=== PATIENT | female | born 1955 | race Caucasian/White ===

== ENCOUNTER → 2017-07-11 08:03 | Outpatient (CLI) | payer MEDICARE, SELFPAY ==
--- NOTE | 2017-07-11 08:30 | XR_ITS ---
XR DEXA axial skeleton HISTORY: ITS.REASON: OSTEOPENIA DETERMINED BY XRAY ORDERING PHYSICIAN: Otto Hua MD PATIENT AGE: 62 years COMPARISON: 02/22/2016 FINDINGS: The BMD measured at the Right femoral neck is 0.764 g/cm squared with a T score of -2.0 . This is considered Osteopenic according to the World Health Organization criteria. Fracture risk is Moderate. Treatment is advised. The L1-L4 density has a T score of -1.0. This is increased by 6% compared to the previous study. The hip density is unchanged compared to the previous exam IMPRESSION: Osteopenia with moderate fracture risk. Recommend follow-up exam June 2019
== END ==
PROVIDERS: Family Provider Internal Medicine Adolescent Medicine; PCP Internal Medicine Adolescent Medicine; Visit Provider Internal Medicine Adolescent Medicine
DX: M85.89 Other specified disorders of bone density and structure, multiple sites (principal); Z13.820 Encounter for screening for osteoporosis
CPT/HCPCS: 77080

== ENCOUNTER → 2018-02-19 10:33 | Outpatient (CLI) | payer MEDICARE, SELFPAY ==
--- NOTE | 2018-02-19 10:35 | MM_ITS ---
MM Dig SC mamm unilat RT CAD Ordering Physician: Otto Hua MD Patient Age: 63 years Female COMPARISON: Bilateral mammogram to 811, February 2015, May 2009, CT chest low dose screening May 23, 2016. INDICATION: Routine screening right mammogram. Left mastectomy No hormones no new complaints Family history:. Sister breast cancer age 53. Maternal grandmother with breast cancer TECHNIQUE: Cc and MLO view right breast with CAD FINDINGS: . Scattered residual fibroglandular elements central breast seen superiorly. Minimal, lower breast density overall mild diffuse fatty replacement. The main portion of right itself shows no dominant mass nor suspicious findings.. The small stable grouping of punctate benign-appearing likely skin calcifications the inferior mammary fold again noted. On today's cc view there subtle minor focal density seen at the posterior margin of the film which was not evident, on previous mammogram studies most likely this may reflects today's right mammogram including deeper portion of right breast than previous. MLO view shows a somewhat similar density back in 2014 with likely similar deep planar tissue 2017 screening LDCT chest as well. May account for such. However in this higher risk patient, with history of contralateral breast cancer and positive family history, to be cautious a suggest patient return for attempted spot CC and 90 degree views of this area IMPRESSION 1. Right mammogram. Minimal new density at very posterior margin of today's cc image (-which does include a deeper portion of the breast than previous studies).. Likely this is merely minimal benign tissue or intramammary node. However with higher risk history with suggest this patient return for small spot CC & MLO view of this area.. A follow-up right mammogram in 4-6 months would be reasonable alternative 2. BI-RADS Category: 0 Need Additional Imaging Evaluation RECOMMENDED FOLLOW-UP: IMM - FOLLOW-UP RECOMMENDED Spot views right breast A letter has been sent to the patient regarding results of the study.) 2 view
== END ==
PROVIDERS: PCP Internal Medicine Adolescent Medicine; Visit Provider Internal Medicine Adolescent Medicine
DX: Z12.31 Encounter for screening mammogram for malignant neoplasm of breast (principal)
CPT/HCPCS: 77067

== ENCOUNTER → 2018-03-21 13:45 | Outpatient (CLI) | payer MEDICARE, SELFPAY ==
--- NOTE | 2018-03-21 13:48 | MM_ITS ---
MM Dig mamm DX unilat RT CAD INDICATION: Follow-up abnormal mammogram ORDERING PHYSICIAN: Otto Hua MD PATIENT AGE: 63 years COMPARISON: 02/19/2018, 03/16/2015, 06/10/2010 TECHNIQUE: Problem-solving views performed of the right breast FINDINGS: The asymmetric density in the deep aspect of the right breast doesn't appear to compress out on focal spot compression view on both the CC and MLO images. There was a small persistent residual density in the mid aspect of the right breast on MLO view which appears to compress out as well. No malignant appearing mass or malignant microcalcification IMPRESSION: No convincing evidence of malignancy. Asymmetric density felt to represent fibroglandular tissue BI-RADS Category: 3 Probably Benign Finding Short Term Follow-up RECOMMENDED FOLLOW-UP: 6M - 6 MONTH FOLLOW-UP (A letter has been sent to the patient regarding results of the study.)
== END ==
PROVIDERS: PCP Internal Medicine Adolescent Medicine; Visit Provider Internal Medicine Adolescent Medicine
DX: R92.8 Other abnormal and inconclusive findings on diagnostic imaging of breast (principal)
CPT/HCPCS: 77065

== ENCOUNTER → 2018-10-21 07:34 | Outpatient (CLI) | payer MEDICARE, SELFPAY ==
--- NOTE | 2018-10-21 07:38 | CT_ITS ---
CT lung screening EXAM: CT LUNG LOW DOSE WO CONTRAST HISTORY: 35 pack-year smoking history asymptomatic for lung cancer. ITS.REASON: CURRENT TOBACCO USE ORDERING PHYSICIAN: Otto Hua MD PATIENT AGE: 63 years COMPARISON: None TECHNIQUE: The exam was performed on a [employer] Light Speed [address] scanner using 2.90 mGy CTDI. A low dose helical CT CHEST was performed on a multi-detector scanner. All CT scans at the facility use one or more dose reduction, viz: automated exposure control, ma/kV adjustment per patient size (including targeted exams where dose is matched to indication, i.e. head), or iterative reconstruction technique. The LDCT was performed in a facility that meets the criteria for the screening program. Data regarding this exam was submitted to ACR which is an approved registry. The order for this exam indicates that it came as a result of a lung cancer screening counseling shard decision-making visit that included all the elements required of such a visit including smoking cessation. The radiologist interpreting this exam meets the CMS criteria for the LDCT lung cancer screening program. The exam is reported using the Lung-RADS classification scale and reported to the ACR registry. NOTE: This study was performed for the specific purposes of lung cancer screening and is not an alternative to diagnostic chest CT. RADIATION DOSE: CTDI vol(CT dose Index-volume) = 2.90mG DLP (Dose Length Product) = 110.46 mGcm FINDINGS: Centrilobular and paraseptal emphysematous changes are present. There is evidence of old granulomatous disease. A 3 mm noncalcified nodule is present in the superior segment of the right lower lobe series 4 #31. 4 mm noncalcified nodule superior aspect right upper lobe series 4 #18. 5 mm noncalcified nodule right upper lobe series 4 #19. 6 mm noncalcified nodule right upper lobe series 4 #20. Pulmonary fibrotic changes are present in the left upper lobe anteriorly with some honeycombing peripherally. In the left apex there is a 2 cm pleural-based nodule. This does have some peripheral calcification and could represent an area of fibrosis. 7 mm noncalcified nodule left upper lobe series 4 #34 Prior left mastectomy 4 x 2.7 cm left adrenal mass is low density measuring -30 Hounsfield units consistent with adenoma. No acute bony anomalies. IMPRESSION: 1. Lung RADS Category: 4, suspicious regarding the multiple noncalcified pulmonary nodules in this patient with history of breast cancer and the dominant nodule in the left apex. The left apical nodule however could be due to fibrotic change as there is some peripheral calcification. 2. Other findings: Centrilobular emphysema with pulmonary fibrotic change, left adrenal mass RECOMMENDATIONS: Suggest either a PET/CT or a [address] without and with contrast. Also if old films are available at another institution, would recommend submitting those for comparison
== END ==
PROVIDERS: PCP Internal Medicine Adolescent Medicine; Visit Provider Internal Medicine Adolescent Medicine
DX: Z12.2 Encounter for screening for malignant neoplasm of respiratory organs (principal); Z87.891 Personal history of nicotine dependence

== ENCOUNTER → 2018-11-12 09:26 | Outpatient (CLI) | payer MEDICARE, SELFPAY ==
[2018-11-12 09:43] LABS: Blood Urea Nitrogen 18 mg/dL (7-18); Creatinine,Serum 0.86 mg/dL (0.55-1.02); Estimated Glomerular Filt Rate 67 ml/min (>60); GFR (African American) 81 ML/MIN (>60)
--- NOTE | 2018-11-12 09:54 | CT_ITS ---
CT chest w con HISTORY: ITS.REASON: PULMONARY NODULES ORDERING PHYSICIAN: Otto Hua MD PATIENT AGE: 63 years COMPARISON: 10/21/2018. TECHNIQUE: Axial images obtained following the administration of 75 mL of Optiray 350 . Sagittal, and coronal reformatted images are also generated and reviewed. All CT scans at the facility use one or more dose reduction, viz: automated exposure control, ma/kV adjustment per patient size (including targeted exams where dose is matched to indication, i.e. head), or iterative reconstruction technique. FINDINGS: Airway structures are patent without pleural effusion or pneumothorax. Mediastinal areas are stable and unremarkable with a few small benign-appearing lymph nodes. Heart size and thoracic aorta are stable. There is no pericardial effusion. Again seen are the changes from prior left mastectomy. There are some stable appearing right axillary lymph nodes. The 2.0 cm partially calcified left apical opacity is unchanged. The previously described in detail noncalcified punctate lung nodules bilaterally more numerous in the right upper lobe are unchanged considering some difference in technique. Also stable are the peripheral areas of honeycomb changes along with interstitial prominence. Remainder of the lung mondragon are clear. There is stable enlargement of the left adrenal gland described on the prior report. Visualized portions of the liver and the remainder of the upper abdomen area appears unremarkable. Impression: PET/CT could evaluate the left apical density and the left adrenal gland lesion however the other nodules are too small to evaluate with PET/CT scan. However as noted on the prior report a follow-up CT of the chest at 3 months from 10/21/2018 which still be the recommendation rather than follow-up in only 22 days. No other change or acute process.
== END ==
PROVIDERS: Visit Provider Internal Medicine Adolescent Medicine
DX: R91.8 Other nonspecific abnormal finding of lung field (principal)
CPT/HCPCS: 36415; 71260; 82565; 84520; Q9967

== ENCOUNTER → 2019-10-27 09:42 | Outpatient (CLI) | payer MEDICARE, SELFPAY ==
--- NOTE | 2019-10-27 09:57 | XR_ITS ---
PROCEDURE: XR DEXA AXIAL SKELETON CLINICAL HISTORY: OSTEOPENIA COMPARISON: No exams were available for comparison FINDINGS: The right hip BMD is 0.709 with a t-score of -1.3. The left hip BMD is 0.677 with a t-score of -1.6. The lumbar spine BMD is 0.869 with a t-score of -1.6. IMPRESSION: This patient is considered osteopenic according to the World Health Organization criteria. Bone density is between 10 and 25 percent below young normal . Fracture risk is moderate. Treatment is advised. Based on these results of follow-up exam is recommended in 2 years Dictated by: Luis Eduardo Edwards MD 10/27/2019 22:42 Electronically signed by Luis Eduardo Edwards MD in [place] 10/28/2019 10:45
== END ==
PROVIDERS: PCP Internal Medicine Adolescent Medicine; Visit Provider Internal Medicine Adolescent Medicine
DX: M85.89 Other specified disorders of bone density and structure, multiple sites (principal)
CPT/HCPCS: 77080

== ENCOUNTER → 2019-12-13 08:05 | Outpatient (CLI) | payer MEDICARE, SELFPAY ==
[2019-12-13 09:31] LABS: Coronavirus 19 IgG Antibody Negative (Negative); Coronavirus 19 IgM Antibody Negative (Negative)
== END ==
PROVIDERS: Visit Provider Internal Medicine Gastroenterology
DX: Z01.818 Encounter for other preprocedural examination (principal); Z12.11 Encounter for screening for malignant neoplasm of colon
CPT/HCPCS: 36415; 86328

== ENCOUNTER 2019-12-15 09:31 | Day surgery (SDC) | payer MEDICARE, SELFPAY ==
[2019-12-09 14:26] VITALS: BMI 39.2
[2019-12-15] VITALS (7 sets, daily range): BP systolic 125–164; BP diastolic 56–91; PULSE 71–83; RESP 18; TEMP 36.3; O2SAT 94–99
[2019-12-15 10:15] LABS: POC Glucose,Bedside 98 (70-110)
--- NOTE | 2019-12-15 10:56 | HMH.ANESCL ---
[facility] Anesthesia Checklist - Patient Identification Patient Identification: Arm Band - Structural Data Admitted From: Home Planned Operative Procedure/s: colonoscopy Verified Documents: Surgical Consent, History and Physical - NPO Status Verified Time NPO: 00:00 - Additional verifications Anesthesia Reactions: No - Airway Assessment C-Spine Mobility Assessed: Yes (mp2) TMJ Mobility Assessed: Yes Dentition: Good Dentition - Neurological Assessment Level of Consciousness: Awake, Alert - Anesthesia Plan Anesthesia Risk discussed: Yes Anesthesia Plan: Verified ASA Class: III Anesthesia Type: MAC [facility] History I have reviewed the patient's past medical history: Yes Medical History: Reports:: Anxiety, Cancer, Chronic Obstructive Pulmonary Disease (COPD), Depression, Diabetes Mellitus Type 2, Hyperlipidemia, Hypertension Denies:: MRSA, Seizures *Have you ever received a pneumonia vaccine?: Yes *Have you received a flu vaccine this season?: Yes Anesthesia experience/problems:: nac Laterality Cases: Left: Mastectomy, Bilateral: Tonsillectomy Other Surgeries: Yes: Appendectomy, Cholecystectomy, Colonoscopy, Hysterectomy-Total Amputation: No Fractures: Yes (Left arm ) - *Social History Last grade of school completed: High school graduate Smoking Status: Current every day smoker Tobacco Type: cigarettes # Packs/Day (cigarettes): 1 Alcohol Intake: never Alcohol Intake Frequency:: other Substance Use Type: denies use *Occupational Status:: disabled *Travel in the last 8 weeks: None - Psychiatric History Pschychiatric History:: Reports:: Anxiety, Depression Family Hx:: Diabetes (Mom, Aunt), Cancer (father, brother, sister), Hypertension (father), Heart Attack (father )
--- NOTE | 2019-12-15 11:19 | P.PCN_ITS ---
[facility] Procedure Note Procedure Note:: Colonoscopy Procedure Report: Colonoscopy with cold snare polypectomy Endoscopist: Maxim Driscoll II, MD Referring physician: Otto Hua M.D. Date of Procedure: December 15, 2019 Equipment: Olympus 180 variable stiffness pediatric colonoscope Sedation: MAC sedation Indication: Mrs. Amaro is a 64-year-old female who is here for follow-up surveillance/screening colonoscopy secondary to a personal history of colon polyps (adenomatous polyps). Her last colonoscopy was in 2014. She reports no abdominal pain, weight loss, change in her bowel habits or rectal bleeding. She reports no family history of colon cancer. Procedure: Prior to the procedure, a history and physical exam was performed, and patient's medications and allergies were reviewed. The risks, benefits and alternatives of the sedation and procedure were discussed with the patient. All questions were answered and informed consent was obtained. The patient was brought to the procedure room. Patient identification and proposed procedure were verified by the physician and the nurse. The patient was placed in a left lateral decubitus position and the scope was passed under direct vision. Throughout the procedure, the patient's blood pressure, pulse, and oxygen saturations were monitored continuously. The colonoscopy was accomplished without difficulty. The patient tolerated the procedure well. Findings: On digital rectal examination there was normal rectal tone. There were no external hemorrhoids. The colonoscope was introduced through the anal canal to the rectum and advanced to the cecum. The ileocecal valve and appendiceal orifice were identified. The scope was advanced a short distance into the ileum which appeared grossly normal. The scope was then withdrawn into the colon. The cecum was normal. There were 2 polyps (ascending x1 (6 mm) and sigmoid colon (5 mm)) which were both removed via cold snare polypectomy. There were scattered diverticuli throughout the descending and sigmoid colon (LEFT colon). The rectum itself was normal. Upon retroflexion within the rectum there were grade 1-2 int ernal hemorrhoids. The preparation was excellent throughout with Mary Esther Preparation Score of 9. The cecal time was 12 minutes. Impression: 1. Colonic polyps x2 2. Left-sided diverticulosis 3. Grade 1-2 internal hemorrhoids Plan: I will follow up the polyp pathology and recommend repeat colonoscopy again in 5-7 years based upon the polyp histology. I would encourage fiber supplementation on a long-term daily maintenance basis.
== END 2019-12-15 12:16 | disposition home or self-care (01) ==
LOC: OUTP 09:34
PROVIDERS: PCP Internal Medicine Adolescent Medicine; Visit Provider Internal Medicine Gastroenterology
PROC: 0DJD8ZZ Inspection of Lower Intestinal Tract, Via Natural or Artificial Opening Endoscopic (ICD-10-PCS; CPT 45378; principal; 2019-12-15 11:00)
DX: Z12.11 Encounter for screening for malignant neoplasm of colon (principal); Z86.010 Personal history of colon polyps; K57.30 Diverticulosis of large intestine without perforation or abscess without bleeding; K63.5 Polyp of colon; K64.0 First degree hemorrhoids; E11.9 Type 2 diabetes mellitus without complications; F41.9 Anxiety disorder, unspecified; J44.9 Chronic obstructive pulmonary disease, unspecified; Z87.898 Personal history of other specified conditions; E78.5 Hyperlipidemia, unspecified; I10 Essential (primary) hypertension; Z79.899 Other long term (current) drug therapy
CPT/HCPCS: 45385; 82962; 88305

== ENCOUNTER → 2020-04-28 14:55 | Outpatient (CLI) | payer MEDICARE, SELFPAY ==
--- NOTE | 2020-04-28 14:59 | CT_ITS ---
PROCEDURE: CT LUNG SCREENING CLINICAL INDICATION: H/O NICOTINE DEPENDENCE current smoker 50 pack year smoking history copd hx breast ca prior 10/21/18 COMPARISON: CT CHESTW CT chest w con from 11/12/2018 TECHNIQUE: The exam was performed on a [employer] Light Speed [address] scanner using 2.90 mGy CTDI. A low dose helical CT CHEST was performed on a multi-detector scanner. All CT scans at the facility use one or more dose reduction, viz: automated exposure control, ma/kV adjustment per patient size (including targeted exams where dose is matched to indication, i.e. head), or iterative reconstruction technique. The LDCT was performed in a facility that meets the criteria for the screening program. Data regarding this exam was submitted to ACR which is an approved registry. The order for this exam indicates that it came as a result of a lung cancer screening counseling shard decision-making visit that included all the elements required of such a visit including smoking cessation. The radiologist interpreting this exam meets the CMS criteria for the LDCT lung cancer screening program. The exam is reported using the Lung-RADS classification scale and reported to the ACR registry. NOTE: This study was performed for the specific purposes of lung cancer screening and is not an alternative to diagnostic chest CT. RADIATION DOSE: CTDI vol(CT dose Index-volume) = 2.90mG DLP (Dose Length Product) = 100.81 mGcm FINDINGS: Changes of COPD with centrilobular emphysema and scattered areas of scarring. Asymmetric opacity is present in the left apex with some calcification. This is similar compared to the previous exam and may be due to apical scarring. This measures 2 cm transverse. There is a 4 mm noncalcified nodule in the major fissure inferiorly on the right. Paraseptal emphysematous changes are present as well. There is evidence of old granulomatous disease. OTHER FINDINGS: There is right axillary adenopathy with nodes measuring up to 1.8 x 1.2 cm. There has been a prior left mastectomy. There is a 4.6 x 2.8 cm left adrenal mass with an internal density of -30 Hounsfield units consistent with an adrenal adenoma the the lesion is not significantly changed in size but the internal density has decreased compared to the previous study. There are few small mediastinal lymph nodes which are not significantly changed. IMPRESSION: Lung-RADS Category 2 Benign Appearance or Behavior Follow-up: Continue annual screening with LDCT in 12 months Right axillary adenopathy is noted. Please correlate with clinical parameters as to the clinical significance. Dictated by: Luis Eduardo dEwards MD 05/03/2020 07:13 Luis Eduardo Edwards MD in [place] 05/03/2020 07:13
--- NOTE | 2020-04-28 15:00 | MM_ITS ---
PROCEDURE: MM DIG SC MAMM UNILAT RT CAD Digital Breast Tomosynthesis Included CLINICAL INDICATION: SCREENING Previous left mastectomy for malignancy. There is a history of breast cancer in the patient's maternal grandmother and the patient's sister COMPARISON: Right mammogram 03/21/2018, 02/19/2018 and 03/16/2015 TECHNIQUE: Standard CC and MLO images and 3D Tomosynthesis was obtained. R2 CAD reviewed. FINDINGS: Scattered fibroglandular densities are seen throughout the breast. There is a stable tiny benign-appearing nodular density deep within central portion. There are few scattered benign-appearing microcalcifications seen. There is no suspicious lesion and no suspicious microcalcifications. IMPRESSION: Fibrofatty parenchyma with no suspicious lesions seen BI-RAD Category: 2 Benign Finding(s) FOLLOW-UP: 1YR 1 Year Follow-up (A letter has been sent to the patient regarding results of the study.) Dictated by: Dr. Washington Bradshaw MD 05/02/2020 10:06 Dr. Washington Bradshaw MD in [place] 05/02/2020 10:06
== END ==
PROVIDERS: PCP Internal Medicine Adolescent Medicine; Visit Provider Internal Medicine Adolescent Medicine
DX: Z12.31 Encounter for screening mammogram for malignant neoplasm of breast (principal); Z85.3 Personal history of malignant neoplasm of breast; Z87.891 Personal history of nicotine dependence; Z12.2 Encounter for screening for malignant neoplasm of respiratory organs
CPT/HCPCS: 71271; 77063; 77067

== ENCOUNTER → 2020-10-20 10:52 | Outpatient (CLI) | payer SELFPAY ==
[2020-10-20 12:03] LABS: Basophils # 0.1 K/mm3 (0-0.2); Basophils % 0.7 % (0.1-2.0); Eosinophils # 0.2 K/mm3 (0.0-0.4); Eosinophils % 1.8 % (0.1-12.0); Hematocrit 44.7 % (37.0-47.0); Hemoglobin 14.9 g/dL (12.2-16.2); Lymphocytes # 4.3 K/mm3 (0.7-4.5); Lymphocytes % 37.1 % (10-50); Mean Corpuscular HGB Conc 33.3 g/dL (31.8-35.4); Mean Corpuscular Hemoglobin 29.7 pg (27.0-31.2); Mean Corpuscular Volume 89.4 fl (81-99); Mean Platelet Volume 8.8 fl (7.4-10.4); Monocytes # 0.7 K/mm3 (0.1-1.0); Monocytes % 6.2 % (1.7-9.3); Neutrophils # 6.3 K/mm3 (1.8-7.8); Neutrophils % 54.1 % (37.0-80.0); Platelet Count 276 K/mm3 (142-424); White Blood Count 11.6 K/mm3 (4.8-10.8)
[2020-10-20 12:23] LABS: Hemoglobin A1C 5.5 % (4.0-6.0)
[2020-10-20 12:40] LABS: Chloride 104 mmol/L (98-107)
[2020-10-20 12:41] LABS: Potassium 3.5 mmoL/L (3.5-5.1); Sodium 142 mmol/L (136-145)
[2020-10-20 12:43] LABS: Alanine Aminotransferase 22 U/L (12-78); Anion Gap 14.5 mEq/L (5-15); Aspartate Amino Transferase 26 U/L (14-36); Blood Urea Nitrogen 15 mg/dl (7-17); Carbon Dioxide 27 mmol/L (22.0-30.0); Estimated Glomerular Filt Rate 84 ml/min (>60); GFR (African American) 102 ML/MIN (>60)
[2020-10-20 12:44] LABS: Albumin Level 4.6 g/dl (3.5-5.0); Albumin/Globulin Ratio 1.6 (1.1-1.8); Alkaline Phosphatase 78 U/L (38-126); Bilirubin,Total 0.7 mg/dl (0.2-1.3); Calcium 9.7 mg/dl (8.4-10.2); Chol/HDL Ratio 2.5 (1-3.5); Cholesterol 167 mg/dl (140-200); Globulin 2.9 g/dL (1.3-3.2); Glucose 82 mg/dl (74-100); HDL Cholesterol 66 mg/dl (40-60); Total Protein,Serum 7.5 g/dl (6.3-8.2); Triglycerides 157 mg/dl (30-150); VLDL Cholesterol 31 mg/dL (0-40)
[2020-10-20 12:55] LABS: Direct LDL Cholesterol 76.65 mg/dL (100-129)
== END ==
PROVIDERS: Visit Provider Internal Medicine Adolescent Medicine
DX: E11.9 Type 2 diabetes mellitus without complications (principal); E78.5 Hyperlipidemia, unspecified; J43.1 Panlobular emphysema; Z79.84 Long term (current) use of oral hypoglycemic drugs
CPT/HCPCS: 36415; 80053; 80061; 83036; 85025

== ENCOUNTER → 2021-04-27 11:24 | Outpatient (CLI) | payer MEDICARE, SELFPAY ==
[2021-04-27 12:29] LABS: Anion Gap 10.5 mEq/L (5-15); Blood Urea Nitrogen 25 mg/dl (7-17); Calcium 9.4 mg/dl (8.4-10.2); Carbon Dioxide 29 mmol/L (22.0-30.0); Chloride 101 mmol/L (98-107); Estimated Glomerular Filt Rate 56 ml/min (>60); GFR (African American) 67 ML/MIN (>60); Glucose 93 mg/dl (74-100); Potassium 3.5 mmoL/L (3.5-5.1); Sodium 137 mmol/L (136-145)
[2021-04-27 12:30] LABS: Hemoglobin A1C 5.6 % (4.0-6.0)
== END ==
PROVIDERS: Visit Provider Internal Medicine Adolescent Medicine
DX: I10 Essential (primary) hypertension (principal); E11.9 Type 2 diabetes mellitus without complications; Z79.84 Long term (current) use of oral hypoglycemic drugs
CPT/HCPCS: 36415; 80048; 83036

== ENCOUNTER → 2021-09-02 09:05 | Outpatient (CLI) | payer MEDICARE, SELFPAY ==
--- NOTE | 2021-09-02 09:09 | XR_ITS ---
FINAL REPORT TECHNIQUE: Bone mineral density was calculated of the lumbar spine and hip. CLINICAL HISTORY: . post menopausal screening COMPARISON: October 27, 2019 FINDINGS: DEXA BONE DENSITY AXIAL SKELETON Using L1-4, the bone mineral density of the spine is 0.957 g/cm2, corresponding to T-score of -0.8. Was 0.869 g/cm2 with a T-score of-1.6. Using the left hip, the bone mineral density of the femoral neck is 0.656 g/cm2, corresponding to a T-score of -1.7. Was 0.677 g/cm2 with a T-score of -1.6 NOTE: T-score: Standard deviation compared with peak bone mass of young adult mean. *Following the recommendations of the International Society of Bone densitometry, classification of hip BMD is based on the lower of two T-scores; total hip or femoral neck. IMPRESSION: Diminished bone mineral density of the lumbar spine and left hip consistent with osteopenia. FRAX 10 year fracture risk is 14 % for major osteoporotic fracture. Reviewed, Interpreted and Dictated by Lake Lopez III, MD Transcribed by Meagan Blanco Authenticated by Lake Lopez III, MD on 09/02/2021 02:21:54 PM [facility]
--- NOTE | 2021-09-02 09:10 | MM_ITS ---
PROCEDURE INFORMATION: Exam: MG Right Screening 3D Mammography Exam date and time: 09/02/2021 9:21 AM Age: 66 years old Clinical indication: Screening examination . Personal history left breast cancer treated with mastectomy.Positive family history of breast cancer: Sister TECHNIQUE: Imaging protocol: Right Screening tomosynthesis and 2D mammography including computer-aided detection (CAD) when performed. COMPARISON: 1. MG MM DIG SC MAMM UNILAT RT CAD 04/28/2020 3:04 PM 2. MG DXRT MM Dig mamm DX unilat RT CAD 03/21/2018 2:02 PM FINDINGS: MAMMOGRAPHY: Breast composition: There are scattered areas of fibroglandular density. Mass: None. Architectural distortion: None. Calcifications: No suspicious calcifications. Asymmetric density: None. Skin thickening: None. Axillary adenopathy: None. Other findings: The patient is status post left mastectomy IMPRESSION: No mammographic evidence of malignancy. Annual screening is recommended unless otherwise clinically indicated. ASSESSMENT: BI-RADS Category 1: Negative
== END ==
PROVIDERS: PCP Internal Medicine Adolescent Medicine; Visit Provider Internal Medicine Adolescent Medicine
DX: Z87.891 Personal history of nicotine dependence (principal); Z12.2 Encounter for screening for malignant neoplasm of respiratory organs; M85.89 Other specified disorders of bone density and structure, multiple sites; Z12.31 Encounter for screening mammogram for malignant neoplasm of breast
CPT/HCPCS: 77063; 77067; 77080

== ENCOUNTER → 2021-09-08 12:58 | Outpatient (CLI) | payer MEDICARE, SELFPAY ==
--- NOTE | 2021-09-08 13:01 | CT_ITS ---
FINAL REPORT CLINICAL HISTORY: . CURRENT SMOKER [id number] YEARS COMPARISON: 04/28/2020, 11/12/2018, 10/21/2018 FINDINGS: CTDI vol (mGy): 2.[address] images of the chest were obtained using the low-dose protocol for screening. There is a borderline precarinal lymph no which is stable measuring 1.6 cm. No axillary mass or adenopathy is identified. On the lung window images, 22 mm nodular opacity at the left lung apex containing calcifications is stable from 2019. There are also stable nodules measuring, 2 mm in the left lower lobe seen on image number 35 and 4 mm on the right on image number 53. No new mass or nodule is identified. There is a low-attenuation left adrenal mass consistent with adenoma also unchanged from prior exam. IMPRESSION: Stable pulmonary nodules as above. No new mass or nodule. Lung RADS category 1 . Recommend 12 month followup low-dose CT for further evaluation. Reviewed, Interpreted and Dictated by Lake Lopez III, MD Transcribed by Cynthia Cabrera Authenticated by Lake Lopez III, MD on 09/08/2021 02:42:49 PM [facility]
== END ==
PROVIDERS: PCP Internal Medicine Adolescent Medicine; Visit Provider Internal Medicine Adolescent Medicine
DX: Z87.891 Personal history of nicotine dependence (principal); Z12.2 Encounter for screening for malignant neoplasm of respiratory organs
CPT/HCPCS: 71271

== ENCOUNTER → 2022-09-04 13:07 | Outpatient (CLI) | payer MEDICARE, SELFPAY ==
--- NOTE | 2022-09-04 13:20 | CT_ITS ---
FINAL REPORT CLINICAL HISTORY: PERSONAL HX OF SMOKING, SCREENING smoker, 1 ppd x 50 years. copd, personal hx of left breast cancer. no family hx lung cancer COMPARISON: 09/08/2021 FINDINGS: CTDI vol (mGy): 2.90 DLP: 98.[address] images of the chest were obtained using the low-dose protocol for screening. Borderline sized precarinal lymph node is stable. Postoperative changes are seen in the left anterior chest wall. No axillary mass or adenopathy is identified. On the lung window images, soft tissue opacity at the left lung apex measuring 21 mm is stable from prior exam, favor scar. There are several calcified granulomas. No new mass or nodule is identified. Scarring is seen in the anterior left lung as well as mild emphysematous changes. Limited imaging of the upper abdomen demonstrates bilateral low-attenuation adrenal nodules, unchanged from prior exam consistent with adenomas. IMPRESSION: No new mass or nodule. Lung RADS category 1 . Recommend 12 month followup low-dose CT for further evaluation. Reviewed, Interpreted and Dictated by Lake Lopez III, MD Transcribed by Cynthia Cabrera Authenticated and [facility]
== END ==
PROVIDERS: PCP Internal Medicine Adolescent Medicine; Visit Provider Internal Medicine Adolescent Medicine
DX: Z87.891 Personal history of nicotine dependence (principal); Z12.2 Encounter for screening for malignant neoplasm of respiratory organs
CPT/HCPCS: 71271

== ENCOUNTER → 2023-01-15 14:00 | Outpatient (CLI) | payer MEDICARE, SELFPAY ==
--- NOTE | 2023-01-15 14:07 | CT_ITS ---
FINAL REPORT TECHNIQUE: Thin section axial images were obtained from skull base to vertex without contrast. Coronal reconstruction images were obtained from the axial data. Exam was performed using dose reduction technique. CLINICAL HISTORY: PERIORBITAL CELLULITIS IN RT EYE COMPARISON: None FINDINGS: There is age-appropriate atrophy. There is no mass effect or midline shift. There is no intracranial hemorrhage. There is no hydrocephalus. Periventricular low density is likely related to changes of chronic small vessel ischemia. The basilar cisterns are preserved. The posterior fossa is without acute abnormality. There is mild right infraorbital soft tissue swelling present. No acute osseous abnormality is identified. IMPRESSION: No acute intracranial abnormality. Mild right infraorbital soft tissue swelling is present. Atrophy and changes suggesting chronic small vessel ischemia. Reviewed, Interpreted and Dictated by Rebeca Maloney MD Transcribed by Jaclyn So Authenticated and . [facility]
== END ==
PROVIDERS: PCP Internal Medicine Adolescent Medicine; Visit Provider Internal Medicine Adolescent Medicine
DX: L03.213 Periorbital cellulitis (principal)
CPT/HCPCS: 70450

== ENCOUNTER 2023-09-19 09:01 | Outpatient (CLI) | payer MEDICARE, SELFPAY ==
--- NOTE | 2023-09-19 09:05 | CA_ITS ---
FINAL REPORT TECHNIQUE: Multiple transverse and longitudinal images were performed of the right femoral-popliteal deep venous system with augmentation and compression maneuvers. CLINICAL HISTORY: PAIN RT KNEE/RLE,, edema, NKI COMPARISON: None FINDINGS: Right lower extremity duplex ultrasound demonstrates normal flow in the deep venous system. There is no abnormal echogenicity to suggest thrombus. There is normal compression and augmentation. IMPRESSION: No evidence of right DVT. Reviewed, Interpreted and Dictated by Reji Billings MD Transcribed by Mildred Ca Authenticated and [facility]
--- NOTE | 2023-09-19 09:24 | XR_ITS ---
FINAL REPORT CLINICAL HISTORY: PAIN, JOINT, RT KNEE COMPARISON: None FINDINGS: 3 views of the right knee were obtained. There is no acute fracture or dislocation. The joint spaces are intact. There is no soft tissue abnormality. IMPRESSION: No acute bony abnormality. Reviewed, Interpreted and Dictated by Reji Billings MD Transcribed by Mildred Ca Authenticated and [facility]
== END 2023-09-19 23:59 | disposition home or self-care (01) ==
PROVIDERS: PCP Internal Medicine Adolescent Medicine; Visit Provider Internal Medicine Adolescent Medicine
DX: R60.0 Localized edema (principal); M25.561 Pain in right knee
CPT/HCPCS: 73562; 93971

== ENCOUNTER 2023-10-24 12:43 | Outpatient (CLI) | payer MEDICARE, SELFPAY ==
--- NOTE | 2023-10-24 12:52 | CT_ITS ---
FINAL REPORT TECHNIQUE: Thin section axial images were obtained from the lung apices to the upper abdomen by computed tomography. Reformatted images were obtained and reviewed. This study was performed with techniques to keep radiation doses al low as reasonably achievable (ALARA). Individualized dose reduction techniques using automated exposure control or adjustment of mA and/or kV according to the patient's size were employed. CLINICAL HISTORY: H/O NICOTINE DEPENDENCE 55 YEAR SMOKER, 1 PPD, HX COPD HX OF BREAST CANCER, DAUGHTER HX LUNG CANCER COMPARISON: 09/04/2022 FINDINGS: CHEST CT LOW DOSE 69-year-old female, 31-pguh-lbqu history of smoking, current smoker. CTDI vol (mGy): 2.9 DLP (mGy-cm): 96.38 There is no axillary adenopathy. Several borderline in size mediastinal nodes are seen, stable since the prior exam. Postoperative changes of a left mastectomy are once again noted. The heart is normal in size. There is no pericardial or pleural effusion. There is mild emphysema and mild pulmonary scarring, with scarring most prominent in the left upper lobe anteriorly. Lung window images demonstrate a 21 mm left apical partially calcified mass, noted on prior LDCT's, and stable. There is a 4 mm nodule in the anterior right lung base, also stable. Calcified granulomas are present in the left upper lobe and right lower lobe. There is a new pleural-based left upper lobe nodule, measuring 11 mm in diameter.. Limited images of the upper abdomen are remarkable for bilateral adrenal enlargement, greater on the left than on the right, stable since the prior exam. IMPRESSION: Lung-RADS category 4B. Recommend PET CT for further evaluation of the pleural-based left upper lobe nodule measuring 11 mm. Reviewed, Interpreted and Dictated by Lake Lopez III, MD Transcribed by Jaclyn So Authenticated and [facility]
--- NOTE | 2023-10-24 12:53 | MM_ITS ---
PROCEDURE INFORMATION: Exam: MG Right Screening 3D Mammography Exam date and time: 10/24/2023 12:52 PM Age: 68 years old Clinical indication: Screening examination. History of left mastectomy TECHNIQUE: Imaging protocol: Right Screening tomosynthesis and 2D mammography including computer-aided detection (CAD) when performed. COMPARISON: 1. MG MM DIG SC MAMM UNILAT RT CAD 09/02/2021 9:21 AM 2. MG MM DIG SC MAMM UNILAT RT CAD 04/28/2020 3:04 PM FINDINGS: MAMMOGRAPHY: Breast composition: There are scattered areas of fibroglandular density. Mass: None. Architectural distortion: None. Calcifications: No suspicious calcifications. Asymmetric density: None. Skin thickening: None. Axillary adenopathy: None. Other findings: The patient is status post left mastectomy IMPRESSION: No mammographic evidence of malignancy. Annual screening is recommended unless otherwise clinically indicated. ASSESSMENT: BI-RADS Category 1: Negative
== END 2023-10-24 23:59 | disposition home or self-care (01) ==
LOC: RAD 12:43
PROVIDERS: PCP Internal Medicine Adolescent Medicine; Visit Provider Internal Medicine Adolescent Medicine
DX: Z87.891 Personal history of nicotine dependence (principal); Z12.31 Encounter for screening mammogram for malignant neoplasm of breast
CPT/HCPCS: 71271; 77063; 77067

== ENCOUNTER 2023-12-04 12:00 | Outpatient (CLI) | payer MEDICARE, SELFPAY ==
--- NOTE | 2023-12-04 12:11 | CT_ITS ---
FINAL REPORT TECHNIQUE: The patient was injected with IV contrast. Axial images were obtained of the chest by computed tomography. Precontrast images were also obtained. This study was performed with techniques to keep radiation doses as low as reasonably achievable (ALARA). Individualized dose reduction techniques using automated exposure control or adjustment of mA and/or kV according to the patient's size were employed. CLINICAL HISTORY: pulmonary nodule COMPARISON: 10/24/2023, 09/04/2022, 09/08/2021, 05/23/2016 FINDINGS: CT OF THE CHEST WITH AND WITHOUT CONTRAST: There is no axillary adenopathy. There are multiple borderline mediastinal nodes again noted. Heart size is normal. There is no pericardial or pleural effusion identified. There is moderate emphysema and mild scarring. Again noted is a pleural-based lateral left upper lobe nodule measuring 12 mm and previously measured 11 mm. It is uncertain if this represents true interval growth. The nodule shows some contrast enhancement. There is a calcified granuloma in the right lower lobe. There is postoperative change of the left anterior chest wall. Limited images of the upper abdomen demonstrate bilateral adrenal masses which likely represent adenomas and are stable compared to multiple prior CT scans. IMPRESSION: Stable to slightly increased in size lateral left upper lobe nodule. Recommend PET-CT or CT-guided biopsy. Reviewed, Interpreted and Dictated by Lake Lopez III, MD Transcribed by Mildred Ca Authenticated and [facility]
[2023-12-04 12:20] LABS: Blood Urea Nitrogen 31 mg/dl (7-17); Estimated Glomerular Filt Rate 45 ml/min (>60); GFR (African American) 54 ML/MIN (>60)
[2023-12-04] MEDS: SODIUM CHLORIDE 0.9% 10ML SYR (RAD ONLY) 10 ML IV (13:57)
[2023-12-04] MEDS: IOPAMIDOL-370 (76%);100ML BOTTLE 75 ML IV (13:57)
== END 2023-12-04 23:59 | disposition home or self-care (01) ==
LOC: RAD 12:01
PROVIDERS: PCP Internal Medicine Adolescent Medicine; Visit Provider Internal Medicine Adolescent Medicine
DX: R91.1 Solitary pulmonary nodule (principal)
CPT/HCPCS: 36415; 71270; 82565; 84520; Q9967

== ENCOUNTER 2023-12-21 09:47 | Outpatient (CLI) | payer MEDICARE, SELFPAY ==
[2023-12-21 10:17] LABS: Basophils # 0.1 K/mm3 (0-0.2); Eosinophils # 0.2 K/mm3 (0.0-0.4); Hemoglobin 13.8 g/dL (12.2-16.2); Lymphocytes # 2.8 K/mm3 (0.7-4.5); Lymphocytes % 29.1 % (10-50); Mean Corpuscular HGB Conc 31.5 g/dL (31.8-35.4); Mean Corpuscular Hemoglobin 29.1 pg (27.0-31.2); Mean Corpuscular Volume 92.5 fl (81-99); Mean Platelet Volume 8.7 fl (7.4-10.4); Monocytes # 0.7 K/mm3 (0.1-1.0); Monocytes % 6.8 % (1.7-9.3); Neutrophils # 5.9 K/mm3 (1.8-7.8); Neutrophils % 61.1 % (37.0-80.0); Platelet Count 250 K/mm3 (142-424); Red Blood Count 4.76 M/mm3 (4.20-5.40); Red Cell Distribution Width 13.7 % (11.5-17.5); White Blood Count 9.6 K/mm3 (4.8-10.8)
[2023-12-21 10:23] LABS: INR 0.87 (0.9-1.1); Prothrombin Time 9.9 seconds (10.1-12.5)
[2023-12-21 12:25] LABS: Blood Urea Nitrogen 32 mg/dl (7-17); Estimated Glomerular Filt Rate 62 ml/min (>60); GFR (African American) 76 ML/MIN (>60)
== END 2023-12-21 23:59 | disposition home or self-care (01) ==
LOC: LAB 09:48
PROVIDERS: PCP Internal Medicine Adolescent Medicine; Visit Provider Internal Medicine Pulmonary Disease
DX: J45.909 Unspecified asthma, uncomplicated (principal); R91.1 Solitary pulmonary nodule; Z91.89 Other specified personal risk factors, not elsewhere classified
CPT/HCPCS: 36415; 82565; 84520; 85025; 85610

== ENCOUNTER 2023-12-26 07:41 | Outpatient (CLI) | payer MEDICARE, SELFPAY ==
[2023-12-26] VITALS (19 sets, daily range): BP systolic 125–158; BP diastolic 58–93; PULSE 80–94; RESP 16–18; O2SAT 90–97; BMI 41.4
--- NOTE | 2023-12-26 07:42 | CT_ITS ---
FINAL REPORT CLINICAL HISTORY: .ROSA ELENA NODULE BIOPSY FINDINGS: CT-GUIDED LEFT LUNG NODULE BIOPSY HISTORY: Left lung nodule. ATTENDING PHYSICIAN: Dr. Lopez PHYSICIAN ASSITANT: Tatiana Vickers PA-C CONSCIOUS SEDATION: 2 mg of IV Versed and 50 mcg of fentanyl were administered. Continuous vital sign monitoring was used. Sedation was administered by anesthesia services. Overall sedation time was 40 minutes. TECHNIQUE: Informed consent was obtained from the patient. Risks of the procedure were discussed with the patient prior to beginning. This included, but was not limited to, the risk of pneumothorax requiring chest tube placement. Timeout procedure was performed prior to beginning. The left lateral chest was prepped in a routine sterile fashion and locally anesthetized with 1% lidocaine. Using CT guidance a 20 gauge guide needle was directed toward the lesion of interest. The needle was positioned within the outer periphery of the lesion. Coaxial technique was utilized. A total of 5 passes were made with a 22 gauge FNA biopsy needle . A portion of 2 of the samples were sent for cultures. Limited postbiopsy CT showed a small amount of perilesional hemorrhage and a tiny left pneumothorax . Procedure was well tolerated . CONCLUSION: 1. Technically successful CT guided biopsy of left lung nodule as above. Reviewed, Interpreted and Dictated by Lake Lopez III, MD Transcribed by Tatiana Vickers PA-C Authenticated and [facility]
--- NOTE | 2023-12-26 08:05 | PC.NURSE ---
Per Roman in Radiology ok to use CBC and coag results from 12/20
--- NOTE | 2023-12-26 09:25 | XR_ITS ---
FINAL REPORT CLINICAL HISTORY: POST CT BIOPSY COMPARISON: None FINDINGS: A single portable view of the chest was obtained. The heart size and pulmonary vascularity are within normal limits. The mediastinum is within normal limits. There is a left upper lobe nodule. The bony thorax is intact. No pneumothorax is identified. IMPRESSION: No pneumothorax post-biopsy. Reviewed, Interpreted and Dictated by Lake Lopez III, MD Transcribed by Fabiola Collier Authenticated and [facility]
--- NOTE | 2023-12-26 11:50 | XR_ITS ---
FINAL REPORT CLINICAL HISTORY: 2 HOUR POST BIOPSY COMPARISON: December 26, 2023 FINDINGS: A single portable view of the chest was obtained. The heart size and pulmonary vascularity are within normal limits. A left upper lobe nodule is again seen. There is a small left apical pneumothorax with approximately 6 mm of pleural separation. The bony thorax is intact. IMPRESSION: Small left apical pneumothorax. Authenticated and [facility]
--- NOTE | 2023-12-26 12:46 | PC.NURSE ---
ARIANA Vickers notified of patient complaint of sudden low back pain. patient states this is new pain that she has not felt before. No orders received will continue to monitor.
[2023-12-26 13:23] LABS: POC Glucose,Bedside 103 (70-110)
--- NOTE | 2023-12-26 13:50 | XR_ITS ---
FINAL REPORT CLINICAL HISTORY: FOLLOWING SMALL PNEUMO AFTER CT BIOPSY COMPARISON: 2 hours prior FINDINGS: A single portable view of the chest was obtained. The heart size and pulmonary vascularity are within normal limits. The mediastinum is within normal limits. There is a very small left apical pneumothorax which is improved since the prior study. There is now 3 mm of pleural separation, previously measured 6 mm. The previously noted left upper lobe nodule is not as well-seen on this study. The bony thorax is intact. IMPRESSION: Improving left pneumothorax. Reviewed, Interpreted and Dictated by Lake Lopez III, MD Transcribed by Fabiola Collier Authenticated and [facility]
--- NOTE | 2023-12-26 14:14 | PC.NURSE ---
ARIANA Vickers called to notified that patient is ready for discharge, pneumothorax stable and patient education about worsening s/s to return to ER.
== END 2023-12-26 14:15 | disposition home or self-care (01) ==
PROVIDERS: PCP Internal Medicine Adolescent Medicine; Visit Provider Internal Medicine Pulmonary Disease
DX: R91.1 Solitary pulmonary nodule (principal)
CPT/HCPCS: 71045; 77012; 82962; 87070; 87102; 87116; 87186; 87205; 87206; J2250; J3010

== ENCOUNTER 2023-12-28 12:00 | Outpatient (RCR) | payer MEDICARE, SELFPAY ==
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
--- NOTE | 2023-11-26 16:57 | HMH.RHREAS ---
Rehab Reassessment Rehab OP Re-assessment Start: 10/24/23 10:51 Freq: Status: Active Protocol: Document 11/26/23 16:53 [email or web address] (Rec: 11/26/23 16:57 PHOPABLITO [id number]) E-signed By Inderjit Adkins, PT Rehab Re-assessment Subjective Subjective Pt reports no c/o pain in R LE this date, 0/10. She states, I feel a whole lot better overall, but I have a little bit of swelling left. Objective Objective Notes Circumferential Measurements: R LE total is 199.4 cm, which is -22.6 cm since IE. Pain: 0/10. TTP: 0/4 R LE. Assessment Progress Assessment Progressing as Expected Assessment Notes Pt has shown significant progress with overall reduction of edema based on reduced circumferential measurements. She continues to need skilled therapy to return to PLOF. Patient goals met ST/4 LT/6 Plan Plan Continue per initial POC. Frequency of Therapy 2 x/wk Duration of therapy 3-4 wks Time and Billing Re-Eval Time 12 Re-Eval Billing Units 0 PHYSICIAN CERTIFICATION: I certify the specified therapy services for Tammy Amaro are required, authorized, and reviewed every 30 days.
--- NOTE | 2023-12-28 13:05 | HMH.RHREAS ---
Rehab Reassessment Rehab OP Re-assessment Start: 10/24/23 10:51 Freq: Status: Active Protocol: Document 12/28/23 13:02 GAUTAM (Rec: 12/28/23 13:05 ALEXYSPABLITO [id number]) E-signed By Inderjit Adkins, PT Rehab Re-assessment Subjective Subjective Pt reports not having as much difficulty or pain in her lower leg when standing. I get tired if I have to work too many days in a row, but not really having more pain. Pt reports she had a lung biopsy performed Sunday and is waiting for results. Objective Objective Notes Circumferential Measurements: R LE total is 201.7 cm, which is -20.8 cm since IE. Pain: 0/10. TTP: 0/4 R LE. Assessment Progress Assessment Progressing as Expected Assessment Notes Pt has shown significant progress with overall reduction of edema based on reduced circumferential measurements. She continues to need skilled therapy to return to PLOF. She continues to need improved endurance to activity in standing, however she also c/o about increased pain in her hips due to OA. Patient goals met ST/4 LT/6 Plan Plan Continue per initial POC. Frequency of Therapy 2 x/wk Duration of therapy 3-4 wks Time and Billing Re-Eval Time 10 Re-Eval Billing Units 0 PHYSICIAN CERTIFICATION: I certify the specified therapy services for Tammy Amaro are required, authorized, and reviewed every 30 days.
== END 2023-12-28 12:05 | disposition home or self-care (01) ==
LOC: PT 12:00
PROVIDERS: Visit Provider Internal Medicine Adolescent Medicine
DX: I89.0 Lymphedema, not elsewhere classified (principal)
CPT/HCPCS: 97140; 97163; 97164

== ENCOUNTER 2024-01-03 12:18 | Outpatient (CLI) | payer MEDICARE, SELFPAY ==
[2024-01-03 12:40] LABS: Basophils # 0.1 K/mm3 (0-0.2); Basophils % 0.8 % (0.1-2.0); Eosinophils # 0.2 K/mm3 (0.0-0.4); Eosinophils % 1.6 % (0.1-12.0); Hematocrit 45.3 % (37.0-47.0); Hemoglobin 13.9 g/dL (12.2-16.2); Lymphocytes # 2.9 K/mm3 (0.7-4.5); Lymphocytes % 30.7 % (10-50); Mean Corpuscular HGB Conc 30.7 g/dL (31.8-35.4); Mean Corpuscular Hemoglobin 28.4 pg (27.0-31.2); Mean Corpuscular Volume 92.5 fl (81-99); Monocytes # 0.7 K/mm3 (0.1-1.0); Neutrophils # 5.7 K/mm3 (1.8-7.8); Platelet Count 359 K/mm3 (142-424); Red Cell Distribution Width 13.3 % (11.5-17.5); White Blood Count 9.5 K/mm3 (4.8-10.8)
[2024-01-03 13:40] LABS: Alanine Aminotransferase 24 U/L (12-78); Albumin/Globulin Ratio 1.3 (1.1-1.8); Alkaline Phosphatase 73 U/L (38-126); Anion Gap 8.6 mEq/L (5-15); Aspartate Amino Transferase 24 U/L (14-36); Bilirubin,Total 0.4 mg/dl (0.2-1.3); Blood Urea Nitrogen 29 mg/dl (7-17); Carbon Dioxide 29 mmol/L (22.0-30.0); Chloride 107 mmol/L (98-107); Estimated Glomerular Filt Rate 62 ml/min (>60); GFR (African American) 76 ML/MIN (>60); Globulin 3.1 g/dL (1.3-3.2); Glucose 103 mg/dl (74-100); Potassium 3.6 mmoL/L (3.5-5.1); Sodium 141 mmol/L (136-145); Total Protein,Serum 7.1 g/dl (6.3-8.2)
== END 2024-01-03 23:59 | disposition home or self-care (01) ==
LOC: LAB 12:21
PROVIDERS: PCP Internal Medicine Adolescent Medicine; Visit Provider Internal Medicine Medical Oncology
DX: C34.90 Malignant neoplasm of unspecified part of unspecified bronchus or lung (principal)
CPT/HCPCS: 36415; 80053; 85025

== ENCOUNTER 2024-01-04 15:11 | Outpatient (CLI) | payer MEDICARE, SELFPAY ==
--- NOTE | 2024-01-04 | MR_ITS ---
FINAL REPORT TECHNIQUE: Multiplanar and multisequence imaging of the brain was obtained before and after contrast administration. CLINICAL HISTORY: LUNG CANCER COMPARISON: None FINDINGS: The gyri and sulci are within normal limits for age. There is no mass effect or midline shift. Signal intensity is normal. No hydrocephalus. The cerebellum and brainstem have an unremarkable appearance. There are no areas of restricted diffusion on diffusion weighted images to suggest acute infarct. Soft tissues are without acute abnormality. No pathologic contrast enhancement is identified. IMPRESSION: No acute intracranial abnormality and no pathologic contrast enhancement. Reviewed, Interpreted and Dictated by Rebeca Maloney MD Transcribed by Jaclyn So Authenticated and [facility]
[2024-01-04] MEDS: SODIUM CHLORIDE 0.9% 10ML SYR (RAD ONLY) 10 ML IV (16:53)
[2024-01-04] MEDS: GADOTERIDOL INJ 10ML SYRINGE 2 ML IV (16:53)
[2024-01-04] MEDS: GADOTERIDOL INJ 20ML SYRINGE 20 ML IV (16:54)
== END 2024-01-04 23:59 | disposition home or self-care (01) ==
LOC: RAD 15:11
PROVIDERS: PCP Internal Medicine Adolescent Medicine; Visit Provider Internal Medicine Medical Oncology
DX: C34.12 Malignant neoplasm of upper lobe, left bronchus or lung (principal)
CPT/HCPCS: 70553; A9576

== ENCOUNTER 2024-01-22 13:56 | Outpatient (CLI) | payer MEDICARE, SELFPAY ==
[2024-01-22 14:37] LABS: Basophils # 0.1 K/mm3 (0-0.2); Basophils % 0.7 % (0.1-2.0); Eosinophils # 0.1 K/mm3 (0.0-0.4); Eosinophils % 1.4 % (0.1-12.0); Hematocrit 40.9 % (37.0-47.0); Hemoglobin 12.9 g/dL (12.2-16.2); Lymphocytes # 2.5 K/mm3 (0.7-4.5); Lymphocytes % 25.8 % (10-50); Mean Corpuscular HGB Conc 31.7 g/dL (31.8-35.4); Mean Corpuscular Hemoglobin 29.3 pg (27.0-31.2); Mean Corpuscular Volume 92.6 fl (81-99); Mean Platelet Volume 8.5 fl (7.4-10.4); Monocytes # 0.7 K/mm3 (0.1-1.0); Neutrophils # 6.2 K/mm3 (1.8-7.8); Platelet Count 214 K/mm3 (142-424); Red Blood Count 4.41 M/mm3 (4.20-5.40); Red Cell Distribution Width 13.9 % (11.5-17.5); White Blood Count 9.6 K/mm3 (4.8-10.8)
[2024-01-22 14:43] LABS: Albumin Level 4.2 g/dl (3.5-5.0); Chloride 107 mmol/L (98-107); Potassium 3.4 mmoL/L (3.5-5.1); Sodium 142 mmol/L (136-145)
[2024-01-22 14:46] LABS: Alanine Aminotransferase 21 U/L (12-78); Albumin/Globulin Ratio 1.3 (1.1-1.8); Alkaline Phosphatase 84 U/L (38-126); Anion Gap 12.4 mEq/L (5-15); Aspartate Amino Transferase 24 U/L (14-36); Bilirubin,Total 0.4 mg/dl (0.2-1.3); Blood Urea Nitrogen 21 mg/dl (7-17); Calcium 10.1 mg/dl (8.4-10.2); Carbon Dioxide 26 mmol/L (22.0-30.0); Estimated Glomerular Filt Rate 50 ml/min (>60); GFR (African American) 60 ML/MIN (>60); Globulin 3.3 g/dL (1.3-3.2); Glucose 95 mg/dl (74-100); Total Protein,Serum 7.5 g/dl (6.3-8.2)
[2024-01-22 15:03] LABS: T4 (Thyroxine) 11.5 ug/dl (5.53-11.0)
[2024-01-22 15:17] LABS: Thyroid Stimulating Hormone 3.94 uIU/mL (0.465-4.68)
== END 2024-01-22 23:59 | disposition home or self-care (01) ==
LOC: LAB 13:57
PROVIDERS: PCP Internal Medicine Adolescent Medicine; Visit Provider Internal Medicine Medical Oncology
DX: I10 Essential (primary) hypertension (principal); C34.90 Malignant neoplasm of unspecified part of unspecified bronchus or lung
CPT/HCPCS: 36415; 80053; 84436; 84443; 85025

== ENCOUNTER 2024-01-25 09:07 | Outpatient (CLI) | payer MEDICARE, SELFPAY ==
--- NOTE | 2024-01-25 09:42 | ECG_ITS ---
APPROVED REPORT Exam: Resting ECG HR:79 bpm ECG Measurements Heart Rate 79 AXES NJ 171 P 30 QRSd 90 QRS 31 QT 347 T 51 QTc 381 Conclusion SINUS RHYTHM POSSIBLE LEFT ATRIAL ENLARGEMENT [-0.1mV P-WAVE IN V1/V2] BORDERLINE ECG UNCONFIRMED REPORT Electronically signed by : Otto Hua MD 01/25/2024 15:24:00
== END 2024-01-25 23:59 | disposition home or self-care (01) ==
LOC: PREOP 09:08
PROVIDERS: PCP Internal Medicine Adolescent Medicine; Visit Provider Surgery
DX: R94.31 Abnormal electrocardiogram [ECG] [EKG] (principal)
CPT/HCPCS: 93005

== ENCOUNTER 2024-01-28 09:38 | Day surgery (SDC) | payer MEDICARE, SELFPAY ==
[2024-01-28] VITALS (10 sets, daily range): BP systolic 130–177; BP diastolic 9–95; PULSE 83–97; RESP 16–18; TEMP 36.1–36.8; O2SAT 93–98; BMI 40.6
[2024-01-28] MEDS: LACTATED RINGERS 1000ML 1,000 ML 25 ML IV (10:14)
[2024-01-28] MEDS: CLINDAMYCIN PHOSPHATE/D5W 900 MG/50 ML PIGGYBACK 100 MG IV (10:35)
[2024-01-28] MEDS: ROPIVACAINE 0.5% 30ML VIAL 150 MG (10:47)
[2024-01-28] MEDS: LIDOCAINE 1% 20ML MDV 20 ML (10:47)
[2024-01-28] MEDS: SODIUM CHLORIDE 0.9% 20ML VIAL 60 ML IV (10:47)
--- NOTE | 2024-01-28 10:52 | EXP.ANES.CKL ---
[facility] Disclaimer: The information contained in this section may have been updated after the patient was seen, as this information can be updated by other users. Medical History Lymphedema COPD (chronic obstructive pulmonary disease) Breast cancer Diabetes Dyspnea on exertion Smoking greater than 30 pack years Lung nodule Tobacco abuse Surgical History History of colonoscopy History of mastectomy History of surgery on arm History of hysterectomy History of appendectomy History of cholecystectomy Family History Other Family history of cancer Social History Smoking Status: Current every day smoker tobacco type: cigarettes packs per day: 1 alcohol intake: former substance use type: denies use current occupational status: employed Travel in the last 8 weeks: None caffeine: No [facility] Anesthesia Checklist Patient Identification Patient Identification: Verbal (Name & ) Structural Data Admitted From: Home Planned Operative Procedure/s: bárbara cath NPO Status Verified Time NPO: 00:00 Additional verifications Anesthesia Reactions: No Hx Blood Transfusions: No Blood Transfusion Reaction: No Airway Assessment Mallampati Score:: Class II C-Spine Mobility Assessed: Yes TMJ Mobility Assessed: Yes Dentition: Poor Dentition Neurological Assessment Level of Consciousness: Awake, Alert and Appropriate Anesthesia Plan Anesthesia Risk discussed: Yes Anesthesia Plan: Verified ASA Class: III Anesthesia Type: General
--- NOTE | 2024-01-28 11:20 | XR_ITS ---
FINAL REPORT CLINICAL HISTORY: PORT PLACEMENT IN OR 3.61MGY 0.3MIN COMPARISON: None FINDINGS: FLUOROSCOPY LESS THAN 1 HOUR HISTORY: FINDINGS: Fluoroscopic guidance was provided for port placement. A single spot film was obtained. 0.3 minutes of fluoroscopy time were used, with a dosage of 3.61 mGy.. IMPRESSION: As above. Reviewed, Interpreted and Dictated by Lake Lopez III, MD Transcribed by Jaclyn So Authenticated and [facility]
--- NOTE | 2024-01-28 11:30 | EXP.OP.NOTE ---
Date of procedure: 01/28/24 Pre-op Diagnosis:: Non-small cell lung cancer Post-op Diagnosis:: Same Procedure performed:: Placement of 8 Azerbaijani open-ended venous access device with implantable reservoir port right subclavian vein (PowerPort) Surgeon:: Lake Machado MD TRIPLE VALVE MECHANIC:: Cole Hair Anesthesia: LMA Estimated blood loss (mL): 5 Clinical Note:: Patient is a 68-year-old female referred by Dr. Adkins for port placement. 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 She has had issues with IV access. Plan is made to initiate chemotherapy. She was sent for surgical consultation. She has had previous left mastectomy with radiation and chemotherapy. . Operative findings:: Seemingly normal vascular anatomy. Operative note:: Patient was taken the operating room. She was given preoperative intravenous antibiotic. In the operating room she was placed in a supine position. General anesthesia was induced via LMA. Bilateral neck and upper chest were prepped and draped in the standard surgical fashion. Patient was positioned in Trendelenburg position. Local anesthetic was infiltrated inferior to the right clavicle. 18-gauge needle was then inserted. There was good return of venous blood. Guidewire was inserted. Fluoroscopy was used to confirm good position of the guidewire. After the needle was removed small incision was made at the guidewire insertion site. Breakaway sheath with dilator was inserted over the guidewire. Dilator and guidewire were removed. 8 Azerbaijani open-ended catheter was then inserted through the breakaway sheath which was then removed. Fluoroscopy was used once again to confirm good position of the catheter with the tip near the atrial caval junction. Skin was marked with skin marker for planned subcutaneous tunneling and for subcutaneous pocket. Incision was made for subcutaneous pocket. Subcutaneous pocket was then created using electrocautery. Catheter was tunneled subcutaneously. Fluoroscopy was used to confirm good position of the catheter and the catheter was advanced several centimeters to ensure good placement. Catheter was cut to the appropriate length. It was secured to the reservoir port. It aspirated and flushed without difficulty. Was flushed with saline. Port was secured into the subcutaneous pocket with 2-0 Prolene and 2-0 PDS suture. There was good hemostasis. Subdermal tissues were closed with running 2-0 Vicryl. Skin incisions were closed with 4-0 Monocryl subcuticular fashion. Dermabond and dressing was applied. The port was then accessed through the dressing with good return of venous blood. There was flushed with heparinized saline. . Condition: stable Disposition: PACU Complications:: None immediately apparent
--- NOTE | 2024-01-28 11:36 | P.PNANES_ITS ---
[facility] Anesthesia Record Part I Anesthesia Record I Intake, IV Amount: 1,200 Hydration: Adequate Estimated blood loss (mL): 0 Urine output (mL): 0 Blood Pressure: 165/84 SaO2: 93 Pulse Rate: 97 Airway Patency: Patent Respiratory Rate: 16 Temperature: 97.5 F Patient is:: Awake and Stable Stable to PACU at:: 11:35
--- NOTE | 2024-01-28 12:02 | XR_ITS ---
FINAL REPORT TECHNIQUE: Single view chest CLINICAL HISTORY: post Port a cath placement FINDINGS: A single view of the chest was obtained. There is a right subclavian chest port in place, new from prior exam. The heart and mediastinum are within normal limits. Left upper lobe nodular opacity is seen which is increased from prior exam. There is no pneumothorax. Osseous structures are unremarkable. IMPRESSION: Right chest port in place. Increasing left upper lobe opacity which could be further evaluated with CT. Reviewed, Interpreted and Dictated by Lake Lopez III, MD Transcribed by Cynthia Cabrera Authenticated and [facility]
--- NOTE | 2024-01-28 14:29 | EXP.ANES.II ---
[facility] Anesthesia Record Part II Anesthesia Record Part II Discharge Time: 12:05 Destination: Surgical Day Care (OP Surgery) PACU nurse assessment reviewed?: Yes Patient Condition:: Good Anesthesia Complications:: None Swallowing reflex intact?: Yes Airway Patency: Patent Cyanosis?: No Blood Pressure: 177/9 SaO2: 96 Respiratory Rate: 18 Pulse Rate: 93 Temperature: 97.4 F Mental Status: Alert & Oriented Pain level:: 0 Nausea and/or vomitting:: None Intake, IV Amount: 0 Hydration: Adequate
== END 2024-01-28 12:50 | disposition home or self-care (01) ==
PROVIDERS: PCP Internal Medicine Adolescent Medicine; Visit Provider Surgery
PROC: (CPT 36561; principal; 2024-01-28 11:15)
DX: C34.12 Malignant neoplasm of upper lobe, left bronchus or lung (principal); Z72.0 Tobacco use; E11.8 Type 2 diabetes mellitus with unspecified complications
CPT/HCPCS: 36561; 77001; 71045; 76000; 96374; C1788; J1100; J1642; J1885; J2250; J2405; J3010; J7120

== ENCOUNTER 2024-01-30 09:14 | Outpatient (CLI) | payer MEDICARE, SELFPAY ==
[2024-01-30] VITALS (8 sets, daily range): BP systolic 144–167; BP diastolic 74–82; PULSE 80–96; RESP 16–17; TEMP 35.7; O2SAT 94; BMI 40.6
[2024-01-30 10:05] LABS: Basophils # 0.1 K/mm3 (0-0.2); Basophils % 0.9 % (0.1-2.0); Eosinophils # 0.1 K/mm3 (0.0-0.4); Eosinophils % 0.9 % (0.1-12.0); Hematocrit 41.6 % (37.0-47.0); Hemoglobin 13.5 g/dL (12.2-16.2); Lymphocytes # 3.8 K/mm3 (0.7-4.5); Lymphocytes % 26.6 % (10-50); Mean Corpuscular HGB Conc 32.3 g/dL (31.8-35.4); Mean Corpuscular Volume 89.7 fl (81-99); Mean Platelet Volume 8.5 fl (7.4-10.4); Monocytes # 0.8 K/mm3 (0.1-1.0); Neutrophils # 9.2 K/mm3 (1.8-7.8); Neutrophils % 65.6 % (37.0-80.0); Platelet Count 257 K/mm3 (142-424); Red Blood Count 4.64 M/mm3 (4.20-5.40); Red Cell Distribution Width 13.8 % (11.5-17.5); White Blood Count 14.1 K/mm3 (4.8-10.8)
[2024-01-30 10:11] LABS: Chloride 103 mmol/L (98-107)
[2024-01-30 10:12] LABS: Albumin Level 4.1 g/dl (3.5-5.0); Potassium 3.1 mmoL/L (3.5-5.1); Sodium 138 mmol/L (136-145)
[2024-01-30 10:15] LABS: Alanine Aminotransferase 23 U/L (12-78); Albumin/Globulin Ratio 1.4 (1.1-1.8); Alkaline Phosphatase 68 U/L (38-126); Anion Gap 8.1 mEq/L (5-15); Aspartate Amino Transferase 26 U/L (14-36); Bilirubin,Total 0.4 mg/dl (0.2-1.3); Blood Urea Nitrogen 27 mg/dl (7-17); Calcium 9.6 mg/dl (8.4-10.2); Carbon Dioxide 30 mmol/L (22.0-30.0); Creatinine Clearance Estimated 96 mL/min (50-200); Estimated Glomerular Filt Rate 55 ml/min (>60); GFR (African American) 67 ML/MIN (>60); Glucose 88 mg/dl (74-100); Total Protein,Serum 7.1 g/dl (6.3-8.2)
[2024-01-30] MEDS: PROCHLORPERAZINE 10MG TABLET 10 MG PO (10:40)
[2024-01-30] MEDS: ONDANSETRON 4MG ODT 16 MG SL (10:40)
[2024-01-30 10:45] LABS: Thyroid Stimulating Hormone 5.96 uIU/mL (0.465-4.68)
[2024-01-30] MEDS: 0.9 % SODIUM CHLORIDE 100 ML 200 ML IV (10:54)
[2024-01-30] MEDS: VITAMIN B-12 1,000 MCG 1ML VIAL 1000 MCG IM (11:03)
[2024-01-30] MEDS: CARBOPLATIN IV (11:12)
[2024-01-30] MEDS: SODIUM CHLORIDE 0.9% IV ×2 (11:12→11:52)
[2024-01-30] MEDS: PEMETREXED DISODIUM IV (11:52)
[2024-01-30] MEDS: PEMBROLIZUMAB 200 MG in 0.9 % SODIUM CHLORIDE 50 ML 116 MG IV (12:14)
[2024-01-31 13:12] LABS: Adrenocorticotropic Hormone 9.5 pg/mL (7.2-63.3)
--- NOTE | 2024-02-05 16:21 | DIET.NUTRFU ---
spoke to patient secondary chemo consult. She had no dietary concerns. Denied any GI distress or weight changes. Did complain about being tired. Provided contact information if anything changes
== END 2024-01-30 13:20 | disposition home or self-care (01) ==
PROVIDERS: PCP Internal Medicine Adolescent Medicine; Visit Provider Internal Medicine Medical Oncology
DX: C34.90 Malignant neoplasm of unspecified part of unspecified bronchus or lung (principal); Z79.899 Other long term (current) drug therapy
CPT/HCPCS: 80053; 82024; 82533; 84443; 85025; 96411; 96413; 96417; J1642; J3420; J9045; J9271; J9305; Q0162; Q0164

== ENCOUNTER 2024-02-20 09:35 | Outpatient (CLI) | payer MEDICARE, SELFPAY ==
[2024-02-20] VITALS (8 sets, daily range): BP systolic 129–145; BP diastolic 57–82; PULSE 78–92; RESP 18; O2SAT 97–98; BMI 40.6
[2024-02-20 10:06] LABS: Basophils # 0.1 K/mm3 (0-0.2); Basophils % 0.5 % (0.1-2.0); Eosinophils # 0.1 K/mm3 (0.0-0.4); Eosinophils % 0.6 % (0.1-12.0); Hematocrit 38.7 % (37.0-47.0); Hemoglobin 12.7 g/dL (12.2-16.2); Lymphocytes % 15.7 % (10-50); Mean Corpuscular HGB Conc 32.8 g/dL (31.8-35.4); Mean Corpuscular Hemoglobin 28.7 pg (27.0-31.2); Mean Corpuscular Volume 87.4 fl (81-99); Mean Platelet Volume 7.5 fl (7.4-10.4); Monocytes # 0.4 K/mm3 (0.1-1.0); Monocytes % 3.3 % (1.7-9.3); Neutrophils # 10.3 K/mm3 (1.8-7.8); Platelet Count 420 K/mm3 (142-424); Red Blood Count 4.42 M/mm3 (4.20-5.40); Red Cell Distribution Width 14.8 % (11.5-17.5); White Blood Count 12.9 K/mm3 (4.8-10.8)
[2024-02-20 10:09] LABS: Albumin Level 3.9 g/dl (3.5-5.0); Chloride 105 mmol/L (98-107); Potassium 3.3 mmoL/L (3.5-5.1); Sodium 138 mmol/L (136-145)
[2024-02-20 10:12] LABS: Alanine Aminotransferase 27 U/L (12-78); Albumin/Globulin Ratio 1.2 (1.1-1.8); Alkaline Phosphatase 77 U/L (38-126); Anion Gap 12.3 mEq/L (5-15); Aspartate Amino Transferase 22 U/L (14-36); Bilirubin,Total 0.3 mg/dl (0.2-1.3); Blood Urea Nitrogen 23 mg/dl (7-17); Calcium 9.4 mg/dl (8.4-10.2); Carbon Dioxide 24 mmol/L (22.0-30.0); Creatinine Clearance Estimated 94 mL/min (50-200); Estimated Glomerular Filt Rate 62 ml/min (>60); GFR (African American) 75 ML/MIN (>60); Globulin 3.2 g/dL (1.3-3.2); Glucose 129 mg/dl (74-100); Total Protein,Serum 7.1 g/dl (6.3-8.2)
[2024-02-20] MEDS: ONDANSETRON 4MG ODT 16 MG SL (10:55)
[2024-02-20] MEDS: PROCHLORPERAZINE 10MG TABLET 10 MG PO (10:55)
[2024-02-20] MEDS: SODIUM CHLORIDE 0.9% 100ML BAG 100 ML IV (10:59)
[2024-02-20] MEDS: PEMBROLIZUMAB 200 MG in 0.9 % SODIUM CHLORIDE 50 ML 100 MG IV (11:25)
[2024-02-20] MEDS: CARBOPLATIN IV (12:09)
[2024-02-20] MEDS: SODIUM CHLORIDE 0.9% IV ×2 (12:09→12:55)
[2024-02-20] MEDS: PEMETREXED DISODIUM IV (12:55)
[2024-02-20] MEDS: SODIUM CHLORIDE 0.9% 10ML FLUSH SYRINGE 10 ML IV (13:10)
== END 2024-02-20 13:33 | disposition home or self-care (01) ==
LOC: INF 09:36
PROVIDERS: PCP Internal Medicine Adolescent Medicine; Visit Provider Internal Medicine Medical Oncology
DX: C34.90 Malignant neoplasm of unspecified part of unspecified bronchus or lung (principal)
CPT/HCPCS: 80053; 85025; 96411; 96413; 96417; J1642; J9045; J9271; J9305; Q0162; Q0164

== ENCOUNTER 2024-03-05 12:32 | Outpatient (CLI) | payer MEDICARE, SELFPAY ==
[2024-03-05 13:45] VITALS: PULSE 86; PULSE 90
[2024-03-05] MEDS: ALBUTEROL 0.083% 2.5 MG/3 ML NEB IH (13:45)
== END 2024-03-05 23:59 | disposition home or self-care (01) ==
LOC: RT 12:33
PROVIDERS: PCP Internal Medicine Adolescent Medicine; Visit Provider Internal Medicine Pulmonary Disease
DX: R06.09 Other forms of dyspnea (principal)
CPT/HCPCS: 94060; 94618; 94640; 94726; 94729; J7613

== ENCOUNTER 2024-03-12 09:08 | Outpatient (CLI) | payer MEDICARE, SELFPAY ==
[2024-03-12 09:10] VITALS: BMI 40.7
[2024-03-12 09:50] LABS: Alanine Aminotransferase 24 U/L (12-78); Albumin Level 3.8 g/dl (3.5-5.0); Albumin/Globulin Ratio 1.4 (1.1-1.8); Alkaline Phosphatase 72 U/L (38-126); Anion Gap 12.2 mEq/L (5-15); Aspartate Amino Transferase 25 U/L (14-36); Bilirubin,Total 0.4 mg/dl (0.2-1.3); Blood Urea Nitrogen 28 mg/dl (7-17); Calcium 8.9 mg/dl (8.4-10.2); Carbon Dioxide 25 mmol/L (22.0-30.0); Chloride 105 mmol/L (98-107); Creatinine Clearance Estimated 86 mL/min (50-200); Estimated Glomerular Filt Rate 49 ml/min (>60); GFR (African American) 60 ML/MIN (>60); Globulin 2.7 g/dL (1.3-3.2); Glucose 193 mg/dl (74-100); Potassium 3.2 mmoL/L (3.5-5.1); Sodium 139 mmol/L (136-145); Total Protein,Serum 6.5 g/dl (6.3-8.2)
[2024-03-12 09:52] LABS: Basophils # 0.1 K/mm3 (0-0.2); Basophils % 0.4 % (0.1-2.0); Eosinophils % 0.1 % (0.1-12.0); Hematocrit 35.8 % (37.0-47.0); Hemoglobin 11.5 g/dL (12.2-16.2); Lymphocytes % 10.2 % (10-50); Mean Corpuscular HGB Conc 32.1 g/dL (31.8-35.4); Mean Corpuscular Hemoglobin 28.7 pg (27.0-31.2); Mean Corpuscular Volume 89.2 fl (81-99); Mean Platelet Volume 8.3 fl (7.4-10.4); Monocytes # 0.8 K/mm3 (0.1-1.0); Monocytes % 4.1 % (1.7-9.3); Neutrophils # 17.1 K/mm3 (1.8-7.8); Neutrophils % 85.3 % (37.0-80.0); Platelet Count 546 K/mm3 (142-424); Red Blood Count 4.02 M/mm3 (4.20-5.40); Red Cell Distribution Width 16.4 % (11.5-17.5); White Blood Count 20.1 K/mm3 (4.8-10.8)
[2024-03-12 09:53] LABS: MANUAL DIFFERENTIAL MANUAL DIFFERENTIAL (MANUAL DIFF)
[2024-03-12] MEDS: VITAMIN B-12 1,000 MCG 1ML VIAL 1000 MCG IM (10:21)
[2024-03-12 10:22] VITALS: BP 119/65; PULSE 83; RESP 18; TEMP 36.8; O2SAT 96
[2024-03-12 10:22] LABS: Thyroid Stimulating Hormone 0.88 uIU/mL (0.465-4.68)
[2024-03-12] MEDS: ONDANSETRON 4MG ODT 16 MG SL (10:22)
[2024-03-12] MEDS: PROCHLORPERAZINE 10MG TABLET 10 MG PO (10:22)
[2024-03-12] MEDS: 0.9 % SODIUM CHLORIDE 100 ML IV (10:22)
[2024-03-12] MEDS: SODIUM CHLORIDE 0.9% 10ML FLUSH SYRINGE 10 ML IV (10:35)
[2024-03-12 10:55] VITALS: BP 119/55; PULSE 82; RESP 18; O2SAT 97
[2024-03-12] MEDS: PEMBROLIZUMAB 200 MG in 0.9 % SODIUM CHLORIDE 50 ML 116 MG IV (10:55)
[2024-03-12 10:59] LABS: Lymphocytes % 19 % (10-50); Monocytes % 1 % (2-9); Neutrophils % 80 % (42-76); RBC Morphology Normal; Total Cells Counted 100
[2024-03-12 11:00] LABS: Platelet Estimate Moderate Increase
[2024-03-12 11:25] VITALS: BP 117/59; PULSE 84; RESP 18; O2SAT 96
[2024-03-12] MEDS: SODIUM CHLORIDE 0.9% IV ×2 (11:34→12:11)
[2024-03-12] MEDS: CARBOPLATIN IV (11:34)
[2024-03-12 11:39] VITALS: BP 121/55; PULSE 92; RESP 18; O2SAT 96
[2024-03-12 12:11] VITALS: BP 117/65; PULSE 91; RESP 18; O2SAT 97
[2024-03-12] MEDS: PEMETREXED DISODIUM IV (12:11)
[2024-03-12 12:34] VITALS: BP 114/58; PULSE 93; RESP 18; O2SAT 96
[2024-03-13 13:20] LABS: Adrenocorticotropic Hormone 3.6 pg/mL (7.2-63.3)
== END 2024-03-12 12:40 | disposition home or self-care (01) ==
LOC: INF 09:09
PROVIDERS: PCP Internal Medicine Adolescent Medicine; Visit Provider Internal Medicine Medical Oncology
DX: C34.90 Malignant neoplasm of unspecified part of unspecified bronchus or lung (principal); Z79.899 Other long term (current) drug therapy; Z51.11 Encounter for antineoplastic chemotherapy
CPT/HCPCS: 80053; 82024; 82533; 84443; 85007; 85025; 96411; 96413; 96417; J1642; J3420; J9045; J9271; J9305; Q0162; Q0164

== ENCOUNTER 2024-04-02 09:10 | Outpatient (CLI) | payer MEDICARE, SELFPAY ==
[2024-04-02 09:15] VITALS: BMI 40.6
[2024-04-02 09:32] LABS: Basophils # 0.1 K/mm3 (0-0.2); Basophils % 0.6 % (0.1-2.0); Eosinophils % 0.2 % (0.1-12.0); Hematocrit 34.3 % (37.0-47.0); Hemoglobin 11.1 g/dL (12.2-16.2); Lymphocytes # 1.9 K/mm3 (0.7-4.5); Lymphocytes % 16.5 % (10-50); Mean Corpuscular HGB Conc 32.3 g/dL (31.8-35.4); Mean Corpuscular Hemoglobin 29.1 pg (27.0-31.2); Mean Corpuscular Volume 90.1 fl (81-99); Mean Platelet Volume 8.7 fl (7.4-10.4); Monocytes # 0.5 K/mm3 (0.1-1.0); Monocytes % 4.6 % (1.7-9.3); Neutrophils # 9.1 K/mm3 (1.8-7.8); Neutrophils % 78.1 % (37.0-80.0); Platelet Count 361 K/mm3 (142-424); Red Blood Count 3.81 M/mm3 (4.20-5.40); Red Cell Distribution Width 16.9 % (11.5-17.5); White Blood Count 11.6 K/mm3 (4.8-10.8)
[2024-04-02 09:37] LABS: Albumin Level 3.8 g/dl (3.5-5.0); Chloride 110 mmol/L (98-107); Potassium 3.7 mmoL/L (3.5-5.1); Sodium 137 mmol/L (136-145)
[2024-04-02 09:39] LABS: Blood Urea Nitrogen 24 mg/dl (7-17); Creatinine Clearance Estimated 78 mL/min (50-200); Estimated Glomerular Filt Rate 45 ml/min (>60); GFR (African American) 54 ML/MIN (>60)
[2024-04-02 09:40] LABS: Alanine Aminotransferase 39 U/L (12-78); Albumin/Globulin Ratio 1.4 (1.1-1.8); Alkaline Phosphatase 83 U/L (38-126); Anion Gap 7.7 mEq/L (5-15); Aspartate Amino Transferase 35 U/L (14-36); Bilirubin,Total 0.3 mg/dl (0.2-1.3); Calcium 9.1 mg/dl (8.4-10.2); Carbon Dioxide 23 mmol/L (22.0-30.0); Globulin 2.7 g/dL (1.3-3.2); Glucose 182 mg/dl (74-100); Total Protein,Serum 6.5 g/dl (6.3-8.2)
[2024-04-02] MEDS: PROCHLORPERAZINE 10MG TABLET 10 MG PO (10:34)
[2024-04-02] MEDS: ONDANSETRON 4MG ODT 16 MG (10:34)
[2024-04-02] MEDS: CARBOPLATIN IV (11:07)
[2024-04-02] MEDS: SODIUM CHLORIDE 0.9% IV ×2 (11:07→12:35)
[2024-04-02] MEDS: SODIUM CHLORIDE 0.9% 100ML BAG 100 ML IV (11:07)
[2024-04-02 11:15] VITALS: BP 122/69; PULSE 87; RESP 19; TEMP 36.7; O2SAT 96
[2024-04-02] MEDS: PEMBROLIZUMAB 200 MG in 0.9 % SODIUM CHLORIDE 50 ML 116 MG IV (11:52)
[2024-04-02 11:55] VITALS: BP 137/67; PULSE 101; RESP 18; O2SAT 96
[2024-04-02] MEDS: PEMETREXED DISODIUM IV (12:35)
[2024-04-02 12:38] VITALS: BP 131/75; PULSE 95; RESP 18; O2SAT 96
[2024-04-02 12:52] VITALS: RESP 18
[2024-04-02] MEDS: SODIUM CHLORIDE 0.9% 10ML FLUSH SYRINGE 10 ML IV (12:58)
[2024-04-02 13:00] VITALS: BP 134/80; PULSE 95; RESP 18; O2SAT 96
== END 2024-04-02 13:00 | disposition home or self-care (01) ==
LOC: INF 09:11
PROVIDERS: PCP Internal Medicine Adolescent Medicine; Visit Provider Internal Medicine Medical Oncology
DX: C34.90 Malignant neoplasm of unspecified part of unspecified bronchus or lung (principal)
CPT/HCPCS: 80053; 85025; 96411; 96413; 96417; J1642; J9045; J9271; J9305; Q0162; Q0164

== ENCOUNTER 2024-04-30 10:00 | Outpatient (CLI) | payer MEDICARE, SELFPAY ==
[2024-04-30 10:14] VITALS: BMI 39.9
[2024-04-30] MEDS: SODIUM CHLORIDE 0.9% 10ML FLUSH SYRINGE 10 ML IV (10:15)
[2024-04-30 10:25] LABS: Basophils # 0.1 K/mm3 (0-0.2); Basophils % 1.1 % (0.1-2.0); Eosinophils # 0.1 K/mm3 (0.0-0.4); Eosinophils % 0.8 % (0.1-12.0); Hematocrit 36.4 % (37.0-47.0); Hemoglobin 11.4 g/dL (12.2-16.2); Lymphocytes # 2.1 K/mm3 (0.7-4.5); Lymphocytes % 20.9 % (10-50); Mean Corpuscular HGB Conc 31.3 g/dL (31.8-35.4); Mean Corpuscular Hemoglobin 29.4 pg (27.0-31.2); Mean Corpuscular Volume 93.8 fl (81-99); Mean Platelet Volume 10.1 fl (7.4-10.4); Monocytes # 1.2 K/mm3 (0.1-1.0); Monocytes % 12.2 % (1.7-9.3); Neutrophils # 6.4 K/mm3 (1.8-7.8); Neutrophils % 63.7 % (37.0-80.0); Platelet Count 371 K/mm3 (142-424); Red Blood Count 3.88 M/mm3 (4.20-5.40); Red Cell Distribution Width 16.2 % (11.5-17.5)
[2024-04-30 10:31] LABS: Albumin Level 4.2 g/dl (3.5-5.0); Chloride 109 mmol/L (98-107); Sodium 139 mmol/L (136-145)
[2024-04-30 10:34] LABS: Alanine Aminotransferase 30 U/L (12-78); Albumin/Globulin Ratio 1.2 (1.1-1.8); Alkaline Phosphatase 88 U/L (38-126); Aspartate Amino Transferase 33 U/L (14-36); Bilirubin,Total 0.4 mg/dl (0.2-1.3); Blood Urea Nitrogen 38 mg/dl (7-17); Calcium 10.5 mg/dl (8.4-10.2); Carbon Dioxide 20 mmol/L (22.0-30.0); Creatinine Clearance Estimated 36 mL/min (50-200); Estimated Glomerular Filt Rate 18 ml/min (>60); GFR (African American) 22 ML/MIN (>60); Globulin 3.5 g/dL (1.3-3.2); Glucose 114 mg/dl (74-100); Total Protein,Serum 7.7 g/dl (6.3-8.2)
[2024-04-30 11:05] LABS: Thyroid Stimulating Hormone 4.48 uIU/mL (0.465-4.68)
[2024-05-01 13:12] LABS: Adrenocorticotropic Hormone 5.9 pg/mL (7.2-63.3)
== END 2024-04-30 10:20 | disposition home or self-care (01) ==
LOC: INF 10:01
PROVIDERS: PCP Internal Medicine Adolescent Medicine; Visit Provider Internal Medicine Medical Oncology
DX: C79.51 Secondary malignant neoplasm of bone (principal)
CPT/HCPCS: 36591; 80053; 82024; 82533; 84443; 85025; J1642

== ENCOUNTER 2024-05-05 13:32 | Emergency (ER) | payer MEDICARE, SELFPAY ==
[2024-05-05] VITALS (29 sets, daily range): BP systolic 97–150; BP diastolic 48–87; PULSE 92–122; RESP 16–28; TEMP 36.3–36.6; O2SAT 94–100; BMI 38.9
--- NOTE | 2024-05-05 13:37 | ED_ITS ---
Discharge Plan Disposition Patient Disposition: Xfer Short-Term Hosp Condition: Critical Prescriptions Prescriptions: No Action Stiolto Respimat 2.5-2.5 mcg/actuation mist 2 puff inhalation DAILY 90 Days Qty: 4 2RF linezolid [Zyvox] 600 mg tablet 600 mg PO BID Qty: 60 0RF bupropion HCl 300 mg tablet extended release 24 hr 300 mg PO DAILY rosuvastatin 5 mg tablet 5 mg PO DAILY omega-3 acid ethyl esters 1 gram capsule 1 g PO DAILY lisinopril-hydrochlorothiazide 10-12.5 mg tablet 1 tab PO DAILY furosemide 20 mg tablet 20 mg PO DAILY alprazolam 0.5 mg tablet 0.5 mg PO TID aripiprazole 10 mg tablet 10 mg PO DAILY potassium chloride 20 mEq tablet,ER particles/crystals 40 meq PO BID metolazone 2.5 mg tablet 2.5 mg PO DAILY omeprazole 20 mg capsule,delayed release(DR/EC) 20 mg PO DAILY Qty: 30 2RF fluconazole [Diflucan] 200 mg tablet 200 mg PO DAILY Qty: 7 0RF albuterol sulfate 90 mcg/actuation HFA aerosol inhaler 2 inh inhalation QID PRN (Reason: shortness of breath or wheezing) 90 Days Qty: 8.5 2RF cholecalciferol (vitamin D3) [Vitamin D3] 25 mcg (1,000 unit) Capsule 25 mcg PO DAILY ezetimibe 10 MG tablet 10 mg PO DAILY Stiolto Respimat 2.5-2.5 mcg/actuation mist 2 puff inhalation DAILY Referrals Follow up/Referrals: Otto Hua MD [Primary Care Provider] - See instructions Activity Restrictions/Add. Instructions Additional Instructions/Restrictions: To the [facility] ICU care of Dr. Lobo Clinical Impressions Clinical Impression: Hyperkalemia, Hypomagnesemia, Sepsis without septic shock, Widespread metastatic malignant neoplastic disease Acute renal failure Qualifiers: Acute renal failure type: unspecified Qualified Code(s): N17.9 - Acute kidney failure, unspecified Stand Alone Forms Stand Alone Forms: Transfer Record - ED Print Language Print Language: Frisian Discharge ED Provider: Patricia Reynolds General Adult HPI <ARIANA Fall - Last Filed: 05/05/24 20:26> General Chief complaint: Weakness Stated complaint: High potassium Time Seen by Provider: 05/05/24 13:36 History of Present Illness HPI narrative: Patient presents for evaluation of abnormal lab results. Patient is a 69-year-old female who has metastatic non-small cell carcinoma who follows with Dr. Chase. Patient went through 4 cycles of carboplatin/pemetrexed/pembrolizumab that was initiated on January 30, 2024. Patient recently underwent PET CT scan on April 25, 2024 that showed some variability and changes of hypermetabolism of her known areas but no new areas of abnormality. She had a follow-up appointment with Dr. Chase on April 30, 2024 at which point teen labs were ordered were ordered. The plan was to go to maintenance therapy with pemetrexed and pembrolizumab every 3 weeks. Patient's daughter who is a nurse checked her patient portal and noted that patient had significant renal impairment and sent her to the ER for evaluation. Patient tells me that she has been having tremors and shakes for several months now since initiating her chemotherapy but they have significantly increased over the weekend. She denies any fever chills hemoptysis hematochezia melena nausea vomiting diarrhea. Related Data Home Medications ?Medication ?Instructions ?Recorded ?Confirmed alprazolam 0.5 mg tablet 0.5 mg PO TID Anxiety 08/13/18 04/30/24 aripiprazole 10 mg tablet 10 mg PO DAILY Anxiety 08/13/18 04/30/24 furosemide 20 mg tablet 20 mg PO DAILY swelling 08/13/18 04/30/24 lisinopril 10 1 tab PO DAILY blood pressure 08/13/18 04/30/24 mg-hydrochlorothiazide 12.5 mg tablet metolazone 2.5 mg tablet 2.5 mg PO DAILY swelling 08/13/18 04/30/24 omega-3 acid ethyl esters 1 gram 1 g PO DAILY Supplement 08/13/18 04/30/24 capsule potassium chloride 20 mEq 40 meq PO BID Supplement 08/13/18 04/30/24 tablet,extended release(part/cryst) ezetimibe 10 mg tablet 10 mg PO DAILY * 12/09/19 04/30/24 cholecalciferol (vitamin D3) 25 25 mcg PO DAILY Supplement 12/26/23 04/30/24 mcg (1,000 unit) capsule (Vitamin D3) tiotropium 2.5 mcg-olodaterol 2.5 2 puff inhalation DAILY Copd 01/25/24 04/30/24 mcg/actuation mist for inhalation (Stiolto Respimat) bupropion HCl 300 mg 24 hr tablet, 300 mg PO DAILY mood 02/20/24 04/30/24 extended release rosuvastatin 5 mg tablet 5 mg PO DAILY Cholesterol 02/20/24 04/30/24 Previous Rx's ?Medication ?Instructions ?Recorded linezolid 600 mg tablet (Zyvox) 600 mg PO BID #60 tabs 02/12/24 omeprazole 20 mg capsule,delayed 20 mg PO DAILY heartburn #30 caps 02/25/24 release tiotropium 2.5 mcg-olodaterol 2.5 2 puff inhalation DAILY 90 days #4 03/05/24 mcg/actuation mist for inhalation grams (Stiolto Respimat) fluconazole 200 mg tablet 200 mg PO DAILY #7 tabs 03/17/24 (Diflucan) albuterol sulfate 90 mcg/actuation 2 inh inhalation QID PRN shortness 04/10/24 aerosol inhaler of breath or wheezing 90 days #8.5 grams Allergies Allergy/AdvReac Type Severity Reaction Status Date / Time atorvastatin (From LIPITOR) Allergy Unknown FATTY LIVER Verified 04/30/24 09:40 codeine (CODEINE) Allergy Unknown I-RASH Verified 04/30/24 09:40 latex (LATEX) Allergy Unknown I-RASH Verified 04/30/24 09:40 Penicillins (PENICILLINS) Allergy Unknown I-RASH Verified 04/30/24 09:40 [facility] <ARIANA Fall - Last Filed: 05/05/24 20:26> [facility] Disclaimer: The information contained in this section may have been updated after the patient was seen, as this information can be updated by other users. Medical History Lymphedema COPD (chronic obstructive pulmonary disease) Breast cancer Diabetes Dyspnea on exertion Smoking greater than 30 pack years Lung nodule Tobacco abuse Surgical History History of colonoscopy History of mastectomy History of surgery on arm History of hysterectomy History of appendectomy History of cholecystectomy Family History Other Family history of cancer Social History Smoking Status: Unknown if ever smoked alcohol intake: former substance use type: denies use current occupational status: employed Travel in the last 8 weeks: Inside the [place] caffeine: No Have you lived/traveled outside US in past 30 days?: No Contact w/someone who lives/traveled outside US past 30 days?: No Exposure to someone with infectious disease in past 14 days?: No Do you have a fever (greater than 100.4 F or 38 C)?: No Have you tested positive for COVID-19: No Exposed to someone with COVID-19 in past 14 days?: No Do you have a sore throat?: No Do you have a cough?: No Do you have any weakness?: No Do you have any diarrhea?: No Are you experiencing any unusual bleeding?: No Do you have any muscle aches/pain?: No Do you have any abdominal pain?: No Are you experiencing loss of taste or smell?: No Other Medical History Have you received the Flu Vaccine for this season: No Have you received the Pneumonia Vaccine: Yes <ARIANA Fall - Last Filed: 05/05/24 20:26> ROS Obtained: Yes Systems reviewed as appropriate & no additional complaints except as documented Physical Exam <ARIANA Fall - Last Filed: 05/05/24 20:26> General General appearance: alert and in no apparent distress Respiratory Respiratory exam: Present normal lung sounds bilaterally Cardiovascular Cardiovascular exam: Present regular rate Extremities Exam Extremities exam: Present full ROM Neurological Exam Neurological exam: Present alert and oriented X3 Medical Decision Making <ARIANA Fall - Last Filed: 05/05/24 20:26> Medical Records Medical records reviewed: Yes I reviewed the patient's medical records. Screening: Per USPSTF and CDC recommendations, given the prevalence of disease in our region, it is our hospital?s policy to screen for HIV and viral Hepatitis for all patients aged 18 and over and those with ongoing risk factors. [place] Inquiry Pt receiving controlled substance: No Vital Signs: 05/05/24 13:33 05/05/24 13:41 05/05/24 13:45 Temperature Temperature Source Pulse Rate 106 H 110 H Pulse Rate [Left Radial] 104 H Respiratory Rate 20 Blood Pressure 135/70 129/78 Blood Pressure [Right Arm] 135/70 Blood Pressure Mean [Right Arm] 91 Blood Pressure Source Blood Pressure Position 02 Sat by Pulse Oximetry 97 96 96 Oxygen Delivery Method Room Air Room Air 05/05/24 14:00 05/05/24 14:15 05/05/24 14:30 Temperature Temperature Source Pulse Rate 103 H 97 H 98 H Pulse Rate [Left Radial] Respiratory Rate 28 H Blood Pressure 144/77 H 132/75 147/63 H Blood Pressure [Right Arm] Blood Pressure Mean [Right Arm] Blood Pressure Source Blood Pressure Position 02 Sat by Pulse Oximetry 96 97 98 Oxygen Delivery Method Room Air Room Air 05/05/24 15:00 05/05/24 15:15 05/05/24 15:30 Temperature 97.4 F L Temperature Source Oral Pulse Rate 101 H 106 H Pulse Rate [Left Radial] Respiratory Rate 25 H 25 H Blood Pressure 130/77 142/67 H Blood Pressure [Right Arm] Blood Pressure Mean [Right Arm] Blood Pressure Source Blood Pressure Position 02 Sat by Pulse Oximetry 99 100 Oxygen Delivery Method Room Air 05/05/24 15:30 05/05/24 15:45 05/05/24 16:00 Temperature Temperature Source Pulse Rate 109 H 107 H 101 H Pulse Rate [Left Radial] Respiratory Rate 23 24 22 Blood Pressure 140/76 140/87 139/70 Blood Pressure [Right Arm] Blood Pressure Mean [Right Arm] Blood Pressure Source Blood Pressure Position 02 Sat by Pulse Oximetry 100 100 100 Oxygen Delivery Method Room Air Room Air Room Air 05/05/24 16:17 05/05/24 16:30 05/05/24 16:45 Temperature Temperature Source Pulse Rate 97 H 92 H 93 H Pulse Rate [Left Radial] Respiratory Rate 27 H 21 21 Blood Pressure 113/60 116/61 125/69 Blood Pressure [Right Arm] Blood Pressure Mean [Right Arm] Blood Pressure Source Blood Pressure Position 02 Sat by Pulse Oximetry 96 95 99 Oxygen Delivery Method Room Air Room Air Room Air 05/05/24 17:00 05/05/24 17:16 05/05/24 17:30 Temperature Temperature Source Pulse Rate 100 H 100 H 99 H Pulse Rate [Left Radial] Respiratory Rate 18 23 20 Blood Pressure 112/60 140/71 147/76 H Blood Pressure [Right Arm] Blood Pressure Mean [Right Arm] Blood Pressure Source Blood Pressure Position 02 Sat by Pulse Oximetry 99 100 100 Oxygen Delivery Method Room Air Room Air Room Air 05/05/24 18:00 05/05/24 18:15 05/05/24 18:30 Temperature Temperature Source Pulse Rate 107 H 108 H 108 H Pulse Rate [Left Radial] Respiratory Rate 24 25 H 24 Blood Pressure 147/63 H 143/68 H 149/70 H Blood Pressure [Right Arm] Blood Pressure Mean [Right Arm] Blood Pressure Source Blood Pressure Position 02 Sat by Pulse Oximetry 100 99 100 Oxygen Delivery Method Room Air Room Air Room Air 05/05/24 18:45 05/05/24 19:00 05/05/24 20:29 Temperature Temperature Source Pulse Rate 107 H 121 H Pulse Rate [Left Radial] Respiratory Rate 20 20 20 Blood Pressure 144/65 H 140/68 130/76 Blood Pressure [Right Arm] Blood Pressure Mean [Right Arm] Blood Pressure Source Blood Pressure Position 02 Sat by Pulse Oximetry 98 98 97 Oxygen Delivery Method 05/05/24 20:30 05/05/24 20:46 05/05/24 21:00 Temperature Temperature Source Pulse Rate 118 H 120 H 122 H Pulse Rate [Left Radial] Respiratory Rate 27 H 21 23 Blood Pressure 150/69 H 121/51 L 138/61 Blood Pressure [Right Arm] Blood Pressure Mean [Right Arm] Blood Pressure Source Blood Pressure Position 02 Sat by Pulse Oximetry 96 96 96 Oxygen Delivery Method 05/05/24 21:16 05/05/24 21:30 05/05/24 21:52 Temperature 97.9 F Temperature Source Oral Pulse Rate 119 H 109 H 109 H Pulse Rate [Left Radial] Respiratory Rate 17 16 16 Blood Pressure 109/55 L 97/48 L 97/48 L Blood Pressure [Right Arm] Blood Pressure Mean [Right Arm] Blood Pressure Source Automatic Cuff Blood Pressure Position Supine 02 Sat by Pulse Oximetry 94 L 94 L Oxygen Delivery Method Room Air Lab Data Lab results reviewed: Yes I reviewed the patient's lab results. Lab Results 05/05/24 13:40: WBC 14.5 H, RBC 3.62 L, Hgb 10.8 L, Hct 34.2 L, MCV 94.5, MCH 29.8, MCHC 31.6 L, RDW 16.3, Plt Count 369, MPV 10.5 H, Neut % (Auto) 67.8, Lymph % (Auto) 17.3, [place] % (Auto) 11.5 H, Eos % (Auto) 1.7, Baso % (Auto) 0.8, Neut # (Auto) 9.8 H, Lymph # (Auto) 2.5, [place] # (Auto) 1.7 H, Eos # (Auto) 0.3, Baso # (Auto) 0.1, ESR 114 H, Sodium 137, Potassium 7.1 H*, Chloride 112 H, C arbon Dioxide 14 L, Anion Gap 18.1 H, BUN 59 H, Creatinine 4.60 H, Estimated GFR 9 L*, Est GFR ( Amer) 11 L*, Glucose 93, Calcium 10.1, Phosphorus 5.2 H, Magnesium 1.5 L, Total Bilirubin 0.3, AST 38 H, ALT 40, Alkaline Phosphatase 78, Total Creatine Kinase 93, C-Reactive Protein 111.1 H, Total Protein 7.6, Albumin 4.2, Globulin 3.4 H, Albumin/Globulin Ratio 1.2, Procalcitonin 0.501, HCV Ab SUSHMA w/Rflx PCR Qn Negative, HIV Ag/Ab Combo Qual Negative 05/05/24 15:40: Urine Color Yellow, Urine Appearance Clear, Urine pH 7.0, Ur Specific [place] 1.015, Urine Protein Negative, Urine Glucose (UA) Negative, Urine Ketones Negative, Urine Blood Trace-i, Urine Nitrate Negative, Urine Bilirubin Negative, Urine Urobilinogen 0.2, Ur Leukocyte Esterase 1+ A, Urine RBC Occasional, Urine WBC Occasional, Ur Squamous Epith Cells 3-5, Urine Bacteria None 05/05/24 19:08: Sodium 133 L, Potassium 6.6 H*, Chloride 109 H, Carbon Dioxide 16 L, Anion Gap 14.6, BUN 55 H, Creatinine 3.90 H, Estimated Creat Clear 23, E stimated GFR 11 L*, Est GFR ( Amer) 14 L* D, Glucose 143 H D, Calcium 10.1 05/05/24 13:40 05/05/24 19:08 Orders (Tests/Meds): ED MEDICATIONS Discontinued Medications Generic Name Dose Route Start Last Admin Trade Name Freq PRN Reason Stop Dose Admin Dextrose 50 ml 05/05/24 14:30 05/05/24 14:55 Dextrose 50% 50ml Syringe (Crash Cart) IVP 05/05/24 14:31 50 ml ONCE ONE Administration Dextrose 50 ml 05/05/24 19:48 05/05/24 20:17 Dextrose 50% 50ml Syringe (Crash Cart) IVP 05/05/24 19:49 50 ml ONCE ONE Administration Hydromorphone HCl 1 mg 05/05/24 20:45 05/05/24 21:07 Hydromorphone 2mg/Ml Syringe IV 05/05/24 20:46 1 mg ONCE ONE Administration Lactated Ringer's 1,000 mls @ 999 mls/hr 05/05/24 13:44 05/05/24 13:52 Lactated Ringer's 1000 Ml Bag IV 05/05/24 14:44 999 mls/hr .Q1H1M ONE Administration Calcium Gluconate/Sodium Chloride 2 gm in 100 mls @ 50 mls/hr 05/05/24 14:31 05/05/24 14:55 Calcium Gluconate 2,000mg/100ml Nacl Premix IV 05/05/24 16:30 50 mls/hr ONCE ONE Administration Meropenem 1 gm/ Sodium 100 mls @ 100 mls/hr 05/05/24 16:15 05/05/24 16:44 Chloride IV 05/15/24 16:14 100 mls/hr Q12H NIRU Administration Vancomycin/PEG/NADA/Lysine/Water 1.5 gm in 300 mls @ 150 mls/hr 05/05/24 16:15 05/05/24 16:51 Vancomycin 1.5gm/300ml (Peg) Premix IV 05/15/24 16:14 150 mls/hr Q72H NIRU Administration Sodium Bicarbonate 150 meq/ 1,150 mls @ 100 mls/hr 05/05/24 16:20 05/05/24 16:48 Dextrose IV 06/04/24 16:19 100 mls/hr .[id number] NIRU Administration Magnesium Sulfate 2 gm in 50 mls @ 50 mls/hr 05/05/24 17:43 05/05/24 19:50 Magnesium Sulfate 2gm/50ml Premix IV 05/05/24 18:42 50 mls/hr ONCE ONE Administration Calcium Gluconate/Sodium Chloride 2 gm in 100 mls @ 50 mls/hr 05/05/24 19:48 05/05/24 20:17 Calcium Gluconate 2,000mg/100ml Nacl Premix IV 05/05/24 21:47 50 mls/hr ONCE ONE Administration Insulin Human Regular 10 unit 05/05/24 14:30 05/05/24 14:55 Insulin Human Regular 100 Units/Ml 10ml Vial IVP 05/05/24 14:31 10 unit ONCE ONE Administration Insulin Human Regular 10 unit 05/05/24 19:48 05/05/24 20:18 Insulin Human Regular 100 Units/Ml 10ml Vial IVP 05/05/24 19:49 10 unit ONCE ONE Administration Miscellaneous 1 each 05/05/24 16:15 05/05/24 16:49 Vancomycin Consult Request NOTAPPLIC 06/04/24 16:14 1 each CONSULT PHARMACY NIRU Administration Sodium Zirconium Cyclosilicate 10 gm 05/05/24 14:31 05/05/24 14:57 Lokelma 5gm Packet PO 05/05/24 14:32 10 gm ONCE ONE Administration ORDERS Category Date Time Status CT abdomen pelvis wo con Stat Cat Scan 05/05/24 14:[address] chest wo con Stat Cat Scan 05/05/24 14:34 Completed BMP [Basic Metabolic Panel] Stat Lab 05/05/24 19:08 Completed CBC w/Auto Diff [Complete Blood Count Auto Diff] Stat Lab 05/05/24 13:40 Completed CK [Creatine Kinase] Stat Lab 05/05/24 13:40 Completed CMP [Comprehensive Metabolic Panel] Stat Lab 05/05/24 13:40 Completed CRP [C-Reactive Protein] Stat Lab 05/05/24 13:40 Completed ESR [Erythrocyte Sedimentation Rate] Stat Lab 05/05/24 13:40 Completed HIV Combo Stat Lab 05/05/24 13:40 Completed Hepatitis C Ab Qual. W/ RFX Stat Lab 05/05/24 13:40 Completed Magnesium Stat Lab 05/05/24 13:40 Completed Phosphorous Stat Lab 05/05/24 13:40 Completed Procalcitonin Stat Lab 05/05/24 13:40 Completed UA [Urinalysis and Microscopic] Stat Lab 05/05/24 15:40 Completed Blood Culture Stat Micro 05/05/24 16:00 Received Urine Culture Stat Micro 05/05/24 15:40 Received Medical Decision Narrative: In summary patient is a 69-year-old female who presents to the emergency department for evaluation of abnormal lab results. Review of her chart shows that patient had a normal GFR prior to initiation of chemotherapy of 62 that has significantly declined and was 18 on Sunday along with a creatinine of 2.6 again much increased from a normal baseline and a BUN of 38 potassium was 5.0 CO2 was 20 chloride was 109 calcium was 10.5, her CBC shows a white count of 10.0 hemoglobin hematocrit 11.4 36.4 respectively with an absolute neutrophil count of 6.4 and she also had a TSH level cortisol and ACTH levels done on Sunday which were 4.4 814.5 and 5.9 respectively. Patient is initially normotensive 135/70 tachycardic at 104 breathing 20 times a minute satting at 97% on room air upon arrival, the temperature of 97.4. Physical exam is unremarkable and nonfocal although she does have tremor both at rest and with moving it is mild and small. Breath sounds are clear and equal bilaterally to the bases patient has no dependent edema noted. Patient appears to be in normal sinus rhythm on the bedside monitor.. Differential diagnosis includes acute renal failure versus infection versus immunocompromise state versus electrolyte derangement etc. Initial workup will be conducted with hematologic labs CT scan of the chest abdomen pelvis without contrast urinalysis. Initial interventions include crystalloid bolus for now with her known labs. Initial workup reviewed by me shows patient has a white count of 14.5 with a hemoglobin and hematocrit of 10.8 and 34.2 and an absolute neutrophil count of 9.8, sed rate is 114, chemistry significant for sodium of 137 a potassium of 7.1 chloride of 112 CO2 of 14 gap is 18.1 BUN is 59 creatinine is 4.6 GFR of 9 phosphorus of 5.2 magnesium of 1.5 CRP of 111.1 a procalcitonin in the normal range of 0.501 but detectable. I have also broaden her workup to include a CT scan of the chest abdomen pelvis to rule out occult infection or stone or obstructive pathology. EKG shows peaked T waves consistent with hyperkalemia. Upon reassessment given the full picture of all the laboratory and data so far I cannot rule out sepsis thus I have initiated antibiotics and blood cultures, I have repleted her hypomagnesemia, I have ordered emergent hyperkalemia interventions including insulin D50 calcium and Lokelma, treated her acute renal failure with a bicarb drip. I then contacted the [facility] and spoke with both Dr. Benitez hospitalist and Dr. Amor out of town collection clerk outpatient management and tentatively she has been accepted pending bed assignment for further evaluation and care. At 1730 I recontacted the [facility] and apparently the dialysis machine is broken in [place]. I have asked him to reach out to other facilities that may have dialysis capability. While the patient does not need emergent dialysis currently she may if the above-mentioned efforts fail. At 1910 we have still not heard back from [facility] all on wait lists. I had another interactive discussion with the family and they have asked us to try [facility] in [facility] which we have initiated now. At 1999 hrs. notified that [facility] has no bed availability and eventually the [facility] called us back and said there is no nephrology capability tonight at their facilities and we have now initiated at family's request attempted transfer to the [facility]. Repeat BMP shows potassium down to 6.6 and creatinine has improved to 3.9 but patient is still acidotic with a CO2 of 16 and GFR still 11 hence I am redosing with insulin calcium gluconate and D50. I finally had an interactive discussion with Dr. Lobo at the [facility] at 2023 and she has been graciously accepted to their ICU for further evaluation and care. <Patricia Reynolds, DO - Last Filed: 05/05/24 21:19> Vital Signs: 05/05/24 13:33 05/05/24 13:41 05/05/24 13:45 Temperature Temperature Source Pulse Rate 106 H 110 H Pulse Rate [Left Radial] 104 H Respiratory Rate 20 Blood Pressure 135/70 129/78 Blood Pressure [Right Arm] 135/70 Blood Pressure Mean [Right Arm] 91 Blood Pressure Source Blood Pressure Position 02 Sat by Pulse Oximetry 97 96 96 Oxygen Delivery Method Room Air Room Air 05/05/24 14:00 05/05/24 14:15 05/05/24 14:30 Temperature Temperature Source Pulse Rate 103 H 97 H 98 H Pulse Rate [Left Radial] Respiratory Rate 28 H Blood Pressure 144/77 H 132/75 147/63 H Blood Pressure [Right Arm] Blood Pressure Mean [Right Arm] Blood Pressure Source Blood Pressure Position 02 Sat by Pulse Oximetry 96 97 98 Oxygen Delivery Method Room Air Room Air 05/05/24 15:00 05/05/24 15:15 05/05/24 15:30 Temperature 97.4 F L Temperature Source Oral Pulse Rate 101 H 106 H Pulse Rate [Left Radial] Respiratory Rate 25 H 25 H Blood Pressure 130/77 142/67 H Blood Pressure [Right Arm] Blood Pressure Mean [Right Arm] Blood Pressure Source Blood Pressure Position 02 Sat by Pulse Oximetry 99 100 Oxygen Delivery Method Room Air 05/05/24 15:30 05/05/24 15:45 05/05/24 16:00 Temperature Temperature Source Pulse Rate 109 H 107 H 101 H Pulse Rate [Left Radial] Respiratory Rate 23 24 22 Blood Pressure 140/76 140/87 139/70 Blood Pressure [Right Arm] Blood Pressure Mean [Right Arm] Blood Pressure Source Blood Pressure Position 02 Sat by Pulse Oximetry 100 100 100 Oxygen Delivery Method Room Air Room Air Room Air 05/05/24 16:17 05/05/24 16:30 05/05/24 16:45 Temperature Temperature Source Pulse Rate 97 H 92 H 93 H Pulse Rate [Left Radial] Respiratory Rate 27 H 21 21 Blood Pressure 113/60 116/61 125/69 Blood Pressure [Right Arm] Blood Pressure Mean [Right Arm] Blood Pressure Source Blood Pressure Position 02 Sat by Pulse Oximetry 96 95 99 Oxygen Delivery Method Room Air Room Air Room Air 05/05/24 17:00 05/05/24 17:16 05/05/24 17:30 Temperature Temperature Source Pulse Rate 100 H 100 H 99 H Pulse Rate [Left Radial] Respiratory Rate 18 23 20 Blood Pressure 112/60 140/71 147/76 H Blood Pressure [Right Arm] Blood Pressure Mean [Right Arm] Blood Pressure Source Blood Pressure Position 02 Sat by Pulse Oximetry 99 100 100 Oxygen Delivery Method Room Air Room Air Room Air 05/05/24 18:00 05/05/24 18:15 05/05/24 18:30 Temperature Temperature Source Pulse Rate 107 H 108 H 108 H Pulse Rate [Left Radial] Respiratory Rate 24 25 H 24 Blood Pressure 147/63 H 143/68 H 149/70 H Blood Pressure [Right Arm] Blood Pressure Mean [Right Arm] Blood Pressure Source Blood Pressure Position 02 Sat by Pulse Oximetry 100 99 100 Oxygen Delivery Method Room Air Room Air Room Air 05/05/24 18:45 05/05/24 19:00 05/05/24 20:29 Temperature Temperature Source Pulse Rate 107 H 121 H Pulse Rate [Left Radial] Respiratory Rate 20 20 20 Blood Pressure 144/65 H 140/68 130/76 Blood Pressure [Right Arm] Blood Pressure Mean [Right Arm] Blood Pressure Source Blood Pressure Position 02 Sat by Pulse Oximetry 98 98 97 Oxygen Delivery Method 05/05/24 20:30 05/05/24 20:46 05/05/24 21:00 Temperature Temperature Source Pulse Rate 118 H 120 H 122 H Pulse Rate [Left Radial] Respiratory Rate 27 H 21 23 Blood Pressure 150/69 H 121/51 L 138/61 Blood Pressure [Right Arm] Blood Pressure Mean [Right Arm] Blood Pressure Source Blood Pressure Position 02 Sat by Pulse Oximetry 96 96 96 Oxygen Delivery Method 05/05/24 21:16 05/05/24 21:30 05/05/24 21:52 Temperature 97.9 F Temperature Source Oral Pulse Rate 119 H 109 H 109 H Pulse Rate [Left Radial] Respiratory Rate 17 16 16 Blood Pressure 109/55 L 97/48 L 97/48 L Blood Pressure [Right Arm] Blood Pressure Mean [Right Arm] Blood Pressure Source Automatic Cuff Blood Pressure Position Supine 02 Sat by Pulse Oximetry 94 L 94 L Oxygen Delivery Method Room Air Lab Data Lab Results 05/05/24 13:40: WBC 14.5 H, RBC 3.62 L, Hgb 10.8 L, Hct 34.2 L, MCV 94.5, MCH 29.8, MCHC 31.6 L, RDW 16.3, Plt Count 369, MPV 10.5 H, Neut % (Auto) 67.8, Lymph % (Auto) 17.3, [place] % (Auto) 11.5 H, Eos % (Auto) 1.7, Baso % (Auto) 0.8, Neut # (Auto) 9.8 H, Lymph # (Auto) 2.5, [place] # (Auto) 1.7 H, Eos # (Auto) 0.3, Baso # (Auto) 0.1, ESR 114 H, Sodium 137, Potassium 7.1 H*, Chloride 112 H, C arbon Dioxide 14 L, Anion Gap 18.1 H, BUN 59 H, Creatinine 4.60 H, Estimated GFR 9 L*, Est GFR ( Amer) 11 L*, Glucose 93, Calcium 10.1, Phosphorus 5.2 H, Magnesium 1.5 L, Total Bilirubin 0.3, AST 38 H, ALT 40, Alkaline Phosphatase 78, Total Creatine Kinase 93, C-Reactive Protein 111.1 H, Total Protein 7.6, Albumin 4.2, Globulin 3.4 H, Albumin/Globulin Ratio 1.2, Procalcitonin 0.501, HCV Ab SUSHMA w/Rflx PCR Qn Negative, HIV Ag/Ab Combo Qual Negative 05/05/24 15:40: Urine Color Yellow, Urine Appearance Clear, Urine pH 7.0, Ur Specific [place] 1.015, Urine Protein Negative, Urine Glucose (UA) Negative, Urine Ketones Negative, Urine Blood Trace-i, Urine Nitrate Negative, Urine Bilirubin Negative, Urine Urobilinogen 0.2, Ur Leukocyte Esterase 1+ A, Urine RBC Occasional, Urine WBC Occasional, Ur Squamous Epith Cells 3-5, Urine Bacteria None 05/05/24 19:08: Sodium 133 L, Potassium 6.6 H*, Chloride 109 H, Carbon Dioxide 16 L, Anion Gap 14.6, BUN 55 H, Creatinine 3.90 H, Estimated Creat Clear 23, E stimated GFR 11 L*, Est GFR ( Amer) 14 L* D, Glucose 143 H D, Calcium 10.1 Orders (Tests/Meds): ED MEDICATIONS Discontinued Medications Generic Name Dose Route Start Last Admin Trade Name Freq PRN Reason Stop Dose Admin Dextrose 50 ml 05/05/24 14:30 05/05/24 14:55 Dextrose 50% 50ml Syringe (Crash Cart) IVP 05/05/24 14:31 50 ml ONCE ONE Administration Dextrose 50 ml 05/05/24 19:48 05/05/24 20:17 Dextrose 50% 50ml Syringe (Crash Cart) IVP 05/05/24 19:49 50 ml ONCE ONE Administration Hydromorphone HCl 1 mg 05/05/24 20:45 05/05/24 21:07 Hydromorphone 2mg/Ml Syringe IV 05/05/24 20:46 1 mg ONCE ONE Administration Lactated Ringer's 1,000 mls @ 999 mls/hr 05/05/24 13:44 05/05/24 13:52 Lactated Ringer's 1000 Ml Bag IV 05/05/24 14:44 999 mls/hr .Q1H1M ONE Administration Calcium Gluconate/Sodium Chloride 2 gm in 100 mls @ 50 mls/hr 05/05/24 14:31 05/05/24 14:55 Calcium Gluconate 2,000mg/100ml Nacl Premix IV 05/05/24 16:30 50 mls/hr ONCE ONE Administration Meropenem 1 gm/ Sodium 100 mls @ 100 mls/hr 05/05/24 16:15 05/05/24 16:44 Chloride IV 05/15/24 16:14 100 mls/hr Q12H NIRU Administration Vancomycin/PEG/NADA/Lysine/Water 1.5 gm in 300 mls @ 150 mls/hr 05/05/24 16:15 05/05/24 16:51 Vancomycin 1.5gm/300ml (Peg) Premix IV 05/15/24 16:14 150 mls/hr Q72H NIRU Administration Sodium Bicarbonate 150 meq/ 1,150 mls @ 100 mls/hr 05/05/24 16:20 05/05/24 16:48 Dextrose IV 06/04/24 16:19 100 mls/hr .[id number] NIRU Administration Magnesium Sulfate 2 gm in 50 mls @ 50 mls/hr 05/05/24 17:43 05/05/24 19:50 Magnesium Sulfate 2gm/50ml Premix IV 05/05/24 18:42 50 mls/hr ONCE ONE Administration Calcium Gluconate/Sodium Chloride 2 gm in 100 mls @ 50 mls/hr 05/05/24 19:48 05/05/24 20:17 Calcium Gluconate 2,000mg/100ml Nacl Premix IV 05/05/24 21:47 50 mls/hr ONCE ONE Administration Insulin Human Regular 10 unit 05/05/24 14:30 05/05/24 14:55 Insulin Human Regular 100 Units/Ml 10ml Vial IVP 05/05/24 14:31 10 unit ONCE ONE Administration Insulin Human Regular 10 unit 05/05/24 19:48 05/05/24 20:18 Insulin Human Regular 100 Units/Ml 10ml Vial IVP 05/05/24 19:49 10 unit ONCE ONE Administration Miscellaneous 1 each 05/05/24 16:15 05/05/24 16:49 Vancomycin Consult Request NOTAPPLIC 06/04/24 16:14 1 each CONSULT PHARMACY NIRU Administration Sodium Zirconium Cyclosilicate 10 gm 05/05/24 14:31 05/05/24 14:57 Lokelma 5gm Packet PO 05/05/24 14:32 10 gm ONCE ONE Administration ORDERS Category Date Time Status CT abdomen pelvis wo con Stat Cat Scan 05/05/24 14:[address] chest wo con Stat Cat Scan 05/05/24 14:34 Completed BMP [Basic Metabolic Panel] Stat Lab 05/05/24 19:08 Completed CBC w/Auto Diff [Complete Blood Count Auto Diff] Stat Lab 05/05/24 13:40 Completed CK [Creatine Kinase] Stat Lab 05/05/24 13:40 Completed CMP [Comprehensive Metabolic Panel] Stat Lab 05/05/24 13:40 Completed CRP [C-Reactive Protein] Stat Lab 05/05/24 13:40 Completed ESR [Erythrocyte Sedimentation Rate] Stat Lab 05/05/24 13:40 Completed HIV Combo Stat Lab 05/05/24 13:40 Completed Hepatitis C Ab Qual. W/ RFX Stat Lab 05/05/24 13:40 Completed Magnesium Stat Lab 05/05/24 13:40 Completed Phosphorous Stat Lab 05/05/24 13:40 Completed Procalcitonin Stat Lab 05/05/24 13:40 Completed UA [Urinalysis and Microscopic] Stat Lab 05/05/24 15:40 Completed Blood Culture Stat Micro 05/05/24 16:00 Received Urine Culture Stat Micro 05/05/24 15:40 Received ECG Data Tracing #2: I reviewed this ECG and interpreted as documented below: Sinus tachycardia with a ventricular rate of 116 bpm. Peaked T waves slightly improved from prior. No significant QRS/QTc widening. No acute STEMI. ECG initial impression date: 05/05/24 ECG initial impression time: 21:13 Medical Decision Narrative: In summary patient is a 69-year-old female who presents to the emergency department for evaluation of abnormal lab results. Review of her chart shows that patient had a normal GFR prior to initiation of chemotherapy of 62 that has significantly declined and was 18 on Sunday along with a creatinine of 2.6 again much increased from a normal baseline and a BUN of 38 potassium was 5.0 CO2 was 20 chloride was 109 calcium was 10.5, her CBC shows a white count of 10.0 hemoglobin hematocrit 11.4 36.4 respectively with an absolute neutrophil count of 6.4 and she also had a TSH level cortisol and ACTH levels done on Sunday which were 4.4 814.5 and 5.9 respectively. Patient is initially normotensive 135/70 tachycardic at 104 breathing 20 times a minute satting at 97% on room air upon arrival, the temperature of 97.4. Physical exam is unremarkable and nonfocal although she does have tremor both at rest and with moving it is mild and small. Breath sounds are clear and equal bilaterally to the bases patient has no dependent edema noted. Patient appears to be in normal sinus rhythm on the bedside monitor.. Differential diagnosis includes acute renal failure versus infection versus immunocompromise state versus electrolyte derangement etc. Initial workup will be conducted with hematologic labs CT scan of the chest abdomen pelvis without contrast urinalysis. Initial interventions include crystalloid bolus for now with her known labs. Initial workup reviewed by me shows patient has a white count of 14.5 with a hemoglobin and hematocrit of 10.8 and 34.2 and an absolute neutrophil count of 9.8, sed rate is 114, chemistry significant for sodium of 137 a potassium of 7.1 chloride of 112 CO2 of 14 gap is 18.1 BUN is 59 creatinine is 4.6 GFR of 9 phosphorus of 5.2 magnesium of 1.5 CRP of 111.1 a procalcitonin in the normal range of 0.501 but detectable. I have also broaden her workup to include a CT scan of the chest abdomen pelvis to rule out occult infection or stone or obstructive pathology. EKG shows peaked T waves consistent with hyperkalemia. Upon reassessment given the full picture of all the laboratory and data so far I cannot rule out sepsis thus I have initiated antibiotics and blood cultures, I have repleted her hypomagnesemia, I have ordered emergent hyperkalemia interventions including insulin D50 calcium and Lokelma, treated her acute renal failure with a bicarb drip. I [facility] and spoke with both Dr. Benitez hospitalist and Dr. Amor out of town collection clerk outpatient management and tentatively she has been accepted pending bed assignment for further evaluation and care. At 1730 I recontacted the [facility] and apparently the dialysis machine is broken in [place]. I have asked him to reach out to other facilities that may have dialysis capability. While the patient does not need emergent dialysis currently she may if the above-mentioned efforts fail. At 1910 we have still not heard back from [facility] and [facility] are all on wait lists. I had another interactive discussion with the family and they have asked us to try [facility] in [facility] which we have initiated now. At 2000 hrs. notified that [facility] has no bed availability and [facility] called [facility] and said there is no nephrology capability tonight at their facilities and we have now initiated at family's request attempted transfer to the emergency [facility]. Repeat BMP shows potassium down to 6.6 and creatinine has improved to 3.9 but patient is still acidotic with a CO2 of 16 and GFR still 11 hence I am redosing with insulin calcium gluconate and D50. I finally had an interactive discussion with Dr. Lobo at the [facility] at 2023 and she has been graciously accepted to their ICU for further evaluation and care. DO Rodolfo: Dr. Crump signed patient out to me at 1500 at his departure with Don EMPERATRIZ still here managing patient. I was consulted by the EMPERATRIZ, and we discussed the complexity of the problems being addressed. I approved the treatment and management plan for this patient's care in the emergency department, thus performing a substantive portion of the medical decision making. Hyperkalemia managed medically here, as we do not have dialysis capabilities. Patient is making some urine. We felt she would benefit from transfer to higher level of care but multiple hospitals attempted. Finally she is excepted to after multiple failed attempts to transfer her closer. She was ultimately transported in stable condition by air EMS Patricia Reynolds DO <Clarence Crump MD - Last Filed: 05/06/24 07:46> Vital Signs: 05/05/24 13:33 05/05/24 13:41 05/05/24 13:45 Temperature Temperature Source Pulse Rate 106 H 110 H Pulse Rate [Left Radial] 104 H Respiratory Rate 20 Blood Pressure 135/70 129/78 Blood Pressure [Right Arm] 135/70 Blood Pressure Mean [Right Arm] 91 Blood Pressure Source Blood Pressure Position 02 Sat by Pulse Oximetry 97 96 96 Oxygen Delivery Method Room Air Room Air 05/05/24 14:00 05/05/24 14:15 05/05/24 14:30 Temperature Temperature Source Pulse Rate 103 H 97 H 98 H Pulse Rate [Left Radial] Respiratory Rate 28 H Blood Pressure 144/77 H 132/75 147/63 H Blood Pressure [Right Arm] Blood Pressure Mean [Right Arm] Blood Pressure Source Blood Pressure Position 02 Sat by Pulse Oximetry 96 97 98 Oxygen Delivery Method Room Air Room Air 05/05/24 15:00 05/05/24 15:15 05/05/24 15:30 Temperature 97.4 F L Temperature Source Oral Pulse Rate 101 H 106 H Pulse Rate [Left Radial] Respiratory Rate 25 H 25 H Blood Pressure 130/77 142/67 H Blood Pressure [Right Arm] Blood Pressure Mean [Right Arm] Blood Pressure Source Blood Pressure Position 02 Sat by Pulse Oximetry 99 100 Oxygen Delivery Method Room Air 05/05/24 15:30 05/05/24 15:45 05/05/24 16:00 Temperature Temperature Source Pulse Rate 109 H 107 H 101 H Pulse Rate [Left Radial] Respiratory Rate 23 24 22 Blood Pressure 140/76 140/87 139/70 Blood Pressure [Right Arm] Blood Pressure Mean [Right Arm] Blood Pressure Source Blood Pressure Position 02 Sat by Pulse Oximetry 100 100 100 Oxygen Delivery Method Room Air Room Air Room Air 05/05/24 16:17 05/05/24 16:30 05/05/24 16:45 Temperature Temperature Source Pulse Rate 97 H 92 H 93 H Pulse Rate [Left Radial] Respiratory Rate 27 H 21 21 Blood Pressure 113/60 116/61 125/69 Blood Pressure [Right Arm] Blood Pressure Mean [Right Arm] Blood Pressure Source Blood Pressure Position 02 Sat by Pulse Oximetry 96 95 99 Oxygen Delivery Method Room Air Room Air Room Air 05/05/24 17:00 05/05/24 17:16 05/05/24 17:30 Temperature Temperature Source Pulse Rate 100 H 100 H 99 H Pulse Rate [Left Radial] Respiratory Rate 18 23 20 Blood Pressure 112/60 140/71 147/76 H Blood Pressure [Right Arm] Blood Pressure Mean [Right Arm] Blood Pressure Source Blood Pressure Position 02 Sat by Pulse Oximetry 99 100 100 Oxygen Delivery Method Room Air Room Air Room Air 05/05/24 18:00 05/05/24 18:15 05/05/24 18:30 Temperature Temperature Source Pulse Rate 107 H 108 H 108 H Pulse Rate [Left Radial] Respiratory Rate 24 25 H 24 Blood Pressure 147/63 H 143/68 H 149/70 H Blood Pressure [Right Arm] Blood Pressure Mean [Right Arm] Blood Pressure Source Blood Pressure Position 02 Sat by Pulse Oximetry 100 99 100 Oxygen Delivery Method Room Air Room Air Room Air 05/05/24 18:45 05/05/24 19:00 05/05/24 20:29 Temperature Temperature Source Pulse Rate 107 H 121 H Pulse Rate [Left Radial] Respiratory Rate 20 20 20 Blood Pressure 144/65 H 140/68 130/76 Blood Pressure [Right Arm] Blood Pressure Mean [Right Arm] Blood Pressure Source Blood Pressure Position 02 Sat by Pulse Oximetry 98 98 97 Oxygen Delivery Method 05/05/24 20:30 05/05/24 20:46 05/05/24 21:00 Temperature Temperature Source Pulse Rate 118 H 120 H 122 H Pulse Rate [Left Radial] Respiratory Rate 27 H 21 23 Blood Pressure 150/69 H 121/51 L 138/61 Blood Pressure [Right Arm] Blood Pressure Mean [Right Arm] Blood Pressure Source Blood Pressure Position 02 Sat by Pulse Oximetry 96 96 96 Oxygen Delivery Method 05/05/24 21:16 05/05/24 21:30 05/05/24 21:52 Temperature 97.9 F Temperature Source Oral Pulse Rate 119 H 109 H 109 H Pulse Rate [Left Radial] Respiratory Rate 17 16 16 Blood Pressure 109/55 L 97/48 L 97/48 L Blood Pressure [Right Arm] Blood Pressure Mean [Right Arm] Blood Pressure Source Automatic Cuff Blood Pressure Position Supine 02 Sat by Pulse Oximetry 94 L 94 L Oxygen Delivery Method Room Air Lab Data Lab Results 05/05/24 13:40: WBC 14.5 H, RBC 3.62 L, Hgb 10.8 L, Hct 34.2 L, MCV 94.5, MCH 29.8, MCHC 31.6 L, RDW 16.3, Plt Count 369, MPV 10.5 H, Neut % (Auto) 67.8, Lymph % (Auto) 17.3, [place] % (Auto) 11.5 H, Eos % (Auto) 1.7, Baso % (Auto) 0.8, Neut # (Auto) 9.8 H, Lymph # (Auto) 2.5, [place] # (Auto) 1.7 H, Eos # (Auto) 0.3, Baso # (Auto) 0.1, ESR 114 H, Sodium 137, Potassium 7.1 H*, Chloride 112 H, C arbon Dioxide 14 L, Anion Gap 18.1 H, BUN 59 H, Creatinine 4.60 H, Estimated GFR 9 L*, Est GFR ( Amer) 11 L*, Glucose 93, Calcium 10.1, Phosphorus 5.2 H, Magnesium 1.5 L, Total Bilirubin 0.3, AST 38 H, ALT 40, Alkaline Phosphatase 78, Total Creatine Kinase 93, C-Reactive Protein 111.1 H, Total Protein 7.6, Albumin 4.2, Globulin 3.4 H, Albumin/Globulin Ratio 1.2, Procalcitonin 0.501, HCV Ab SUSHMA w/Rflx PCR Qn Negative, HIV Ag/Ab Combo Qual Negative 05/05/24 15:40: Urine Color Yellow, Urine Appearance Clear, Urine pH 7.0, Ur Specific [place] 1.015, Urine Protein Negative, Urine Glucose (UA) Negative, Urine Ketones Negative, Urine Blood Trace-i, Urine Nitrate Negative, Urine Bilirubin Negative, Urine Urobilinogen 0.2, Ur Leukocyte Esterase 1+ A, Urine RBC Occasional, Urine WBC Occasional, Ur Squamous Epith Cells 3-5, Urine Bacteria None 05/05/24 19:08: Sodium 133 L, Potassium 6.6 H*, Chloride 109 H, Carbon Dioxide 16 L, Anion Gap 14.6, BUN 55 H, Creatinine 3.90 H, Estimated Creat Clear 23, E stimated GFR 11 L*, Est GFR ( Amer) 14 L* D, Glucose 143 H D, Calcium 10.1 Orders (Tests/Meds): ED MEDICATIONS Discontinued Medications Generic Name Dose Route Start Last Admin Trade Name Cliff PRN Reason Stop Dose Admin Dextrose 50 ml 05/05/24 14:30 05/05/24 14:55 Dextrose 50% 50ml Syringe (Crash Cart) IVP 05/05/24 14:31 50 ml ONCE ONE Administration Dextrose 50 ml 05/05/24 19:48 05/05/24 20:17 Dextrose 50% 50ml Syringe (Crash Cart) IVP 05/05/24 19:49 50 ml ONCE ONE Administration Hydromorphone HCl 1 mg 05/05/24 20:45 05/05/24 21:07 Hydromorphone 2mg/Ml Syringe IV 05/05/24 20:46 1 mg ONCE ONE Administration Lactated Ringer's 1,000 mls @ 999 mls/hr 05/05/24 13:44 05/05/24 13:52 Lactated Ringer's 1000 Ml Bag IV 05/05/24 14:44 999 mls/hr .Q1H1M ONE Administration Calcium Gluconate/Sodium Chloride 2 gm in 100 mls @ 50 mls/hr 05/05/24 14:31 05/05/24 14:55 Calcium Gluconate 2,000mg/100ml Nacl Premix IV 05/05/24 16:30 50 mls/hr ONCE ONE Administration Meropenem 1 gm/ Sodium 100 mls @ 100 mls/hr 05/05/24 16:15 05/05/24 16:44 Chloride IV 05/15/24 16:14 100 mls/hr Q12H NIRU Administration Vancomycin/PEG/NADA/Lysine/Water 1.5 gm in 300 mls @ 150 mls/hr 05/05/24 16:15 05/05/24 16:51 Vancomycin 1.5gm/300ml (Peg) Premix IV 05/15/24 16:14 150 mls/hr Q72H NIRU Administration Sodium Bicarbonate 150 meq/ 1,150 mls @ 100 mls/hr 05/05/24 16:20 05/05/24 16:48 Dextrose IV 06/04/24 16:19 100 mls/hr .[id number] NIRU Administration Magnesium Sulfate 2 gm in 50 mls @ 50 mls/hr 05/05/24 17:43 05/05/24 19:50 Magnesium Sulfate 2gm/50ml Premix IV 05/05/24 18:42 50 mls/hr ONCE ONE Administration Calcium Gluconate/Sodium Chloride 2 gm in 100 mls @ 50 mls/hr 05/05/24 19:48 05/05/24 20:17 Calcium Gluconate 2,000mg/100ml Nacl Premix IV 05/05/24 21:47 50 mls/hr ONCE ONE Administration Insulin Human Regular 10 unit 05/05/24 14:30 05/05/24 14:55 Insulin Human Regular 100 Units/Ml 10ml Vial IVP 05/05/24 14:31 10 unit ONCE ONE Administration Insulin Human Regular 10 unit 05/05/24 19:48 05/05/24 20:18 Insulin Human Regular 100 Units/Ml 10ml Vial IVP 05/05/24 19:49 10 unit ONCE ONE Administration Miscellaneous 1 each 05/05/24 16:15 05/05/24 16:49 Vancomycin Consult Request NOTAPPLIC 06/04/24 16:14 1 each CONSULT PHARMACY NIRU Administration Sodium Zirconium Cyclosilicate 10 gm 05/05/24 14:31 05/05/24 14:57 Lokelma 5gm Packet PO 05/05/24 14:32 10 gm ONCE ONE Administration ORDERS Category Date Time Status CT abdomen pelvis wo con Stat Cat Scan 05/05/24 14:[address] chest wo con Stat Cat Scan 05/05/24 14:34 Completed BMP [Basic Metabolic Panel] Stat Lab 05/05/24 19:08 Completed CBC w/Auto Diff [Complete Blood Count Auto Diff] Stat Lab 05/05/24 13:40 Completed CK [Creatine Kinase] Stat Lab 05/05/24 13:40 Completed CMP [Comprehensive Metabolic Panel] Stat Lab 05/05/24 13:40 Completed CRP [C-Reactive Protein] Stat Lab 05/05/24 13:40 Completed ESR [Erythrocyte Sedimentation Rate] Stat Lab 05/05/24 13:40 Completed HIV Combo Stat Lab 05/05/24 13:40 Completed Hepatitis C Ab Qual. W/ RFX Stat Lab 05/05/24 13:40 Completed Magnesium Stat Lab 05/05/24 13:40 Completed Phosphorous Stat Lab 05/05/24 13:40 Completed Procalcitonin Stat Lab 05/05/24 13:40 Completed UA [Urinalysis and Microscopic] Stat Lab 05/05/24 15:40 Completed Blood Culture Stat Micro 05/05/24 16:00 Received Urine Culture Stat Micro 05/05/24 15:40 Received Medical Decision Narrative: In summary patient is a 69-year-old female who presents to the emergency department for evaluation of abnormal lab results. Review of her chart shows that patient had a normal GFR prior to initiation of chemotherapy of 62 that has significantly declined and was 18 on Sunday along with a creatinine of 2.6 again much increased from a normal baseline and a BUN of 38 potassium was 5.0 CO2 was 20 chloride was 109 calcium was 10.5, her CBC shows a white count of 10.0 hemoglobin hematocrit 11.4 36.4 respectively with an absolute neutrophil count of 6.4 and she also had a TSH level cortisol and ACTH levels done on Sunday which were 4.4 814.5 and 5.9 respectively. Patient is initially normotensive 135/70 tachycardic at 104 breathing 20 times a minute satting at 97% on room air upon arrival, the temperature of 97.4. Physical exam is unremarkable and nonfocal although she does have tremor both at rest and with moving it is mild and small. Breath sounds are clear and equal bilaterally to the bases patient has no dependent edema noted. Patient appears to be in normal sinus rhythm on the bedside monitor.. Differential diagnosis includes acute renal failure versus infection versus immunocompromise state versus electrolyte derangement etc. Initial workup will be conducted with hematologic labs CT scan of the chest abdomen pelvis without contrast urinalysis. Initial interventions include crystalloid bolus for now with her known labs. Initial workup reviewed by me shows patient has a white count of 14.5 with a hemoglobin and hematocrit of 10.8 and 34.2 and an absolute neutrophil count of 9.8, sed rate is 114, chemistry significant for sodium of 137 a potassium of 7.1 chloride of 112 CO2 of 14 gap is 18.1 BUN is 59 creatinine is 4.6 GFR of 9 phosphorus of 5.2 magnesium of 1.5 CRP of 111.1 a procalcitonin in the normal range of 0.501 but detectable. I have also broaden her workup to include a CT scan of the chest abdomen pelvis to rule out occult infection or stone or obstructive pathology. EKG shows peaked T waves consistent with hyperkalemia. Upon reassessment given the full picture of all the laboratory and data so far I cannot rule out sepsis thus I have initiated antibiotics and blood cultures, I have repleted her hypomagnesemia, I have ordered emergent hyperkalemia interventions including insulin D50 calcium and Lokelma, treated her acute renal failure with a bicarb drip. I then [facility] and spoke with both Dr. Benitez hospitalist and Dr. Amor out of town collection clerk outpatient management and tentatively she has been accepted pending bed assignment for further evaluation and care. At 1730 I recontacted the [facility] and apparently the dialysis machine is broken in [place]. I have asked him to reach out to other facilities that may have dialysis capability. While the patient does not need emergent dialysis currently she may if the above-mentioned efforts fail. At 1910 we have still not heard back from [facility] are all on wait lists. I had another interactive discussion with the family and they have asked us to try [facility] in [facility] which we have initiated now. At 1999 hrs. notified that [facility] has no bed availability and [facility] called [facility] and said there is no nephrology capability tonight at their facilities and we have now initiated at family's request attempted transfer to the emergency of [place]. Repeat BMP shows potassium down to 6.6 and creatinine has improved to 3.9 but patient is still acidotic with a CO2 of 16 and GFR still 11 hence I am redosing with insulin calcium gluconate and D50. I finally had an interactive discussion with Dr. Lobo at the [facility] at 2023 and she has been graciously accepted to their ICU for further evaluation and care. Alisia: I was consulted by the EMPERATRIZ, and we discussed the complexity of the problems being addressed. I approved the treatment and management plan for this patient's care in the Emergency Department, thus performing a substantive portion of the medical decision making. I independently examined and interviewed patient. I interpreted workup. Concern for acute renal failure and hyperkalemia likely in the setting of chemotherapy. Patient's EKG independently interpreted 1430 and acute concern for hyperkalemia. Peaked T waves throughout the precordium and lateral/inferior leads. Sinus rhythm 96 bpm with TX 173, QRS 105, QTc 363. Hyperkalemia protocol initiated with calcium gluconate, insulin, dextrose, Lokelma. Patient also received magnesium and fluids. Independent interpretation of workup demonstrates leukocytosis 14,000 with neutrophilia. Patient also has acute hyperkalemia 7.1 with BUN 59 and creatinine 4.6 up from normal baselinejust a couple months prior. Hypomagnesemia, hyperphosphatemia. Patient's UA without concern for UTI. Bicarb drip initiated. Prior to rest of workup and further treatment, care handed off to oncoming physician at 1500. I spent approximately 45 minutes of critical care stabilizing patient by correcting metabolic abnormalities in the setting of acute renal failure resulting in cardiac dysfunction. MD Rodolfo Blevins DO: Dr. Crump signed patient out to me at 1500 at his departure with Don EMPERATRIZ still here managing patient. I was consulted by the EMPERATRIZ, and we discussed the complexity of the problems being addressed. I approved the treatment and management plan for this patient's care in the emergency department, thus performing a substantive portion of the medical decision making. Hyperkalemia managed medically here, as we do not have dialysis capabilities. Patient is making some urine. We felt she would benefit from transfer to higher level of care but multiple hospitals attempted. Finally she is excepted to after multiple failed attempts to transfer her closer. She was ultimately transported in stable condition by air EMS Patricia Reynolds, Critical Care <ARIANA Fall - Last Filed: 05/05/24 20:26> Critical Care Time Critical Care Time: Yes Attestation: On 05/05/24, the high probability of a clinically significant, sudden or life threatening deterioration of the following system: Renal; required my full and direct attention, intervention and personal management. The time I documented below is in addition to time spent performing reported procedures but includes the following listed in this critical care notation. Total Time Total Critical Care Time: 75 <Clarence Crump MD - Last Filed: 05/06/24 07:46> Critical Care Time Critical Care Time: Yes (Renal, metabolic, cardiac) Total Time Total Critical Care Time: 120
[2024-05-05] MEDS: LACTATED RINGERS 1000ML 1,000 ML 999 ML IV (13:52)
[2024-05-05 13:54] LABS: Basophils # 0.1 K/mm3 (0-0.2); Basophils % 0.8 % (0.1-2.0); Eosinophils # 0.3 K/mm3 (0.0-0.4); Eosinophils % 1.7 % (0.1-12.0); Hematocrit 34.2 % (37.0-47.0); Hemoglobin 10.8 g/dL (12.2-16.2); Lymphocytes # 2.5 K/mm3 (0.7-4.5); Lymphocytes % 17.3 % (10-50); Mean Corpuscular HGB Conc 31.6 g/dL (31.8-35.4); Mean Corpuscular Hemoglobin 29.8 pg (27.0-31.2); Mean Corpuscular Volume 94.5 fl (81-99); Mean Platelet Volume 10.5 fl (7.4-10.4); Monocytes # 1.7 K/mm3 (0.1-1.0); Monocytes % 11.5 % (1.7-9.3); Neutrophils # 9.8 K/mm3 (1.8-7.8); Neutrophils % 67.8 % (37.0-80.0); Platelet Count 369 K/mm3 (142-424); Red Blood Count 3.62 M/mm3 (4.20-5.40); Red Cell Distribution Width 16.3 % (11.5-17.5); White Blood Count 14.5 K/mm3 (4.8-10.8)
[2024-05-05 14:08] LABS: Alanine Aminotransferase 40 U/L (12-78); Albumin Level 4.2 g/dl (3.5-5.0); Albumin/Globulin Ratio 1.2 (1.1-1.8); Alkaline Phosphatase 78 U/L (38-126); Aspartate Amino Transferase 38 U/L (14-36); Bilirubin,Total 0.3 mg/dl (0.2-1.3); Blood Urea Nitrogen 59 mg/dl (7-17); Calcium 10.1 mg/dl (8.4-10.2); Chloride 112 mmol/L (98-107); Creatine Kinase 93 U/L (30-135); Estimated Glomerular Filt Rate 9 ml/min (>60); GFR (African American) 11 ML/MIN (>60); Globulin 3.4 g/dL (1.3-3.2); Glucose 93 mg/dl (74-100); Magnesium 1.5 mg/dl (1.6-2.3); Phosphorous 5.2 mg/dl (2.5-4.5); Total Protein,Serum 7.6 g/dl (6.3-8.2)
[2024-05-05 14:10] LABS: Carbon Dioxide 14 mmol/L (22.0-30.0)
[2024-05-05 14:14] LABS: C-Reactive Protein 111.1 mg/L (0-4)
[2024-05-05 14:20] LABS: Potassium 7.1 mmoL/L (3.5-5.1)
[2024-05-05 14:27] LABS: Erythrocyte Sedimentation Rate 114 mm/hr (0-30)
[2024-05-05 14:29] LABS: Anion Gap 18.1 mEq/L (5-15); Sodium 137 mmol/L (136-145)
--- NOTE | 2024-05-05 14:34 | CT_ITS ---
FINAL REPORT TECHNIQUE: Axial CT without IV contrast administration. Coronal and sagittal reconstructions were obtained and reviewed. This study was performed with techniques to keep radiation doses as low as reasonably achievable, (ALARA). Individualized dose reduction techniques using automated exposure control or adjustment of mA and/or kV according to the patient''s size were employed. CLINICAL HISTORY: Acute renal failure, hypokalemia, lung cancer COMPARISON: 12/04/2023 FINDINGS: There is a subpleural nodule in the anterior left upper lobe measuring 13 mm on image 34 which is unchanged from the previous exam. There is a rounded partially calcified density in the anterior left lung apex which is stable and considered to be postinflammatory. Emphysema is noted. Subpleural interstitial scarring is seen within the anterior left upper lobe which is probably sequela from radiation. No pleural or pericardial effusion is seen. No adenopathy or mass lesion is present. There are surgical changes from left mastectomy. IMPRESSION: Stable indeterminate left upper lobe nodule. No new abnormality identified. Reviewed, Interpreted and Dictated by Mik Gambino MD Transcribed by Mildred Ca Authenticated and [facility]
--- NOTE | 2024-05-05 14:35 | CT_ITS ---
FINAL REPORT TECHNIQUE: Postcontrast axial CT images of the abdomen and pelvis were obtained. Sagittal and coronal reconstruction was performed. This study was performed with techniques to keep radiation doses as low as reasonably achievable, (ALARA). Individualized dose reduction techniques using automated exposure control or adjustment of mA and/or kV according to the patient''s size were employed. CLINICAL HISTORY: Acute renal failure, hypokalemia, lung cancer COMPARISON: CT chest dated 11/12/2018 FINDINGS: Abdomen: There are bilateral adrenal masses with density measurement of less than 0 Hounsfield units compatible with benign adenomas. The largest on the left measures 45 x 26 mm and is unchanged from a chest CT from 2019. There is a hypodense left renal nodule measuring 12 mm along the renal capsule. A hypodense lesion in the posterior right kidney measures 15 mm. Remaining solid organs are unremarkable. No bowel obstruction is present. There is no free air. No fluid collection is seen. There is no adenopathy. Pelvis: The appendix is not visualized. There is moderate sigmoid diverticulosis. The patient is status post hysterectomy. The urinary bladder is unremarkable. There is no free fluid. No pelvic mass is seen. IMPRESSION: Bilateral adrenal nodules compatible with adenomas. Left renal lesions are not well-characterized without contrast. Continuing imaging follow-up is recommended. No definite metastatic disease identified. Reviewed, Interpreted and Dictated by Mik Gambino MD Transcribed by Keena Handley Authenticated and [facility]
--- NOTE | 2024-05-05 14:36 | ECG_ITS ---
APPROVED REPORT Exam: Resting ECG HR:96 bpm ECG Measurements Heart Rate 96 AXES ND 173 P 59 QRSd 105 QRS 79 QT 310 T 68 QTc 363 Conclusion SINUS RHYTHM TALL T-WAVES, SUGGESTS HYPERKALEMIA ABNORMAL ECG UNCONFIRMED REPORT Electronically signed by : RHEA MCLEOD, 05/05/2024 23:03:30
[2024-05-05] MEDS: DEXTROSE 50% 50ML SYRINGE (CRASH CART) 50 ML IVP ×2 (14:55→20:17)
[2024-05-05] MEDS: INSULIN HUMAN REGULAR 100 UNITS/ML 10ML VIAL 10 UNIT IVP ×2 (14:55→20:18)
[2024-05-05] MEDS: CALCIUM GLUC IN NACL, ISO-OSM 2 GM/100 ML BAG IV ×2 (14:55→20:17)
[2024-05-05] MEDS: LOKELMA 5GM PACKET 10 GM PO (14:57)
[2024-05-05 15:30] LABS: Procalcitonin 0.501 ng/mL (0.0-2.0)
[2024-05-05 15:31] LABS: HIV Combo NEGATIVE (Negative)
[2024-05-05 15:37] LABS: Hepatitis C Ab Qual. W/ RFX NEGATIVE (Negative)
--- NOTE | 2024-05-05 15:45 | PC.NURSE ---
CALLING [facility] TRANSFER [place] FOR TRANSFER TO PER ARIANA IVERSON FOR ACUTE RENAL FAILURE
[2024-05-05 15:46] LABS: Microscopic, Urine URINE MICROSCOPIC (MICROSCOPIC)
[2024-05-05 15:47] LABS: Appearance,Urine CLEAR (Clear); Bilirubin,Urine Negative (Negative); Blood, Urine TRACE-I (Negative); Color,Urine YELLOW (Yellow); Glucose,Urine (UA) Negative (Negative); Ketones,Urine Negative (Negative); Leukocyte Esterase,Urine 1+ (Negative); Nitrate,Urine Negative (Negative); Protein,Urine Negative (Negative); Specific Gravity, Urine 1.015 (1.005-1.030); Urobilinogen,Urine 0.2 EU/dl (0.2)
--- NOTE | 2024-05-05 15:56 | PC.NURSE ---
CHINEDU BAGLEY SPEAKING WITH [facility] FOR TRANSFER
--- NOTE | 2024-05-05 16:12 | PC.NURSE ---
SPEAKING WITH NEPHROLOGY FROM [facility]
--- NOTE | 2024-05-05 16:15 | PC.NURSE ---
CALL RADIOLOGY TO HAVE A DISC BURN ON PT FOR TRANSFER
--- NOTE | 2024-05-05 16:22 | PC.NURSE ---
BLADDER SCAN 73-84MLS POST-VOID
--- NOTE | 2024-05-05 16:25 | PC.NURSE ---
DON YUDI AT BEDSIDE TO UPDATE PT AND FAMILY
--- NOTE | 2024-05-05 16:25 | PC.NURSE ---
PT WAS ACCEPTED TO [facility] STATED BY TRANSFER CENTER AND WE ARE WAITING FOR CALL BACK WITH BED ASSIGNMENT AT THIS TIME, FACESHEET WAS FAXED TO
[2024-05-05 16:32] LABS: RBC,Urine Occasional #/hpf (0-3); WBC,Urine Occasional #/hpf (0-3)
[2024-05-05] MEDS: MEROPENEM 1 GM in 0.9 % SODIUM CHLORIDE 100 ML IV (16:44)
[2024-05-05] MEDS: SODIUM BICARBONATE 150 MEQ in DEXTROSE 5 % IN WATER 1,000 ML 100 MEQ IV (16:48)
[2024-05-05] MEDS: VANCOMYCIN CONSULT REQUEST 1 EACH NOTAPPLIC (16:49)
[2024-05-05] MEDS: VANCOMYCIN/WATER FOR INJ (PEG) 1.5 GM/300 ML PIGGYBACK IV (16:51)
--- NOTE | 2024-05-05 18:00 | PC.NURSE ---
CALLING [facility] FOR UPDATE ON PT BED ASSIGNMENT STATUS
--- NOTE | 2024-05-05 18:06 | PC.NURSE ---
TRANSFER CENTER FROM [facility] SHE STATES THE NURSE TAKING THE PT IS WAITING CLARIFICATION FROM Dr. Benitez ONCE THAT IS RECIEVED WILL WORK ON BED ASSIGNMENT AND CALL BACK WITH INFORMATION TO OUT FACILITY
--- NOTE | 2024-05-05 19:17 | PC.NURSE ---
Contacted [facility] regarding this patient they stated they have no beds
[2024-05-05 19:42] LABS: Chloride 109 mmol/L (98-107); Sodium 133 mmol/L (136-145)
[2024-05-05 19:46] LABS: Carbon Dioxide 16 mmol/L (22.0-30.0)
[2024-05-05 19:47] LABS: Potassium 6.6 mmoL/L (3.5-5.1)
--- NOTE | 2024-05-05 19:47 | PC.NURSE ---
Lab called critical value, K+ 6.6, YUDI Don notified of results, no new orders at this time.
[2024-05-05] MEDS: MAGNESIUM SULFATE IN WATER 2 GM/50 ML PIGGYBACK IV (19:50)
--- NOTE | 2024-05-05 19:55 | PC.NURSE ---
Called [facility] in regard for transfer at 7:41
[2024-05-05 19:56] LABS: Blood Urea Nitrogen 55 mg/dl (7-17); Creatinine Clearance Estimated 23 mL/min (50-200); Estimated Glomerular Filt Rate 11 ml/min (>60); GFR (African American) 14 ML/MIN (>60)
[2024-05-05 19:57] LABS: Anion Gap 14.6 mEq/L (5-15); Calcium 10.1 mg/dl (8.4-10.2); Glucose 143 mg/dl (74-100)
--- NOTE | 2024-05-05 20:42 | PC.NURSE ---
[place] 11 helicopter enroute ETA 45 min
[2024-05-05] MEDS: HYDROMORPHONE 2MG/ML SYRINGE 1 MG IV (21:07)
--- NOTE | 2024-05-05 21:07 | ECG_ITS ---
APPROVED REPORT Exam: Resting ECG HR:116 bpm ECG Measurements Heart Rate 116 AXES SD 179 P 71 QRSd 99 QRS 81 QT 294 T 63 QTc 363 Conclusion SINUS TACHYCARDIA ABNORMAL RHYTHM ECG UNCONFIRMED REPORT Electronically signed by : RHEA MCLEOD, 05/05/2024 23:03:13
== END 2024-05-05 21:54 | disposition short-term general hospital (02) ==
PROVIDERS: Emergency Medicine; Physician Assistant; Emergency Provider Emergency Medicine; PCP Internal Medicine Adolescent Medicine
DX: A41.9 Sepsis, unspecified organism (principal); E83.42 Hypomagnesemia; E87.5 Hyperkalemia; C80.0 Disseminated malignant neoplasm, unspecified; N17.9 Acute kidney failure, unspecified; R53.1 Weakness; R25.9 Unspecified abnormal involuntary movements
CPT/HCPCS: 71250; 74176; 80048; 80053; 81001; 82550; 83735; 84100; 84145; 85025; 85651; 86140; 86803; 87040; 87086; 87389; 93005; 96361; 96365; 96366; 96367; 96374; 96375; 99291; 99292; J1171; J2185; J3372; J3475; J7060; J7120

== ENCOUNTER 2024-05-13 09:03 | Outpatient (CLI) | payer MEDICARE, SELFPAY ==
[2024-05-13] MEDS: SODIUM CHLORIDE 0.9% 10ML FLUSH SYRINGE 10 ML IV (09:20)
[2024-05-13 09:37] LABS: Basophils # 0.1 K/mm3 (0-0.2); Basophils % 0.3 % (0.1-2.0); Eosinophils % 0.1 % (0.1-12.0); Hematocrit 34.9 % (37.0-47.0); Hemoglobin 10.9 g/dL (12.2-16.2); Lymphocytes # 1.7 K/mm3 (0.7-4.5); Lymphocytes % 11.2 % (10-50); Mean Corpuscular HGB Conc 31.2 g/dL (31.8-35.4); Mean Corpuscular Hemoglobin 29.3 pg (27.0-31.2); Mean Corpuscular Volume 93.8 fl (81-99); Mean Platelet Volume 10.1 fl (7.4-10.4); Monocytes # 0.4 K/mm3 (0.1-1.0); Monocytes % 2.8 % (1.7-9.3); Neutrophils # 12.7 K/mm3 (1.8-7.8); Neutrophils % 83.4 % (37.0-80.0); Platelet Count 392 K/mm3 (142-424); Red Blood Count 3.72 M/mm3 (4.20-5.40); Red Cell Distribution Width 15.3 % (11.5-17.5); White Blood Count 15.2 K/mm3 (4.8-10.8)
[2024-05-13 09:39] LABS: Chloride 107 mmol/L (98-107); MANUAL DIFFERENTIAL MANUAL DIFFERENTIAL (MANUAL DIFF); Potassium 3.7 mmoL/L (3.5-5.1); Sodium 131 mmol/L (136-145)
[2024-05-13 09:42] LABS: Alanine Aminotransferase 56 U/L (12-78); Albumin/Globulin Ratio 1.2 (1.1-1.8); Alkaline Phosphatase 73 U/L (38-126); Anion Gap 13.7 mEq/L (5-15); Aspartate Amino Transferase 38 U/L (14-36); Bilirubin,Total 0.3 mg/dl (0.2-1.3); Blood Urea Nitrogen 69 mg/dl (7-17); Calcium 9.7 mg/dl (8.4-10.2); Carbon Dioxide 14 mmol/L (22.0-30.0); Estimated Glomerular Filt Rate 25 ml/min (>60); GFR (African American) 30 ML/MIN (>60); Globulin 3.3 g/dL (1.3-3.2); Glucose 164 mg/dl (74-100); Total Protein,Serum 7.3 g/dl (6.3-8.2)
[2024-05-13 10:20] LABS: Lymphocytes % 12 % (10-50); Monocytes % 4 % (2-9); Neutrophils % 84 % (42-76); Total Cells Counted 100
[2024-05-13 10:21] LABS: Platelet Estimate Normal; RBC Morphology Normal
== END 2024-05-13 09:28 | disposition home or self-care (01) ==
LOC: LAB 09:04 → INF 10:34
PROVIDERS: PCP Internal Medicine Adolescent Medicine; Visit Provider Internal Medicine Medical Oncology
DX: C34.90 Malignant neoplasm of unspecified part of unspecified bronchus or lung (principal)
CPT/HCPCS: 36415; 80053; 85007; 85025; 96523; J1642

== ENCOUNTER 2024-05-20 09:50 | Outpatient (CLI) | payer MEDICARE, SELFPAY ==
[2024-05-20 09:55] VITALS: BMI 39.9
[2024-05-20] MEDS: SODIUM CHLORIDE 0.9% 10ML FLUSH SYRINGE 10 ML IV (10:05)
[2024-05-20 10:25] LABS: Albumin Level 3.6 g/dl (3.5-5.0); Potassium 3.2 mmoL/L (3.5-5.1); Sodium 142 mmol/L (136-145)
[2024-05-20 10:26] LABS: Chloride 116 mmol/L (98-107)
[2024-05-20 10:28] LABS: Alanine Aminotransferase 42 U/L (12-78); Albumin/Globulin Ratio 1.2 (1.1-1.8); Alkaline Phosphatase 86 U/L (38-126); Aspartate Amino Transferase 30 U/L (14-36); Bilirubin,Total < 0.1 mg/dl (0.2-1.3); Blood Urea Nitrogen 35 mg/dl (7-17); Creatinine Clearance Estimated 71 mL/min (50-200); Estimated Glomerular Filt Rate 41 ml/min (>60); GFR (African American) 49 ML/MIN (>60); Globulin 2.9 g/dL (1.3-3.2); Total Protein,Serum 6.5 g/dl (6.3-8.2)
[2024-05-20 10:29] LABS: Anion Gap 14.2 mEq/L (5-15); Calcium 8.4 mg/dl (8.4-10.2); Carbon Dioxide 15 mmol/L (22.0-30.0); Glucose 153 mg/dl (74-100)
== END 2024-05-20 10:10 | disposition home or self-care (01) ==
LOC: INF 09:50
PROVIDERS: PCP Internal Medicine Adolescent Medicine; Visit Provider Internal Medicine Medical Oncology
DX: C34.12 Malignant neoplasm of upper lobe, left bronchus or lung (principal)
CPT/HCPCS: 36591; 80053; J1642

== ENCOUNTER 2024-05-30 08:49 | Outpatient (CLI) | payer MEDICARE, SELFPAY ==
[2024-05-30 08:51] VITALS: BMI 37.5
[2024-05-30] MEDS: CATHFLO 2MG VIAL 2 MG IV (09:15)
[2024-05-30 09:25] LABS: Basophils % 0.1 % (0.1-2.0); Eosinophils # 0.1 K/mm3 (0.0-0.4); Eosinophils % 0.7 % (0.1-12.0); Hematocrit 36.5 % (37.0-47.0); Hemoglobin 11.5 g/dL (12.2-16.2); Lymphocytes # 3.2 K/mm3 (0.7-4.5); Lymphocytes % 21.4 % (10-50); Mean Corpuscular HGB Conc 31.5 g/dL (31.8-35.4); Mean Corpuscular Hemoglobin 30.1 pg (27.0-31.2); Mean Corpuscular Volume 95.5 fl (81-99); Mean Platelet Volume 10.1 fl (7.4-10.4); Monocytes # 0.9 K/mm3 (0.1-1.0); Monocytes % 6.1 % (1.7-9.3); Neutrophils # 10.6 K/mm3 (1.8-7.8); Platelet Count 215 K/mm3 (142-424); Red Blood Count 3.82 M/mm3 (4.20-5.40); White Blood Count 14.9 K/mm3 (4.8-10.8)
[2024-05-30 09:32] LABS: Albumin Level 3.5 g/dl (3.5-5.0); Chloride 109 mmol/L (98-107)
[2024-05-30 09:33] LABS: Potassium 3.9 mmoL/L (3.5-5.1); Sodium 138 mmol/L (136-145)
[2024-05-30 09:35] LABS: Alanine Aminotransferase 36 U/L (12-78); Anion Gap 6.9 mEq/L (5-15); Aspartate Amino Transferase 23 U/L (14-36); Blood Urea Nitrogen 28 mg/dl (7-17); Carbon Dioxide 26 mmol/L (22.0-30.0); Creatinine Clearance Estimated 87 mL/min (50-200); Estimated Glomerular Filt Rate 55 ml/min (>60); GFR (African American) 67 ML/MIN (>60)
[2024-05-30 09:36] LABS: Albumin/Globulin Ratio 1.5 (1.1-1.8); Alkaline Phosphatase 87 U/L (38-126); Bilirubin,Total 0.2 mg/dl (0.2-1.3); Globulin 2.4 g/dL (1.3-3.2); Glucose 107 mg/dl (74-100); Total Protein,Serum 5.9 g/dl (6.3-8.2)
[2024-05-30] MEDS: SODIUM CHLORIDE 0.9% 10ML FLUSH SYRINGE 10 ML IV (10:30)
== END 2024-05-30 10:00 | disposition home or self-care (01) ==
PROVIDERS: PCP Internal Medicine Adolescent Medicine; Visit Provider Internal Medicine Medical Oncology
DX: C34.12 Malignant neoplasm of upper lobe, left bronchus or lung (principal); C79.51 Secondary malignant neoplasm of bone
CPT/HCPCS: 36415; 80053; 85025; 96374; J1642; J2997

== ENCOUNTER 2024-06-04 08:49 | Outpatient (CLI) | payer MEDICARE, SELFPAY ==
[2024-06-04 09:16] LABS: Albumin Level 3.9 g/dl (3.5-5.0); Chloride 103 mmol/L (98-107); Potassium 4.7 mmoL/L (3.5-5.1); Sodium 140 mmol/L (136-145)
[2024-06-04 09:19] LABS: Alanine Aminotransferase 43 U/L (12-78); Albumin/Globulin Ratio 1.5 (1.1-1.8); Alkaline Phosphatase 111 U/L (38-126); Anion Gap 13.7 mEq/L (5-15); Aspartate Amino Transferase 26 U/L (14-36); Bilirubin,Total 0.3 mg/dl (0.2-1.3); Blood Urea Nitrogen 30 mg/dl (7-17); Calcium 9.1 mg/dl (8.4-10.2); Carbon Dioxide 28 mmol/L (22.0-30.0); Estimated Glomerular Filt Rate 45 ml/min (>60); GFR (African American) 54 ML/MIN (>60); Globulin 2.6 g/dL (1.3-3.2); Glucose 163 mg/dl (74-100); Total Protein,Serum 6.5 g/dl (6.3-8.2)
== END 2024-06-04 09:10 | disposition home or self-care (01) ==
LOC: INF 08:49
PROVIDERS: PCP Internal Medicine Adolescent Medicine; Visit Provider Internal Medicine Medical Oncology
DX: C34.12 Malignant neoplasm of upper lobe, left bronchus or lung (principal); C79.51 Secondary malignant neoplasm of bone
CPT/HCPCS: 36591; 80053

== ENCOUNTER 2024-06-12 12:20 | Outpatient (CLI) | payer MEDICARE, SELFPAY ==
[2024-06-12 12:25] VITALS: BMI 39.7
[2024-06-12 12:37] LABS: Basophils % 0.3 % (0.1-2.0); Eosinophils % 0.2 % (0.1-12.0); Hematocrit 40.8 % (37.0-47.0); Hemoglobin 12.5 g/dL (12.2-16.2); Lymphocytes # 2.3 K/mm3 (0.7-4.5); Lymphocytes % 17.8 % (10-50); Mean Corpuscular HGB Conc 30.6 g/dL (31.8-35.4); Mean Corpuscular Hemoglobin 29.6 pg (27.0-31.2); Mean Corpuscular Volume 96.7 fl (81-99); Monocytes # 0.8 K/mm3 (0.1-1.0); Neutrophils # 9.5 K/mm3 (1.8-7.8); Neutrophils % 74.4 % (37.0-80.0); Platelet Count 259 K/mm3 (142-424); Red Blood Count 4.22 M/mm3 (4.20-5.40); Red Cell Distribution Width 15.2 % (11.5-17.5); White Blood Count 12.8 K/mm3 (4.8-10.8)
[2024-06-12 12:42] LABS: Albumin Level 4.1 g/dl (3.5-5.0); Chloride 109 mmol/L (98-107); Potassium 3.6 mmoL/L (3.5-5.1); Sodium 141 mmol/L (136-145)
[2024-06-12 12:45] LABS: Alanine Aminotransferase 51 U/L (12-78); Albumin/Globulin Ratio 1.5 (1.1-1.8); Alkaline Phosphatase 79 U/L (38-126); Anion Gap 9.6 mEq/L (5-15); Aspartate Amino Transferase 29 U/L (14-36); Bilirubin,Total 0.3 mg/dl (0.2-1.3); Blood Urea Nitrogen 20 mg/dl (7-17); Carbon Dioxide 26 mmol/L (22.0-30.0); Creatinine Clearance Estimated 92 mL/min (50-200); Estimated Glomerular Filt Rate 55 ml/min (>60); GFR (African American) 67 ML/MIN (>60); Globulin 2.7 g/dL (1.3-3.2); Total Protein,Serum 6.8 g/dl (6.3-8.2)
[2024-06-12 12:46] LABS: Calcium 9.2 mg/dl (8.4-10.2); Glucose 110 mg/dl (74-100)
== END 2024-06-12 12:34 | disposition home or self-care (01) ==
PROVIDERS: PCP Internal Medicine Adolescent Medicine; Visit Provider Internal Medicine Medical Oncology
DX: C34.12 Malignant neoplasm of upper lobe, left bronchus or lung (principal); C79.51 Secondary malignant neoplasm of bone
CPT/HCPCS: 36591; 80053; 85025

== ENCOUNTER 2024-06-13 10:51 | Outpatient (CLI) | payer MEDICARE, SELFPAY | END 2024-06-13 23:59 | disposition home or self-care (01) | LOC: LAB.DROPOF 06-23 10:52 | PROVIDERS: PCP Internal Medicine Adolescent Medicine; Visit Provider Internal Medicine Medical Oncology | DX: C34.90 Malignant neoplasm of unspecified part of unspecified bronchus or lung (principal) | CPT/HCPCS: J1642 ==

== ENCOUNTER 2024-06-18 10:39 | Outpatient (CLI) | payer MEDICARE, SELFPAY ==
[2024-06-18 11:05] LABS: Chloride 108 mmol/L (98-107)
[2024-06-18 11:06] LABS: Albumin Level 3.9 g/dl (3.5-5.0); Potassium 3.9 mmoL/L (3.5-5.1); Sodium 142 mmol/L (136-145)
[2024-06-18 11:08] LABS: Blood Urea Nitrogen 21 mg/dl (7-17); Estimated Glomerular Filt Rate 55 ml/min (>60); GFR (African American) 67 ML/MIN (>60)
[2024-06-18 11:09] LABS: Alanine Aminotransferase 46 U/L (12-78); Albumin/Globulin Ratio 1.5 (1.1-1.8); Alkaline Phosphatase 93 U/L (38-126); Anion Gap 10.9 mEq/L (5-15); Aspartate Amino Transferase 30 U/L (14-36); Bilirubin,Total 0.2 mg/dl (0.2-1.3); Calcium 8.9 mg/dl (8.4-10.2); Carbon Dioxide 27 mmol/L (22.0-30.0); Globulin 2.6 g/dL (1.3-3.2); Glucose 128 mg/dl (74-100); Total Protein,Serum 6.5 g/dl (6.3-8.2)
== END 2024-06-18 10:59 | disposition home or self-care (01) ==
LOC: INF 10:40
PROVIDERS: PCP Internal Medicine Adolescent Medicine; Visit Provider Internal Medicine Medical Oncology
DX: C34.12 Malignant neoplasm of upper lobe, left bronchus or lung (principal)
CPT/HCPCS: 36591; 80053

== ENCOUNTER 2024-06-19 10:50 | Outpatient (CLI) | payer MEDICARE, SELFPAY | END 2024-06-19 23:59 | disposition home or self-care (01) | LOC: LAB.DROPOF 06-23 10:51 | PROVIDERS: PCP Internal Medicine Adolescent Medicine; Visit Provider Internal Medicine Medical Oncology | DX: C34.12 Malignant neoplasm of upper lobe, left bronchus or lung (principal) | CPT/HCPCS: J1642 ==

== ENCOUNTER 2024-06-20 06:54 | Outpatient (CLI) | payer MEDICARE, SELFPAY ==
--- NOTE | 2024-06-20 06:55 | MR_ITS ---
FINAL REPORT TECHNIQUE: Multiplanar MR, without and with gadolinium enhancement CLINICAL HISTORY: Pain in Lumbar area. BONE CANCER IN HIP AND LOW BACK. LUNG CANCER. BILATERAL BACK AND HIP PAIN COMPARISON: None FINDINGS: Sagittal images show normal vertebral height. There is minimal anterolisthesis of L3 on L4. A hemangioma is present in the left L3 vertebral body. There are no signal changes in the lumbar spine to suggest metastatic disease. T11-12: Unremarkable T12-L1: Unremarkable. L1-2: There is a minimal annular bulge without canal stenosis. L2-3: There is a mild annular bulge without evidence of canal stenosis. L3-4: There is a mild annular bulge with moderate facet arthropathy. L4-5: There is a moderate annular bulge and facet arthropathy, with mild central canal stenosis and mild neural foraminal narrowing. L5-S1: A minimal annular bulge is present. IMPRESSION: No evidence of metastatic disease in the lumbar spine. Multilevel degenerative change as described, most prominent at the L3-4 and L4-5 levels. Reviewed, Interpreted and Dictated by Mik Gambino MD Transcribed by Jaclyn So Authenticated and [facility]
[2024-06-20] MEDS: SODIUM CHLORIDE 0.9% 10ML SYR (RAD ONLY) 10 ML IV (07:58)
[2024-06-20] MEDS: GADOTERIDOL INJ 20ML SYRINGE 20 ML IV (07:59)
[2024-06-20] MEDS: GADOTERIDOL INJ 10ML SYRINGE 10 ML IV (07:59)
== END 2024-06-20 23:59 | disposition home or self-care (01) ==
LOC: RAD 06:55
PROVIDERS: PCP Internal Medicine Adolescent Medicine; Visit Provider Internal Medicine Medical Oncology
DX: C79.51 Secondary malignant neoplasm of bone (principal); M54.9 Dorsalgia, unspecified; M25.551 Pain in right hip; M25.552 Pain in left hip; C34.12 Malignant neoplasm of upper lobe, left bronchus or lung
CPT/HCPCS: 72158; A9576

== ENCOUNTER 2024-06-27 12:22 | Outpatient (CLI) | payer MEDICARE, SELFPAY ==
[2024-06-27] MEDS: SODIUM CHLORIDE 0.9% 10ML FLUSH SYRINGE 10 ML IV (13:04)
[2024-06-27 13:19] LABS: Albumin Level 4.2 g/dl (3.5-5.0); Chloride 111 mmol/L (98-107); Potassium 3.2 mmoL/L (3.5-5.1); Sodium 141 mmol/L (136-145)
[2024-06-27 13:21] LABS: Blood Urea Nitrogen 28 mg/dl (7-17); Estimated Glomerular Filt Rate 32 ml/min (>60); GFR (African American) 39 ML/MIN (>60)
[2024-06-27 13:22] LABS: Alanine Aminotransferase 38 U/L (12-78); Albumin/Globulin Ratio 1.5 (1.1-1.8); Alkaline Phosphatase 97 U/L (38-126); Anion Gap 9.2 mEq/L (5-15); Aspartate Amino Transferase 30 U/L (14-36); Bilirubin,Total 0.3 mg/dl (0.2-1.3); Calcium 9.4 mg/dl (8.4-10.2); Carbon Dioxide 24 mmol/L (22.0-30.0); Globulin 2.8 g/dL (1.3-3.2); Glucose 101 mg/dl (74-100)
== END 2024-06-27 12:56 | disposition home or self-care (01) ==
LOC: INF 12:23
PROVIDERS: PCP Internal Medicine Adolescent Medicine; Visit Provider Internal Medicine Medical Oncology
DX: C34.12 Malignant neoplasm of upper lobe, left bronchus or lung (principal)
CPT/HCPCS: 36591; 80053; J1642

== ENCOUNTER 2024-06-30 11:22 | Outpatient (CLI) | payer MEDICARE, SELFPAY ==
--- NOTE | 2024-06-30 11:26 | MR_ITS ---
FINAL REPORT CLINICAL HISTORY: FACIAL DROOP COMPARISON: 01/04/2024 FINDINGS: Multi planar MR imaging was obtained through the brain without contrast. The midline structures appear intact. There is no evidence of Chiari malformation. There is minimal abnormal signal in the subcortical white matter, particularly in the left frontal lobe. On diffusion-weighted images there is no evidence of restricted diffusion. The visualized paranasal sinuses demonstrate normal signal voids. The seventh and eighth nerve root complexes are intact. IMPRESSION: No acute intracranial abnormality. Reviewed, Interpreted and Dictated by Reji Billings MD Transcribed by Keena Handley Authenticated and [facility] [place]
== END 2024-06-30 23:59 | disposition home or self-care (01) ==
LOC: RAD 11:23
PROVIDERS: PCP Internal Medicine Adolescent Medicine; Visit Provider Internal Medicine Adolescent Medicine
DX: R29.810 Facial weakness (principal); H21.563 Pupillary abnormality, bilateral
CPT/HCPCS: 70551

== ENCOUNTER 2024-07-02 12:02 | Outpatient (CLI) | payer MEDICARE, SELFPAY ==
[2024-07-02 12:40] LABS: Albumin Level 4.2 g/dl (3.5-5.0); Chloride 107 mmol/L (98-107)
[2024-07-02 12:41] LABS: Potassium 4.1 mmoL/L (3.5-5.1); Sodium 139 mmol/L (136-145)
[2024-07-02] MEDS: SODIUM CHLORIDE 0.9% 10ML FLUSH SYRINGE 10 ML IV (12:41)
[2024-07-02 12:43] LABS: Blood Urea Nitrogen 33 mg/dl (7-17); Estimated Glomerular Filt Rate 35 ml/min (>60); GFR (African American) 42 ML/MIN (>60)
[2024-07-02 12:44] LABS: Alanine Aminotransferase 36 U/L (12-78); Albumin/Globulin Ratio 1.4 (1.1-1.8); Alkaline Phosphatase 121 U/L (38-126); Anion Gap 12.1 mEq/L (5-15); Aspartate Amino Transferase 33 U/L (14-36); Bilirubin,Total 0.2 mg/dl (0.2-1.3); Calcium 10.6 mg/dl (8.4-10.2); Carbon Dioxide 24 mmol/L (22.0-30.0); Glucose 182 mg/dl (74-100); Total Protein,Serum 7.2 g/dl (6.3-8.2)
== END 2024-07-02 12:10 | disposition home or self-care (01) ==
LOC: INF 12:02
PROVIDERS: PCP Internal Medicine Adolescent Medicine; Visit Provider Internal Medicine Medical Oncology
DX: C34.12 Malignant neoplasm of upper lobe, left bronchus or lung (principal)
CPT/HCPCS: 36591; 80053; J1642

== ENCOUNTER 2024-07-03 13:51 | Outpatient (CLI) | payer MEDICARE, SELFPAY | END 2024-07-03 23:59 | disposition home or self-care (01) | LOC: RAD 13:52 | PROVIDERS: PCP Internal Medicine Adolescent Medicine; Visit Provider Internal Medicine Medical Oncology | DX: C34.12 Malignant neoplasm of upper lobe, left bronchus or lung (principal); H21.563 Pupillary abnormality, bilateral; R29.810 Facial weakness ==

== ENCOUNTER 2024-07-04 14:46 | Outpatient (CLI) | payer MEDICARE, SELFPAY ==
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
== END 2024-07-04 23:59 | disposition home or self-care (01) ==
LOC: RAD 14:46
PROVIDERS: PCP Internal Medicine Adolescent Medicine; Visit Provider Internal Medicine Medical Oncology
DX: C34.12 Malignant neoplasm of upper lobe, left bronchus or lung (principal); C79.51 Secondary malignant neoplasm of bone
CPT/HCPCS: 73700

== ENCOUNTER 2024-07-10 09:03 | Outpatient (CLI) | payer MEDICARE, SELFPAY ==
[2024-07-10] MEDS: SODIUM CHLORIDE 0.9% 10ML FLUSH SYRINGE 10 ML IV (09:15)
[2024-07-10 09:28] LABS: Basophils # 0.1 K/mm3 (0-0.2); Basophils % 0.5 % (0.1-2.0); Eosinophils # 0.1 K/mm3 (0.0-0.4); Eosinophils % 0.6 % (0.1-12.0); Hematocrit 39.3 % (37.0-47.0); Hemoglobin 12.2 g/dL (12.2-16.2); Lymphocytes # 1.7 K/mm3 (0.7-4.5); Lymphocytes % 14.6 % (10-50); Mean Corpuscular Hemoglobin 29.1 pg (27.0-31.2); Mean Corpuscular Volume 93.8 fl (81-99); Mean Platelet Volume 10.4 fl (7.4-10.4); Monocytes # 0.7 K/mm3 (0.1-1.0); Monocytes % 6.3 % (1.7-9.3); Neutrophils # 8.8 K/mm3 (1.8-7.8); Neutrophils % 76.9 % (37.0-80.0); Platelet Count 269 K/mm3 (142-424); Red Blood Count 4.19 M/mm3 (4.20-5.40); White Blood Count 11.4 K/mm3 (4.8-10.8)
[2024-07-10 09:32] LABS: Alanine Aminotransferase 29 U/L (12-78); Albumin Level 3.8 g/dl (3.5-5.0); Albumin/Globulin Ratio 1.4 (1.1-1.8); Alkaline Phosphatase 87 U/L (38-126); Anion Gap 8.9 mEq/L (5-15); Aspartate Amino Transferase 30 U/L (14-36); Bilirubin,Total 0.4 mg/dl (0.2-1.3); Blood Urea Nitrogen 21 mg/dl (7-17); Calcium 8.9 mg/dl (8.4-10.2); Carbon Dioxide 23 mmol/L (22.0-30.0); Chloride 112 mmol/L (98-107); Estimated Glomerular Filt Rate 37 ml/min (>60); GFR (African American) 45 ML/MIN (>60); Globulin 2.7 g/dL (1.3-3.2); Glucose 173 mg/dl (74-100); Potassium 3.9 mmoL/L (3.5-5.1); Sodium 140 mmol/L (136-145); Total Protein,Serum 6.5 g/dl (6.3-8.2)
== END 2024-07-10 09:25 | disposition home or self-care (01) ==
LOC: LAB 09:04 → INF 09:20
PROVIDERS: PCP Internal Medicine Adolescent Medicine; Visit Provider Internal Medicine Medical Oncology
DX: C34.12 Malignant neoplasm of upper lobe, left bronchus or lung (principal)
CPT/HCPCS: 36591; 80053; 85025; J1642

== ENCOUNTER 2024-07-16 09:59 | Outpatient (CLI) | payer MEDICARE, SELFPAY ==
[2024-07-16 10:07] VITALS: BMI 40.4
[2024-07-16 10:38] LABS: Chloride 108 mmol/L (98-107); Potassium 4.3 mmoL/L (3.5-5.1); Sodium 141 mmol/L (136-145)
[2024-07-16 10:41] LABS: Alanine Aminotransferase 28 U/L (12-78); Albumin/Globulin Ratio 1.7 (1.1-1.8); Alkaline Phosphatase 96 U/L (38-126); Anion Gap 11.3 mEq/L (5-15); Aspartate Amino Transferase 26 U/L (14-36); Bilirubin,Total 0.2 mg/dl (0.2-1.3); Blood Urea Nitrogen 33 mg/dl (7-17); Carbon Dioxide 26 mmol/L (22.0-30.0); Creatinine Clearance Estimated 67 mL/min (50-200); Estimated Glomerular Filt Rate 37 ml/min (>60); GFR (African American) 45 ML/MIN (>60); Globulin 2.4 g/dL (1.3-3.2); Glucose 229 mg/dl (74-100); Total Protein,Serum 6.4 g/dl (6.3-8.2)
[2024-07-16] MEDS: SODIUM CHLORIDE 0.9% 10ML FLUSH SYRINGE 10 ML IV (10:44)
== END 2024-07-16 10:30 | disposition home or self-care (01) ==
LOC: INF 10:00
PROVIDERS: PCP Internal Medicine Adolescent Medicine; Visit Provider Internal Medicine Medical Oncology
DX: C34.12 Malignant neoplasm of upper lobe, left bronchus or lung (principal); C79.51 Secondary malignant neoplasm of bone
CPT/HCPCS: 36591; 80053; J1642

== ENCOUNTER 2024-07-23 10:22 | Outpatient (CLI) | payer MEDICARE, SELFPAY ==
[2024-07-23] MEDS: SODIUM CHLORIDE 0.9% 10ML FLUSH SYRINGE 10 ML IV (10:35)
[2024-07-23 10:55] LABS: Albumin Level 4.1 g/dl (3.5-5.0); Chloride 104 mmol/L (98-107); Sodium 139 mmol/L (136-145)
[2024-07-23 10:56] LABS: Potassium 4.1 mmoL/L (3.5-5.1)
[2024-07-23 10:58] LABS: Alanine Aminotransferase 31 U/L (12-78); Albumin/Globulin Ratio 1.4 (1.1-1.8); Alkaline Phosphatase 126 U/L (38-126); Anion Gap 10.1 mEq/L (5-15); Aspartate Amino Transferase 24 U/L (14-36); Bilirubin,Total 0.4 mg/dl (0.2-1.3); Blood Urea Nitrogen 32 mg/dl (7-17); Calcium 9.5 mg/dl (8.4-10.2); Carbon Dioxide 29 mmol/L (22.0-30.0); Estimated Glomerular Filt Rate 41 ml/min (>60); GFR (African American) 49 ML/MIN (>60); Globulin 2.9 g/dL (1.3-3.2); Glucose 120 mg/dl (74-100)
== END 2024-07-23 10:45 | disposition home or self-care (01) ==
LOC: INF 10:23
PROVIDERS: PCP Internal Medicine Adolescent Medicine; Visit Provider Internal Medicine Medical Oncology
DX: C34.90 Malignant neoplasm of unspecified part of unspecified bronchus or lung (principal)
CPT/HCPCS: 36591; 80053; J1642

== ENCOUNTER 2024-07-30 09:22 | Outpatient (CLI) | payer MEDICARE, SELFPAY ==
[2024-07-30] MEDS: SODIUM CHLORIDE 0.9% 10ML FLUSH SYRINGE 10 ML IV (09:35)
[2024-07-30 09:52] LABS: Albumin Level 4.4 g/dl (3.5-5.0); Chloride 104 mmol/L (98-107); Potassium 4.2 mmoL/L (3.5-5.1); Sodium 139 mmol/L (136-145)
[2024-07-30 09:55] LABS: Alanine Aminotransferase 41 U/L (12-78); Albumin/Globulin Ratio 1.3 (1.1-1.8); Alkaline Phosphatase 109 U/L (38-126); Anion Gap 16.2 mEq/L (5-15); Aspartate Amino Transferase 35 U/L (14-36); Bilirubin,Total 0.5 mg/dl (0.2-1.3); Blood Urea Nitrogen 38 mg/dl (7-17); Carbon Dioxide 23 mmol/L (22.0-30.0); Estimated Glomerular Filt Rate 32 ml/min (>60); GFR (African American) 39 ML/MIN (>60); Globulin 3.4 g/dL (1.3-3.2); Total Protein,Serum 7.8 g/dl (6.3-8.2)
[2024-07-30 09:56] LABS: Glucose 155 mg/dl (74-100)
--- OUTSIDE RECORDS SUMMARY | 2024-07-31 21:57 | XMS_ITS | Continuity of Care Document ---
Author Organization [facility] - [place] & [place], [facility] Address [address] [place] [address] Care Team Providers Care Clinical Statistics Manager Name Role Phone MARIANA FOX Radiation Oncologist CORINNE GAINES Primary Care Provider [phone] EMILI CHASE Hematology/Oncology Assessment No assessment recorded. Plan of Treatment Reminders Order Date Submit Date Provider Last Modified By Organization Details Last Modified Time Details Appointments OV EST 15 025 10:00AM Mariana Fox MD Not available Not available Not available Lab None record ed. Referral None record ed. Procedures None record ed. Surgeries None record ed. Imaging None record ed. Medication Orders None record ed. Patient TargetsNo targets recorded. Patient InstructionsNo instructions recorded. Reason for Referral None Reported. Results Created Date Observation Date Name Description Value Unit Range Abnormal Flag Note LastModifiedBy Organization Detail LastModifiedTime 06/24/19 25 06/20/2024 MRI, lumba r spine , w/wo contr ast No observ ation record ed. [facility] [address], [place], [address], 07/07/2024 13:05:24 07/09/19 25 07/04/2024 imagi ng/di agnos tic resul t No observ ation record ed. [facility] [address], [place], [address], 07/08/2024 13:06:03 Result Notes None recorded. Problems Name Problem SNOMED Code Status Onset Date Resolution Date Notes Provider Name and Address Organization Details Recorded Time Metastatic malignant neoplasm to bone 00755688 Active 024 [facility] Najera [facility] & [place] 14:45:21 Malignant neoplasm of upper lobe of left lung 964939936 Active 024 [facility] Najera [facility] & [place] 14:46:26 Problem Notes None recorded. Procedures Surgical History Date Name Laterality Status Provider Name and Address Organization Details Recorded Time simple mastectomy of left breast completed Gladys CASTRO [facility] & [place] 06/02/2024 15:00:57 Appendectomy completed Gladys CASTRO [facility] & [place] 06/04/2024 14:08:23 Cholecystectomy completed Gladys CASTRO [facility] & [place] 06/04/2024 14:08:35 hysterectomy completed Gladys CASTRO [facility] & [place] 06/04/2024 14:08:52 tonsillectomy completed Gladys CASTRO [facility] & [place] 06/04/2024 14:09:01 Imaging Results None recorded. Procedure Notes None recorded. Medical Equipment None Reported. Allergies Allergen ID Allergen Name Allergen Category Reaction Reaction Severity Criticality Documentation Date Start Date Code Code System Note Provider Name and Address Organization Details Recorded Time 165111 Lipitor medicatio n Not available Not available Not available 06/02/2024 62206 5 RxNorm [facility] Najera [facility] & [place] 14:48:04 190649 codeine medicatio n Not available Not available Not available 06/02/2024 2670 RxNorm [facility] Najera [facility] & [place] 14:48:17 384286 latex environme nt,medica tion Not available Not available Not available 06/02/2024 34279 91 RxNorm [facility] N[place]era [facility] & [place] 14:48:40 939011 Product containin g penicilli n (product) medicatio n Not available Not available Not available 06/02/2024 72669 8001 SNOMED Gladys Mcconnell [facility], [facility] & [place] 5 14:48:58 Medications Name Sig Start Date Stop Date Status Note LastModified by Organization Details LastModified Time methocarbam ol 500 mg tablet TAKE 1 TO 2 TABLETS BY MOUTH TWICE DAILY NEEDED FOR MUSCLE SPASM active Not Available Not Available No t Available prednisone 10 mg tablet TAKE 1 TABLET BY MOUTH 4 TIMES DAILY FOR 30 DAYS active Not Available Not Available No t Available valacyclovi r 1 gram tablet TAKE 1 TABLET BY MOUTH TWICE DAILY FOR 10 DAYS 06/04 completed Not Available Not Available Not Available hydrocodone 5 mg-acetamin ophen 325 mg tablet active Not Available Not Available No t Available fluconazole 200 mg tablet TAKE 1 TABLET BY MOUTH ONCE DAILY 06/02 completed Not Available Not Available Not Available prednisone 20 mg tablet TAKE 3 TABLETS BY MOUTH ONCE DAILY FOR 21 DAYS 06/04 completed Not Available Not Available Not Available prochlorper azine maleate 10 mg tablet TAKE 1 TABLET BY MOUTH EVERY 6 HOURS NEEDED FOR NAUSEA AND VOMITING active Not Available Not Available No t Available alprazolam 0.5 mg tablet TAKE 1 TABLET BY MOUTH THREE TIMES DAILY active Not Available Not Available No t Available linezolid 600 mg tablet TAKE ONE TABLET BY MOUTH TWICE DAILY 06/02 completed Not Available Not Available Not Available dexamethaso ne 4 mg tablet TAKE 1 TABLET BY MOUTH TWICE DAILY THE DAY BEFORE, 1 TABLET DAY OF AND THEN DAY AFTER OF CHEMO INFUSION 06/04 completed Not Available Not Available Not Available omeprazole 20 mg capsule,del ayed release TAKE 1 CAPSULE BY MOUTH ONCE DAILY FOR HEARTBURN active Not Available Not Available No t Available folic acid 1 mg tablet TAKE 1 TABLET BY MOUTH ONCE DAILY active Not Available Not Available No t Available albuterol sulfate HFA 90 mcg/actuati on aerosol inhaler INHALE 2 PUFFS BY MOUTH 4 TIMES DAILY NEEDED FOR SHORTNESS OF BREATH AND FOR WHEEZING active Not Available Not Available No t Available cefdinir 300 mg capsule TAKE 1 CAPSULE BY MOUTH EVERY 12 HOURS FOR 7 DAYS 06/02 completed Not Available Not Available Not Available aripiprazol e 10 mg tablet Take 1 tablet every day by oral route. active Not Available Not Available No t Available rosuvastati n 10 mg tablet Take 1 tablet every day by oral route. active Not Available Not Available No t Available bupropion HCl XL 450 mg 24 hr tablet, extended release Take 1 tablet every day by oral route. active Not Available Not Available No t Available Stiolto Respimat 2.5 mcg-2.5 mcg/actuati on solution for inhalation INHALE 2 PUFFS BY MOUTH ONCE DAILY active Not Available Not Available No t Available Vitals Date Recorded Body height Body mass index (BMI) Body weight Body temperature Oxygen saturation Oxygen saturation in Arterial blood by Pulse oximetry Heart rate Respiratory rate Provider Name and Address Organization Details Last Updated DateTime 165.1 cm 39.9 kg/m2 440236. 73 g 97.9 [degF] 94 % 94 % 88 /min 20 /min Gladys SHEPHERD [facility] & [place] 14:11:20 Social History Question Answer Notes LastModified by Organizat ion Details LastModified Time Tobacco Smoking Status Current Every Day Smoker Gladys Ferrell [facility] & [place] 06/04/2024 14:05:10 What Is Your Level Of Alcohol Consumption? 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 06/04/2024 Information not available 06/04/2024 What Is Your Current Pack Years? 30ormorepaheath lópez 56 Pack Years Information not available 06/04/2024 At What Age Did You Start Smoking Tobacco? 13 Information not available 06/04/2024 How Much Tobacco Do You Smoke? 1 PPD Information not available 06/04/2024 Do You Use Any Illicit Or Recreational Drugs? No Information not available 06/04/2024 Has Tobacco Cessation Counseling Been Provided? Yes Information not available 06/04/2024 On What Date Was Tobacco Cessation Counseling Provided? 06/04/2024 Smoking Cessation Brochures From [facility] Given Information not available 06/04/2024 How Many Years Have You Smoked Tobacco? 56 Information not available 06/04/2024 Do You Or Have You Ever Used Any Other Forms Of Tobacco Or Nicotine? No Information not available 06/04/2024 Sex: Unknown Functional Status None recorded. Mental Status None recorded. Family History Relationship Description Onset Age of this Age Resolved Age Notes LastModified by Organization Details LastModified Time Mother Diabetes mellitus nparkerrose Not available 05/24 14:01:21 Father Malignant neoplastic disease Throat Cancer nparkerrose Not available 06/04/2024 14:02:04 Brother Malignant tumor of kidney nparkerrose Not available 05/24 14:02:27 Sister Malignant tumor of breast nparkerrose Not available 05/24 14:02:39 Medical History Condition Response None Gynecological HistoryNo gynecological history recorded. Obstetrics History GPAL:G 0 P 0 0 0 0 Past Encounters Encounter ID Performer Location Encounter Start Date Encounter Closed Date Diagnosis/Indication Diagnosis SNOMED-CT Code Diagnosis ICD10 Code Diagnosis Note [id number] Mariana Fox MD [facility] [address] 06/04/2024 13:03:15 06/04/2024 15:00:33 Metastatic malignant neoplasm to bone 48365800 C79.51 Malignant neoplasm of upper lobe of left lung 913123265 C34.12 [id number] [facility] [address] [address] 06/16/2024 08:50:44 06/16/2024 10:17:04 Malignant neoplasm of upper lobe of left lung 615210996 C34.12 [id number] Mariana Fox MD [facility] [address] [address] 06/23/2024 10:48:55 06/23/2024 12:02:32 Malignant neoplasm of upper lobe of left lung 081790470 C34.12 [id number] [facility] [address] [address] 06/24/2024 08:50:38 06/24/2024 11:06:08 Malignant neoplasm of upper lobe of left lung 586224523 C34.12 [id number] [facility] [address] [place] [address] 06/25/2024 13:10:45 06/25/2024 13:52:12 Malignant neoplasm of upper lobe of left lung 849893843 C34.12 [id number] MD LIGIA Reese [facility] [address] [place] [address] 06/26/2024 10:32:12 06/26/2024 11:30:06 Malignant neoplasm of upper lobe of left lung 403779007 C34.12 Health Concerns Section Related Observation LastModified by Organization Detai ls LastModified Time None Recorded Concern Status LastModified by Organization Details LastModified Time None Recorded Payers Encounter Date Sequence Insurance Name Policy Number Policy Sorenson Covered Member ID Sorenson Member ID Guarantor Name 06/26/2024 1 [employer] (MEDICARE REPLACEMENT PPO) [id number] Tammy Farris [place] [id number] Tammy Amaro Notes Date Note Type Note Provider Name and Address Organization Details Recorded Time 06/27/2024 text/html Patient complete d her SBRT radiation to the left upper lung and was well tolerated she has having a MRI of the pelvis by the end of next week to verify metastatic disease in the greater trochanter of the right femur for possible stereotactic radiation to this site for metastatic disease. 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 Mariana Fox MD [address] [place] [address],[address], [place], [address], [place] - [facility] 06/27/2024 10:41:35 07/07/2024 text/html Patient is here for a follow-up with a history adenocarcinoma of the left upper lung presumably metastatic was initially treated with a carboplatin premature axis and pembrolizumab with initial good response however she could not tolerate further treatments because of renal toxicity recent PET-CT scan showed residual tumor left upper lung pleural are based possible metastasis L2 and right greater trochanter therefore she was treated with IMRT to the residual tumor left upper lung received a dose of 5000 cGy delivered by 5 fractions completed on 06/27/2024 and was well tolerated at that time MRI of the spine did not show definite metastatic disease for consideration of additional SBRT treatments patient had history of shrapnel in the right hip area and refused to have MRI of the hip recent CT scan of the hip showed degenerative changes in the right hip area with no lytic or metastatic disease the patient had general low-grade lower back pain has no cough no other complaints. She is seeing Dr. Chase this week to discuss results of recent workup case was discussed with Dr. Chase at this time there is no need for any radiation therapy to sites of metastatic disease since it is not definite to be metastatic in nature repeat PET-CT scan in 3 months would be advisable. Mariana Fox MD [address] [facility],[address], [place], [address], [place] [facility] [place] [facility] [place] 07/07/2024 14:23:11 OBGyn Episode No OBEpisode recorded.
--- OUTSIDE RECORDS SUMMARY | 2024-07-31 21:57 | XMS_ITS | Continuity of Care Document ---
Author Organization [facility] - [place] & [place], [facility] Address [address] [place] [address] Care Team Providers Care Thread Milling Machine Set Up Operator Name Role Phone MARIANA FOX Radiation Oncologist [phone] CORINNE GAINES Primary Care Provider [phone] EMILI CHASE Hematology/Oncology [phone] Assessment No assessment recorded. Plan of Treatment [...] contr ast No observ ation record ed. [facility] [address], [place], [address], 07/07/2024 13:05:24 07/09/19 25 07/04/2024 imagi ng/di agnos tic resul t No observ ation record ed. [facility] Clinical [facility] [address], [place], [address], 07/08/2024 13:06:03 Result Notes None recorded. Problems Name Problem SNOMED Code Status Onset Date Resolution Date Notes Provider Name and Address Organization Details Recorded Time Metastatic malignant neoplasm to bone 71845492 Active 024 [facility] Najera [facility] & [place] 14:45:21 Malignant neoplasm of upper lobe of left lung 081707702 Active 024 [facility] Najera [facility] & [place] 14:46:26 Problem Notes None recorded. Procedures Surgical History Date Name Laterality Status Provider Name and Address Organization Details Recorded Time simple mastectomy of left breast completed Gladys CASTRO [facility] & [place] 06/02/2024 15:00:57 Appendectomy completed Gladys CASTRO [facility] & [place] 06/04/2024 14:08:23 Cholecystectomy completed Gladys CASTRO [facility] & [place] 06/04/2024 14:08:35 hysterectomy completed Gladys CASTRO [facility] & [place] 06/04/2024 14:08:52 tonsillectomy completed Gladys CASTRO [facility] & [place] 06/04/2024 14:09:01 Imaging Results None recorded. Procedure Notes None recorded. Medical Equipment None Reported. Allergies Allergen ID Allergen Name Allergen Category Reaction Reaction Severity Criticality Documentation Date Start Date Code Code System Note Provider Name and Address Organization Details Recorded Time 432387 Lipitor medicatio n Not available Not available Not available 06/02/2024 41787 5 RxNorm [facility] Najera [facility] & [place] 14:48:04 419387 codeine medicatio n Not available Not available Not available 06/02/2024 2670 RxNorm [facility] Najera [facility] & [place] 14:48:17 701384 latex environme nt,medica tion Not available Not available Not available 06/02/2024 72317 91 RxNorm [facility] N[facility]era [facility] & [place] 14:48:40 621234 Product containin g penicilli n (product) medicatio n Not available Not available Not available 06/02/2024 11572 8001 SNOMED Gladys Mcconnell [facility], [facility] & [place] 5 14:48:58 Medications Name Sig Start Date [...] Last Updated DateTime 165.1 cm 39.9 kg/m2 485034. 73 g 97.9 [degF] 94 % 94 % 88 /min 20 /min Gladys SHEPHERD [facility] & [place] 14:11:20 Social History Question Answer Notes LastModified by Organizat ion Details LastModified Time Tobacco Smoking Status Current Every Day Smoker Gladys Ferrell [facility] & [place] 06/04/2024 14:05:10 What Is Your Level Of [...] Provided? 06/04/2024 Smoking Cessation Brochures From [facility] Given Information not available [...] SNOMED-CT Code Diagnosis ICD10 Code Diagnosis Note [id number] Mariana Fox MD [facility] [address] 06/04/2024 13:03:15 06/04/2024 15:00:33 Metastatic malignant neoplasm to bone 30621129 C79.51 Malignant neoplasm of upper lobe of left lung 198874785 C34.12 [id number] [facility] [address] [address] 06/16/2024 08:50:44 06/16/2024 10:17:04 Malignant neoplasm of upper lobe of left lung 849947027 C34.12 [id number] Mariana Fox MD [facility] [address] [address] 06/23/2024 10:48:55 06/23/2024 12:02:32 Malignant neoplasm of upper lobe of left lung 216282310 C34.12 [id number] [facility] [address] [address] 06/24/2024 08:50:38 06/24/2024 11:06:08 Malignant neoplasm of upper lobe of left lung 410064484 C34.12 Health Concerns Section Related Observation LastModified by Organization Detai ls LastModified Time None Recorded Concern Status LastModified by Organization Details LastModified Time None Recorded Payers Encounter Date Sequence Insurance Name Policy Number Policy Sorenson Covered Member ID Sorenson Member ID Guarantor Name 06/24/2024 1 [employer] (MEDICARE REPLACEMENT PPO) [id number] Tammy Farris [place] [id number] Tammy Sondra Notes Date Note Type Note Provider Name and Address Organization Details Recorded Time 06/25/2024 text/html Patient doing qu ite well had mild pain in the left ribcage area after she fell yesterday at home there was no signs of any fractures. Mariana Fox MD [address] [place] [address] Drive,[address], [place], [address], [facility] 06/25/2024 13:52:01 06/27/2024 text/html Patient complete d her SBRT [...] with no subsequent recurrence. Mariana Fox MD [address] [place] [address] Drive,[address], [place], [address], [facility] 06/27/2024 10:41:35 07/07/2024 text/html Patient is here [...] months would be advisable. Mariana Fox MD [address] [place] [address],[address], [place], [address], [place] - [facility] & [place] 07/07/2024 14:23:11 OBGyn Episode No OBEpisode recorded.
--- OUTSIDE RECORDS SUMMARY | 2024-07-31 21:57 | XMS_ITS | Continuity of Care Document ---
Author Organization [place] [facility] & LIGIA [facility] Address [address] [place] [address] Care Team Providers Care Utility Lineman Name Role Phone MARIANA FOX Radiation Oncologist CORINNE GAINES Primary Care Provider EMILI CHASE Hematology/Oncology [phone] Assessment Encounter Date Assessment Date Assessment LastModified by Organization Details LastModified Time 06/23/2024 06/23/2024 Radiation Therapy Current Dose:1000 Dose Planned:5000 CHEMOTHERAPYn o: Type: REVIEWED: Port Film: Y Dosimetry: Y Isodose: Y [email or web address] Not available 06/23/2024 10:53:26 Plan of Treatment Reminders Order Date Submit Date Provider Last Modified By Organization Details Last Modified Time Details Appointments OV EST 15 025 10:00AM Mariana Fox MD Not available Not available Not available Lab None record ed. Referral None record ed. Procedures None record ed. Surgeries None record ed. Imaging None record ed. Medication Orders None record ed. Patient TargetsNo targets recorded. Patient Instructions Encounter Date Encounter Id Patient Instructions Last Modified By Organization Details Last Modified Time 06/23/2024 [id number] Patient has no complaints no cough Dr. Chase ordered a MRI of the brain for restaging results not yet back. Treatment planning note: Mass in the left upper lung was planned by 6 mV flattening filter photon beam by 3 arcs verification films were taken and approved before starting her 1st dose of radiation today. [email or web address] Not available 06/23/2024 10:54:31 Reason for Referral None Reported. Results Created Date Observation Date Name Description Value Unit Range Abnormal Flag Note LastModifiedBy Organization Detail LastModifiedTime 06/24/19 25 06/20/2024 MRI, lumba r spine , w/wo contr ast No observ ation [facility] [address], [place], [address], 07/07/2024 13:05:24 07/09/19 25 07/04/2024 imagi ng/di agnos tic resul t No observ ation record ed. 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 Problems Name Problem SNOMED Code Status Onset Date Resolution Date Notes Provider Name and Address Organization Details Recorded Time Metastatic malignant neoplasm to bone 35516885 Active 024 [place] Najera [facility] & [place] 5 14:45:21 Malignant neoplasm of upper lobe of left lung 708875776 Active 024 [place] Najera [facility] & [place] 14:46:26 Problem Notes None recorded. Procedures Surgical History Date Name Laterality Status Provider Name and Address Organization Details Recorded Time simple mastectomy of left breast completed Gladys No [facility] & [place] 06/02/2024 15:00:57 Appendectomy completed Gladys No [facility] & [place] 06/04/2024 14:08:23 Cholecystectomy completed Gladys No [facility] & [place] 06/04/2024 14:08:35 hysterectomy completed Gladys No [facility] & [place] 06/04/2024 14:08:52 tonsillectomy completed Gladys No [facility] & [place] 06/04/2024 14:09:01 Imaging Results None recorded. Procedure Notes None recorded. Medical Equipment None Reported. Allergies Allergen ID Allergen Name Allergen Category Reaction Reaction Severity Criticality Documentation Date Start Date Code Code System Note Provider Name and Address Organization Details Recorded Time 069700 Lipitor medicatio n Not available Not available Not available 06/02/2024 85931 5 RxNorm Gladys forrest, [place] [facility] & [place] 14:48:04 804392 codeine medicatio n Not available Not available Not available 06/02/2024 2670 RxNorm Gladys forrest, [facility] & [place] 14:48:17 313545 latex environme nt,medica tion Not available Not available Not available 06/02/2024 44064 91 RxNorm Gladys forrest, [place] [facility] & [place] 14:48:40 338685 Product containin g penicilli n (product) medicatio n Not available Not available Not available 06/02/2024 76288 8001 SNOMED Gladys forrest, [facility] & [place] 14:48:58 Medications Name Sig Start Date Stop [...] by Pulse oximetry Heart rate Respiratory rate Systolic blood pressure Diastolic blood pressure Provider Name and Address Organization Details Last Updated DateTime 165.1 cm 40.2 kg/m2 995602. 2 g 97.1 [degF] 96 % 96 % 95 /min 20 /min 142 mm[Hg] 86 mm[Hg] Gladys CASTRO [facility] & [place] 10:49:57 Social History Question Answer Notes LastModified by Organizat ion Details LastModified Time Tobacco Smoking Status Current Every Day Smoker [place] Najera [facility] & [place] 06/04/2024 14:05:10 What Is Your Level Of Alcohol Consumption? 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 06/04/2024 Information not available 06/04/2024 What Is Your Current Pack Years? 30ormorepac kyears 56 Pack Years Information not available 06/04/2024 [...] Provided? 06/04/2024 Smoking Cessation Brochures From [facility] And [facility] Given Information not available [...] SNOMED-CT Code Diagnosis ICD10 Code Diagnosis Note [id number] MD LIGIA Reese [address] [address] 06/04/2024 13:03:15 06/04/2024 15:00:33 Metastatic malignant neoplasm to bone 80068014 C79.51 Malignant neoplasm of upper lobe of left lung 555576847 C34.12 [id number] MD LIGIA Reese [address] [address] 06/16/2024 08:50:44 06/16/2024 10:17:04 Malignant neoplasm of upper lobe of left lung 195259374 C34.12 [id number] Mariana Fox MD [facility] [address] [place] [address] 06/23/2024 10:48:55 06/23/2024 12:02:32 Malignant neoplasm of upper lobe of left lung 311898234 C34.12 Health Concerns Section Related Observation LastModified by Organization Detai ls LastModified Time None Recorded Concern Status LastModified by Organization Details LastModified Time None Recorded Payers Encounter Date Sequence Insurance Name Policy Number Policy Sorenson Covered Member ID Sorenson Member ID Guarantor Name 06/23/2024 1 [employer] (MEDICARE REPLACEMENT PPO) [id number] Y Tammy Amaro [id number] Tammy Amaro OBGyn Episode No OBEpisode recorded.
--- OUTSIDE RECORDS SUMMARY | 2024-07-31 21:58 | XMS_ITS | Data Portability ---
Author Organization [place] - [facility] Address [address] [place] [address] Care Team Providers Care Lead Pressman [employer] Name Role Phone MARIANA FOX Radiation Oncologist CORINNE GAINES Primary Care Provider EMILI CHASE Hematology/Oncology Assessment Encounter Date Assessment Date Assessment LastModified by Organization Details LastModified Time 06/27/2024 06/27/2024 Treatment summary: Lesion in the left upper lung with a polar based hypermetabolic activity 1.3 cm was planned with SBRT technique utilizing 6 mV filtering filter by 2 arcs after fusion with most recent PET-CT scan. This site received a total of 5000 cGy delivered by 5 fractions between 06/23/2024 and completed on 06/27/2024 this was well tolerated with no significant side effects. She will return to see us in 10 days for a follow-up after reviewing of her MRI of the right pelvis to see if she will require SBRT treatment for metastatic disease to the greater trochanter of the right femur if it shows bone destruction on MRI. Thanks for allowing us participate in the care of this pleasant patient. [email or web address] Not available 06/27/2024 10:41:20 07/07/2024 07/07/2024 Patient currentl y has no chest complaints case was discussed with Dr. Chase will see her in 3 months for follow-up with repeat a PET-CT scan. Interview and review of records lasted for 30 minute. Thanks for allowing us participate in the care of this pleasant patient. [email or web address] Not available 07/07/2024 14:23:01 Plan of Treatment Reminders Order Date Submit [...] contr ast No observ ation record ed. [facility] [address], [place], [address], 07/07/2024 13:05:24 07/09/19 25 07/04/2024 imagi ng/di agnos tic resul t No observ ation record ed. [facility] [address], [place], [address], 07/08/2024 13:06:03 Result Notes None recorded. Problems Name Problem SNOMED Code Status Onset Date Resolution Date Notes Provider Name and Address Organization Details Recorded Time Metastatic malignant neoplasm to bone 50083767 Active 024 [place] Najera [facility] & [place] 5 14:45:21 Malignant neoplasm of upper lobe of left lung 072671356 Active 024 [place] Najera [facility] & [place] 5 14:46:26 Problem Notes None recorded. Procedures Surgical History Date Name Laterality Status Provider Name and Address Organization Details Recorded Time simple mastectomy of left breast completed Gladys CASTRO [facility] & [place] 06/02/2024 15:00:57 Appendectomy completed Gladys CASTRO [facility] & [place] 06/04/2024 14:08:23 Cholecystectomy completed Gladys CASTRO [facility] & [place] 06/04/2024 14:08:35 hysterectomy completed Gladys CASTRO [facility] & [place] 06/04/2024 14:08:52 tonsillectomy completed Gladys CASTRO [facility] & [place] 06/04/2024 14:09:01 Imaging Results Imaging Date Name Status LastModified by Organiz ation Details LastModified Time 06/20/2024 MRI[facility] lumbar spine, w[facility] [address], [place], [address], 07/07/2024 13:05:24 07/04/2024 imaging/diagn ostic result active [facility] [address], [place], [place], [address], 07/08/2024 13:06:03 Procedure Notes None recorded. Medical Equipment None Reported. Allergies Allergen ID Allergen Name Allergen Category Reaction Reaction Severity Criticality Documentation Date Start Date Code Code System Note Provider Name and Address Organization Details Recorded Time 868776 Lipitor medicatio n Not available Not available Not available 06/02/2024 01235 5 RxNorm [place] Najera [facility] & [place] 5 14:48:04 323107 codeine medicatio n Not available Not available Not available 06/02/2024 2670 RxNorm [place] Najera [facility] & [place] 5 14:48:17 954713 latex environme nt,medica tion Not available Not available Not available 06/02/2024 52339 91 RxNorm [place] Najera [facility] & [place] 5 14:48:40 014817 Product containin g penicilli n (product) medicatio n Not available Not available Not available 06/02/2024 30975 8001 SNOMED [place] Najera [facility] & [place] 5 14:48:58 Medications Name Sig Start Date [...] Last Updated DateTime 165.1 cm 39.9 kg/m2 620463. 73 g 97.9 [degF] 94 % 94 % 88 /min 20 /min Gladys SHEPHERD [facility] & [place] 14:11:20 Social History Question Answer Notes LastModified by Organizat ion Details LastModified Time Tobacco Smoking Status Current Every Day Smoker Gladys Ferrell [facility], [facility] & [place] 06/04/2024 14:05:10 What Is Your Level Of Alcohol Consumption? 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 06/04/2024 Information not available 06/04/2024 What Is Your Current Pack Years? 30ormoretrenton lópez 56 Pack Years Information not available [...] Provided? 06/04/2024 Smoking Cessation Brochures From [facility] And [facility] Given Information not [...] SNOMED-CT Code Diagnosis ICD10 Code Diagnosis Note [id number] [facility] [place] [address] 06/04/2024 13:03:15 06/04/2024 15:00:33 Metastatic malignant neoplasm to bone 61520708 C79.51 Malignant neoplasm of upper lobe of left lung 337122252 C34.12 [id number] Mariana Fox MD [place] [address] 06/16/2024 08:50:44 06/16/2024 10:17:04 Malignant neoplasm of upper lobe of left lung 100430390 C34.12 [id number] Mariana Fox MD [place] [address] 06/23/2024 10:48:55 06/23/2024 12:02:32 Malignant neoplasm of upper lobe of left lung 602837743 C34.12 [id number] Mariana Fox MD [place] [address] 06/24/2024 08:50:38 06/24/2024 11:06:08 Malignant neoplasm of upper lobe of left lung 220427590 C34.12 [id number] [facility] [address] 06/25/2024 13:10:45 06/25/2024 13:52:12 Malignant neoplasm of upper lobe of left lung 779219766 C34.12 [id number] [facility] LIGIA Lorenzo [address] [address] 06/26/2024 10:32:12 06/26/2024 11:30:06 Malignant neoplasm of upper lobe of left lung 038449782 C34.12 [id number] [facility] [place] [address] [place] [address] 06/27/2024 10:33:13 06/27/2024 11:58:01 Malignant neoplasm of upper lobe of left lung 693390267 C34.12 [id number] [facility] [place] [address] [place] [address] 07/07/2024 14:04:20 07/07/2024 14:56:30 Malignant neoplasm of upper lobe of left lung 584426934 C34.12 Health Concerns Section Related Observation LastModified by Organization Detai ls LastModified Time None Recorded Concern Status LastModified by Organization Details LastModified Time None Recorded Advance Directives Directive None Recorded Payers Encounter Date Sequence Insurance Name Policy Number Policy Sorenson Covered Member ID Sorenson Member ID Guarantor Name 06/24/2024 1 [employer] (MEDICARE REPLACEMENT PPO) [id number] Y Tammy M [place] [id number] Tammy [place] 06/25/2024 1 [employer] (MEDICARE REPLACEMENT PPO) [id number] Y Tammy M [place] [id number] Tammy [place] 06/26/2024 1 [employer] (MEDICARE REPLACEMENT PPO) [id number] Y Tammy M Sondra [id number] Tammy Sondra 06/27/2024 1 [employer] (MEDICARE REPLACEMENT PPO) [id number] Y Tammy M Sondra [id number] Tammy [place] 07/07/2024 1 [employer] (MEDICARE REPLACEMENT PPO) [id number] Y Tammy M [place] [id number] Tammy Sondra Notes Date Note Type Note Provider Name and Address Organization Details Recorded Time 06/25/2024 text/html Patient doing qu ite well had mild pain in the left ribcage area after she fell yesterday at home there was no signs of any fractures. Mariana Fox MD [address] [place] [address],[address], [place], [address], [place] [facility] & [place] 06/25/2024 13:52:01 06/27/2024 text/html Patient complete d [...] with no subsequent recurrence. Mariana Fox MD [address] [place] [address],[address], [place], [address], [place] [facility] & [place] 06/27/2024 10:41:35 07/07/2024 text/html Patient is here [...] months would be advisable. Mariana Fox MD [address] [facility],[address], [place], [address], [place] [facility] - [place] & [place] 07/07/2024 14:23:11 OBGyn Episode No OBEpisode recorded.
--- OUTSIDE RECORDS SUMMARY | 2024-07-31 21:58 | XMS_ITS | Continuity of Care Document ---
Author Organization [facility] - GLORIA [facility] & LIGIA Hodge [facility] Address [address] [place] [address] Care Team Providers Care Car Designer Name Role Phone MARIANA FOX Radiation Oncologist CORINNE GAINES Primary Care Provider EMILI CHASE Hematology/Oncology [phone] Assessment Encounter Date Assessment Date Assessment LastModified by Organization Details LastModified Time 06/04/2024 06/04/2024 Impression: Poorly differentiated adenocarcinoma left upper lung with a pleural-based hypermetabolic activity 1.3 cm concurrent with metastatic disease L2 and right greater trochanter post 4 cycles of chemotherapy immunotherapy with stable disease unable to receive further therapy due to recent acute renal failure which improved. Stage T2a N0 M1 stage IV. History of left breast cancer with left axillary metastasis left mastectomy chemotherapy and chest wall radiation 1995 followed by 5 years of tamoxifen with no subsequent recurrence. Patient will try to remember where she received her radiation therapy to the left chest wall' In attempt to control her primary systemic disease she will be candidate with SBRT radiation to the left upper lung lesion for a dose of 5000 cGy to be delivered by 5 fractions utilizing SBRT technique after fusion with the recent PET-CT scan, avoiding the heart and left lung. Because of previous radiation long time ago she might experience some scar tissue in that area also around the lung lesion however her therapy might be curative in nature therefore worth considering. After that we plan to treat the 2 sites of metastatic disease simultaneously with 3D Technique for L2 and right greater trochanter after fusion with a PET-CT scan to receive a dose of 3000 cGy to be delivered by 10 fractions with minimal side effects such as possible diarrhea. Patient agreed to see if this treatments she signed informed consent information will be presented to her insurance carrier before scheduling her for simulation to be treated 1st to the left upper lung to be followed by 2 sites of metastatic disease. Interview and review of records lasted for 60 minutes. Thanks for allowing us participate in the care of this pleasant patient. emilia Not available 06/04/2024 14:40:01 Plan of Treatment Reminders Order Date Submit Date Provider Last Modified By Organization Details Last Modified Time Details Appointments OV EST 15 2024 10:00A M Mariana Fox MD Not available Not available Not available Lab None recorded. Referral oncology patient navigator 2024 025 GUERO Godoy [facility] Oncology Nurse Navigator, [address] [place] [address] , [address], [place], [address], 07/02/2024 04:05:44 Procedures None recorded. Surgeries None recorded. Imaging None recorded. Medication Orders None recorded. Patient TargetsNo targets recorded. Patient InstructionsNo instructions recorded. Reason for Referral Oncology Patient Navigator f or Metastatic malignant neoplasm to bone Referring Physician: Mariana Fox, Radiation Oncology, Encounter Date: 06/04/2024 Results Created Date Observation Date Name Description Value Unit Range Abnormal Flag Note LastModifiedBy Organization Detail LastModifiedTime 06/24/19 25 06/20/2024 MRI, lumba r spine , w/wo contr ast No observ ation [facility] [address], [place], [id number], 07/07/2024 13:05:24 07/09/19 25 07/04/2024 imagi ng/di agnos tic resul t No observ ation record ed. [facility] Riprap Worker [address], [place], [address], 07/08/2024 13:06:03 Result Notes None recorded. Problems Name Problem SNOMED Code Status Onset Date Resolution Date Notes Provider Name and Address Organization Details Recorded Time Metastatic malignant neoplasm to bone 30959901 Active 024 JO[facility] Najera [facility] & [place] 14:45:21 Malignant neoplasm of upper lobe of left lung 290151044 Active 024 JO[facility] Najera [facility] & [place] 14:46:26 Problem Notes None recorded. Procedures Surgical History Date Name Laterality Status Provider Name and Address Organization Details Recorded Time simple mastectomy of left breast completed Gladys CASTRO [facility] & [place] 06/02/2024 15:00:57 Appendectomy completed Gladys CASTRO [facility] & [place] 06/04/2024 14:08:23 Cholecystectomy completed Gladys CASTRO [facility] & [place] 06/04/2024 14:08:35 hysterectomy completed Gladys CASTRO [facility] & [place] 06/04/2024 14:08:52 tonsillectomy completed Gladys SHEPHERD [facility] & [place] 06/04/2024 14:09:01 Imaging Results None recorded. Procedure Notes None recorded. Medical Equipment None Reported. Allergies Allergen ID Allergen Name Allergen Category Reaction Reaction Severity Criticality Documentation Date Start Date Code Code System Note Provider Name and Address Organization Details Recorded Time 786547 Lipitor medicatio n Not available Not available Not available 06/02/2024 20490 5 RxNorm JOAO Najera [facility] & [place] 14:48:04 896055 codeine medicatio n Not available Not available Not available 06/02/2024 2670 RxNorm JO[facility] Najera [facility] & [place] 14:48:17 715271 latex environme nt,medica tion Not available Not available Not available 06/02/2024 09142 91 RxNorm JO[facility] Najera [facility] & [place] 14:48:40 312189 Product containin g penicilli n (product) medicatio n Not available Not available Not available 06/02/2024 28374 8001 SNOMED JO[facility] Najera [facility] & [place] 14:48:58 Medications Name Sig Start Date Stop [...] Arterial blood by Pulse oximetry Heart rate Pain severity - 0-10 verbal numeric rating [Score] - Reported Respiratory rate Systolic blood pressure Diastolic blood pressure Provider Name and Address Organization Details Last Updated DateTime 165.1 cm 40.6 kg/m2 094204. 26 g 98.4 [degF] 97 % 97 % 87 /min 0 20 /min 142 mm[Hg] 77 mm[Hg] Gladys SHEPHERD [facility] & [place] 13:52:42 Social History Question Answer Notes LastModified by Organizat ion Details LastModified Time Tobacco Smoking Status Current Every Day Smoker Gladys Ferrell [facility] & [place] 06/04/2024 14:05:10 What Is Your Level Of [...] Provided? 06/04/2024 Smoking Cessation Brochures From [facility] Given Information not [...] SNOMED-CT Code Diagnosis ICD10 Code Diagnosis Note [id number] MD LIG[facility] [place] [address] 06/04/2024 13:03:15 06/04/2024 15:00:33 Metastatic malignant neoplasm to bone 66797662 C79.51 Malignant neoplasm of upper lobe of left lung 621057371 C34.12 Health Concerns Section Related Observation LastModified by Organization Detai ls LastModified Time None Recorded Concern Status LastModified by Organization Details LastModified Time None Recorded Payers Encounter Date Sequence Insurance Name Policy Number Policy Sorenson Covered Member ID Sorenson Member ID Guarantor Name 06/04/2024 1 [employer] (MEDICARE REPLACEMENT PPO) [id number] Y Tammy Farris Rupert [id number] Tammy Rupert Notes Date Note Type Note Provider Name and Address Organization Details Recorded Time 06/04/2024 text/html Thanks Dr. Chase, for referring this nice lady. 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 she drank alcohol for 30 years in November last year she had CT lung screening which showed 1.3 cm pleural-based hypermetabolic left upper lobe pulmonary nodule SUV 5.4 with a lytic lesion right greater trochanter SUV of 6.7 and hypermetabolism and L2 vertebral body with SUV of 8.8 on December 26, 2023 CT scan-guided biopsy of left upper lung showed poorly differentiated adenocarcinoma with nonspecific staining pattern the tumor was ERPR negative January 04, 2024 MRI of the brain was negative for metastatic disease January 30, 2024 started on Carboplatinum premetrexedand pembrolizumab completed 4 cycles until April 02, 2024 April 25, 2024 at PET-CT scan showed stable size of pleural-based mass left upper lobe somewhat more hypermetabolic with SUV of 7.6 right greater trochanter lesion revealed SUV of 5.4 lb vertebral body has SUV of 5.1 there is no new areas of disease on May 05, 2024 she was checked for possible additional chemo immunotherapy whenever she had poor renal function requiring hospitalization at [facility] with acute renal failure and congestive heart failure this improved with IV infusions not requiring renal dialysis kidney function improved and currently followed the once a week by Dr. Chase she had mild pain in upper lumbar area for several months not requiring any pain medication she has no pain in the pelvis had no cough no hemoptysis she trying to quit smoking. The patient is not a candidate for further immunotherapy because of recent acute renal failure in the future she might benefit from some sort of maintenance chemotherapy if possible.Past history includes left breast cancer upper outer quadrant of the left breast 1995 concurrent with palpable left axillary lymphadenopathy she was treated by left mastectomy was told that she has 6 axillary lymph node metastasis this was followed by 4 cycles of chemotherapy and received the 6 weeks of radiation therapy apparently the left chest wall at a private Center in [facility] this was followed by 5 years of tamoxifen had no subsequent recurrence or metastasis continued to be followed by yearly mammograms of the right breast has screening colonoscopy 2020 with 2 polyps was told to repeat colonoscopy in 5 years patient has a history of cholecystectomy appendectomy 1983 hysterectomy bilateral salpingo-oophorectomy 2000 with no cancer history of tonsillectomy at childhood mother of diabetes age 60 father of throat cancer a brother had renal cancer and sister had breast cancer.patient lives alone 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 Mariana Fox MD [address] [place] [address],[address], [place], [address], [place] - [facility] - [place] & [place] 06/04/2024 14:40:42 OBGyn Episode No OBEpisode recorded.
--- OUTSIDE RECORDS SUMMARY | 2024-07-31 21:58 | XMS_ITS | Continuity of Care Document ---
Author Organization [facility] - [facility] - [place] & LIGIA Hodge [facility] Address [address] [place] [address] Care Team Providers Care Plumbing Mechanic Name Role Phone MARIANA FOX Radiation Oncologist [phone] CORINNE GAINES Primary Care Provider EMILI MCCAIN Hematology/Oncology Assessment Encounter Date Assessment Date Assessment LastModified by Organization Details LastModified Time 06/16/2024 06/16/2024 Simulation note: She was simulated in the supine position in a VAC lock for SBRT left upper lung with her arms above her head with a 4D simulation with and without breath hold. [email or web address] Not available 06/16/2024 09:06:22 Plan of Treatment Reminders Order Date Submit [...] Abnormal Flag Note LastModifiedBy Organization Detail LastModifiedTime 06/24/1906/20/2024 MRI, lumba r spine , w/wo contr ast No observ ation record ed. nparkerrose [facility] [address], [place], [address], 07/07/2024 13:05:24 07/09/19 25 07/04/2024 imagi ng/magali castro tic resul t No observ ation record ed. [facility] Public Service Administrator [address], [place], [address], 07/08/2024 13:06:03 Result Notes None recorded. Problems Name Problem SNOMED Code Status Onset Date Resolution Date Notes Provider Name and Address Organization Details Recorded Time Metastatic malignant neoplasm to bone 80367217 Active 024 Gladsy forrest, [facility] - [facility] & [place] 14:45:21 Malignant neoplasm of upper lobe of left lung 831433709 Active 024 Gladys forrest, [facility] - [facility] - [place] & [place] 14:46:26 Problem Notes None recorded. Procedures Surgical History Date Name Laterality Status Provider Name and Address Organization Details Recorded Time simple mastectomy of left breast completed Gladys SHEPHERD - [facility] & [place] 06/02/2024 15:00:57 Appendectomy completed Gladys SHEPHERD - [facility] & [place] 06/04/2024 14:08:23 Cholecystectomy completed Gladys SHEPHERD - [facility] & [place] 06/04/2024 14:08:35 hysterectomy completed Gladys No [facility] & [place] 06/04/2024 14:08:52 tonsillectomy completed Gladys Ferrell [facility] & [place] 06/04/2024 14:09:01 Imaging Results None recorded. Procedure Notes None recorded. Medical Equipment None Reported. Allergies Allergen ID Allergen Name Allergen Category Reaction Reaction Severity Criticality Documentation Date Start Date Code Code System Note Provider Name and Address Organization Details Recorded Time 427049 Lipitor medicatio n Not available Not available Not available 06/02/2024 33024 5 RxNorm Gladys forrest, [facility] - [facility] [place] & [place] 14:48:04 669531 codeine medicatio n Not available Not available Not available 06/02/2024 2670 RxNorm Gladys forrest, [facility] - [facility] - [place] & [place] 14:48:17 890220 latex environme nt,medica tion Not available Not available Not available 06/02/2024 77910 91 RxNorm JOAO Najera [facility] & [place] 14:48:40 882209 Product containin g penicilli n (product) medicatio n Not available Not available Not available 06/02/2024 98017 8001 SNOMED JO[place] Najera ROEL [facility] & [place] 14:48:58 Medications Name Sig Start Date Stop [...] Available Not Available No t Available Vitals None Recorded Social History Question Answer Notes LastModified by Organizat ion Details LastModified Time Tobacco Smoking Status Current Every Day Smoker Gladys Ferrell [facility] 06/04/2024 14:05:10 What Is Your Level Of [...] Provided? 06/04/2024 Smoking Cessation Brochures From [facility] Given Information not available 06/04/2024 [...] SNOMED-CT Code Diagnosis ICD10 Code Diagnosis Note [id number] MD LIGIA Reese [address] [address] 06/04/2024 13:03:15 06/04/2024 15:00:33 Metastatic malignant neoplasm to bone 88316009 C79.51 Malignant neoplasm of upper lobe of left lung 050623212 C34.12 [id number] Mariana Fox MD [address] [address] 06/16/2024 08:50:44 06/16/2024 10:17:04 Malignant neoplasm of upper lobe of left lung 723128303 C34.12 Health Concerns Section Related Observation LastModified by Organization Detai ls LastModified Time None Recorded Concern Status LastModified by Organization Details LastModified Time None Recorded Payers Encounter Date Sequence Insurance Name Policy Number Policy Sorenson Covered Member ID Sorenson Member ID Guarantor Name 06/16/2024 1 [employer] (MEDICARE REPLACEMENT PPO) [id number] Y Tammy Amaro [id number] Tammy Amaro OBGyn Episode No OBEpisode recorded.
--- OUTSIDE RECORDS SUMMARY | 2024-07-31 21:58 | XMS_ITS | Continuity of Care Document ---
Author Organization JOAO - GLORIA [facility] & LIGIA Hodge [facility] Address [address] [place] [address] Care Team Providers Care Operation Agent Name Role Phone MARIANA FOX Radiation Oncologist [phone] CORINNE GAINES Primary Care Provider EMILI MCCAIN [...] pleasant patient. [email or web address] Not available 06/27/2024 10:41:20 Plan of Treatment Reminders Order Date Submit [...] contr ast No observ ation [facility] ed. [facility] [address], [place], [address], 07/07/2024 13:05:24 07/09/19 25 07/04/2024 imagi ng/di agnos tic resul t No observ ation record ed. [facility] Ophthalmic Surgical Assistant [address], [place], [address], 07/08/2024 13:06:03 Result Notes None recorded. Problems Name Problem SNOMED Code Status Onset Date Resolution Date Notes Provider Name and Address Organization Details Recorded Time Metastatic malignant neoplasm to bone 29331602 Active 024 JOAO Najera [facility] & [place] 14:45:21 Malignant neoplasm of upper lobe of left lung 565363303 Active 024 Gladys forrest, JOAO No [facility] & [place] 14:46:26 Problem Notes None recorded. Procedures Surgical History Date Name Laterality Status Provider Name and Address Organization Details Recorded Time simple mastectomy of left breast completed Gladys CASTRO [facility] & [place] 06/02/2024 15:00:57 Appendectomy completed Gladys No [facility] & [place] 06/04/2024 14:08:23 Cholecystectomy completed Gladys CASTRO - [place] & [place] 06/04/2024 14:08:35 hysterectomy completed Gladys CASTRO [facility] & [place] 06/04/2024 14:08:52 tonsillectomy completed Gladys CASTRO [facility] & [place] 06/04/2024 14:09:01 Imaging Results None recorded. Procedure Notes None recorded. Medical Equipment None Reported. Allergies Allergen ID Allergen Name Allergen Category Reaction Reaction Severity Criticality Documentation Date Start Date Code Code System Note Provider Name and Address Organization Details Recorded Time 880517 Lipitor medicatio n Not available Not available Not available 06/02/2024 50564 5 RxNorm JOAO Najera [facility] & [place] 14:48:04 092296 codeine medicatio n Not available Not available Not available 06/02/2024 2670 RxNorm JOAO Najera [facility] & [place] 14:48:17 059281 latex environme nt,medica tion Not available Not available Not available 06/02/2024 23969 91 RxNorm Gladys forrest, JOAO No [facility] & [place] 14:48:40 691651 Product containin g penicilli n (product) medicatio n Not available Not available Not available 06/02/2024 41704 8001 SNOMED JOAO Najera [facility] & [place] 14:48:58 Medications Name Sig [...] Status Current Every Day Smoker Gladys Ferrell [facility] & [place] 06/04/2024 14:05:10 What Is [...] Provided? 06/04/2024 Smoking Cessation Brochures From [facility] Health Dept Given Information not available 06/04/2024 [...] SNOMED-CT Code Diagnosis ICD10 Code Diagnosis Note [id number] [facility] [address] [place] [address] 06/04/2024 13:03:15 06/04/2024 15:00:33 Metastatic malignant neoplasm to bone 55975035 C79.51 Malignant neoplasm of upper lobe of left lung 370966128 C34.12 [id number] MD LIGIA Reese [address] [place] [address] 06/16/2024 08:50:44 06/16/2024 10:17:04 Malignant neoplasm of upper lobe of left lung 574141707 C34.12 [id number] MD LIGIA Reese [facility] [address] [address] 06/23/2024 10:48:55 06/23/2024 12:02:32 Malignant neoplasm of upper lobe of left lung 922504284 C34.12 [id number] Mariana Fox MD [address] [address] 06/24/2024 08:50:38 06/24/2024 11:06:08 Malignant neoplasm of upper lobe of left lung 743500211 C34.12 [id number] Mariana Fox MD [address] [address] 06/25/2024 13:10:45 06/25/2024 13:52:12 Malignant neoplasm of upper lobe of left lung 098538255 C34.12 [id number] Mariana Fox MD [address] [address] 06/26/2024 10:32:12 06/26/2024 11:30:06 Malignant neoplasm of upper lobe of left lung 932931528 C34.12 [id number] Mariana Fox MD [address] [address] 06/27/2024 10:33:13 06/27/2024 11:58:01 Malignant neoplasm of upper lobe of left lung 726067760 C34.12 Health Concerns Section Related Observation LastModified by Organization Detai ls LastModified Time None Recorded Concern Status LastModified by Organization Details LastModified Time None Recorded Payers Encounter Date Sequence Insurance Name Policy Number Policy Sorenson Covered Member ID Sorenson Member ID Guarantor Name 06/27/2024 1 [employer] (MEDICARE REPLACEMENT PPO) [id number] Y Tammy Farris Tunas [id number] Tammy Tunas Notes Date Note Type Note Provider Name [...] with no subsequent recurrence. Mariana Fox MD [address] [facility],[address], [place], [address], [facility] - NT [facility] & [place] 06/27/2024 10:41:35 OBGyn Episode No OBEpisode recorded.
--- OUTSIDE RECORDS SUMMARY | 2024-07-31 21:58 | XMS_ITS | Continuity of Care Document ---
Author Organization JO[facility] - [facility] - [place] & [place], [facility] Address [address] [place] [address] Care Team Providers Care Front End Loader Driver Name Role Phone MARIANA FOX Radiation Oncologist CORINNE GAINES Primary Care Provider EMILI MCCAIN Hematology/Oncology [phone] Assessment No assessment recorded. Plan of Treatment [...] contr ast No observ ation record ed. [facility] [address], [place], [address], 07/07/2024 13:05:24 07/09/19 25 07/04/2024 imagi ng/di agnos tic resul t No observ ation record ed. [facility] [address] [address], [place], [address], 07/08/2024 13:06:03 Result Notes None recorded. Problems Name Problem SNOMED Code Status Onset Date Resolution Date Notes Provider Name and Address Organization Details Recorded Time Metastatic malignant neoplasm to bone 21384221 Active 024 [facility] Najera [facility] & [place] 14:45:21 Malignant neoplasm of upper lobe of left lung 686729133 Active 024 [facility] Najera [facility] & [place] 14:46:26 Problem Notes None recorded. Procedures Surgical History Date Name Laterality Status Provider Name and Address Organization Details Recorded Time simple mastectomy of left breast completed Gladys CASTRO [facility] & [place] 06/02/2024 15:00:57 Appendectomy completed Gladys CASTRO [facility] & [place] 06/04/2024 14:08:23 Cholecystectomy completed Gladys CASTRO [facility] & [place] 06/04/2024 14:08:35 hysterectomy completed Gladys CASTRO [facility] & [place] 06/04/2024 14:08:52 tonsillectomy completed Gladys CASTRO [facility] & [place] 06/04/2024 14:09:01 Imaging Results None recorded. Procedure Notes None recorded. Medical Equipment None Reported. Allergies Allergen ID Allergen Name Allergen Category Reaction Reaction Severity Criticality Documentation Date Start Date Code Code System Note Provider Name and Address Organization Details Recorded Time 849070 Lipitor medicatio n Not available Not available Not available 06/02/2024 00248 5 RxNorm [facility] Najera [facility] & [place] 14:48:04 922960 codeine medicatio n Not available Not available Not available 06/02/2024 2670 RxNorm [facility] Najera [facility] & [place] 14:48:17 672958 latex environme nt,medica tion Not available Not available Not available 06/02/2024 53282 91 RxNorm [facility] Najera [facility] & [place] 14:48:40 069931 Product containin g penicilli n (product) medicatio n Not available Not available Not available 06/02/2024 36462 8001 SNOMED Gladys Mcconnell [facility], [facility] & [place] 5 14:48:58 Medications Name Sig Start Date [...] Status Current Every Day Smoker Gladys Ferrell [facility], [place] - [facility] & [place] 06/04/2024 14:05:10 What Is Your Level Of [...] Provided? 06/04/2024 Smoking Cessation Brochures From [facility] Health Dept Given Information not available 06/04/2024 [...] SNOMED-CT Code Diagnosis ICD10 Code Diagnosis Note [id number] Mariana Fox MD [place] [address] 8 06/04/2024 13:03:15 06/04/2024 15:00:33 Metastatic malignant neoplasm to bone 83470873 C79.51 Malignant neoplasm of upper lobe of left lung 342007720 C34.12 [id number] Mariana Fox MD [place] [address] 8 06/16/2024 08:50:44 06/16/2024 10:17:04 Malignant neoplasm of upper lobe of left lung 902430175 C34.12 [id number] Mariana Fox MD [place] [address] 8 06/23/2024 10:48:55 06/23/2024 12:02:32 Malignant neoplasm of upper lobe of left lung 247105664 C34.12 [id number] Mariana Fox MD [place] [address] 8 06/24/2024 08:50:38 06/24/2024 11:06:08 Malignant neoplasm of upper lobe of left lung 713553307 C34.12 [id number] Mariana Fox MD [place] [address] 8 06/25/2024 13:10:45 06/25/2024 13:52:12 Malignant neoplasm of upper lobe of left lung 880868310 C34.12 Health Concerns Section Related Observation LastModified by Organization Detai ls LastModified Time None Recorded Concern Status LastModified by Organization Details LastModified Time None Recorded Payers Encounter Date Sequence Insurance Name Policy Number Policy Sorenson Covered Member ID Sorenson Member ID Guarantor Name 06/25/2024 1 [employer] (MEDICARE REPLACEMENT PPO) [id number] Y Tammy Amaro [id number] Tammy Amaro Notes Date Note Type Note Provider Name and Address Organization Details Recorded Time 06/25/2024 text/html Patient doing quite well had mild pain in the left ribcage area after she fell yesterday at home there was no signs of any fractures. Mariana Fox MD [address] [place] [address],[address], [place], [address], [facility] - [place] - [place] & [place] 06/25/2024 13:52:01 OBGyn Episode No OBEpisode recorded.
--- OUTSIDE RECORDS SUMMARY | 2024-07-31 21:58 | XMS_ITS | Continuity of Care Document ---
Author Organization [facility] - [place] - [place] & [place], [facility] Address [address] [place] [address] Care Team Providers Care Peoplesoft Financial Developer Name Role Phone MARIANA FOX Radiation Oncologist CORINNE GAINES Primary Care Provider EMILI CHASE Hematology/Oncology Assessment Encounter Date Assessment Date Assessment LastModified by Organization Details LastModified Time 07/07/2024 07/07/2024 Patient currently has no chest complaints case was discussed with Dr. Chase will see her in 3 months for follow-up with repeat a PET-CT scan. Interview and review of records lasted for 30 minute. Thanks for allowing us participate in the care of this pleasant patient. [email or web address] Not available 07/07/2024 14:23:01 Plan of Treatment [...] ast No observ ation record ed. nparkerrose [facility] [address], [place], [address], 07/07/2024 13:05:24 07/09/19 25 07/04/2024 imagi ng/di agnos tic resul t No observ ation record ed. [facility] [employer] [address], [place], [address], 07/08/2024 13:06:03 Result Notes None recorded. Problems Name Problem SNOMED Code Status Onset Date Resolution Date Notes Provider Name and Address Organization Details Recorded Time Metastatic malignant neoplasm to bone 92188417 Active 024 Gladys forrest, [facility] - [facility] - [place] & [place] 14:45:21 Malignant neoplasm of upper lobe of left lung 381434313 Active 024 Gladys forrest, [facility] - [facility] - [place] & [place] 14:46:26 Problem Notes None recorded. Procedures Surgical History Date Name Laterality Status Provider Name and Address Organization Details Recorded Time simple mastectomy of left breast completed Gladys SHEPHERD - [facility] & [place] 06/02/2024 15:00:57 Appendectomy completed Gladys SHEPHERD - [facility] - [place] & [place] 06/04/2024 14:08:23 Cholecystectomy completed Gladys SHEPHERD - [facility] - [place] & [place] 06/04/2024 14:08:35 hysterectomy completed Gladys SHEPHERD - [facility] - [place] & [place] 06/04/2024 14:08:52 tonsillectomy completed Gladys SHEPHERD - [facility]NT [facility] & [place] 06/04/2024 14:09:01 Imaging Results None recorded. Procedure Notes None recorded. Medical Equipment None Reported. Allergies Allergen ID Allergen Name Allergen Category Reaction Reaction Severity Criticality Documentation Date Start Date Code Code System Note Provider Name and Address Organization Details Recorded Time 455561 Lipitor medicatio n Not available Not available Not available 06/02/2024 90519 5 RxNorm Gladys forrest, [facility] - [facility] - [place] & [place] 14:48:04 382327 codeine medicatio n Not available Not available Not available 06/02/2024 2670 RxNorm Gladys forrest, [facility] & [place] 14:48:17 223533 latex environme nt,medica tion Not available Not available Not available 06/02/2024 76504 91 RxNorm [facility] Najera [facility] & [place] 14:48:40 103415 Product containin g penicilli n (product) medicatio n Not available Not available Not available 06/02/2024 30597 8001 SNOMED Gladys forrest, [facility] & [place] 14:48:58 Medications Name Sig Start Date Stop [...] Last Updated DateTime 165.1 cm 39.9 kg/m2 185696. 73 g 97.9 [degF] 94 % 94 % 88 /min 20 /min Gladys SHEPHERD [facility] & [place] 14:11:20 Social History Question Answer Notes LastModified by Organizat ion Details LastModified Time Tobacco Smoking Status Current Every Day Smoker Gladys Ferrell [facility] & [place] 06/04/2024 14:05:10 What Is Your [...] Provided? 06/04/2024 Smoking Cessation Brochures From [facility] Health [...] SNOMED-CT Code Diagnosis ICD10 Code Diagnosis Note [id number] MD LIGIA Reese [address] [address] 06/16/2024 08:50:44 06/16/2024 10:17:04 Malignant neoplasm of upper lobe of left lung 511877495 C34.12 [id number] MD LIGIA Reese [place] [address] [place] [address] 06/23/2024 10:48:55 06/23/2024 12:02:32 Malignant neoplasm of upper lobe of left lung 893653274 C34.12 [id number] MD LIGIA Reese [address] [address] 06/24/2024 08:50:38 06/24/2024 11:06:08 Malignant neoplasm of upper lobe of left lung 745142779 C34.12 [id number] Mariana Fox MD [place] [address] 8 06/25/2024 13:10:45 06/25/2024 13:52:12 Malignant neoplasm of upper lobe of left lung 928327692 C34.12 [id number] Mariana Fox MD [place] [address] 8 06/26/2024 10:32:12 06/26/2024 11:30:06 Malignant neoplasm of upper lobe of left lung 614883831 C34.12 [id number] Mariana Fox MD [place] [address] 8 06/27/2024 10:33:13 06/27/2024 11:58:01 Malignant neoplasm of upper lobe of left lung 638258837 C34.12 [id number] Mariana Fox MD [place] [address] 8 07/07/2024 14:04:20 07/07/2024 14:56:30 Malignant neoplasm of upper lobe of left lung 234744294 C34.12 Health Concerns Section Related Observation LastModified by Organization Detai ls LastModified Time None Recorded Concern Status LastModified by Organization Details LastModified Time None Recorded Payers Encounter Date Sequence Insurance Name Policy Number Policy Sorenson Covered Member ID Sorenson Member ID Guarantor Name 07/07/2024 1 [employer] (MEDICARE REPLACEMENT PPO) [id number] Y Tammy Amaro [id number] Tammy Amaro Notes Date Note Type Note Provider Name and Address Organization Details Recorded Time 07/07/2024 text/html Patient is here for a [...] months would be advisable. Mariana Fox MD [address] [place] [address],[address], [place], [address], [place] [facility] - [place] & [place] 07/07/2024 14:23:11 OBGyn Episode No OBEpisode recorded.
== END 2024-07-30 09:45 | disposition home or self-care (01) ==
LOC: INF 09:22
PROVIDERS: PCP Internal Medicine Adolescent Medicine; Visit Provider Internal Medicine Medical Oncology
DX: C34.90 Malignant neoplasm of unspecified part of unspecified bronchus or lung (principal)
CPT/HCPCS: 36591; 80053; J1642

== ENCOUNTER 2024-08-07 09:03 | Outpatient (CLI) | payer MEDICARE, SELFPAY ==
--- OUTSIDE RECORDS SUMMARY | 2024-08-07 09:05 | XMS_ITS | Continuity of Care Document ---
Author Organization [facility] - [facility]NT [facility] & LIGIA Hodge [facility] Address [address] [place] [address] Care Team Providers Care Blueprinting And Photocopy Supervisor Name Role Phone MARIANA FOX Radiation Oncologist [phone] CORINNE GAINES Primary Care Provider [phone] EMILI CHASE Hematology/Oncology [phone] Assessment Encounter Date Assessment Date Assessment LastModified [...] By Organization Details Last Modified Time 06/23/2024 [id number] Patient has no complaints no cough Dr. [...] contr ast No observ ation record ed. [facility] [address], [place], [address], 07/07/2024 13:05:24 07/09/19 25 07/04/2024 imagi ng/di agnos tic resul t No observ ation record ed. [facility] Operator [address], [place], [address], 07/08/2024 13:06:03 Result Notes None recorded. Problems Name Problem SNOMED Code Status Onset Date Resolution Date Notes Provider Name and Address Organization Details Recorded Time Metastatic malignant neoplasm to bone 43379367 Active 024 [facility] Najera [facility] & [place] 5 14:45:21 Malignant neoplasm of upper lobe of left lung 603588669 Active 024 [facility] Najera [facility] & [place] 14:46:26 Problem Notes None recorded. Procedures Surgical History Date Name Laterality Status Provider Name and Address Organization Details Recorded Time simple mastectomy of left breast completed Gladys No LPNT [facility] & [place] 06/02/2024 15:00:57 Appendectomy completed Gladys No LPNT [facility] & [place] 06/04/2024 14:08:23 Cholecystectomy completed Gladys No LPNT [facility] & [place] 06/04/2024 14:08:35 hysterectomy completed Gladys No LPNT [facility] & [place] 06/04/2024 14:08:52 tonsillectomy completed Gladys No LPNT [facility] & [place] 06/04/2024 14:09:01 Imaging Results None recorded. Procedure Notes None recorded. Medical Equipment None Reported. Allergies Allergen ID Allergen Name Allergen Category Reaction Reaction Severity Criticality Documentation Date Start Date Code Code System Note Provider Name and Address Organization Details Recorded Time 093383 Lipitor medicatio n Not available Not available Not available 06/02/2024 29682 5 RxNorm Gladys forrest, JO[facility] & [place] 14:48:04 426162 codeine medicatio n Not available Not available Not available 06/02/2024 2670 RxNorm Gladys forrest, [facility] & [place] 14:48:17 776301 latex environme nt,medica tion Not available Not available Not available 06/02/2024 41821 91 RxNorm Gladys forrest, [facility] & [place] 14:48:40 658106 Product containin g penicilli n (product) medicatio n Not available Not available Not available 06/02/2024 80037 8001 SNOMED Gladys forrest, [facility] & [place] 14:48:58 Medications Name Sig Start Date Stop [...] Last Updated DateTime 165.1 cm 40.2 kg/m2 940409. 2 g 97.1 [degF] 96 % 96 % 95 /min 20 /min 142 mm[Hg] 86 mm[Hg] Gladys CASTRO [facility] & [place] 10:49:57 Social History Question Answer Notes LastModified by Organizat ion Details LastModified Time Tobacco Smoking Status Current Every Day Smoker [facility] Najera [facility] & [place] 06/04/2024 14:05:10 What Is Your Level Of [...] Provided? 06/04/2024 Smoking Cessation Brochures From [facility] Health Dept Given Information not available [...] SNOMED-CT Code Diagnosis ICD10 Code Diagnosis Note [id number] MD LIGIA Reese [address] [address] 06/04/2024 13:03:15 06/04/2024 15:00:33 Metastatic malignant neoplasm to bone 03972986 C79.51 Malignant neoplasm of upper lobe of left lung 100919691 C34.12 [id number] MD LIGIA Reese [address] [address] 06/16/2024 08:50:44 06/16/2024 10:17:04 Malignant neoplasm of upper lobe of left lung 480065734 C34.12 [id number] Mariana Fox MD [facility] [address] [place] [address] 06/23/2024 10:48:55 06/23/2024 12:02:32 Malignant neoplasm of upper lobe of left lung 584616504 C34.12 Health Concerns Section Related Observation LastModified by Organization Detai ls LastModified Time None Recorded Concern Status LastModified by Organization Details LastModified Time None Recorded Payers Encounter Date Sequence Insurance Name Policy Number Policy Sorenson Covered Member ID Sorenson Member ID Guarantor Name 06/23/2024 1 [employer] (MEDICARE REPLACEMENT PPO) [id number] Y Tammy Amaro [id number] Tammy Amaro OBGyn Episode No OBEpisode recorded.
--- OUTSIDE RECORDS SUMMARY | 2024-08-07 09:05 | XMS_ITS | Continuity of Care Document ---
Author Organization [facility] - [facility] - [place] & [place], [facility] Address [address] [place] [address] Care Team Providers Care Social Media Coordinator Name Role Phone MARIANA FOX Radiation Oncologist [phone] CORINNE GAINES Primary Care Provider EMILI CHASE Hematology/Oncology Assessment No assessment recorded. [...] contr ast No observ ation record ed. [facility] [address], [place], [address], 07/07/2024 13:05:24 07/09/19 25 07/04/2024 imagi ng/di agnos tic resul t No observ ation record ed. [facility] Machine [facility] [address], [place], [address], 07/08/2024 13:06:03 Result Notes None recorded. Problems Name Problem SNOMED Code Status Onset Date Resolution Date Notes Provider Name and Address Organization Details Recorded Time Metastatic malignant neoplasm to bone 61045922 Active 024 JOAO Najera [facility] & [place] 14:45:21 Malignant neoplasm of upper lobe of left lung 200391735 Active 024 JOAO Najera [facility] & [place] 14:46:26 Problem Notes None recorded. Procedures Surgical History Date Name Laterality Status Provider Name and Address Organization Details Recorded Time simple mastectomy of left breast completed Gladys CASTRO [facility] & [place] 06/02/2024 15:00:57 Appendectomy completed Gladys CASTRO [facility] & [place] 06/04/2024 14:08:23 Cholecystectomy completed Gladys CASTRO [facility] & [place] 06/04/2024 14:08:35 hysterectomy completed Gladys CASTRO [facility] & [place] 06/04/2024 14:08:52 tonsillectomy completed Gladys CASTRO [facility] & [place] 06/04/2024 14:09:01 Imaging Results None recorded. Procedure Notes None recorded. Medical Equipment None Reported. Allergies Allergen ID Allergen Name Allergen Category Reaction Reaction Severity Criticality Documentation Date Start Date Code Code System Note Provider Name and Address Organization Details Recorded Time 759376 Lipitor medicatio n Not available Not available Not available 06/02/2024 47188 5 RxNorm [place] Najera [facility] & [place] 14:48:04 126600 codeine medicatio n Not available Not available Not available 06/02/2024 2670 RxNorm JOAO Najera [facility] & [place] 14:48:17 451197 latex environme nt,medica tion Not available Not available Not available 06/02/2024 89693 91 RxNorm JOAO Najera [facility] & [place] 14:48:40 574882 Product containin g penicilli n (product) medicatio n Not available Not available Not available 06/02/2024 85610 8001 SNOMED Gladys Mcconnell [facility], [facility] & [place] 5 14:48:58 Medications Name Sig Start Date [...] Last Updated DateTime 165.1 cm 39.9 kg/m2 637267. 73 g 97.9 [degF] 94 % 94 % 88 /min 20 /min Gladys SHEPHERD [facility] & [place] 14:11:20 Social History Question Answer Notes LastModified by Organizat ion Details LastModified Time Tobacco Smoking Status Current Every Day Smoker Gladys Ferrell [facility] & [place] 06/04/2024 14:05:10 What Is Your Level Of [...] Provided? 06/04/2024 Smoking Cessation Brochures From [facility] Health Dept Given Information not [...] SNOMED-CT Code Diagnosis ICD10 Code Diagnosis Note [id number] Mariana Fox MD [facility] [address] 06/04/2024 13:03:15 06/04/2024 15:00:33 Metastatic malignant neoplasm to bone 51816258 C79.51 Malignant neoplasm of upper lobe of left lung 188572568 C34.12 [id number] [facility] [address] [address] 06/16/2024 08:50:44 06/16/2024 10:17:04 Malignant neoplasm of upper lobe of left lung 255914886 C34.12 [id number] Mariana Fox MD Patti [address] [address] 06/23/2024 10:48:55 06/23/2024 12:02:32 Malignant neoplasm of upper lobe of left lung 448566531 C34.12 [id number] [facility] [address] [address] 06/24/2024 08:50:38 06/24/2024 11:06:08 Malignant neoplasm of upper lobe of left lung 461485704 C34.12 Health Concerns Section Related Observation LastModified by Organization Detai ls LastModified Time None Recorded Concern Status LastModified by Organization Details LastModified Time None Recorded Payers Encounter Date Sequence Insurance Name Policy Number Policy Sorenson Covered Member ID Sorenson Member ID Guarantor Name 06/24/2024 1 [employer] (MEDICARE REPLACEMENT PPO) [id number] Y Tammy Farris [place] [id number] Tammy Sondra Notes Date Note Type Note Provider Name and Address Organization Details Recorded Time 06/25/2024 text/html Patient doing qu ite well had mild pain in the left ribcage area after she fell yesterday at home there was no signs of any fractures. Mariana Fox MD [address] [place] [address] Drive,[address], [place], [address], [facility] 06/25/2024 13:52:01 06/27/2024 text/html Patient complete d [...] with no subsequent recurrence. Mariana Fox MD [address] [place] [address] Drive,[address], [place], [address], [facility] 06/27/2024 10:41:35 07/07/2024 text/html Patient is here [...] months would be advisable. Mariana Fox MD [address] [place] [address],[address], [place], [address], [place] - LP[facility] & [place] 07/07/2024 14:23:11 OBGyn Episode No OBEpisode recorded.
--- OUTSIDE RECORDS SUMMARY | 2024-08-07 09:06 | XMS_ITS | Data Portability ---
Author Organization [place] [facility] Address [address] [place] [address] Care Team Providers Care Paper Reel Operator Name Role Phone MARIANA FOX Radiation Oncologist [phone] CORINNE GAINES Primary Care Provider [phone] EMILI CHASE Hematology/Oncology Assessment Encounter Date Assessment [...] chest complaints case was discussed with Dr. Cahse will see her in 3 months for [...] contr ast No observ ation record ed. [facility] [address], [place], [address], 07/07/2024 13:05:24 07/09/19 25 07/04/2024 imagi ng/di agnos tic resul t No observ ation record ed. [facility] Nickel Operator [address], [place], [address], 07/08/2024 13:06:03 Result Notes None recorded. Problems Name Problem SNOMED Code Status Onset Date Resolution Date Notes Provider Name and Address Organization Details Recorded Time Metastatic malignant neoplasm to bone 94443995 Active 024 [place] Najera [facility] & [place] 5 14:45:21 Malignant neoplasm of upper lobe of left lung 325852586 Active 024 [place] Najera [facility] & [place] 5 14:46:26 Problem Notes None recorded. Procedures Surgical History Date Name Laterality Status Provider Name and Address Organization Details Recorded Time simple mastectomy of left breast completed Gladys CASTRO [facility] & [place] 06/02/2024 15:00:57 Appendectomy completed Gladys CASTRO [facility] & [place] 06/04/2024 14:08:23 Cholecystectomy completed Gladys CASTRO [facility] & [place] 06/04/2024 14:08:35 hysterectomy completed Gladys CASTRO [facility] & [place] 06/04/2024 14:08:52 tonsillectomy completed Gladys CASTRO [facility] & [place] 06/04/2024 14:09:01 Imaging Results Imaging Date Name Status LastModified by Organiz ation Details LastModified Time 06/20/2024 MRI, lumbar spine, w/wo contrast [facility] [address], [place], [address], 07/07/2024 13:05:24 07/04/2024 imaging/diagn ostic result active [facility] Nickel Operator [address], [place], [place], [address], 07/08/2024 13:06:03 Procedure Notes None recorded. Medical Equipment None Reported. Allergies Allergen ID Allergen Name Allergen Category Reaction Reaction Severity Criticality Documentation Date Start Date Code Code System Note Provider Name and Address Organization Details Recorded Time 618157 Lipitor medicatio n Not available Not available Not available 06/02/2024 83780 5 RxNorm [place] Najera [facility] & [place] 5 14:48:04 505481 codeine medicatio n Not available Not available Not available 06/02/2024 2670 RxNorm [place] N[place]era [facility] & [place] 5 14:48:17 097384 latex environme nt,medica tion Not available Not available Not available 06/02/2024 59711 91 RxNorm [place] N[place]era [facility] & [place] 5 14:48:40 191830 Product containin g penicilli n (product) medicatio n Not available Not available Not available 06/02/2024 16273 8001 SNOMED [place] N[place]era [facility] & [place] 5 14:48:58 Medications Name Sig Start Date [...] Last Updated DateTime 165.1 cm 39.9 kg/m2 449808. 73 g 97.9 [degF] 94 % 94 % 88 /min 20 /min Gladys SHEPHERD [facility] & [place] 14:11:20 Social History Question Answer Notes LastModified by Organizat ion Details LastModified Time Tobacco Smoking Status Current Every Day Smoker Gladys Ferrell [facility], [facility] & [place] 06/04/2024 14:05:10 What Is Your Level Of Alcohol Consumption? 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 06/04/2024 Information not available 06/04/2024 What Is Your Current Pack Years? 30ormoretrenotn lópez 56 Pack Years Information not available [...] Provided? 06/04/2024 Smoking Cessation Brochures From [facility] Given Information not [...] SNOMED-CT Code Diagnosis ICD10 Code Diagnosis Note [id number] [facility] Fox [facility] [place] [address] 06/04/2024 13:03:15 06/04/2024 15:00:33 Metastatic malignant neoplasm to bone 55157545 C79.51 Malignant neoplasm of upper lobe of left lung 664324407 C34.12 [id number] Mariana Fox MD [place] [address] 8 06/16/2024 08:50:44 06/16/2024 10:17:04 Malignant neoplasm of upper lobe of left lung 863631452 C34.12 [id number] Mariana Fox MD [place] [address] 8 06/23/2024 10:48:55 06/23/2024 12:02:32 Malignant neoplasm of upper lobe of left lung 178335684 C34.12 [id number] Mariana Fox MD [place] [address] 8 06/24/2024 08:50:38 06/24/2024 11:06:08 Malignant neoplasm of upper lobe of left lung 378897218 C34.12 [id number] Mar[facility] [place] [address] 8 06/25/2024 13:10:45 06/25/2024 13:52:12 Malignant neoplasm of upper lobe of left lung 660833882 C34.12 [id number] [facility] [place] Lorenzo [address] [address] 06/26/2024 10:32:12 06/26/2024 11:30:06 Malignant neoplasm of upper lobe of left lung 222586582 C34.12 [id number] MD [facility] [place] [address] [place] [address] 06/27/2024 10:33:13 06/27/2024 11:58:01 Malignant neoplasm of upper lobe of left lung 841292207 C34.12 [id number] [facility] [place] [address] [place] [address] 07/07/2024 14:04:20 07/07/2024 14:56:30 Malignant neoplasm of upper lobe of left lung 996125600 C34.12 Health Concerns Section Related Observation LastModified by Organization Detai ls LastModified Time None Recorded Concern Status LastModified by Organization Details LastModified Time None Recorded Advance Directives Directive None Recorded Payers Encounter Date Sequence Insurance Name Policy Number Policy Sorenson Covered Member ID Sorenson Member ID Guarantor Name 06/24/2024 1 [employer] (MEDICARE REPLACEMENT PPO) [id number] Y Tammy M Diller [id number] Tammy Diller 06/25/2024 1 [employer] (MEDICARE REPLACEMENT PPO) [id number] Y Tammy M Sondra [id number] Tammy Diller 06/26/2024 1 [employer] (MEDICARE REPLACEMENT PPO) [id number] Y Tammy M Sondra [id number] Tammy Sondra 06/27/2024 1 [employer] (MEDICARE REPLACEMENT PPO) [id number] Y Tammy M Sondra [id number] Tammy Diller 07/07/2024 1 [employer] (MEDICARE REPLACEMENT PPO) [id number] Y Tammy M Diller [id number] Tammy Sondra Notes Date Note Type Note Provider Name and Address Organization Details Recorded Time 06/25/2024 text/html Patient doing qu ite well had mild pain in the left ribcage area after she fell yesterday at home there was no signs of any fractures. Mariana Fox MD [address] [place] [address],[address], [place], [address], [place] [facility] [facility] & [place] 06/25/2024 13:52:01 06/27/2024 text/html Patient complete d [...] with no subsequent recurrence. Mariana Fox MD [address] [place] [address],[address], [place], [address], [place] [facility] [facility] & [place] 06/27/2024 10:41:35 07/07/2024 text/html Patient is here [...] would be advisable. Mariana Fox MD [address] [facility],[address], [place], [address], [place] [facility] & [place] 07/07/2024 14:23:11 OBGyn Episode No OBEpisode recorded.
--- OUTSIDE RECORDS SUMMARY | 2024-08-07 09:06 | XMS_ITS | Continuity of Care Document ---
Author Organization [place] [facility] - [place] & [place], [facility] Address [address] [place] [address] Care Team Providers Care Raftsman Name Role Phone MARIANA FOX Radiation Oncologist [...] contr ast No observ ation record ed. [facility] [address], [place], [address], 07/07/2024 13:05:24 07/09/19 25 07/04/2024 imagi ng/di agnos tic resul t No observ ation record ed. [facility] [address], [place], [address], 07/08/2024 13:06:03 Result Notes None recorded. Problems Name Problem SNOMED Code Status Onset Date Resolution Date Notes Provider Name and Address Organization Details Recorded Time Metastatic malignant neoplasm to bone 18069138 Active 024 [place] Najera [facility] & [place] 14:45:21 Malignant neoplasm of upper lobe of left lung 080332109 Active 024 [place] Najera [facility] & [place] 14:46:26 Problem Notes None recorded. Procedures Surgical History Date Name Laterality Status Provider Name and Address Organization Details Recorded Time simple mastectomy of left breast completed Gladys CASTRO [facility] & [place] 06/02/2024 15:00:57 Appendectomy completed Gladys CASTRO [facility] & [place] 06/04/2024 14:08:23 Cholecystectomy completed Gladys CASTRO [facility] & [place] 06/04/2024 14:08:35 hysterectomy completed Gladys CASTRO [facility] & [place] 06/04/2024 14:08:52 tonsillectomy completed Gladys CASTRO [facility] & [place] 06/04/2024 14:09:01 Imaging Results None recorded. Procedure Notes None recorded. Medical Equipment None Reported. Allergies Allergen ID Allergen Name Allergen Category Reaction Reaction Severity Criticality Documentation Date Start Date Code Code System Note Provider Name and Address Organization Details Recorded Time 863184 Lipitor medicatio n Not available Not available Not available 06/02/2024 42701 5 RxNorm [place] N[place]era [facility] & [place] 14:48:04 146718 codeine medicatio n Not available Not available Not available 06/02/2024 2670 RxNorm [place] N[place]era [facility] & [place] 14:48:17 966004 latex environme nt,medica tion Not available Not available Not available 06/02/2024 68434 91 RxNorm [place] [facility] & [place] 14:48:40 692487 Product containin g penicilli n (product) medicatio n Not available Not available Not available 06/02/2024 34278 8001 SNOMED Gladys Mcconnell [facility] & [place] 5 14:48:58 Medications Name Sig Start Date [...] Last Updated DateTime 165.1 cm 39.9 kg/m2 075472. 73 g 97.9 [degF] 94 % 94 % 88 /min 20 /min Gladys SHEPHERD [facility] & [place] 14:11:20 Social History Question Answer Notes LastModified by Organizat ion Details LastModified Time Tobacco Smoking Status Current Every Day Smoker Gladys Ferrell [facility] & [place] 06/04/2024 14:05:10 What Is Your Level Of [...] Provided? 06/04/2024 Smoking Cessation Brochures From [facility] Given Information not available [...] SNOMED-CT Code Diagnosis ICD10 Code Diagnosis Note [id number] Mariana Fox MD [facility] [address] 06/04/2024 13:03:15 06/04/2024 15:00:33 Metastatic malignant neoplasm to bone 04656583 C79.51 Malignant neoplasm of upper lobe of left lung 936130498 C34.12 [id number] [facility] [address] [address] 06/16/2024 08:50:44 06/16/2024 10:17:04 Malignant neoplasm of upper lobe of left lung 186034010 C34.12 [id number] Mariana Fox MD Patti [address] [address] 06/23/2024 10:48:55 06/23/2024 12:02:32 Malignant neoplasm of upper lobe of left lung 299159031 C34.12 [id number] [facility] [address] [address] 06/24/2024 08:50:38 06/24/2024 11:06:08 Malignant neoplasm of upper lobe of left lung 847741395 C34.12 [id number] MD [facility]IGIA [facility]ese [facility] [address] [place] [address] 06/25/2024 13:10:45 06/25/2024 13:52:12 Malignant neoplasm of upper lobe of left lung 598807287 C34.12 [id number] MD LIGIA Reese [facility] [address] [place] [address] 06/26/2024 10:32:12 06/26/2024 11:30:06 Malignant neoplasm of upper lobe of left lung 070183683 C34.12 Health Concerns Section Related Observation LastModified by Organization Detai ls LastModified Time None Recorded Concern Status LastModified by Organization Details LastModified Time None Recorded Payers Encounter Date Sequence Insurance Name Policy Number Policy Sorenson Covered Member ID Sorenson Member ID Guarantor Name 06/26/2024 1 [employer] (MEDICARE REPLACEMENT PPO) [id number] Y Tammy Farris [place] [id number] Tammy Amaro Notes Date Note Type Note [...] with no subsequent recurrence. Mariana Fox MD [address] [place] [address],[address], [place], [address], [place] [facility] [facility] 06/27/2024 10:41:35 07/07/2024 text/html Patient is [...] would be advisable. Mariana Fox MD [address] [facility],[address], [place], [address], [place] & [place] 07/07/2024 14:23:11 OBGyn Episode No OBEpisode recorded.
[2024-08-07] MEDS: SODIUM CHLORIDE 0.9% 10ML FLUSH SYRINGE 10 ML IV (09:15)
[2024-08-07 09:39] LABS: Albumin Level 4.1 g/dl (3.5-5.0); Chloride 109 mmol/L (98-107); Potassium 4.3 mmoL/L (3.5-5.1); Sodium 141 mmol/L (136-145)
[2024-08-07 09:40] LABS: Basophils % 0.4 % (0.1-2.0); Eosinophils % 0.4 % (0.1-12.0); Hematocrit 45.8 % (37.0-47.0); Hemoglobin 14.1 g/dL (12.2-16.2); Lymphocytes # 1.2 K/mm3 (0.7-4.5); Lymphocytes % 11.4 % (10-50); Mean Corpuscular HGB Conc 30.8 g/dL (31.8-35.4); Mean Corpuscular Hemoglobin 28.5 pg (27.0-31.2); Mean Corpuscular Volume 92.7 fl (81-99); Mean Platelet Volume 10.5 fl (7.4-10.4); Monocytes # 0.3 K/mm3 (0.1-1.0); Neutrophils % 83.5 % (37.0-80.0); Nucleated Red Blood Cells # 0 10^3/uL; Nucleated Red Blood Cells % 0 %; Platelet Count 271 K/mm3 (142-424); Red Blood Count 4.94 M/mm3 (4.20-5.40); Red Cell Distribution Width 14.4 % (11.5-17.5); Red Cell Distribution Width-SD 49.1 fL; White Blood Count 10.8 K/mm3 (4.8-10.8)
[2024-08-07 09:42] LABS: Alanine Aminotransferase 48 U/L (12-78); Albumin/Globulin Ratio 1.2 (1.1-1.8); Alkaline Phosphatase 130 U/L (38-126); Anion Gap 13.3 mEq/L (5-15); Aspartate Amino Transferase 36 U/L (14-36); Bilirubin,Total 0.4 mg/dl (0.2-1.3); Blood Urea Nitrogen 19 mg/dl (7-17); Carbon Dioxide 23 mmol/L (22.0-30.0); Estimated Glomerular Filt Rate 45 ml/min (>60); GFR (African American) 54 ML/MIN (>60); Globulin 3.5 g/dL (1.3-3.2); Total Protein,Serum 7.6 g/dl (6.3-8.2)
[2024-08-07 09:43] LABS: Calcium 9.5 mg/dl (8.4-10.2); Glucose 173 mg/dl (74-100)
== END 2024-08-07 09:20 | disposition home or self-care (01) ==
LOC: INF 09:04
PROVIDERS: PCP Internal Medicine Adolescent Medicine; Visit Provider Internal Medicine Medical Oncology
DX: C34.90 Malignant neoplasm of unspecified part of unspecified bronchus or lung (principal); C80.0 Disseminated malignant neoplasm, unspecified
CPT/HCPCS: 36591; 80053; 85025; J1642

== ENCOUNTER 2024-08-20 11:21 | Outpatient (CLI) | payer MEDICARE, SELFPAY ==
--- OUTSIDE RECORDS SUMMARY | 2024-08-20 11:24 | XMS_ITS | Data Portability ---
Author Organization [place] - [facility] [facility] Address [address] [place] [address] Care Team Providers Care Case Management Specialist Name Role Phone MARIANA FOX Radiation Oncologist CORINNE GAINES Primary Care Provider EMILI CHASE Hematology/Oncology [phone] Assessment Encounter Date Assessment Date Assessment LastModified [...] contr ast No observ ation record ed. [facility] [address], [place], [address], 07/07/2024 13:05:24 07/09/19 25 07/04/2024 imagi ng/di agnos tic resul t No observ ation record ed. [facility] Rand Tacker [address], [place], [address], 07/08/2024 13:06:03 Result Notes None recorded. Problems Name Problem SNOMED Code Status Onset Date Resolution Date Notes Provider Name and Address Organization Details Recorded Time Metastatic malignant neoplasm to bone 13699487 Active 024 [place] Najera [facility] & [place] 5 14:45:21 Malignant neoplasm of upper lobe of left lung 105759957 Active 024 [place] Najera [facility] & [place] 5 14:46:26 Problem Notes None recorded. Procedures Surgical History Date Name Laterality Status Provider Name and Address Organization Details Recorded Time simple mastectomy of left breast completed Gladys CASTRO [facility] & [place] 06/02/2024 15:00:57 Appendectomy completed Gladys CASTRO [facility] & [place] 06/04/2024 14:08:23 Cholecystectomy completed Gladys CASTRO [facility] & [place] 06/04/2024 14:08:35 hysterectomy completed Gladys CASTRO [facility] & [place] 06/04/2024 14:08:52 tonsillectomy completed Gladys CASTRO [facility] & [place] 06/04/2024 14:09:01 Imaging Results Imaging Date Name Status LastModified by Organiz ation Details LastModified Time 06/20/2024 MRI, lumbar spine, w/wo contrast [facility] [address], [place], [address], 07/07/2024 13:05:24 07/04/2024 imaging/diagn ostic result active [facility] Rand Tacker [address], [place], [place], [address], 07/08/2024 13:06:03 Procedure Notes None recorded. Medical Equipment None Reported. Allergies Allergen ID Allergen Name Allergen Category Reaction Reaction Severity Criticality Documentation Date Start Date Code Code System Note Provider Name and Address Organization Details Recorded Time 972905 Lipitor medicatio n Not available Not available Not available 06/02/2024 31505 5 RxNorm [place] Najera [facility] & [place] 5 14:48:04 165492 codeine medicatio n Not available Not available Not available 06/02/2024 2670 RxNorm [place] Najera [facility] & [place] 5 14:48:17 806104 latex environme nt,medica tion Not available Not available Not available 06/02/2024 20271 91 RxNorm [place] Najera [facility] & [place] 5 14:48:40 049298 Product containin g penicilli n (product) medicatio n Not available Not available Not available 06/02/2024 53843 8001 SNOMED [place] Najera [facility] & [place] 5 14:48:58 Medications Name Sig Start Date [...] Last Updated DateTime 165.1 cm 39.9 kg/m2 246374. 73 g 97.9 [degF] 94 % 94 % 88 /min 20 /min Gladys SHEPHERD [facility] & [place] 14:11:20 Social History Question Answer Notes LastModified by Organizat ion Details LastModified Time Tobacco Smoking Status Current Every Day Smoker Gladys Ferrell [facility], [facility] & [place] 06/04/2024 14:05:10 What Is Your Level Of [...] Provided? 06/04/2024 Smoking Cessation Brochures From [facility] Health [facility] Given Information not available 06/04/2024 [...] SNOMED-CT Code Diagnosis ICD10 Code Diagnosis Note [id number] [facility] [place] [address] 06/04/2024 13:03:15 06/04/2024 15:00:33 Metastatic malignant neoplasm to bone 38778520 C79.51 Malignant neoplasm of upper lobe of left lung 493875747 C34.12 [id number] Mariana Fox MD [place] [address] 8 06/16/2024 08:50:44 06/16/2024 10:17:04 Malignant neoplasm of upper lobe of left lung 780489042 C34.12 [id number] Mariana Fox MD [place] [address] 8 06/23/2024 10:48:55 06/23/2024 12:02:32 Malignant neoplasm of upper lobe of left lung 522495789 C34.12 [id number] Mariana Fox MD [place] [address] 8 06/24/2024 08:50:38 06/24/2024 11:06:08 Malignant neoplasm of upper lobe of left lung 869237186 C34.12 [id number] [facility] [place] [address] 8 06/25/2024 13:10:45 06/25/2024 13:52:12 Malignant neoplasm of upper lobe of left lung 770649161 C34.12 [id number] [facility] LIGIA Lorenzo [address] [address] 06/26/2024 10:32:12 06/26/2024 11:30:06 Malignant neoplasm of upper lobe of left lung 816381132 C34.12 [id number] MD [facility]IA [facility] [place] [address] [place] [address] 06/27/2024 10:33:13 06/27/2024 11:58:01 Malignant neoplasm of upper lobe of left lung 971378943 C34.12 [id number] [facility] [place] [address] [place] [address] 07/07/2024 14:04:20 07/07/2024 14:56:30 Malignant neoplasm of upper lobe of left lung 624582916 C34.12 Health Concerns Section Related Observation LastModified by Organization Detai ls LastModified Time None Recorded Concern Status LastModified by Organization Details LastModified Time None Recorded Advance Directives Directive None Recorded Payers Encounter Date Sequence Insurance Name Policy Number Policy Sorenson Covered Member ID Sorenson Member ID Guarantor Name 06/24/2024 1 [employer] (MEDICARE REPLACEMENT PPO) [id number] Y Tammy M [place] [id number] Tammy [place] 06/25/2024 1 [employer] (MEDICARE REPLACEMENT PPO) [id number] Y Tammy M Sondra [id number] Tammy [place] 06/26/2024 1 [employer] (MEDICARE REPLACEMENT PPO) [id number] Y Tammy M Sondra [id number] Tammy Sondra 06/27/2024 1 [employer] (MEDICARE REPLACEMENT PPO) [id number] Y Tammy M Sondra [id number] Tammy [place] 07/07/2024 1 [employer] (MEDICARE REPLACEMENT PPO) [id number] Y Tammy M [place] [id number] Tammy Sondra Notes Date Note Type Note Provider Name and Address Organization Details Recorded Time 06/25/2024 text/html Patient doing qu ite well had mild pain in the left ribcage area after she fell yesterday at home there was no signs of any fractures. Mariana Fox MD [address] [place] [address],[address], [place], [address], [place] [facility] [facility] & [place] 06/25/2024 13:52:01 06/27/2024 text/html Patient complete d [...] with no subsequent recurrence. Mariana Fox MD [address] [place] [address],[address], [place], [address], [place] [facility] [facility] & [place] 06/27/2024 10:41:35 07/07/2024 text/html Patient is here [...] would be advisable. Mariana Fox MD [address] [facility],[address], [place], [address], [place] & [place] 07/07/2024 14:23:11 OBGyn Episode No OBEpisode recorded.
--- OUTSIDE RECORDS SUMMARY | 2024-08-20 11:24 | XMS_ITS | Continuity of Care Document ---
Author Organization [place] - [facility] - [place] & [place], [facility] Address [address] [place] [address] Care Team Providers Care Decorating Equipment Setter Name Role Phone MARIANA FOX Radiation Oncologist CORINNE GAINES Primary Care Provider EMILI CHASE Hematology/Oncology [phone] Assessment No assessment recorded. Plan of Treatment [...] contr ast No observ ation record ed. [facility] [address], [place], [address], 07/07/2024 13:05:24 07/09/19 25 07/04/2024 imagi ng/di agnos tic resul t No observ ation record ed. [facility] Studio Manager [address], [place], [address], 07/08/2024 13:06:03 Result Notes None recorded. Problems Name Problem SNOMED Code Status Onset Date Resolution Date Notes Provider Name and Address Organization Details Recorded Time Metastatic malignant neoplasm to bone 95216614 Active 024 [place] Najera [facility] & [place] 14:45:21 Malignant neoplasm of upper lobe of left lung 687550211 Active 024 [place] Najera [facility] & [place] 14:46:26 Problem Notes None recorded. Procedures Surgical History Date Name Laterality Status Provider Name and Address Organization Details Recorded Time simple mastectomy of left breast completed Gladys CASTRO [facility] & [place] 06/02/2024 15:00:57 Appendectomy completed Gladys CASTRO [facility] & [place] 06/04/2024 14:08:23 Cholecystectomy completed Gladys CASTRO [facility] & [place] 06/04/2024 14:08:35 hysterectomy completed Gladys CASTRO [facility] & [place] 06/04/2024 14:08:52 tonsillectomy completed Gladys CASTRO [facility] & [place] 06/04/2024 14:09:01 Imaging Results None recorded. Procedure Notes None recorded. Medical Equipment None Reported. Allergies Allergen ID Allergen Name Allergen Category Reaction Reaction Severity Criticality Documentation Date Start Date Code Code System Note Provider Name and Address Organization Details Recorded Time 163551 Lipitor medicatio n Not available Not available Not available 06/02/2024 55487 5 RxNorm [place] Najera [facility] & [place] 14:48:04 313723 codeine medicatio n Not available Not available Not available 06/02/2024 2670 RxNorm [place] Najera [facility] & [place] 14:48:17 368305 latex environme nt,medica tion Not available Not available Not available 06/02/2024 64703 91 RxNorm [place] Najera [facility] & [place] 14:48:40 781036 Product containin g penicilli n (product) medicatio n Not available Not available Not available 06/02/2024 88483 8001 SNOMED Gladys Mcconnell [facility], [facility] & [place] 5 14:48:58 Medications Name Sig Start Date [...] Last Updated DateTime 165.1 cm 39.9 kg/m2 075731. 73 g 97.9 [degF] 94 % 94 % 88 /min 20 /min Gladys SHEPHERD [facility] & [place] 14:11:20 Social History Question Answer Notes LastModified by Organizat ion Details LastModified Time Tobacco Smoking Status Current Every Day Smoker Gladys Ferrell [facility] & [place] 06/04/2024 14:05:10 What Is Your Level Of [...] Provided? 06/04/2024 Smoking Cessation Brochures From [facility] Health Dept Given Information not available [...] SNOMED-CT Code Diagnosis ICD10 Code Diagnosis Note [id number] Mariana Fox MD [facility] [address] 06/04/2024 13:03:15 06/04/2024 15:00:33 Metastatic malignant neoplasm to bone 83931199 C79.51 Malignant neoplasm of upper lobe of left lung 606829090 C34.12 [id number] [facility] [address] [address] 06/16/2024 08:50:44 06/16/2024 10:17:04 Malignant neoplasm of upper lobe of left lung 644837239 C34.12 [id number] Mariana Fox MD Patti [address] [address] 06/23/2024 10:48:55 06/23/2024 12:02:32 Malignant neoplasm of upper lobe of left lung 903658731 C34.12 [id number] [facility] MD [facility] [address] [address] 06/24/2024 08:50:38 06/24/2024 11:06:08 Malignant neoplasm of upper lobe of left lung 888395922 C34.12 [id number] [facility] LIGIA [facility] [address] [place] [address] 06/25/2024 13:10:45 06/25/2024 13:52:12 Malignant neoplasm of upper lobe of left lung 627238954 C34.12 [id number] MD LIGIA Reese [facility] [address] [place] [address] 06/26/2024 10:32:12 06/26/2024 11:30:06 Malignant neoplasm of upper lobe of left lung 358347661 C34.12 Health Concerns Section Related Observation LastModified by Organization Detai ls LastModified Time None Recorded Concern Status LastModified by Organization Details LastModified Time None Recorded Payers Encounter Date Sequence Insurance Name Policy Number Policy Sorenson Covered Member ID Sorenson Member ID Guarantor Name 06/26/2024 1 [employer] (MEDICARE REPLACEMENT PPO) [id number] Y Tammy Farris [place] [id number] Tammy Amaro Notes Date Note Type Note [...] with no subsequent recurrence. Mariana Fox MD [address] [place] [address],[address], [place], [address], [place] [facility] [facility] 06/27/2024 10:41:35 07/07/2024 text/html Patient is [...] Fox MD [address] [facility],[address], [place], [address], [place] & [place] 07/07/2024 14:23:11 OBGyn Episode No OBEpisode recorded.
--- OUTSIDE RECORDS SUMMARY | 2024-08-20 11:24 | XMS_ITS | Continuity of Care Document ---
Author Organization [place] - [facility] & LIGIA Hodge [facility] Address [address] [place] [address] Care Team Providers Care Costume Mistress Name Role Phone MARIANA FOX Radiation Oncologist [...] By Organization Details Last Modified Time 06/23/2024 [id number] Patient has no complaints no cough Dr. [...] contr ast No observ ation record ed. [facility] [address], [place], [address], 07/07/2024 13:05:24 07/09/19 25 07/04/2024 imagi ng/di agnos tic resul t No observ ation record ed. [facility] Police Superintendent [address], [place], [address], 07/08/2024 13:06:03 Result Notes None recorded. Problems Name Problem SNOMED Code Status Onset Date Resolution Date Notes Provider Name and Address Organization Details Recorded Time Metastatic malignant neoplasm to bone 94978402 Active 024 [place] Najera [facility] & [place] 5 14:45:21 Malignant neoplasm of upper lobe of left lung 337887274 Active 024 [place] Najera [facility] & [place] 14:46:26 Problem Notes None recorded. Procedures Surgical History Date Name Laterality Status Provider Name and Address Organization Details Recorded Time simple mastectomy of left breast completed Gladys No [facility] & [place] 06/02/2024 15:00:57 Appendectomy completed Gladys No [facility] & [place] 06/04/2024 14:08:23 Cholecystectomy completed Gladys No [facility] & [place] 06/04/2024 14:08:35 hysterectomy completed Gladys No [facility] & [place] 06/04/2024 14:08:52 tonsillectomy completed Gladys No [facility] & [place] 06/04/2024 14:09:01 Imaging Results None recorded. Procedure Notes None recorded. Medical Equipment None Reported. Allergies Allergen ID Allergen Name Allergen Category Reaction Reaction Severity Criticality Documentation Date Start Date Code Code System Note Provider Name and Address Organization Details Recorded Time 950862 Lipitor medicatio n Not available Not available Not available 06/02/2024 39364 5 RxNorm Gladys forrest, [place] [facility] & [place] 14:48:04 438793 codeine medicatio n Not available Not available Not available 06/02/2024 2670 RxNorm Gladys forrest, [facility] & [place] 14:48:17 664577 latex environme nt,medica tion Not available Not available Not available 06/02/2024 33403 91 RxNorm Gladys forrest, [place] [facility] & [place] 14:48:40 672046 Product containin g penicilli n (product) medicatio n Not available Not available Not available 06/02/2024 67092 8001 SNOMED Gladys forrest, [facility] & [place] 14:48:58 Medications Name Sig Start Date Stop [...] Last Updated DateTime 165.1 cm 40.2 kg/m2 228540. 2 g 97.1 [degF] 96 % 96 % 95 /min 20 /min 142 mm[Hg] 86 mm[Hg] Gladys CASTRO [facility] & [place] 10:49:57 Social History Question Answer Notes LastModified by Organizat ion Details LastModified Time Tobacco Smoking Status Current Every Day Smoker [place] Najera [facility] & [place] 06/04/2024 14:05:10 What Is Your Level Of [...] Provided? 06/04/2024 Smoking Cessation Brochures From [facility] Health Dept Given Information not [...] SNOMED-CT Code Diagnosis ICD10 Code Diagnosis Note [id number] MD LIGIA Reese [address] [address] 06/04/2024 13:03:15 06/04/2024 15:00:33 Metastatic malignant neoplasm to bone 23973146 C79.51 Malignant neoplasm of upper lobe of left lung 343781435 C34.12 [id number] MD LIGIA Reese [address] [address] 06/16/2024 08:50:44 06/16/2024 10:17:04 Malignant neoplasm of upper lobe of left lung 803001938 C34.12 [id number] Mariana Fox MD [facility] [address] [place] [address] 06/23/2024 10:48:55 06/23/2024 12:02:32 Malignant neoplasm of upper lobe of left lung 184451600 C34.12 Health Concerns Section Related Observation LastModified by Organization Detai ls LastModified Time None Recorded Concern Status LastModified by Organization Details LastModified Time None Recorded Payers Encounter Date Sequence Insurance Name Policy Number Policy Sorenson Covered Member ID Sorenson Member ID Guarantor Name 06/23/2024 1 [employer] (MEDICARE REPLACEMENT PPO) [id number] Y Tammy Amaro [id number] Tammy Amaro OBGyn Episode No OBEpisode recorded.
--- OUTSIDE RECORDS SUMMARY | 2024-08-20 11:24 | XMS_ITS | Continuity of Care Document ---
Author Organization [place] - [facility] - [place] & [place], [facility] Address [address] [place] [address] Care Team Providers Care License Examiner Name Role Phone MARIANA FOX Radiation Oncologist [...] contr ast No observ ation record ed. [facility] [address], [place], [address], 07/07/2024 13:05:24 07/09/19 25 07/04/2024 imagi ng/di agnos tic resul t No observ ation record ed. [facility] [address], [place], [address], 07/08/2024 13:06:03 Result Notes None recorded. Problems Name Problem SNOMED Code Status Onset Date Resolution Date Notes Provider Name and Address Organization Details Recorded Time Metastatic malignant neoplasm to bone 23437792 Active 024 [place] Najera [facility] & [place] 14:45:21 Malignant neoplasm of upper lobe of left lung 648931112 Active 024 [place] Najera [facility] & [place] 14:46:26 Problem Notes None recorded. Procedures Surgical History Date Name Laterality Status Provider Name and Address Organization Details Recorded Time simple mastectomy of left breast completed Gladys CASTRO [facility] & [place] 06/02/2024 15:00:57 Appendectomy completed Gladys CASTRO [facility] & [place] 06/04/2024 14:08:23 Cholecystectomy completed Gladys CASTRO [facility] & [place] 06/04/2024 14:08:35 hysterectomy completed Gladys CASTRO [facility] & [place] 06/04/2024 14:08:52 tonsillectomy completed Gladys CASTRO [facility] & [place] 06/04/2024 14:09:01 Imaging Results None recorded. Procedure Notes None recorded. Medical Equipment None Reported. Allergies Allergen ID Allergen Name Allergen Category Reaction Reaction Severity Criticality Documentation Date Start Date Code Code System Note Provider Name and Address Organization Details Recorded Time 992692 Lipitor medicatio n Not available Not available Not available 06/02/2024 45324 5 RxNorm [place] Najera [facility] & [place] 14:48:04 120941 codeine medicatio n Not available Not available Not available 06/02/2024 2670 RxNorm [place] Najera [facility] & [place] 14:48:17 492147 latex environme nt,medica tion Not available Not available Not available 06/02/2024 44554 91 RxNorm [place] Najera [facility] & [place] 14:48:40 721409 Product containin g penicilli n (product) medicatio n Not available Not available Not available 06/02/2024 74230 8001 SNOMED Gladys Mcconnell [facility] & [place] 5 14:48:58 Medications Name Sig Start Date [...] Last Updated DateTime 165.1 cm 39.9 kg/m2 668724. 73 g 97.9 [degF] 94 % 94 % 88 /min 20 /min Gladys SHEPHERD [facility] & [place] 14:11:20 Social History Question Answer Notes LastModified by Organizat ion Details LastModified Time Tobacco Smoking Status Current Every Day Smoker Gladys Ferrell [facility] & [place] 06/04/2024 14:05:10 What Is Your Level Of [...] Provided? 06/04/2024 Smoking Cessation Brochures From [facility] Health Dept Given Information not available [...] SNOMED-CT Code Diagnosis ICD10 Code Diagnosis Note [id number] Mariana Fox MD [facility] [address] 06/04/2024 13:03:15 06/04/2024 15:00:33 Metastatic malignant neoplasm to bone 69291112 C79.51 Malignant neoplasm of upper lobe of left lung 575280669 C34.12 [id number] [facility] [address] [address] 06/16/2024 08:50:44 06/16/2024 10:17:04 Malignant neoplasm of upper lobe of left lung 548761117 C34.12 [id number] Mariana Fox MD Patti [address] [address] 06/23/2024 10:48:55 06/23/2024 12:02:32 Malignant neoplasm of upper lobe of left lung 312593121 C34.12 [id number] [facility] [address] [address] 06/24/2024 08:50:38 06/24/2024 11:06:08 Malignant neoplasm of upper lobe of left lung 633564561 C34.12 Health Concerns Section Related Observation LastModified by Organization Detai ls LastModified Time None Recorded Concern Status LastModified by Organization Details LastModified Time None Recorded Payers Encounter Date Sequence Insurance Name Policy Number Policy Sorenson Covered Member ID Sorenson Member ID Guarantor Name 06/24/2024 1 [employer] (MEDICARE REPLACEMENT PPO) [id number] Y Tammy Farris [place] [id number] Tammy Sondra Notes Date Note Type Note Provider Name and Address Organization Details Recorded Time 06/25/2024 text/html Patient doing qu ite well had mild pain in the left ribcage area after she fell yesterday at home there was no signs of any fractures. Mariana Fox MD [address] [place] [address] Drive,[address], [place], [address], [facility] 06/25/2024 13:52:01 06/27/2024 text/html Patient complete [...] with no subsequent recurrence. Mariana Fox MD [address] [place] [address] Drive,[address], [place], [address], [facility] 06/27/2024 10:41:35 07/07/2024 text/html Patient is [...] months would be advisable. Mariana Fox MD [address] [place] [address],[address], [place], [address], [place] [facility] [facility] & [place] 07/07/2024 14:23:11 OBGyn Episode No OBEpisode recorded.
[2024-08-20] MEDS: SODIUM CHLORIDE 0.9% 10ML FLUSH SYRINGE 10 ML IV (11:30)
[2024-08-20 11:49] LABS: Chloride 109 mmol/L (98-107)
[2024-08-20 11:50] LABS: Albumin Level 3.9 g/dl (3.5-5.0); Potassium 3.4 mmoL/L (3.5-5.1); Sodium 139 mmol/L (136-145)
[2024-08-20 11:52] LABS: Alanine Aminotransferase 32 U/L (12-78); Anion Gap 10.4 mEq/L (5-15); Aspartate Amino Transferase 28 U/L (14-36); Blood Urea Nitrogen 29 mg/dl (7-17); Carbon Dioxide 23 mmol/L (22.0-30.0); Estimated Glomerular Filt Rate 32 ml/min (>60); GFR (African American) 39 ML/MIN (>60)
[2024-08-20 11:53] LABS: Albumin/Globulin Ratio 1.3 (1.1-1.8); Alkaline Phosphatase 109 U/L (38-126); Bilirubin,Total 0.4 mg/dl (0.2-1.3); Glucose 174 mg/dl (74-100); Total Protein,Serum 6.9 g/dl (6.3-8.2)
== END 2024-08-20 11:35 | disposition home or self-care (01) ==
LOC: INF 11:23
PROVIDERS: PCP Internal Medicine Adolescent Medicine; Visit Provider Internal Medicine Medical Oncology
DX: C34.12 Malignant neoplasm of upper lobe, left bronchus or lung (principal); C79.51 Secondary malignant neoplasm of bone
CPT/HCPCS: 36591; 80053; J1642

== ENCOUNTER 2024-08-22 07:50 | Emergency (ER) | payer MEDICARE, SELFPAY ==
[2024-08-22] VITALS (7 sets, daily range): BP systolic 109–145; BP diastolic 67–72; PULSE 91–107; RESP 22–29; TEMP 36.9; O2SAT 91–96; BMI 40.6
--- NOTE | 2024-08-22 08:03 | ECG_ITS ---
APPROVED REPORT Exam: Resting ECG HR:95 bpm ECG Measurements Heart Rate 95 AXES TX 164 P 72 QRSd 88 QRS 79 QT 321 T 82 QTc 373 Conclusion Sinus rhythm Electronically signed by : MAGGIE LOVING, 08/22/2024 15:04:45
--- OUTSIDE RECORDS SUMMARY | 2024-08-22 08:04 | XMS_ITS | Continuity of Care Document ---
Author Organization [place] - LPNT [facility] & LIGIA Hodge [facility] Address [address] [place] [address] Care Team Providers Care Traffic Officer Name Role Phone MARIANA FOX Radiation Oncologist [phone] CORINNE GAINES Primary Care Provider [phone] EMILI CHASE Hematology/Oncology [phone] Assessment Encounter Date Assessment Date Assessment LastModified [...] By Organization Details Last Modified Time 06/23/2024 [id number] Patient has no complaints no cough Dr. [...] contr ast No observ ation record ed. [facility] [address], [place], [address], 07/07/2024 13:05:24 07/09/19 25 07/04/2024 imagi ng/di agnos tic resul t No observ ation record ed. [facility] Television Maintenance Man [address], [place], [address], 07/08/2024 13:06:03 Result Notes None recorded. Problems Name Problem SNOMED Code Status Onset Date Resolution Date Notes Provider Name and Address Organization Details Recorded Time Metastatic malignant neoplasm to bone 64106093 Active 024 [place] Najera [facility]NT [facility] & [place] 5 14:45:21 Malignant neoplasm of upper lobe of left lung 758479935 Active 024 [place] Najera [facility]NT [facility] & [place] 14:46:26 Problem Notes None recorded. Procedures Surgical History Date Name Laterality Status Provider Name and Address Organization Details Recorded Time simple mastectomy of left breast completed Gladys No LPNT [facility] & [place] 06/02/2024 15:00:57 Appendectomy completed Gladys No LPNT [facility] & [place] 06/04/2024 14:08:23 Cholecystectomy completed Gladys No LPNT [facility] & [place] 06/04/2024 14:08:35 hysterectomy completed Gladys No LPNT [facility] & [place] 06/04/2024 14:08:52 tonsillectomy completed Gladys No LPNT [facility] & [place] 06/04/2024 14:09:01 Imaging Results None recorded. Procedure Notes None recorded. Medical Equipment None Reported. Allergies Allergen ID Allergen Name Allergen Category Reaction Reaction Severity Criticality Documentation Date Start Date Code Code System Note Provider Name and Address Organization Details Recorded Time 328502 Lipitor medicatio n Not available Not available Not available 06/02/2024 64390 5 RxNorm Gladys forrest, [place] [facility] & [place] 14:48:04 180331 codeine medicatio n Not available Not available Not available 06/02/2024 2670 RxNorm Gladys forrest, [facility] & [place] 14:48:17 899307 latex environme nt,medica tion Not available Not available Not available 06/02/2024 41689 91 RxNorm Gladys forrest, [place] [facility] & [place] 14:48:40 520502 Product containin g penicilli n (product) medicatio n Not available Not available Not available 06/02/2024 29966 8001 SNOMED Gladys forrest, [facility] & [place] 14:48:58 Medications Name Sig Start [...] Last Updated DateTime 165.1 cm 40.2 kg/m2 919254. 2 g 97.1 [degF] 96 % 96 % 95 /min 20 /min 142 mm[Hg] 86 mm[Hg] Gladys CASTRO [facility] & [place] 10:49:57 Social History Question Answer Notes LastModified by Organizat ion Details LastModified Time Tobacco Smoking Status Current Every Day Smoker [place] Najera [facility] & [place] 06/04/2024 14:05:10 What Is [...] Provided? 06/04/2024 Smoking Cessation Brochures From [facility] Given Information not available [...] SNOMED-CT Code Diagnosis ICD10 Code Diagnosis Note [id number] MD LIGIA Reese [address] [address] 06/04/2024 13:03:15 06/04/2024 15:00:33 Metastatic malignant neoplasm to bone 35655705 C79.51 Malignant neoplasm of upper lobe of left lung 105778999 C34.12 [id number] MD LIGIA Reese [address] [address] 06/16/2024 08:50:44 06/16/2024 10:17:04 Malignant neoplasm of upper lobe of left lung 473296491 C34.12 [id number] Mariana Fox MD [facility] [address] [place] [address] 06/23/2024 10:48:55 06/23/2024 12:02:32 Malignant neoplasm of upper lobe of left lung 102335619 C34.12 Health Concerns Section Related Observation LastModified by Organization Detai ls LastModified Time None Recorded Concern Status LastModified by Organization Details LastModified Time None Recorded Payers Encounter Date Sequence Insurance Name Policy Number Policy Sorenson Covered Member ID Sorenson Member ID Guarantor Name 06/23/2024 1 [employer] (MEDICARE REPLACEMENT PPO) [id number] Y Tammy Amaro [id number] Tammy Amaro OBGyn Episode No OBEpisode recorded.
--- OUTSIDE RECORDS SUMMARY | 2024-08-22 08:05 | XMS_ITS | Continuity of Care Document ---
Author Organization [place] - LPNT - [place] & [place], [facility] Address [address] [place] [address] Care Team Providers Care Building Mechanic Name Role Phone MARIANA FOX Radiation Oncologist CORINNE GAINES Primary Care Provider [phone] EMILI CHASE Hematology/Oncology Assessment No assessment recorded. [...] contr ast No observ ation record ed. [facility] [address], [place], [address], 07/07/2024 13:05:24 07/09/19 25 07/04/2024 imagi ng/di agnos tic resul t No observ ation record ed. [facility] [address], [place], [address], 07/08/2024 13:06:03 Result Notes None recorded. Problems Name Problem SNOMED Code Status Onset Date Resolution Date Notes Provider Name and Address Organization Details Recorded Time Metastatic malignant neoplasm to bone 51401130 Active 024 [place] Najera [facility] & [place] 14:45:21 Malignant neoplasm of upper lobe of left lung 102058916 Active 024 [place] Najera [facility] & [place] 14:46:26 Problem Notes None recorded. Procedures Surgical History Date Name Laterality Status Provider Name and Address Organization Details Recorded Time simple mastectomy of left breast completed Gladys CASTRO [facility] & [place] 06/02/2024 15:00:57 Appendectomy completed Gladys CASTRO [facility] & [place] 06/04/2024 14:08:23 Cholecystectomy completed Gladys CASTRO [facility] & [place] 06/04/2024 14:08:35 hysterectomy completed Gladys CASTRO [facility] & [place] 06/04/2024 14:08:52 tonsillectomy completed Gladys CASTRO [facility] & [place] 06/04/2024 14:09:01 Imaging Results None recorded. Procedure Notes None recorded. Medical Equipment None Reported. Allergies Allergen ID Allergen Name Allergen Category Reaction Reaction Severity Criticality Documentation Date Start Date Code Code System Note Provider Name and Address Organization Details Recorded Time 705491 Lipitor medicatio n Not available Not available Not available 06/02/2024 04558 5 RxNorm [place] Najera [facility] & [place] 14:48:04 992583 codeine medicatio n Not available Not available Not available 06/02/2024 2670 RxNorm [place] Najera [facility] & [place] 14:48:17 559020 latex environme nt,medica tion Not available Not available Not available 06/02/2024 76601 91 RxNorm [place] Najera [facility] & [place] 14:48:40 477656 Product containin g penicilli n (product) medicatio n Not available Not available Not available 06/02/2024 99982 8001 SNOMED Gladys Mcconnell [facility], [facility] & [place] 5 14:48:58 Medications Name Sig [...] Last Updated DateTime 165.1 cm 39.9 kg/m2 076690. 73 g 97.9 [degF] 94 % 94 % 88 /min 20 /min Gladys SHEPHERD [facility] & [place] 14:11:20 Social History Question Answer Notes LastModified by Organizat ion Details LastModified Time Tobacco Smoking Status Current Every Day Smoker Gladys Ferrell [facility] & [place] 06/04/2024 14:05:10 What Is Your [...] Provided? 06/04/2024 Smoking Cessation Brochures From [facility] Given Information not available [...] SNOMED-CT Code Diagnosis ICD10 Code Diagnosis Note [id number] Mariana Fox MD [facility] [address] 06/04/2024 13:03:15 06/04/2024 15:00:33 Metastatic malignant neoplasm to bone 31794308 C79.51 Malignant neoplasm of upper lobe of left lung 656461576 C34.12 [id number] [facility] [address] [address] 06/16/2024 08:50:44 06/16/2024 10:17:04 Malignant neoplasm of upper lobe of left lung 577795037 C34.12 [id number] Mariana Fox MD Patti [address] [address] 06/23/2024 10:48:55 06/23/2024 12:02:32 Malignant neoplasm of upper lobe of left lung 525180047 C34.12 [id number] Mar[facility] Fox [facility] [address] [address] 06/24/2024 08:50:38 06/24/2024 11:06:08 Malignant neoplasm of upper lobe of left lung 719518403 C34.12 [id number] MD [facility] [address] [place] [address] 06/25/2024 13:10:45 06/25/2024 13:52:12 Malignant neoplasm of upper lobe of left lung 755369635 C34.12 [id number] MD LIGIA Reese [facility] [address] [place] [address] 06/26/2024 10:32:12 06/26/2024 11:30:06 Malignant neoplasm of upper lobe of left lung 810000233 C34.12 Health Concerns Section Related Observation LastModified by Organization Detai ls LastModified Time None Recorded Concern Status LastModified by Organization Details LastModified Time None Recorded Payers Encounter Date Sequence Insurance Name Policy Number Policy Sorenson Covered Member ID Sorenson Member ID Guarantor Name 06/26/2024 1 [employer] (MEDICARE REPLACEMENT PPO) [id number] Y Tammy Farris [place] [id number] Tammy Amaro Notes Date Note Type Note [...] with no subsequent recurrence. Mariana Fox MD [address] [place] [address],[address], [place], [address], [place] - [facility] 06/27/2024 10:41:35 07/07/2024 text/html [...] would be advisable. Mariana Fox MD [address] [facility],[address], [place], [address], [place] & [place] 07/07/2024 14:23:11 OBGyn Episode No OBEpisode recorded.
--- OUTSIDE RECORDS SUMMARY | 2024-08-22 08:05 | XMS_ITS | Data Portability ---
Author Organization [place] - [facility] Address [address] [place] [address] Care Team Providers Care Tile Picker Name Role Phone MARIANA FOX Radiation Oncologist CORINNE GAINES Primary Care Provider EMILI CHASE Hematology/Oncology [phone] Assessment Encounter Date Assessment Date Assessment LastModified [...] Appointments OV EST 15 025 10:00AM Mariana Fxo MD Not available Not available Not available [...] contr ast No observ ation record ed. [facility] [address], [place], [address], 07/07/2024 13:05:24 07/09/19 25 07/04/2024 imagi ng/di agnos tic resul t No observ ation record ed. [facility] System Support Developer [address], [place], [address], 07/08/2024 13:06:03 Result Notes None recorded. Problems Name Problem SNOMED Code Status Onset Date Resolution Date Notes Provider Name and Address Organization Details Recorded Time Metastatic malignant neoplasm to bone 86275201 Active 024 [place] Najera [facility] & [place] 5 14:45:21 Malignant neoplasm of upper lobe of left lung 460789389 Active 024 [place] Najera [facility] & [place] 5 14:46:26 Problem Notes None recorded. Procedures Surgical History Date Name Laterality Status Provider Name and Address Organization Details Recorded Time simple mastectomy of left breast completed Gladys CASTRO [facility] & [place] 06/02/2024 15:00:57 Appendectomy completed Gladys CASTRO [facility] & [place] 06/04/2024 14:08:23 Cholecystectomy completed Gladys CASTRO [facility] & [place] 06/04/2024 14:08:35 hysterectomy completed Gladys CASTRO [facility] & [place] 06/04/2024 14:08:52 tonsillectomy completed Gladys CASTRO [facility] & [place] 06/04/2024 14:09:01 Imaging Results Imaging Date Name Status LastModified by Organiz ation Details LastModified Time 06/20/2024 MRI, lumbar spine, w/wo contrast [facility] [address], [place], [address], 07/07/2024 13:05:24 07/04/2024 imaging/diagn ostic result active [facility] System Support Developer [address], [place], [place], [address], 07/08/2024 13:06:03 Procedure Notes None recorded. Medical Equipment None Reported. Allergies Allergen ID Allergen Name Allergen Category Reaction Reaction Severity Criticality Documentation Date Start Date Code Code System Note Provider Name and Address Organization Details Recorded Time 835173 Lipitor medicatio n Not available Not available Not available 06/02/2024 69601 5 RxNorm [place] Najera [facility] & [place] 5 14:48:04 412523 codeine medicatio n Not available Not available Not available 06/02/2024 2670 RxNorm [place] Najera [facility] & [place] 5 14:48:17 488835 latex environme nt,medica tion Not available Not available Not available 06/02/2024 84464 91 RxNorm [place] Najera [facility] & [place] 5 14:48:40 620703 Product containin g penicilli n (product) medicatio n Not available Not available Not available 06/02/2024 91582 8001 SNOMED [place] Najera [facility] & [place] 5 14:48:58 Medications Name Sig Start Date [...] Last Updated DateTime 165.1 cm 39.9 kg/m2 898884. 73 g 97.9 [degF] 94 % 94 % 88 /min 20 /min Gladys SHEPHERD [facility] & [place] 14:11:20 Social History Question Answer Notes LastModified by Organizat ion Details LastModified Time Tobacco Smoking Status Current Every Day Smoker Gladys Ferrell [facility], [facility] & [place] 06/04/2024 14:05:10 What Is Your Level Of [...] Provided? 06/04/2024 Smoking Cessation Brochures From [facility] Given Information not available 06/04/2024 [...] SNOMED-CT Code Diagnosis ICD10 Code Diagnosis Note [id number] [facility] [place] [address] 06/04/2024 13:03:15 06/04/2024 15:00:33 Metastatic malignant neoplasm to bone 21854426 C79.51 Malignant neoplasm of upper lobe of left lung 550057051 C34.12 [id number] Mariana oFx MD [place] [address] 06/16/2024 08:50:44 06/16/2024 10:17:04 Malignant neoplasm of upper lobe of left lung 715732919 C34.12 [id number] Mariana Fox MD [place] [address] 06/23/2024 10:48:55 06/23/2024 12:02:32 Malignant neoplasm of upper lobe of left lung 205892956 C34.12 [id number] Mariana Fox MD [place] [address] 06/24/2024 08:50:38 06/24/2024 11:06:08 Malignant neoplasm of upper lobe of left lung 211173914 C34.12 [id number] Mariana [facility] [place] [address] 06/25/2024 13:10:45 06/25/2024 13:52:12 Malignant neoplasm of upper lobe of left lung 383127705 C34.12 [id number] [facility] LIGIA Lorenzo [address] [address] 06/26/2024 10:32:12 06/26/2024 11:30:06 Malignant neoplasm of upper lobe of left lung 696999263 C34.12 [id number] MD [facility]IGIA [facility] [place] [address] [place] [address] 06/27/2024 10:33:13 06/27/2024 11:58:01 Malignant neoplasm of upper lobe of left lung 694900565 C34.12 [id number] [facility] [place] [address] [place] [address] 07/07/2024 14:04:20 07/07/2024 14:56:30 Malignant neoplasm of upper lobe of left lung 653914896 C34.12 Health Concerns Section Related Observation LastModified by Organization Detai ls LastModified Time None Recorded Concern Status LastModified by Organization Details LastModified Time None Recorded Advance Directives Directive None Recorded Payers Encounter Date Sequence Insurance Name Policy Number Policy Sorenson Covered Member ID Sorenson Member ID Guarantor Name 06/24/2024 1 [employer] (MEDICARE REPLACEMENT PPO) [id number] Y Tammy M [place] [id number] Tammy [place] 06/25/2024 1 [employer] (MEDICARE REPLACEMENT PPO) [id number] Y Tammy M Sondra [id number] Tammy [place] 06/26/2024 1 [employer] (MEDICARE REPLACEMENT PPO) [id number] Y Tammy M Sondra [id number] Tammy Sondra 06/27/2024 1 [employer] (MEDICARE REPLACEMENT PPO) [id number] Y Atmmy M Sondra [id number] Tammy [place] 07/07/2024 1 [employer] (MEDICARE REPLACEMENT PPO) [id number] Y Tammy M [place] [id number] Tammy Sondra Notes Date Note Type Note Provider Name and Address Organization Details Recorded Time 06/25/2024 text/html Patient doing qu ite well had mild pain in the left ribcage area after she fell yesterday at home there was no signs of any fractures. Mariana Fox MD [address] [place] [address],[address], [place], [address], [place] - [facility] [facility] & [place] 06/25/2024 13:52:01 06/27/2024 text/html Patient complete d [...] with no subsequent recurrence. Mariana Fox MD [address] [place] [address],[address], [place], [address], [place] [facility] [facility] & [place] 06/27/2024 10:41:35 07/07/2024 text/html Patient is here [...] advisable. Mariana Fox MD [address] [facility],[address], [place], [address], [place] [facility] - [place] & [place] 07/07/2024 14:23:11 OBGyn Episode No OBEpisode recorded.
--- OUTSIDE RECORDS SUMMARY | 2024-08-22 08:05 | XMS_ITS | Continuity of Care Document ---
Author Organization [place] - LPNT - [place] & [place], [facility] Address [address] [place] [address] Care Team Providers Care Manager Strategy Name Role Phone MARIANA FOX Radiation Oncologist CORINNE GAINES Primary Care Provider [phone] EMILI CHASE Hematology/Oncology Assessment No assessment recorded. [...] contr ast No observ ation record ed. [facility] [address], [place], [address], 07/07/2024 13:05:24 07/09/19 25 07/04/2024 imagi ng/di agnos tic resul t No observ ation record ed. [facility] Director News [address], [place], [address], 07/08/2024 13:06:03 Result Notes None recorded. Problems Name Problem SNOMED Code Status Onset Date Resolution Date Notes Provider Name and Address Organization Details Recorded Time Metastatic malignant neoplasm to bone 06265662 Active 024 [place] Najera [facility] & [place] 14:45:21 Malignant neoplasm of upper lobe of left lung 908661294 Active 024 JO[place] Najera [facility] & [place] 14:46:26 Problem Notes None recorded. Procedures Surgical History Date Name Laterality Status Provider Name and Address Organization Details Recorded Time simple mastectomy of left breast completed Gladys CASTRO [facility] & [place] 06/02/2024 15:00:57 Appendectomy completed Gladys CASTRO [facility] & [place] 06/04/2024 14:08:23 Cholecystectomy completed Gladys CASTRO [facility] & [place] 06/04/2024 14:08:35 hysterectomy completed Gladys CASTRO [facility] & [place] 06/04/2024 14:08:52 tonsillectomy completed Gladys CASTRO [facility] & [place] 06/04/2024 14:09:01 Imaging Results None recorded. Procedure Notes None recorded. Medical Equipment None Reported. Allergies Allergen ID Allergen Name Allergen Category Reaction Reaction Severity Criticality Documentation Date Start Date Code Code System Note Provider Name and Address Organization Details Recorded Time 819091 Lipitor medicatio n Not available Not available Not available 06/02/2024 19218 5 RxNorm [place] Najera [facility] & [place] 14:48:04 323596 codeine medicatio n Not available Not available Not available 06/02/2024 2670 RxNorm [place] Najera [facility] & [place] 14:48:17 240547 latex environme nt,medica tion Not available Not available Not available 06/02/2024 88850 91 RxNorm [place] Najera [facility] & [place] 14:48:40 978693 Product containin g penicilli n (product) medicatio n Not available Not available Not available 06/02/2024 38450 8001 SNOMED Gladys [facility] & [place] 5 14:48:58 Medications Name Sig Start Date [...] Last Updated DateTime 165.1 cm 39.9 kg/m2 329599. 73 g 97.9 [degF] 94 % 94 % 88 /min 20 /min Gladys SHEPHERD [facility] & [place] 14:11:20 Social History Question Answer Notes LastModified by Organizat ion Details LastModified Time Tobacco Smoking Status Current Every Day Smoker Gladys Ferrell [facility] & [place] 06/04/2024 14:05:10 What Is Your Level Of [...] Provided? 06/04/2024 Smoking Cessation Brochures From [facility] Given Information not [...] SNOMED-CT Code Diagnosis ICD10 Code Diagnosis Note [id number] Mariana Fox MD [facility] [address] 06/04/2024 13:03:15 06/04/2024 15:00:33 Metastatic malignant neoplasm to bone 00588709 C79.51 Malignant neoplasm of upper lobe of left lung 654257032 C34.12 [id number] [facility] [address] [address] 06/16/2024 08:50:44 06/16/2024 10:17:04 Malignant neoplasm of upper lobe of left lung 523827960 C34.12 [id number] Mariana Fox MD Patti [address] [address] 06/23/2024 10:48:55 06/23/2024 12:02:32 Malignant neoplasm of upper lobe of left lung 369069641 C34.12 [id number] [facility] [address] [address] 06/24/2024 08:50:38 06/24/2024 11:06:08 Malignant neoplasm of upper lobe of left lung 703427743 C34.12 Health Concerns Section Related Observation LastModified by Organization Detai ls LastModified Time None Recorded Concern Status LastModified by Organization Details LastModified Time None Recorded Payers Encounter Date Sequence Insurance Name Policy Number Policy Sorenson Covered Member ID Sorenson Member ID Guarantor Name 06/24/2024 1 [employer] (MEDICARE REPLACEMENT PPO) [id number] Y Tammy Farris [place] [id number] Tammy [place] Notes Date Note Type Note Provider Name and Address Organization Details Recorded Time 06/25/2024 text/html Patient doing qu ite well had mild pain in the left ribcage area after she fell yesterday at home there was no signs of any fractures. Maraina Fox MD [address] [place] [address] Drive,[address], [place], [address], [facility] 06/25/2024 13:52:01 06/27/2024 text/html Patient complete d [...] with no subsequent recurrence. Mariana Fox MD [address] [place] [address] Drive,[address], [place], [address], [facility] 06/27/2024 10:41:35 07/07/2024 text/html Patient is here [...] months would be advisable. Mariana Fox MD [address] [place] [address],[address], [place], [address], [place] [facility] [facility] & [place] 07/07/2024 14:23:11 OBGyn Episode No OBEpisode recorded.
--- OUTSIDE RECORDS SUMMARY | 2024-08-22 08:05 | XMS_ITS | Continuity of Care Document ---
Author Organization [place] [facility] Address [address] [place] [address] Care Team Providers Care Brand Sales Consultant Name Role Phone MARIANA FOX Radiation Oncologist CORINNE GAINES Primary Care Provider [phone] EMILI CHASE Hematology/Oncology [phone] Assessment Encounter Date Assessment Date Assessment LastModified [...] ast No observ ation record ed. [facility] [address], [place], [address], 07/07/2024 13:05:24 07/09/19 25 07/04/2024 imagi ng/di agnos tic resul t No observ ation record ed. [facility] [address] [place] [address], [place], [address], 07/08/2024 13:06:03 Result Notes None recorded. Problems Name Problem SNOMED Code Status Onset Date Resolution Date Notes Provider Name and Address Organization Details Recorded Time Metastatic malignant neoplasm to bone 89927141 Active 024 Gladys forrest, [place] [place] 14:45:21 Malignant neoplasm of upper lobe of left lung 391532023 Active 024 Gladys forrest, [place] [facility] [place] 14:46:26 Problem Notes None recorded. Procedures Surgical History Date Name Laterality Status Provider Name and Address Organization Details Recorded Time simple mastectomy of left breast completed Gladys SHEPHERD - [facility]NT [facility] & [place] 06/02/2024 15:00:57 Appendectomy completed Gladys SHEPHERD - [facility] [place] 06/04/2024 14:08:23 Cholecystectomy completed Gladys SHEPHERD - [facility] [place] 06/04/2024 14:08:35 hysterectomy completed Gladys SHEPHERD - [facility] [place] 06/04/2024 14:08:52 tonsillectomy completed Gladys SHEPHERD - [facility] & [place] 06/04/2024 14:09:01 Imaging Results None recorded. Procedure Notes None recorded. Medical Equipment None Reported. Allergies Allergen ID Allergen Name Allergen Category Reaction Reaction Severity Criticality Documentation Date Start Date Code Code System Note Provider Name and Address Organization Details Recorded Time 518032 Lipitor medicatio n Not available Not available Not available 06/02/2024 50958 5 RxNorm Gladys forrest, [place] [facility] [place] 14:48:04 851575 codeine medicatio n Not available Not available Not available 06/02/2024 2670 RxNorm Gladys forrest, [place] [facility] & [place] 14:48:17 999355 latex environme nt,medica tion Not available Not available Not available 06/02/2024 70287 91 RxNorm [place] Najera [facility] & [place] 14:48:40 610269 Product containin g penicilli n (product) medicatio n Not available Not available Not available 06/02/2024 83791 8001 SNOMED Gladys forrest, [facility] & [place] 14:48:58 Medications Name Sig Start Date Stop [...] Last Updated DateTime 165.1 cm 39.9 kg/m2 777161. 73 g 97.9 [degF] 94 % 94 % 88 /min 20 /min Gladys SHEPHERD [facility] & [place] 14:11:20 Social History Question Answer Notes LastModified by Organizat ion Details LastModified Time Tobacco Smoking Status Current Every Day Smoker Gladys Ferrell [facility] & [place] 06/04/2024 14:05:10 What Is Your Level Of [...] Provided? 06/04/2024 Smoking Cessation Brochures From [facility] And [facility] [...] SNOMED-CT Code Diagnosis ICD10 Code Diagnosis Note [id number] MD LIGIA Reese [address] [address] 06/16/2024 08:50:44 06/16/2024 10:17:04 Malignant neoplasm of upper lobe of left lung 400466317 C34.12 [id number] MD LIGIA Reese [address] [place] [address] 06/23/2024 10:48:55 06/23/2024 12:02:32 Malignant neoplasm of upper lobe of left lung 015372261 C34.12 [id number] MD LIGIA Reese [address] [address] 06/24/2024 08:50:38 06/24/2024 11:06:08 Malignant neoplasm of upper lobe of left lung 002992595 C34.12 [id number] Mariana Fox MD [place] [address] 8 06/25/2024 13:10:45 06/25/2024 13:52:12 Malignant neoplasm of upper lobe of left lung 636545475 C34.12 [id number] Mariana Fox MD [place] [address] 8 06/26/2024 10:32:12 06/26/2024 11:30:06 Malignant neoplasm of upper lobe of left lung 228921481 C34.12 [id number] Mariana Fox MD [place] [address] 8 06/27/2024 10:33:13 06/27/2024 11:58:01 Malignant neoplasm of upper lobe of left lung 682760913 C34.12 [id number] Mariana Fox MD [place] [address] 8 07/07/2024 14:04:20 07/07/2024 14:56:30 Malignant neoplasm of upper lobe of left lung 968050840 C34.12 Health Concerns Section Related Observation LastModified by Organization Detai ls LastModified Time None Recorded Concern Status LastModified by Organization Details LastModified Time None Recorded Payers Encounter Date Sequence Insurance Name Policy Number Policy Sorenson Covered Member ID Sorenson Member ID Guarantor Name 07/07/2024 1 [employer] (MEDICARE REPLACEMENT PPO) [id number] Y Tammy Amaro [id number] Tammy Amaro Notes Date Note Type Note [...] months would be advisable. Mariana Fox MD [address] [place] [address],[address], [place], [address], [place] 07/07/2024 14:23:11 OBGyn Episode No OBEpisode recorded.
--- OUTSIDE RECORDS SUMMARY | 2024-08-22 08:05 | XMS_ITS | Continuity of Care Document ---
Author Organization [facility] - GLORIA [facility] Address [address] [place] [address] Care Team Providers Care Sort Line Name Role Phone MARIANA FOX Radiation Oncologist CORINNE GAINES Primary Care Provider [phone] EMILI MCCAIN Hematology/Oncology [phone] Assessment Encounter Date Assessment Date Assessment LastModified [...] contr ast No observ ation [facility] [address], [place], [address], 07/07/2024 13:05:24 07/09/19 25 07/04/2024 imagi ng/di agnos tic resul t No observ ation record ed. [facility] [address] [place] [address], [place], [address], 07/08/2024 13:06:03 Result Notes None recorded. Problems Name Problem SNOMED Code Status Onset Date Resolution Date Notes Provider Name and Address Organization Details Recorded Time Metastatic malignant neoplasm to bone 33817650 Active 024 [facility] Najera [facility] & [place] 14:45:21 Malignant neoplasm of upper lobe of left lung 337536295 Active 024 Gladys forrest, [place] No [facility] & [place] 14:46:26 Problem Notes None recorded. Procedures Surgical History Date Name Laterality Status Provider Name and Address Organization Details Recorded Time simple mastectomy of left breast completed Gladys CASTRO [facility] & [place] 06/02/2024 15:00:57 Appendectomy completed Gladys No [facility] & [place] 06/04/2024 14:08:23 Cholecystectomy completed Gladys CASTRO - [place] & [place] 06/04/2024 14:08:35 hysterectomy completed Gladys CASTRO [facility] & [place] 06/04/2024 14:08:52 tonsillectomy completed Gladys CASTRO [facility] & [place] 06/04/2024 14:09:01 Imaging Results None recorded. Procedure Notes None recorded. Medical Equipment None Reported. Allergies Allergen ID Allergen Name Allergen Category Reaction Reaction Severity Criticality Documentation Date Start Date Code Code System Note Provider Name and Address Organization Details Recorded Time 761914 Lipitor medicatio n Not available Not available Not available 06/02/2024 90275 5 RxNorm [facility] Najera [facility] & [place] 14:48:04 444032 codeine medicatio n Not available Not available Not available 06/02/2024 2670 RxNorm [place] Najera [facility] & [place] 14:48:17 880052 latex environme nt,medica tion Not available Not available Not available 06/02/2024 74757 91 RxNorm Gladys forrest, [facility] No [facility] & [place] 14:48:40 516610 Product containin g penicilli n (product) medicatio n Not available Not available Not available 06/02/2024 52697 8001 SNOMED [place] Najera [facility] & [place] 14:48:58 Medications Name Sig Start Date Stop [...] Status Current Every Day Smoker Gladys Ferrell [facility] & [place] 06/04/2024 14:05:10 What Is Your Level Of [...] Provided? 06/04/2024 Smoking Cessation Brochures From [facility] And [facility] Given Information not available [...] SNOMED-CT Code Diagnosis ICD10 Code Diagnosis Note [id number] MD LIGIA [facility]ese [facility] [address] [place] [address] 06/04/2024 13:03:15 06/04/2024 15:00:33 Metastatic malignant neoplasm to bone 94607105 C79.51 Malignant neoplasm of upper lobe of left lung 064495589 C34.12 [id number] MD LIGIA Reese [address] [place] [address] 06/16/2024 08:50:44 06/16/2024 10:17:04 Malignant neoplasm of upper lobe of left lung 788439886 C34.12 [id number] MD LIGIA Reese [place] [address] [address] 06/23/2024 10:48:55 06/23/2024 12:02:32 Malignant neoplasm of upper lobe of left lung 632208370 C34.12 [id number] Mariana Fox MD [place] [address] 06/24/2024 08:50:38 06/24/2024 11:06:08 Malignant neoplasm of upper lobe of left lung 555014930 C34.12 [id number] Mariana Fox MD [place] [address] 06/25/2024 13:10:45 06/25/2024 13:52:12 Malignant neoplasm of upper lobe of left lung 603931842 C34.12 [id number] Mariana Fox MD [place] [address] 8 06/26/2024 10:32:12 06/26/2024 11:30:06 Malignant neoplasm of upper lobe of left lung 851433832 C34.12 [id number] Mariana Fox MD [place] [address] 06/27/2024 10:33:13 06/27/2024 11:58:01 Malignant neoplasm of upper lobe of left lung 467309339 C34.12 Health Concerns Section Related Observation LastModified by Organization Detai ls LastModified Time None Recorded Concern Status LastModified by Organization Details LastModified Time None Recorded Payers Encounter Date Sequence Insurance Name Policy Number Policy Sorenson Covered Member ID Sorenson Member ID Guarantor Name 06/27/2024 1 [employer] (MEDICARE REPLACEMENT PPO) [id number] Y Tammy Farris [place] [id number] Tammy [place] Notes Date Note Type Note Provider Name [...] no subsequent recurrence. Mariana Fox MD [address] [facility],[address], [place], [address], [facility] - [facility] [place] & [place] 06/27/2024 10:41:35 OBGyn Episode No OBEpisode recorded.
--- OUTSIDE RECORDS SUMMARY | 2024-08-22 08:06 | XMS_ITS | Continuity of Care Document ---
Author Organization [place] - [facility] - [place], [facility] Address [address] [place] [address] Care Team Providers Care Sales Broker Name Role Phone MARIANA FOX Radiation Oncologist [phone] CORINNE GAINES Primary Care Provider EMILI MCCAIN Hematology/Oncology Assessment No assessment recorded. Plan of [...] contr ast No observ ation record ed. [facility] [address], [place], [address], 07/07/2024 13:05:24 07/09/19 25 07/04/2024 imagi ng/di agnos tic resul t No observ ation record ed. [facility] [address] [address], [place], [address], 07/08/2024 13:06:03 Result Notes None recorded. Problems Name Problem SNOMED Code Status Onset Date Resolution Date Notes Provider Name and Address Organization Details Recorded Time Metastatic malignant neoplasm to bone 75830074 Active 024 [facility] Najera [facility] & [place] 14:45:21 Malignant neoplasm of upper lobe of left lung 663084485 Active 024 [facility] Najera [facility] & [place] 14:46:26 Problem Notes None recorded. Procedures Surgical History Date Name Laterality Status Provider Name and Address Organization Details Recorded Time simple mastectomy of left breast completed Gladys CASTRO [facility] & [place] 06/02/2024 15:00:57 Appendectomy completed Gladys CASTRO [facility] & [place] 06/04/2024 14:08:23 Cholecystectomy completed Gladys CASTRO [facility] & [place] 06/04/2024 14:08:35 hysterectomy completed Gladys CASTRO [facility] & [place] 06/04/2024 14:08:52 tonsillectomy completed Gladys CASTOR [facility] & [place] 06/04/2024 14:09:01 Imaging Results None recorded. Procedure Notes None recorded. Medical Equipment None Reported. Allergies Allergen ID Allergen Name Allergen Category Reaction Reaction Severity Criticality Documentation Date Start Date Code Code System Note Provider Name and Address Organization Details Recorded Time 312701 Lipitor medicatio n Not available Not available Not available 06/02/2024 14802 5 RxNorm [facility] Najera [facility] & [place] 14:48:04 388845 codeine medicatio n Not available Not available Not available 06/02/2024 2670 RxNorm [place] Najera [facility] & [place] 14:48:17 590390 latex environme nt,medica tion Not available Not available Not available 06/02/2024 86434 91 RxNorm [facility] Najera [facility] & [place] 14:48:40 660083 Product containin g penicilli n (product) medicatio n Not available Not available Not available 06/02/2024 39206 8001 SNOMED Gladys Mcconnell [facility] & [place] 5 14:48:58 Medications Name Sig Start [...] Status Current Every Day Smoker Gladys Ferrell [facility], [place] - [facility] & [place] 06/04/2024 14:05:10 What Is Your Level [...] Provided? 06/04/2024 Smoking Cessation Brochures From [facility] And [facility] Given Information not available 06/04/2024 [...] SNOMED-CT Code Diagnosis ICD10 Code Diagnosis Note [id number] Mariana Fox MD [place] [address] 8 06/04/2024 13:03:15 06/04/2024 15:00:33 Metastatic malignant neoplasm to bone 34509043 C79.51 Malignant neoplasm of upper lobe of left lung 804664930 C34.12 [id number] Mariana Fox MD [place] [address] 06/16/2024 08:50:44 06/16/2024 10:17:04 Malignant neoplasm of upper lobe of left lung 571168841 C34.12 [id number] Mariana Fox MD [place] [address] 8 06/23/2024 10:48:55 06/23/2024 12:02:32 Malignant neoplasm of upper lobe of left lung 997853857 C34.12 [id number] Mariana Fox MD [place] [address] 06/24/2024 08:50:38 06/24/2024 11:06:08 Malignant neoplasm of upper lobe of left lung 256627192 C34.12 [id number] Mariana Fox MD [place] [address] 8 06/25/2024 13:10:45 06/25/2024 13:52:12 Malignant neoplasm of upper lobe of left lung 723122007 C34.12 Health Concerns Section Related Observation LastModified by Organization Detai ls LastModified Time None Recorded Concern Status LastModified by Organization Details LastModified Time None Recorded Payers Encounter Date Sequence Insurance Name Policy Number Policy Sorenson Covered Member ID Sorenson Member ID Guarantor Name 06/25/2024 1 [employer] (MEDICARE REPLACEMENT PPO) [id number] Y Tammy Amaro [id number] Tammy Amaro Notes Date Note Type Note Provider Name and Address Organization Details Recorded Time 06/25/2024 text/html Patient doing quite well had mild pain in the left ribcage area after she fell yesterday at home there was no signs of any fractures. Mariana Fox MD [address] [place] [address],[address], [place], [address], [facility] - [place] - [place] & [place] 06/25/2024 13:52:01 OBGyn Episode No OBEpisode recorded.
--- NOTE | 2024-08-22 08:18 | CT_ITS ---
FINAL REPORT TECHNIQUE: Axial images were obtained of the lumbar spine by computed tomography. Coronal and sagittal reconstruction process performed. This study was performed with techniques to keep radiation doses as low as reasonably achievable (ALARA). Individualized dose reduction techniques using automated exposure control or adjustment of mA and/or kV according to the patient's size were employed. CLINICAL HISTORY: LBP, history of mets. r/o pathologic fx COMPARISON: MRI of the lumbar spine 06/20/2024 FINDINGS: CT LUMBAR SPINE: The lumbar vertebral bodies are normally aligned. Moderate anterior osteophytes are present at the L2-3 and L3-4 levels. The facets are normally aligned. No paraspinal soft tissue abnormality is noted. There is no evidence of bone destruction to suggest metastatic disease. No evidence of compression fracture is present. T12-L1: Unremarkable L1-2: Unremarkable L2-3: A mild annular bulge is present with mild bilateral neural foraminal narrowing. L3-4: A mild annular bulge is present with a mild left posterolateral disc protrusion which produces mild left neural foraminal narrowing. L4-5: A moderate annular bulge is present with posterolateral disc protrusions and facet hypertrophy. Moderate bilateral neural foraminal narrowing is present. L5-S1: Unremarkable. IMPRESSION: Degenerative change as described above, with large anterior osteophytes at the L2-3 and L3-4 levels. There is no evidence of bone destruction or compression fracture present. Reviewed, Interpreted and Dictated by Reji Billings MD Transcribed by Jaclyn So Authenticated and [facility]
[2024-08-22] MEDS: LIDOCAINE 5% TRANSDERMAL PATCH 1 EACH TD (08:41)
[2024-08-22] MEDS: ACETAMINOPHEN 500MG TAB 1000 MG PO (08:42)
[2024-08-22] MEDS: METHOCARBAMOL 500MG TABLET 1500 MG PO (08:42)
[2024-08-22 09:11] LABS: Microscopic, Urine URINE MICROSCOPIC (MICROSCOPIC)
[2024-08-22 09:13] LABS: Appearance,Urine CLEAR (Clear); Bilirubin,Urine Negative (Negative); Blood, Urine Negative (Negative); Color,Urine YELLOW (Yellow); Glucose,Urine (UA) Negative (Negative); Ketones,Urine Negative (Negative); Leukocyte Esterase,Urine Negative (Negative); Nitrate,Urine Negative (Negative); Protein,Urine Negative (Negative); Urobilinogen,Urine 0.2 EU/dl (0.2)
[2024-08-22 09:29] LABS: Bacteria,Urine 2+ /lpf
--- NOTE | 2024-08-22 10:25 | HMH.EDGENADL ---
Discharge Plan Disposition Patient Disposition: Home, Self-Care Prescriptions Prescriptions: New methocarbamol 750 mg tablet 1,500 mg PO TID 5 Days Qty: 30 0RF No Action linezolid [Zyvox] 600 mg tablet 600 mg PO BID Qty: 60 0RF bupropion HCl 300 mg tablet extended release 24 hr 300 mg PO DAILY rosuvastatin 5 mg tablet 5 mg PO DAILY prednisone 10 mg tablet 10 mg PO QID 30 Days Qty: 120 0RF Rx Instructions: 4 tabs PO daily hydrocodone-acetaminophen 5-325 mg tablet See Rx Instructions PO Q6H PRN (Reason: pain) Qty: 60 0RF Rx Instructions: 1-2 orally every 6 hours PRN; omega-3 acid ethyl esters 1 gram capsule 1 g PO DAILY furosemide 20 mg tablet 20 mg PO DAILY alprazolam 0.5 mg tablet 0.5 mg PO TID aripiprazole 10 mg tablet 10 mg PO DAILY potassium chloride 20 mEq tablet,ER particles/crystals 40 meq PO BID metolazone 2.5 mg tablet 2.5 mg PO DAILY lisinopril-hydrochlorothiazide 10-12.5 mg tablet 2 tab PO DAILY fluconazole [Diflucan] 200 mg tablet 200 mg PO DAILY Qty: 7 0RF albuterol sulfate 90 mcg/actuation HFA aerosol inhaler 2 inh inhalation QID PRN (Reason: shortness of breath or wheezing) 90 Days Qty: 8.5 2RF folic acid 1 mg tablet 1 mg PO DAILY Qty: 90 3RF omeprazole 20 mg capsule,delayed release(DR/EC) 20 mg PO DAILY Qty: 90 3RF Stiolto Respimat 2.5-2.5 mcg/actuation mist 2 puff inhalation DAILY 90 Days Qty: 4 2RF cholecalciferol (vitamin D3) [Vitamin D3] 25 mcg (1,000 unit) Capsule 25 mcg PO DAILY ezetimibe 10 MG tablet 10 mg PO DAILY Stiolto Respimat 2.5-2.5 mcg/actuation mist 2 puff inhalation DAILY Referrals Follow up/Referrals: Otto Hua MD [Primary Care Provider] - See instructions Activity Restrictions/Add. Instructions Additional Instructions/Restrictions: Call your family doctor to establish care for this visit to the emergency department and schedule follow-up within 48 hours to ensure improvement. If you have any worsening of your condition or any other concerning signs or symptoms, return to the emergency department or your primary care doctor for further evaluation. Methocarbamol 3 times daily. Can cause you to feel drowsy. Do not drive, operate heavy machinery, or engage in any activity that may make you tired, fall asleep, and because harm to yourself or others while taking this medication. Clinical Impressions Clinical Impression: Back pain Print Language Print Language: Burkinan Discharge ED Provider: Clarence Crump General Adult HPI General Chief complaint: PAIN Stated complaint: Lower back pain Time Seen by Provider: 08/22/24 07:52 Mode of Arrival: Ambulatory Source of Information: Patient Description of Symptoms (Recalled from ER Triage Doc. by RN): pt presents to ED with c/o left lower back pain. symptoms began 3 days ago. no urinary symptoms noted. History of Present Illness HPI narrative: Please note that above description of symptoms, in this electronic medical record under categorization of recalled from ER triage doctor by RN are reflective of an initial nursing assessment, however, is not reflective of my full history and physical exam that was personally taken and clarified. Consequentially, this preceding description of symptoms, which may include the patient's categorized chief complaint in the EMR, do not reflect my personal clinical impression, and the ultimate description of history of present illness and patient stated complaints should be deferred to this section of the note. Unless stated otherwise or congruent with this section of the note, additional signs, symptoms, or incongruence should be interpreted as inaccurate with my clinical impression. Related Data Home Medications ?Medication ?Instructions ?Recorded ?Confirmed alprazolam 0.5 mg tablet 0.5 mg PO TID Anxiety 08/13/18 08/07/24 aripiprazole 10 mg tablet 10 mg PO DAILY Anxiety 08/13/18 08/07/24 furosemide 20 mg tablet 20 mg PO DAILY swelling 08/13/18 08/07/24 metolazone 2.5 mg tablet 2.5 mg PO DAILY swelling 08/13/18 08/07/24 omega-3 acid ethyl esters 1 gram 1 g PO DAILY Supplement 08/13/18 08/07/24 capsule potassium chloride 20 mEq 40 meq PO BID Supplement 08/13/18 08/07/24 tablet,extended release(part/cryst) ezetimibe 10 mg tablet 10 mg PO DAILY * 12/09/19 08/07/24 cholecalciferol (vitamin D3) 25 25 mcg PO DAILY Supplement 12/26/23 08/07/24 mcg (1,000 unit) capsule (Vitamin D3) tiotropium 2.5 mcg-olodaterol 2.5 2 puff inhalation DAILY Copd 01/25/24 08/07/24 mcg/actuation mist for inhalation (Stiolto Respimat) bupropion HCl 300 mg 24 hr tablet, 300 mg PO DAILY mood 02/20/24 08/07/24 extended release rosuvastatin 5 mg tablet 5 mg PO DAILY Cholesterol 02/20/24 08/07/24 lisinopril 10 2 tab PO DAILY blood pressure 08/07/24 08/07/24 mg-hydrochlorothiazide 12.5 mg tablet Previous Rx's ?Medication ?Instructions ?Recorded linezolid 600 mg tablet (Zyvox) 600 mg PO BID #60 tabs 02/12/24 fluconazole 200 mg tablet 200 mg PO DAILY #7 tabs 03/17/24 (Diflucan) albuterol sulfate 90 mcg/actuation 2 inh inhalation QID PRN shortness 04/10/24 aerosol inhaler of breath or wheezing 90 days #8.5 grams folic acid 1 mg tablet 1 mg PO DAILY #90 tabs 05/14/24 omeprazole 20 mg capsule,delayed 20 mg PO DAILY heartburn #90 caps 05/14/24 release prednisone 10 mg tablet 10 mg PO QID 1 month #120 tabs 05/30/24 hydrocodone 5 mg-acetaminophen 325 See Rx Instructions PO Q6H PRN 06/12/24 mg tablet pain #60 tabs tiotropium 2.5 mcg-olodaterol 2.5 2 puff inhalation DAILY 90 days #4 07/10/24 mcg/actuation mist for inhalation grams (Stiolto Respimat) methocarbamol 750 mg tablet 1,500 mg (2 x 750 mg) PO TID 5 08/22/24 days #30 tabs Allergies Allergy/AdvReac Type Severity Reaction Status Date / Time atorvastatin (From LIPITOR) Allergy Unknown FATTY LIVER Verified 08/07/24 10:01 codeine (CODEINE) Allergy Unknown I-RASH Verified 08/07/24 10:01 latex (LATEX) Allergy Unknown I-RASH Verified 08/07/24 10:01 Penicillins (PENICILLINS) Allergy Unknown I-RASH Verified 08/07/24 10:01 [facility] Disclaimer: The information contained in this section may have been updated after the patient was seen, as this information can be updated by other users. Medical History Lymphedema COPD (chronic obstructive pulmonary disease) Breast cancer Diabetes Dyspnea on exertion Smoking greater than 30 pack years Lung nodule Tobacco abuse Surgical History History of colonoscopy History of mastectomy History of surgery on arm History of hysterectomy History of appendectomy History of cholecystectomy Family History Other Family history of cancer Social History Smoking Status: Current every day smoker tobacco type: cigarettes packs per day: 1 alcohol intake: former substance use type: denies use current occupational status: employed Travel in the last 8 weeks?: Inside the [place] caffeine: No Have you lived/traveled outside US in past 30 days?: No Contact w/someone who lives/traveled outside US past 30 days?: No Exposure to someone with infectious disease in past 14 days?: No Do you have a fever (greater than 100.4 F or 38 C)?: No Have you tested positive for COVID-19?: No Exposed to someone with COVID-19 in past 14 days?: No Do you have a sore throat?: No Do you have a cough?: No Do you have any weakness?: No Do you have any diarrhea?: No Are you experiencing any unusual bleeding?: No Do you have any muscle aches/pain?: Yes Do you have any abdominal pain?: No Are you experiencing loss of taste or smell?: No Other Medical History Have you received the Flu Vaccine for this season: No Have you received the Pneumonia Vaccine: Yes ROS Obtained: Yes All systems reviewed & no additional complaints except as documented Physical Exam General General appearance: alert and in no apparent distress Head Head exam: atraumatic and normocephalic Eye Eye exam: Present normal appearance, PERRL and EOMI Neck Neck exam: Present normal inspection, full ROM and trachea midline Respiratory Respiratory exam: Absent respiratory distress, wheezes, stridor, accessory muscle use or prolonged expiratory phase Cardiovascular Cardiovascular exam: Present other (Pulses equal symmetric in upper and lower extremities) Abdominal Exam Abdominal exam: Present soft; Absent distention, tenderness or pulsatile mass Extremities Exam Extremities exam: Absent edema Neurological Exam Neurological exam: Present alert, oriented X3 and CN II-XII intact; Absent motor sensory deficit Skin Skin exam: Present warm and dry; Absent diaphoresis or erythema Medical Decision Making Medical Records Medical records reviewed: Yes I reviewed the patient's medical records. Screening: Per USPSTF and CDC recommendations, given the prevalence of disease in our region, it is our hospital?s policy to screen for HIV and viral Hepatitis for all patients aged 18 and over and those with ongoing risk factors. [place] Inquiry Pt receiving controlled substance: No [place] was queried for this patient: No Vital Signs: 08/22/24 07:55 08/22/24 07:58 08/22/24 08:00 Temperature 98.4 F Temperature Source Oral Pulse Rate 107 H 98 H Pulse Rate [Left Radial] 97 H Respiratory Rate 22 29 H Blood Pressure 121/72 145/69 H Blood Pressure [Right Arm] 145/69 H Blood Pressure Mean [Right Arm] 94 Blood Pressure Source [Right Arm] Automatic Cuff Blood Pressure Position [Right Arm] Sitting 02 Sat by Pulse Oximetry 95 95 95 Oxygen Delivery Method Room Air 08/22/24 08:30 08/22/24 09:08 08/22/24 10:00 Temperature Temperature Source Pulse Rate 91 H 97 H Pulse Rate [Left Radial] Respiratory Rate 25 H 22 22 Blood Pressure 128/67 109/70 L 129/69 Blood Pressure [Right Arm] Blood Pressure Mean [Right Arm] Blood Pressure Source [Right Arm] Blood Pressure Position [Right Arm] 02 Sat by Pulse Oximetry 91 L 96 95 Oxygen Delivery Method Room Air Room Air Lab Data Lab Results 08/22/24 09:06: Urine Color Yellow, Urine Appearance Clear, Urine pH 6.0, Ur Specific [place] 1.010, Urine Protein Negative, Urine Glucose (UA) Negative, Urine Ketones Negative, Urine Blood Negative, Urine Nitrate Negative, Urine Bilirubin Negative, Urine Urobilinogen 0.2, Ur Leukocyte Esterase Negative, Urine RBC 10-20, Urine WBC 5-10, Ur Squamous Epith Cells 10-20, Urine Bacteria 2+ Orders (Tests/Meds): ED MEDICATIONS Discontinued Medications Generic Name Dose Route Start Last Admin Trade Name Freq PRN Reason Stop Dose Admin Acetaminophen 1,000 mg 08/22/24 08:18 08/22/24 08:42 Acetaminophen 500mg Tab PO 08/22/24 08:19 1,000 mg ONCE ONE Administration Lidocaine 1 each 08/22/24 08:18 08/22/24 08:41 Lidocaine 5% Transdermal Patch TD 08/22/24 08:19 1 each ONCE ONE Administration Methocarbamol 1,500 mg 08/22/24 08:18 08/22/24 08:42 Methocarbamol 500mg Tablet PO 08/22/24 08:19 1,500 mg ONCE ONE Administration ORDERS Category Date Time Status CT lumbar spine wo con Stat Cat Scan 08/22/24 08:18 Completed UA [Urinalysis and Microscopic] Stat Lab 08/22/24 09:06 Completed Urine Culture Stat Micro 08/22/24 09:06 Received Medical Decision Narrative: 69-year-old female history of widely metastatic lung cancer on maintenance therapy as well as 10 mg of daily prednisone presenting with back pain. She states has been going on for the last 2 days, midline, radiates down to her left hip. No bowel or bladder dysfunction, no fevers, no trauma, saddle anesthesia, weakness, or any other concerns. History obtained with patient. On arrival, patient very clinically well, she does not have any midline spinal tenderness for me, but does appear to have some muscle spasming. Neurologically intact, ambulatory, otherwise clinically well. Differential includes pathologic fracture, medication side effect, disc herniation, dislocation, among others. Patient was given meds for discomfort. Because of metastatic disease in the spine, CT was ordered out of abundance of caution to make sure the patient does not have pathologic fracture of the spine. On independent interpretation, no evidence of spinal bony abnormality. I feel unlikely to be related to epidural hematoma, spinal epidural abscess, etc. Patient not having systemic signs or symptoms, no trauma, and neurologically intact including bowel and bladder. Because patient at baseline without signs or symptoms of clinical decompensation, deemed appropriate for discharge. Results were relayed to patient who voiced understanding and were agreeable to outpatient management and follow up. I discussed my clinical impression with patient and answered all questions. At this time, the evidence for any other entities in the differential is insufficient to warrant any further testing or ED observation. This was explained as well. Advisory was given that persistent or worsening symptoms require further evaluation. I confirmed the understanding of this discussion. 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 Electronic residential sales of the spoken language may permit errors. Although I have reviewed the note, some errors may still exist. Critical Care Critical Care Time Critical Care Time: No
--- NOTE | 2024-08-25 19:26 | PC.NURSE ---
consulted Dr. Crump on pt positive urine culture. sending in antibiotic. given to Kuldeep to call pt
== END 2024-08-22 10:42 | disposition home or self-care (01) ==
PROVIDERS: Emergency Provider Emergency Medicine; PCP Internal Medicine Adolescent Medicine
DX: M54.50 Low back pain, unspecified (principal); M62.830 Muscle spasm of back; M54.9 Dorsalgia, unspecified
CPT/HCPCS: 72131; 81001; 87086; 87088; 87186; 93005; 99284

== ENCOUNTER 2024-09-04 09:01 | Outpatient (CLI) | payer MEDICARE, SELFPAY ==
--- NOTE | 2024-08-25 20:14 | PC.NURSE ---
Pt notified of positive urine culture and that prescriptions have been called in to her pharmacy
--- OUTSIDE RECORDS SUMMARY | 2024-09-04 09:03 | XMS_ITS | Continuity of Care Document ---
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 [facility] [address], [place], [address], 07/07/2024 13:05:24 07/09/19 25 07/04/2024 imagi ng/di agnos tic resul t No observ ation record ed. [facility] Construction Specialist [address] [place] [address], [place], [address], 07/08/2024 13:06:03 Result Notes None recorded. Problems Name Problem SNOMED Code Status Onset Date Resolution Date Notes Provider Name and Address Organization Details Recorded Time Metastatic malignant neoplasm to bone 14841447 Active 024 Gladys forrest, [facility] [place] [facility] [place] 14:45:21 Malignant neoplasm of upper lobe of left lung 248353876 Active 024 Gladys forrest, [facility] [place] [facility] [place] 14:46:26 Problem Notes None recorded. Procedures Surgical History Date Name Laterality Status Provider Name and Address Organization Details Recorded Time simple mastectomy of left breast completed Gladys SHEPHERD - [facility] & [place] 06/02/2024 15:00:57 Appendectomy completed Gladys SHEPHERD - [facility] [place] [facility] [place] 06/04/2024 14:08:23 Cholecystectomy completed Gladys SHEPHERD - [facility] [place] [facility] [place] 06/04/2024 14:08:35 hysterectomy completed Gladys SHEPHERD - [facility] [place] [facility] [place] 06/04/2024 14:08:52 tonsillectomy completed Gladys SHEPHERD - [facility] & [place] 06/04/2024 14:09:01 Imaging Results None recorded. Procedure Notes None recorded. Medical Equipment None Reported. Allergies Allergen ID Allergen Name Allergen Category Reaction Reaction Severity Criticality Documentation Date Start Date Code Code System Note Provider Name and Address Organization Details Recorded Time 107504 Lipitor medicatio n Not available Not available Not available 06/02/2024 47040 5 RxNorm Gladys forrest, [facility] [place] [facility] [place] 14:48:04 734226 codeine medicatio n Not available Not available Not available 06/02/2024 2670 RxNorm Gladys forrest, [facility] & [place] 14:48:17 269526 latex environme nt,medica tion Not available Not available Not available 06/02/2024 95769 91 RxNorm [facility] & [place] 14:48:40 867817 Product containin g penicilli n (product) medicatio n Not available Not available Not available 06/02/2024 51856 8001 SNOMED Gladys forrest, [facility] & [place] 14:48:58 Medications Name Sig Start Date Stop [...] and Address Organization Details Last Updated DateTime 5 165.1 cm 39.9 kg/m2 377631. 73 g 97.9 [degF] 94 % 94 % 88 /min 20 /min Gladys SHEPHERD [facility] & [place] 14:11:20 Social History Question Answer Notes LastModified by Organizat ion Details LastModified Time Tobacco Smoking Status Current Every Day Smoker Gladys Ferrell [facility] & [place] 06/04/2024 14:05:10 What Was The Date Of Your Most Recent Tobacco Screening? 06/04/2024 Information not available 06/04/2024 What Is Your Current Pack Years? 30ormorepac kyears 56 Pack Years Information not available 06/04/2024 At What Age Did You Start Smoking Tobacco? 13 Information not available 06/04/2024 How Much Tobacco Do You Smoke? 1 PPD Information not available 06/04/2024 Has Tobacco Cessation Counseling Been Provided? Yes Information not available 06/04/2024 On What Date Was Tobacco Cessation Counseling Provided? 06/04/2024 Smoking Cessation Brochures From [facility] Given Information not available 06/04/2024 How Many Years Have You Smoked Tobacco? 56 Information not available 06/04/2024 Sex: Unknown Functional Status Question Answer Note LastModified by Organizat ion Details LastModified Time Do you use any illicit or recreational drugs? No Information not available 06/04/2024 Do you or have you ever used any other forms of tobacco or nicotine? No Information not available 06/04/2024 What is your level of alcohol consumption? 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 Family History Relationship [...] SNOMED-CT Code Diagnosis ICD10 Code Diagnosis Note [id number] MD LIGIA Reese [address] [place] [address] 06/16/2024 08:50:44 06/16/2024 10:17:04 Malignant neoplasm of upper lobe of left lung 882910993 C34.12 [id number] MD LIGIA Reese [facility] [address] [place] [address] 06/23/2024 10:48:55 06/23/2024 12:02:32 Malignant neoplasm of upper lobe of left lung 615675055 C34.12 [id number] MD LIGIA Reese [address] [place] [address] 06/24/2024 08:50:38 06/24/2024 11:06:08 Malignant neoplasm of upper lobe of left lung 269551388 C34.12 [id number] Mariana Fox MD [place] [address] 06/25/2024 13:10:45 06/25/2024 13:52:12 Malignant neoplasm of upper lobe of left lung [id number] C34.12 [id number] Mariana Fox MD [place] [address] 06/26/2024 10:32:12 06/26/2024 11:30:06 Malignant neoplasm of upper lobe of left lung 040923038 C34.12 [id number] Mariana Fox MD [place] [address] 06/27/2024 10:33:13 06/27/2024 11:58:01 Malignant neoplasm of upper lobe of left lung [id number] C34.12 [id number] Mariana Fox MD [place] [address] 07/07/2024 14:04:20 07/07/2024 14:56:30 Malignant neoplasm of upper lobe of left lung 454108674 C34.12 Health Concerns Section Related Observation LastModified by Organization Detai ls LastModified Time None Recorded Concern Status LastModified by Organization Details LastModified Time None Recorded Payers Encounter Date Sequence Insurance Name Policy Number Policy Sorenson Covered Member ID Sorenson Member ID Guarantor Name 07/07/2024 1 [employer] (MEDICARE REPLACEMENT/ ADVANTAGE - PPO) [id number] Tammy mAaro [id number] Tammy Amaro Notes Date Note Type Note [...] months would be advisable. Mariana Fox MD [address] [place] [address],[address], [place], [address], [place] - [facility] - [facility] 07/07/2024 14:23:11 OBGyn Episode No OBEpisode recorded.
--- OUTSIDE RECORDS SUMMARY | 2024-09-04 09:03 | XMS_ITS | Data Portability ---
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 [facility] [address], [place], [address], 07/07/2024 13:05:24 07/09/19 25 07/04/2024 imagi ng/di agnos tic resul t No observ ation record ed. [facility] [place] [facility] [address], [place], [address], 07/08/2024 13:06:03 Result Notes None recorded. Problems Name Problem SNOMED Code Status Onset Date Resolution Date Notes Provider Name and Address Organization Details Recorded Time Metastatic malignant neoplasm to bone 75596843 Active 024 JUAN A Najera [facility] & [place] 5 14:45:21 Malignant neoplasm of upper lobe of left lung 343156307 Active 024 JUAN A Najera [facility] & [place] 5 14:46:26 Problem Notes None recorded. Procedures Surgical History Date Name Laterality Status Provider Name and Address Organization Details Recorded Time simple mastectomy of left breast completed Gladys CASTRO [facility] & [place] 06/02/2024 15:00:57 Appendectomy completed Gladys CASTRO [facility] & [place] 06/04/2024 14:08:23 Cholecystectomy completed Gladys CASTRO [facility] & [place] 06/04/2024 14:08:35 hysterectomy completed Gladys CASTRO [facility] & [place] 06/04/2024 14:08:52 tonsillectomy completed Gladys CASTRO [facility] & [place] 06/04/2024 14:09:01 Imaging Results Imaging Date Name Status LastModified by Organiz ation Details LastModified Time 06/20/2024 MRI, lumbar spine, w[facility] [address], [place], [address], 07/07/2024 13:05:24 07/04/2024 imaging/diagn ostic result active [facility] [address], [place], [place], [address], 07/08/2024 13:06:03 Procedure Notes None recorded. Medical Equipment None Reported. Allergies Allergen ID Allergen Name Allergen Category Reaction Reaction Severity Criticality Documentation Date Start Date Code Code System Note Provider Name and Address Organization Details Recorded Time 812565 Lipitor medicatio n Not available Not available Not available 06/02/2024 43242 5 RxNorm JUAN A Najera [facility] & [place] 5 14:48:04 850931 codeine medicatio n Not available Not available Not available 06/02/2024 2670 RxNorm JUAN A Najera [facility] & [place] 5 14:48:17 582036 latex environme nt,medica tion Not available Not available Not available 06/02/2024 88884 91 RxNorm JUAN A Najera [facility] & [place] 5 14:48:40 717764 Product containin g penicilli n (product) medicatio n Not available Not available Not available 06/02/2024 89573 8001 SNOMED JUAN A Najera [facility] & [place] 5 14:48:58 Medications Name [...] Last Updated DateTime 165.1 cm 39.9 kg/m2 146169. 73 g 97.9 [degF] 94 % 94 % 88 /min 20 /min Gladys [facility] & [place] 14:11:20 Social History Question Answer Notes LastModified by [email or web address] Details LastModified Time Tobacco Smoking Status Current Every Day Smoker Gladys [facility], [place] [facility] [place] 06/04/2024 14:05:10 What Was The Date Of Your Most Recent Tobacco Screening? 06/04/2024 Information not available 06/04/2024 What Is Your Current Pack Years? 30ormorepac juan astewart 56 Pack Years Information not available 06/04/2024 At What Age Did You Start Smoking Tobacco? 13 Information not available 06/04/2024 How Much Tobacco Do You Smoke? 1 PPD Information not available 06/04/2024 Has Tobacco Cessation Counseling Been Provided? Yes Information not available 06/04/2024 On What Date Was Tobacco Cessation Counseling Provided? 06/04/2024 Smoking Cessation Brochures From [facility] Given Information not available 06/04/2024 How Many Years Have You Smoked Tobacco? 56 Information not available 06/04/2024 Sex: Unknown Functional Status Question Answer Note LastModified by [email or web address] Details LastModified Time Do you use any [...] SNOMED-CT Code Diagnosis ICD10 Code Diagnosis Note [id number] Mariana Fox MD [place] [address] 8 06/04/2024 13:03:15 06/04/2024 15:00:33 Metastatic malignant neoplasm to bone 58327134 C79.51 Malignant neoplasm of upper lobe of left lung 763343081 C34.12 [id number] Mariana Fox MD [place] [address] 8 06/16/2024 08:50:44 06/16/2024 10:17:04 Malignant neoplasm of upper lobe of left lung 765383703 C34.12 [id number] Mariana Fox MD [place] [address] 8 06/23/2024 10:48:55 06/23/2024 12:02:32 Malignant neoplasm of upper lobe of left lung 040095845 C34.12 [id number] Mariana Fox MD [place] [address] 8 06/24/2024 08:50:38 06/24/2024 11:06:08 Malignant neoplasm of upper lobe of left lung 642445800 C34.12 [id number] Mariana Fox MD [place] [address] 8 06/25/2024 13:10:45 06/25/2024 13:52:12 Malignant neoplasm of upper lobe of left lung 492311320 C34.12 [id number] Mariana Fox MD [place] [address] [address] 06/26/2024 10:32:12 06/26/2024 11:30:06 Malignant neoplasm of upper lobe of left lung 624765434 C34.12 [id number] [facility] [address] [address] 06/27/2024 10:33:13 06/27/2024 11:58:01 Malignant neoplasm of upper lobe of left lung 925058637 C34.12 [id number] [facility] [place] [id number] 07/07/2024 14:04:20 07/07/2024 14:56:30 Malignant neoplasm of upper lobe of left lung 743066873 C34.12 Health Concerns Section Related Observation LastModified by Organization Detai ls LastModified Time None Recorded Concern Status LastModified by Organization Details LastModified Time None Recorded Advance Directives Directive None Recorded Payers Insurance Date Sequence Insurance Name Policy Number Policy Sorenson Covered Member ID Sorenson Member ID Guarantor Name 07/04/2024 1 [employer] (MEDICARE REPLACEMENT/ ADVANTAGE - PPO) [id number] Tammy [facility] [id number] [facility] 06/04/2024 2 [place] Tammy [employer] [id number] [facility] 06/04/2024 1 [employer] (MEDICARE SUPPLEMENT) [facility] [id number] [facility] Notes Date Note Type Note Provider Name and Address Organization Details Recorded Time 06/25/2024 text/html Patient doing qu ite well had mild pain in the left ribcage area after she fell yesterday at home there was no signs of any fractures. Mariana Fox MD [address] [place] [address],[address], [place], [address], [place] [facility] 06/25/2024 13:52:01 06/27/2024 text/html Patient complete [...] with no subsequent recurrence. Mariana Fox MD [address] [place] [address],[address], [place], [address], [facility] & [place] 06/27/2024 10:41:35 07/07/2024 text/html Patient is here [...] would be advisable. Mariana Fox MD [address] [place] [address],[address], [place], [address], [facility] & [place] 07/07/2024 14:23:11 OBGyn Episode No OBEpisode recorded.
[2024-09-04 09:18] LABS: Basophils # 0.1 K/mm3 (0-0.2); Basophils % 0.7 % (0.1-2.0); Eosinophils # 0.5 Kmm3 (0.0-0.4); Eosinophils % 3.9 % (0.1-12.0); Hematocrit 40.7 % (37.0-47.0); Hemoglobin 12.5 g/dL (12.2-16.2); Immature Granulocytes # 0.13 10^3uL; Lymphocytes # 2.3 K/mm3 (0.7-4.5); Mean Corpuscular HGB Conc 30.7 g/dL (31.8-35.4); Mean Corpuscular Hemoglobin 28.1 pg (27.0-31.2); Mean Corpuscular Volume 91.5 fl (81-99); Mean Platelet Volume 10.2 fl (7.4-10.4); Monocytes # 0.9 K/mm3 (0.1-1.0); Monocytes % 7.2 % (1.7-9.3); Neutrophils # 8.7 K/mm3 (1.8-7.8); Neutrophils % 69.2 % (37.0-80.0); Nucleated Red Blood Cells # 0 10^3/uL; Nucleated Red Blood Cells % 0 %; Platelet Count 254 K/mm3 (142-424); Red Blood Count 4.45 M/mm3 (4.20-5.40); Red Cell Distribution Width 14.2 % (11.5-17.5); Red Cell Distribution Width-SD 47.8 fL; White Blood Count 12.6 K/mm3 (4.8-10.8)
[2024-09-04 09:24] LABS: Albumin Level 4.1 g/dl (3.5-5.0); Chloride 108 mmol/L (98-107); Potassium 3.6 mmoL/L (3.5-5.1); Sodium 141 mmol/L (136-145)
[2024-09-04 09:27] LABS: Alanine Aminotransferase 27 U/L (12-78); Albumin/Globulin Ratio 1.3 (1.1-1.8); Alkaline Phosphatase 111 U/L (38-126); Anion Gap 11.6 mEq/L (5-15); Aspartate Amino Transferase 29 U/L (14-36); Bilirubin,Total 0.3 mg/dl (0.2-1.3); Blood Urea Nitrogen 31 mg/dl (7-17); Calcium 9.3 mg/dl (8.4-10.2); Carbon Dioxide 25 mmol/L (22.0-30.0); Estimated Glomerular Filt Rate 28 ml/min (>60); GFR (African American) 34 ML/MIN (>60); Globulin 3.1 g/dL (1.3-3.2); Glucose 120 mg/dl (74-100); Total Protein,Serum 7.2 g/dl (6.3-8.2)
[2024-09-04] MEDS: SODIUM CHLORIDE 0.9% 10ML FLUSH SYRINGE 10 ML IV (09:32)
== END 2024-09-04 09:20 | disposition home or self-care (01) ==
LOC: INF 09:02
PROVIDERS: PCP Internal Medicine Adolescent Medicine; Visit Provider Internal Medicine Medical Oncology
DX: C34.12 Malignant neoplasm of upper lobe, left bronchus or lung (principal); C79.51 Secondary malignant neoplasm of bone
CPT/HCPCS: 36591; 80053; 85025; J1642

== ENCOUNTER 2024-09-04 10:31 | Outpatient (CLI) | payer MEDICARE, SELFPAY ==
[2024-09-04 10:50] LABS: Microscopic, Urine URINE MICROSCOPIC (MICROSCOPIC)
[2024-09-04 11:12] LABS: Appearance,Urine CLEAR (Clear); Bilirubin,Urine Negative (Negative); Blood, Urine Negative (Negative); Color,Urine YELLOW (Yellow); Glucose,Urine (UA) Negative (Negative); Ketones,Urine Negative (Negative); Leukocyte Esterase,Urine Negative (Negative); Nitrate,Urine Negative (Negative); Protein,Urine Negative (Negative); Urobilinogen,Urine 0.2 EU/dl (0.2)
[2024-09-04 11:23] LABS: Bacteria,Urine Trace /lpf
== END 2024-09-04 23:59 | disposition home or self-care (01) ==
LOC: LAB 10:31
PROVIDERS: PCP Internal Medicine Adolescent Medicine; Visit Provider Internal Medicine Medical Oncology
DX: C79.51 Secondary malignant neoplasm of bone (principal)
CPT/HCPCS: 81001

== ENCOUNTER 2024-09-08 10:11 | Outpatient (CLI) | payer MEDICARE, SELFPAY ==
[2024-09-08] MEDS: SODIUM CHLORIDE 0.9% 10ML FLUSH SYRINGE 10 ML IV (10:20)
[2024-09-08 11:24] VITALS: BMI 41.2
[2024-09-08 12:04] LABS: Basophils # 0.1 K/mm3 (0-0.2); Basophils % 0.4 % (0.1-2.0); Eosinophils % 0.2 % (0.1-12.0); Hematocrit 41.9 % (37.0-47.0); Hemoglobin 12.8 g/dL (12.2-16.2); Immature Granulocytes # 0.18 10^3uL; Immature Granulocytes % 1.6 %; Lymphocytes % 8.4 % (10-50); Mean Corpuscular HGB Conc 30.5 g/dL (31.8-35.4); Mean Corpuscular Hemoglobin 28.1 pg (27.0-31.2); Mean Corpuscular Volume 91.9 fl (81-99); Mean Platelet Volume 10.8 fl (7.4-10.4); Monocytes # 0.2 K/mm3 (0.1-1.0); Monocytes % 1.6 % (1.7-9.3); Neutrophils # 10.1 K/mm3 (1.8-7.8); Neutrophils % 87.8 % (37.0-80.0); Nucleated Red Blood Cells # 0 10^3/uL; Nucleated Red Blood Cells % 0 %; Platelet Count 296 K/mm3 (142-424); Red Blood Count 4.56 M/mm3 (4.20-5.40); Red Cell Distribution Width 14.2 % (11.5-17.5); Red Cell Distribution Width-SD 48.1 fL; White Blood Count 11.5 K/mm3 (4.8-10.8)
[2024-09-08 12:08] LABS: C-Reactive Protein 17.5 mg/L (0-4)
[2024-09-08 12:47] LABS: Erythrocyte Sedimentation Rate 18 mm/hr (0-30)
== END 2024-09-08 10:25 | disposition home or self-care (01) ==
LOC: INF 10:15
PROVIDERS: PCP Internal Medicine Adolescent Medicine; Visit Provider Student in an Organized Health Care Education/Training Program
DX: N17.9 Acute kidney failure, unspecified (principal)
CPT/HCPCS: 36591; 85025; 85651; 86140; J1642

== ENCOUNTER 2024-09-09 10:22 | Outpatient (CLI) | payer MEDICARE, SELFPAY ==
[2024-09-09 10:24] VITALS: BMI 39.9
--- OUTSIDE RECORDS SUMMARY | 2024-09-09 10:25 | XMS_ITS | Data Portability ---
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 [facility] [address], [place], [address], 07/07/2024 13:05:24 07/09/19 25 07/04/2024 imagi ng/di agnos tic resul t No observ ation record ed. [facility] [employer] [address], [place], [address], 07/08/2024 13:06:03 Result Notes None recorded. Problems Name Problem SNOMED Code Status Onset Date Resolution Date Notes Provider Name and Address Organization Details Recorded Time Metastatic malignant neoplasm to bone 37074586 Active 024 JUAN A Najera [facility] [place] 5 14:45:21 Malignant neoplasm of upper lobe of left lung 708198374 Active 024 JUAN A Najera [facility] [place] 5 14:46:26 Problem Notes None recorded. Procedures Surgical History Date Name Laterality Status Provider Name and Address Organization Details Recorded Time simple mastectomy of left breast completed Gladys CASTRO [facility] [place] 06/02/2024 15:00:57 Appendectomy completed Gladys CASTRO [facility] [place] 06/04/2024 14:08:23 Cholecystectomy completed Gladys CASTRO [facility] [place] 06/04/2024 14:08:35 hysterectomy completed Gladys CASTRO [facility] [place] 06/04/2024 14:08:52 tonsillectomy completed Gladys CASTRO [facility] [place] 06/04/2024 14:09:01 Imaging Results Imaging Date Name Status LastModified by Organiz ation Details LastModified Time 06/20/2024 [facility], lumbar [facility] w[facility] [address], [place], [address], 07/07/2024 13:05:24 07/04/2024 imaging/diagn ostic result active [facility] [employer] [address], [place], [place], [address], 07/08/2024 13:06:03 Procedure Notes None recorded. Medical Equipment None Reported. Allergies Allergen ID Allergen Name Allergen Category Reaction Reaction Severity Criticality Documentation Date Start Date Code Code System Note Provider Name and Address Organization Details Recorded Time 414328 Lipitor medicatio n Not available Not available Not available 06/02/2024 07206 5 RxNorm JUAN A Najera [facility] [place] 5 14:48:04 716976 codeine medicatio n Not available Not available Not available 06/02/2024 2670 RxNorm JUAN A Najera [facility] [place] 5 14:48:17 526688 latex environme nt,medica tion Not available Not available Not available 06/02/2024 93917 91 RxNorm JUAN A Najera [facility] [place] 5 14:48:40 298056 Product containin g penicilli n (product) medicatio n Not available Not available Not available 06/02/2024 18798 8001 SNOMED JUAN A Najera [facility] [place] 5 14:48:58 Medications Name [...] Last Updated DateTime 165.1 cm 39.9 kg/m2 202664. 73 g 97.9 [degF] 94 % 94 % 88 /min 20 /min Gladys SHEPHERD [facility] [place] 14:11:20 Social History Question Answer Notes LastModified by DISKOVRe Details LastModified Time Tobacco Smoking Status Current Every Day Smoker Gladys Ferrell [facility], [place] [facility] [place] 06/04/2024 14:05:10 What Was The Date Of [...] Provided? 06/04/2024 Smoking Cessation Brochures From [facility] Given Information not available 06/04/2024 How Many Years Have You Smoked Tobacco? 57 Information not available 06/04/2024 Sex: Unknown Functional Status Question Answer Note LastModified by DISKOVRe Details LastModified Time Do you use any [...] SNOMED-CT Code Diagnosis ICD10 Code Diagnosis Note [id number] Mariana Fox MD [place] [address] 06/04/2024 13:03:15 06/04/2024 15:00:33 Metastatic malignant neoplasm to bone 14183443 C79.51 Malignant neoplasm of upper lobe of left lung 296265976 C34.12 [id number] Mariana Fox MD [place] [address] 06/16/2024 08:50:44 06/16/2024 10:17:04 Malignant neoplasm of upper lobe of left lung 959213529 C34.12 [id number] Mariana Fox MD [place] [address] 8 06/23/2024 10:48:55 06/23/2024 12:02:32 Malignant neoplasm of upper lobe of left lung 208244778 C34.12 [id number] Mariana Fox MD [place] [address] 06/24/2024 08:50:38 06/24/2024 11:06:08 Malignant neoplasm of upper lobe of left lung 453241051 C34.12 [id number] Mariana Fox MD [place] [address] 06/25/2024 13:10:45 06/25/2024 13:52:12 Malignant neoplasm of upper lobe of left lung 342439926 C34.12 [id number] Mariana Fox MD P[place] [address] [address] 06/26/2024 10:32:12 06/26/2024 11:30:06 Malignant neoplasm of upper lobe of left lung 798918376 C34.12 [id number] [facility] [address] [address] 06/27/2024 10:33:13 06/27/2024 11:58:01 Malignant neoplasm of upper lobe of left lung 321703174 C34.12 [id number] [facility] [place] [id number] 07/07/2024 14:04:20 07/07/2024 14:56:30 Malignant neoplasm of upper lobe of left lung 509985299 C34.12 Health Concerns Section Related Observation LastModified by Organization Detai ls LastModified Time None Recorded Concern Status LastModified by Organization Details LastModified Time None Recorded Advance Directives Directive None Recorded Payers Insurance Date Sequence Insurance Name Policy Number Policy Sorenson Covered Member ID Sorenson Member ID Guarantor Name 07/04/2024 1 [employer] (MEDICARE REPLACEMENT/ ADVANTAGE - PPO) [id number] Tammy [facility] [id number] [facility] 06/04/2024 2 [place] Tammy [place] [id number] [facility] 06/04/2024 1 [email or web address] (MEDICARE SUPPLEMENT) [facility] [id number] [facility] Notes Date Note Type Note Provider Name and Address Organization Details Recorded Time 06/25/2024 text/html Patient doing qu ite well had mild pain in the left ribcage area after she fell yesterday at home there was no signs of any fractures. Mariana Fox MD [address] [place] [address],[address], [place], [address], [place] [facility] 06/25/2024 13:52:01 06/27/2024 text/html Patient complete d [...] with no subsequent recurrence. Mariana Fox MD [address] [place] [address],[address], [place], [address], [facility] [place] 06/27/2024 10:41:35 07/07/2024 text/html Patient is here [...] months would be advisable. Mariana Fox MD [address] [place] [address],[address], [place], [address], [facility] [place] 07/07/2024 14:23:11 OBGyn Episode No OBEpisode recorded.
[2024-09-09] MEDS: SODIUM CHLORIDE 0.9% 10ML FLUSH SYRINGE 10 ML IV (10:47)
[2024-09-09 11:14] LABS: Activated Partial Thrombo Time 25.5 seconds (22.8-30.6); INR 0.96 (0.9-1.1); Prothrombin Time 10.7 seconds (10.1-12.5)
[2024-09-10 13:11] LABS: Complement C3 197 mg/dL (82-167)
[2024-09-10 14:47] LABS: Free Kappa Lt Chains 43.9 mg/L (3.3-19.4); Free Lambda Lt Chains 25.6 mg/L (5.7-26.3)
[2024-09-10 15:11] LABS: Anti-Centromere B Antibodies <0.2 AI (0.0-0.9); Anti-DNA (DS) Ab Qn <1 IU/mL (0-9); Anti-Jo-1 <0.2 AI (0.0-0.9); Antichromatin Antibodies <0.2 AI (0.0-0.9); Antinuclear Antibodies (ANA) Positive (Negative); Antiscleroderma-70 Antibodies <0.2 AI (0.0-0.9); RNP Antibodies 0.5 AI (0.0-0.9); Sjogren's Anti-SS-A 4.1 AI (0.0-0.9); Sjogren's Anti-SS-B <0.2 AI (0.0-0.9)
== END 2024-09-09 10:46 | disposition home or self-care (01) ==
LOC: INF 10:23
PROVIDERS: PCP Internal Medicine Adolescent Medicine; Visit Provider Student in an Organized Health Care Education/Training Program
DX: N17.9 Acute kidney failure, unspecified (principal)
CPT/HCPCS: 36591; 83883; 85610; 85730; 86038; 86161; J1642

== ENCOUNTER 2024-09-18 13:28 | Outpatient (CLI) | payer MEDICARE, SELFPAY ==
--- OUTSIDE RECORDS SUMMARY | 2024-09-18 13:30 | XMS_ITS | Data Portability ---
Author Organization [place] - [facility] Address [address] [place] [address] Care Team Providers Care Broom Stitcher Name Role Phone MARIANA FOX Radiation Oncologist [phone] CORINNE GAINES Primary Care Provider [phone] EMILI CHASE Hematology/Oncology [phone] Assessment Encounter Date Assessment Date Assessment LastModified [...] contr ast No observ ation [facility]. [facility] [address], [place], [address], 07/07/2024 13:05:24 07/09/19 25 07/04/2024 imagi ng/di agnos tic resul t No observ ation record ed. [facility] Injection Molding Machine Setter [address], [place], [address], 07/08/2024 13:06:03 Result Notes None recorded. Problems Name Problem SNOMED Code Status Onset Date Resolution Date Notes Provider Name and Address Organization Details Recorded Time Metastatic malignant neoplasm to bone 27272968 Active 024 JOAO Najera [facility] & [place] 5 14:45:21 Malignant neoplasm of upper lobe of left lung 721511046 Active 024 JOAO Najera [facility] & [place] 5 14:46:26 Problem Notes None recorded. Procedures Surgical History Date Name Laterality Status Provider Name and Address Organization Details Recorded Time simple mastectomy of left breast completed Gladys CASTRO [facility] [place] 06/02/2024 15:00:57 Appendectomy completed Gladys CASTRO [facility] & [place] 06/04/2024 14:08:23 Cholecystectomy completed Gladys CASTRO [facility] [place] 06/04/2024 14:08:35 hysterectomy completed Gladys CASTRO [facility] [place] 06/04/2024 14:08:52 [facility]lect[facility] [place] 06/04/2024 14:09:01 Imaging Results None recorded. Procedure Notes None recorded. Medical Equipment None Reported. Allergies Allergen ID Allergen Name Allergen Category Reaction Reaction Severity Criticality Documentation Date Start Date Code Code System Note Provider Name and Address Organization Details Recorded Time 639917 Lipitor medicatio n Not available Not available Not available 06/02/2024 82681 5 RxNorm JOAO Najera [facility] & [place] 14:48:04 223426 codeine medicatio n Not available Not available Not available 06/02/2024 2670 RxNorm JOAO Najera [facility] & [place] 14:48:17 055923 latex environme nt,medica tion Not available Not available Not available 06/02/2024 34755 91 RxNorm JOAO Najera [facility] & [place] 14:48:40 897449 Product containin g penicilli n (product) medicatio n Not available Not available Not available 06/02/2024 03155 8001 SNOMED JOAO Najera [facility] & [place] 14:48:58 Medications Name Sig Start Date Stop [...] Updated DateTime 5 165.1 cm 39.9 kg/m2 698923. 73 g 97.9 [degF] 94 % 94 % 88 /min 20 /min Gladys CASTRO [facility] [place] 5 14:11:20 Social History Question Answer Notes LastModified by Organizat ion Details LastModified Time Tobacco Smoking Status Current Every Day Smoker Gladys Ferrell null, JOAO No [place] & [place] 06/04/2024 14:05:10 What Was The Date Of Your Most Recent Tobacco Screening? 06/04/2024 Information not available 06/04/2024 What Is Your Current Pack Years? 30taurus lópez 56 Pack Years Information not available 06/04/2024 At What Age Did You Start Smoking Tobacco? 13 Information not available 06/04/2024 How Much Tobacco Do You Smoke? 1 PPD Information not available 06/04/2024 Has Tobacco Cessation Counseling Been Provided? Yes Information not available 06/04/2024 On What Date Was Tobacco Cessation Counseling Provided? 06/04/2024 Smoking Cessation Brochures From [facility] Given Information not available [...] SNOMED-CT Code Diagnosis ICD10 Code Diagnosis Note [id number] [facility] [place] [address] 8 06/04/2024 13:03:15 06/04/2024 15:00:33 Metastatic malignant neoplasm to bone 67921886 C79.51 Malignant neoplasm of upper lobe of left lung 193025084 C34.12 [id number] Mariana Fox MD [place] [address] 8 06/16/2024 08:50:44 06/16/2024 10:17:04 Malignant neoplasm of upper lobe of left lung 092042142 C34.12 [id number] Mariana Fox MD [place] [address] 8 06/23/2024 10:48:55 06/23/2024 12:02:32 Malignant neoplasm of upper lobe of left lung 515460197 C34.12 [id number] Mariana Fox MD [place] [address] 8 06/24/2024 08:50:38 06/24/2024 11:06:08 Malignant neoplasm of upper lobe of left lung 674108282 C34.12 [id number] Mariana Fox MD [place] [address] 8 06/25/2024 13:10:45 06/25/2024 13:52:12 Malignant neoplasm of upper lobe of left lung 613135811 C34.12 [id number] Mariana Fox MD [place] [address] 8 06/26/2024 10:32:12 06/26/2024 11:30:06 Malignant neoplasm of upper lobe of left lung 407025348 C34.12 [id number] Mariana Fox MD [place] [address] 8 06/27/2024 10:33:13 06/27/2024 11:58:01 Malignant neoplasm of upper lobe of left lung 978126333 C34.12 [id number] Mar[facility] MD [facility] [address] [place] [address] 07/07/2024 14:04:20 07/07/2024 14:56:30 Malignant neoplasm of upper lobe of left lung 576598544 C34.12 Health Concerns Section Related Observation LastModified by Organization Detai ls LastModified Time None Recorded Concern Status LastModified by Organization Details LastModified Time None Recorded Advance Directives Directive None Recorded Payers Insurance Date Sequence Insurance Name Policy Number Policy Sorenson Covered Member ID Sorenson Member ID Guarantor Name 07/04/2024 1 [employer] (MEDICARE REPLACEMENT/ ADVANTAGE - PPO) [id number] Tammy Farris Ekron [id number] [facility] 06/04/2024 2 [place] Tammy Ekron [id number] [facility] 06/04/2024 1 [employer] (MEDICARE SUPPLEMENT) [facility] [id number] [facility] Notes Date Note Type Note Provider Name and Address Organization Details Recorded Time 06/25/2024 text/html Patient doing qu ite well had mild pain in the left ribcage area after she fell yesterday at home there was no signs of any fractures. Mariana Fox MD [address] [place] [address],[address], [place], [address], [place] - [facility] 06/25/2024 13:52:01 06/27/2024 text/html Patient complete [...] no subsequent recurrence. Mariana Fox MD [address], [place], [address], [facility] - [facility] [place] 06/27/2024 10:41:35 07/07/2024 text/html [...] months would be advisable. Mariana Fox MD [address] [place] [address] Drive,[address], [place], [address], [place] [facility] [facility] [place] 07/07/2024 14:23:11 OBGyn Episode No OBEpisode recorded.
[2024-09-18] MEDS: SODIUM CHLORIDE 0.9% 10ML FLUSH SYRINGE 10 ML IV (13:40)
[2024-09-18 14:03] LABS: Albumin Level 4.1 g/dl (3.5-5.0); Chloride 103 mmol/L (98-107); Sodium 140 mmol/L (136-145)
[2024-09-18 14:04] LABS: Potassium 3.4 mmoL/L (3.5-5.1)
[2024-09-18 14:06] LABS: Alanine Aminotransferase 23 U/L (12-78); Albumin/Globulin Ratio 1.3 (1.1-1.8); Alkaline Phosphatase 111 U/L (38-126); Anion Gap 11.4 mEq/L (5-15); Aspartate Amino Transferase 25 U/L (14-36); Bilirubin,Total 0.4 mg/dl (0.2-1.3); Blood Urea Nitrogen 32 mg/dl (7-17); Carbon Dioxide 29 mmol/L (22.0-30.0); Estimated Glomerular Filt Rate 28 ml/min (>60); GFR (African American) 34 ML/MIN (>60); Globulin 3.1 g/dL (1.3-3.2); Total Protein,Serum 7.2 g/dl (6.3-8.2)
[2024-09-18 14:07] LABS: Calcium 9.6 mg/dl (8.4-10.2); Glucose 105 mg/dl (74-100)
== END 2024-09-18 13:45 | disposition home or self-care (01) ==
LOC: INF 13:29
PROVIDERS: PCP Internal Medicine Adolescent Medicine; Visit Provider Internal Medicine Medical Oncology
DX: C79.51 Secondary malignant neoplasm of bone (principal)
CPT/HCPCS: 36591; 80053; J1642

== ENCOUNTER 2024-09-24 13:15 | Outpatient (CLI) | payer MEDICARE, SELFPAY ==
--- OUTSIDE RECORDS SUMMARY | 2024-09-24 13:19 | XMS_ITS | Data Portability ---
Author Organization [place] - [facility] Address [address] [place] [address] Care Team Providers Care Chair Post Machine Operator Name Role Phone MARIANA FOX Radiation Oncologist [phone] CORINNE GAINES Primary Care Provider EMILI CHASE Hematology/Oncology [phone] Assessment Encounter Date Assessment Date Assessment LastModified [...] contr ast No observ ation record ed. [facility] [address], [place], [address], 07/07/2024 13:05:24 07/09/19 25 07/04/2024 imagi ng/di agnos tic resul t No observ ation record ed. [facility] Credit Rating Checker [address], [place], [address], 07/08/2024 13:06:03 Result Notes None recorded. Problems Name Problem SNOMED Code Status Onset Date Resolution Date Notes Provider Name and Address Organization Details Recorded Time Metastatic malignant neoplasm to bone 35093427 Active 024 JOAO Najera [facility] & [place] 5 14:45:21 Malignant neoplasm of upper lobe of left lung 402168936 Active 024 JOAO Najera [facility] & [place] 5 14:46:26 Problem Notes None recorded. Procedures Surgical History Date Name Laterality Status Provider Name and Address Organization Details Recorded Time simple mastectomy of left breast completed Gladys CASTRO [facility] & [place] 06/02/2024 15:00:57 Appendectomy completed Gladys CASTRO [facility] & [place] 06/04/2024 14:08:23 Cholecystectomy completed Gladys CASTRO [facility] & [place] 06/04/2024 14:08:35 hysterectomy completed Gladys CASTRO [facility] & [place] 06/04/2024 14:08:52 [facility]illectomy completed [facility] [place] 06/04/2024 14:09:01 Imaging Results None recorded. Procedure Notes None recorded. Medical Equipment None Reported. Allergies Allergen ID Allergen Name Allergen Category Reaction Reaction Severity Criticality Documentation Date Start Date Code Code System Note Provider Name and Address Organization Details Recorded Time 034970 Lipitor medicatio n Not available Not available Not available 06/02/2024 41642 5 RxNorm JOAO Najera [facility] & [place] 14:48:04 443773 codeine medicatio n Not available Not available Not available 06/02/2024 2670 RxNorm JOAO Najera [facility] & [place] 14:48:17 049905 latex environme nt,medica tion Not available Not available Not available 06/02/2024 83250 91 RxNorm JOAO Najera [facility] & [place] 14:48:40 431372 Product containin g penicilli n (product) medicatio n Not available Not available Not available 06/02/2024 29941 8001 SNOMED [place] Najera [facility] & [place] 14:48:58 Medications Name Sig Start Date Stop [...] Updated DateTime 5 165.1 cm 39.9 kg/m2 290026. 73 g 97.9 [degF] 94 % 94 % 88 /min 20 /min Gladys CASTRO [facility] & [place] 5 14:11:20 Social History Question Answer Notes LastModified by Organizat ion Details LastModified Time Tobacco Smoking Status Current Every Day Smoker Gladys Ferrell null, JO[place] No [place] & [place] 06/04/2024 14:05:10 What Was The Date Of [...] Smoking Cessation Brochures From [facility] Given Information not available [...] SNOMED-CT Code Diagnosis ICD10 Code Diagnosis Note [id number] [facility] [place] [address] 06/04/2024 13:03:15 06/04/2024 15:00:33 Metastatic malignant neoplasm to bone 23476162 C79.51 Malignant neoplasm of upper lobe of left lung 670208484 C34.12 [id number] Mariana Fox MD [place] [address] 8 06/16/2024 08:50:44 06/16/2024 10:17:04 Malignant neoplasm of upper lobe of left lung 479605554 C34.12 [id number] Mariana Fox MD [place] [address] 8 06/23/2024 10:48:55 06/23/2024 12:02:32 Malignant neoplasm of upper lobe of left lung 786016185 C34.12 [id number] Mariana Fox MD [place] [address] 8 06/24/2024 08:50:38 06/24/2024 11:06:08 Malignant neoplasm of upper lobe of left lung 454682156 C34.12 [id number] Mariana Fox MD [place] [address] 8 06/25/2024 13:10:45 06/25/2024 13:52:12 Malignant neoplasm of upper lobe of left lung 770023365 C34.12 [id number] Mariana Fox MD [place] [address] 8 06/26/2024 10:32:12 06/26/2024 11:30:06 Malignant neoplasm of upper lobe of left lung 963653219 C34.12 [id number] Mariana Fox MD [place] [address] 8 06/27/2024 10:33:13 06/27/2024 11:58:01 Malignant neoplasm of upper lobe of left lung 913467452 C34.12 [id number] Mariana Fox MD [facility] [address] [place] [address] 07/07/2024 14:04:20 07/07/2024 14:56:30 Malignant neoplasm of upper lobe of left lung 395990378 C34.12 Health Concerns Section Related Observation LastModified by Organization Detai ls LastModified Time None Recorded Concern Status LastModified by Organization Details LastModified Time None Recorded Advance Directives Directive None Recorded Payers Insurance Date Sequence Insurance Name Policy Number Policy Sorenson Covered Member ID Sorenson Member ID Guarantor Name 07/04/2024 1 [employer] (MEDICARE REPLACEMENT/ ADVANTAGE - PPO) [id number] Tammy Farris Combs [id number] [facility] 06/04/2024 2 [place] Tammy Combs [id number] [facility] 06/04/2024 1 [employer] (MEDICARE SUPPLEMENT) [facility] [id number] [facility] Notes Date Note Type Note Provider Name and Address Organization Details Recorded Time 06/25/2024 text/html Patient doing qu ite well had mild pain in the left ribcage area after she fell yesterday at home there was no signs of any fractures. Mariana Fox MD [address] [place] [address],[address], [place], [address], [place] [facility] 06/25/2024 13:52:01 06/27/2024 text/html Patient complete [...] no subsequent recurrence. Mariana Fox MD [address], [place], [address], [facility] - [facility] & [place] 06/27/2024 10:41:35 07/07/2024 text/html Patient [...] months would be advisable. Mariana Fox MD [address] [place] [address] Drive,[address], [place], [address], [place] [facility] [facility] & [place] 07/07/2024 14:23:11 OBGyn Episode No OBEpisode recorded.
[2024-09-24 14:03] LABS: Albumin Level 3.8 g/dl (3.5-5.0); Chloride 101 mmol/L (98-107); Potassium 3.8 mmoL/L (3.5-5.1); Sodium 137 mmol/L (136-145)
[2024-09-24 14:06] LABS: Alanine Aminotransferase 26 U/L (12-78); Albumin/Globulin Ratio 1.2 (1.1-1.8); Alkaline Phosphatase 103 U/L (38-126); Anion Gap 12.8 mEq/L (5-15); Aspartate Amino Transferase 30 U/L (14-36); Bilirubin,Total 0.5 mg/dl (0.2-1.3); Blood Urea Nitrogen 41 mg/dl (7-17); Calcium 9.1 mg/dl (8.4-10.2); Carbon Dioxide 27 mmol/L (22.0-30.0); Estimated Glomerular Filt Rate 25 ml/min (>60); GFR (African American) 30 ML/MIN (>60); Globulin 3.1 g/dL (1.3-3.2); Glucose 123 mg/dl (74-100); Total Protein,Serum 6.9 g/dl (6.3-8.2)
[2024-09-24] MEDS: SODIUM CHLORIDE 0.9% 10ML FLUSH SYRINGE 10 ML IV (14:09)
== END 2024-09-24 13:33 | disposition home or self-care (01) ==
LOC: INF 13:17
PROVIDERS: PCP Internal Medicine Adolescent Medicine; Visit Provider Internal Medicine Medical Oncology
DX: C34.90 Malignant neoplasm of unspecified part of unspecified bronchus or lung (principal); C79.51 Secondary malignant neoplasm of bone; F17.210 Nicotine dependence, cigarettes, uncomplicated
CPT/HCPCS: 36591; 80053; J1642

== ENCOUNTER 2024-09-25 17:28 | Inpatient (IN) | payer MEDICARE, SELFPAY ==
--- OUTSIDE RECORDS SUMMARY | 2024-07-26 17:30 | XMS_ITS ---
Author Organization [facility] Address [address] [place] [address] Care Team Providers Care Relationship Banker Name Role Phone JavidOtto Primary Care Provider [phone] Migration, Provider Unavailable Unavailable Allergies Allergen (clinical drug ingredient) Drug/Non Drug Allergy documented on EMR Reaction Allergy Type Onset Date Status atorvastatin Lipitor elevated liver enzymes Drug Allergy Active codeine Codeine rash Drug Allergy Active Penicillin rash Drug Allergy Active REASON FOR VISIT Multum To [facility] Conversion Encounter Medications Medication SIG (Take, Route, Frequency, Duration) Notes Start Date End Date Status buPROPion HCl ER (XL) 300 MG TAKE 1 TABLET EVERY 24 HOURS Active Stiolto Respimat 2.5 MCG-2.5 MCG/INH 2 PUFF(S) INHALED EVERY 24 HOURS for 90 DAYS *Please review and pick correct strength-formulatio n from [facility] options. If intended option is not shown, discontinue and re-order from Quick Search* Active [id number] Ethyl Esters 1 GM 2 cap(s) orally once a day for 90 days Active Ezetimibe 10 MG 1 tab(s) orally once a day for 90 days Active ALPRAZolam 0.5 MG 1 tab(s) orally 3 times a day for 90 days 07/02/2024 Active Alendronate Sodium 35 MG 1 tab(s) orally once a week for 90 days Active Rosuvastatin Calcium 5 MG 1 tab(s) orally once a day for 90 days Active ARIPiprazole 10 MG TAKE 1 TABLET EVERY DAY for 90 Active buPROPion HCl ER (XL) 150 MG TAKE 1 TABLET EVERY 24 HOURS. TAKE WITH 300MG TABLET TO EQUAL 450MG DAILY DOSE Active Fluticasone Propionate 50 MCG/ACT 2 sprays in each nostril once a day for 90 days prn 04/13/2023 Active Albuterol Sulfate (2.5 MG/3ML) 0.083% 3 mL by nebulizer every 6 hours for 90 day(s) Active Vitamin D 1000MG 1 TAB ORALLY TWICE A DAY for 30 DAYS *Please review and pick correct strength-formulatio n from [facility] options. If intended option is not shown, discontinue and re-order from Quick Search* 08/31/2021 Active Ipratropium [place] 0.02 % 2.5 mL by nebulizer 4 times a day for 90 day(s) Active ACCU-CHEK MICHEAL PLUS MONITORING KIT QD *Please review for potential replacement for e-prescription and drug interaction check* 05/31/2015 Active ACCU-CHEK MICHEAL PLUS TEST STRIPS FOR DIABETIC TESTING ONCE DAILY for 90 DAYS *Please review for potential replacement for e-prescription and drug interaction check* Active predniSONE 10 MG 5 tabs orally once a day Active ACCU-CHEK LANCET SOFTCLIX QD for 90 DAYS *Please review for potential replacement for e-prescription and drug interaction check* 05/31/2015 Active ACCU-CHEK MICHEAL CONTROL SOLUTION QD for 90 DAYS *Please review for potential replacement for e-prescription and drug interaction check* 05/31/2015 Active Folic Acid 1 MG 1 tab(s) orally once a day Active Albuterol Sulfate HFA 108 (90 Base) MCG/ACT 2 puff(s) inhaled four times a day Active Encounters Encounter Location Date Provider Diagnosis [facility] [address] [facility] [address] [facility] [address] [place] [address] 07/26/2024 Provider Migration Plan Of Treatment Next Appt Details Provider Name:Otto Hua, 10/13/2024 09:45:00 AM, [address] [facility] [address] [facility], [address], [place], [address], Progress Notes * Tammy AMARO MDOB: [id number] (69 yo F)Acc No.[id number]:07/26/2024 Patient: W Tammy ROTHMAN Provider: Miryam Gregory :1955 A ge:69 Y S ex:Female Date:07/26/2024 Address:[address], [place], [id number] Pcp:Otto Hua Subjective: * Chief Complaints: * 1 . [facility] * Medical History: * Medications: T aking predniSONE 10 MG Tablet 5 tabs orally once a day , Taking Folic Acid 1 MG Tablet 1 tab(s) orally once a day , Taking Albuterol Sulfate HFA 108 (90 Base) MCG/ACT Aerosol Solution 2 puff(s) inhaled four times a day , Taking ACCU-CHEK LANCET SOFTCLIX QD , Notes to Pharmacist: *Please review for potential replacement for e-prescription and drug interaction check*, Taking ACCU-CHEK MICHEAL CONTROL SOLUTION QD , Notes to Pharmacist: *Please review for potential replacement for e- prescription and drug interaction check*, Taking ACCU-CHEK MICHEAL PLUS MONITORING KIT QD , Notes to Pharmacist: *Please review for potential replacement for e-prescription and drug interaction check*, Taking ACCU-CHEK MICHEAL PLUS TEST STRIPS FOR DIABETIC TESTING ONCE DAILY , Notes to Pharmacist: *Please review for potential replacement for e-prescription and drug interaction check*, Taking Vitamin D 1000MG 1 TAB ORALLY TWICE A DAY , Notes to Pharmacist: *Please review and pick correct strength-formulation from [facility] options. If intended option is not shown, discontinue and re-order from Quick Search*, Taking Ipratropium [place] 0.02 % Solution 2.5 mL by nebulizer 4 times a day , Taking Albuterol Sulfate (2.5 MG/3ML) 0.083% Nebulization Solution 3 mL by nebulizer every 6 hours , Taking ARIPiprazole 10 MG Tablet TAKE 1 TABLET EVERY DAY , Taking Alendronate Sodium 35 MG Tablet 1 tab(s) orally once a week , Taking Rosuvastatin Calcium 5 MG Tablet 1 tab(s) orally once a day , Taking buPROPion HCl ER (XL) 150 MG Tablet Extended Release 24 Hour TAKE 1 TABLET EVERY 24 HOURS. TAKE WITH 300MG TABLET TO EQUAL 450MG DAILY DOSE , Taking Fluticasone Propionate 50 MCG/ACT Suspension 2 sprays in each nostril once a day , Notes to Pharmacist: prn, Taking buPROPion HCl ER (XL) 300 MG Tablet Extended Release 24 Hour TAKE 1 TABLET EVERY 24 HOURS , Taking Stiolto Respimat 2.5 MCG-2.5 MCG/INH AEROSOL 2 PUFF(S) INHALED EVERY 24 HOURS , Notes to Pharmacist: *Please review and pick correct strength-formulation from [facility] options. If intended option is not shown, discontinue and re-order from Quick Search*, Taking Mikfs-5-fuog Ethyl Esters 1 GM Capsule 2 cap(s) orally once a day , Taking Ezetimibe 10 MG Tablet 1 tab(s) orally once a day , Taking ALPRAZolam 0.5 MG Tablet 1 tab(s) orally 3 times a day * Allergies: C odeine: rash, Penicillin: rash, Lipitor: elevated liver enzymes. Objective: * Vitals: Assessment: Plan: * Treatment: * * Electronic signature of Prov ider Migration on 09/26/2024 at 08:43 AM EDT Sign off status: Pending * Provider: Miryam liu Migration Date: 0 07/26/2024 Generated for Nola mueller/Tammie/Abdelrahmanitting on: 0 09/26/2024 08:43 AM EDT
--- OUTSIDE RECORDS SUMMARY | 2024-08-11 10:00 | XMS_ITS ---
Author Organization [facility] Address [address] [place] [address] Care Team Providers Care Laboratory Equipment Installer Name Role Phone Otto Hua Primary Care Provider Allergies Allergen (clinical drug ingredient) Drug/Non Drug Allergy documented on EMR Reaction Allergy Type Onset Date Status atorvastatin Lipitor elevated liver enzymes Drug Allergy Active codeine Codeine rash Drug Allergy Active Penicillin rash Drug Allergy Active REASON FOR VISIT BP elevated Medications Medication SIG (Take, Route, Frequency, Duration) Notes Start Date End Date Status buPROPion HCl ER (XL) 300 MG TAKE 1 TABLET EVERY 24 HOURS Active buPROPion HCl ER (XL) 150 MG TAKE 1 TABLET EVERY 24 HOURS. TAKE WITH 300MG TABLET TO EQUAL 450MG DAILY DOSE Active Fluticasone Propionate 50 MCG/ACT 2 sprays in each nostril once a day for 90 days prn 04/13/2023 Active Alendronate Sodium 35 MG 1 tab(s) orally once a week for 90 days Active Rosuvastatin Calcium 5 MG 1 tab(s) orally once a day for 90 days Active Albuterol Sulfate (2.5 MG/3ML) 0.083% 3 mL by nebulizer every 6 hours for 90 day(s) Active ARIPiprazole 10 MG TAKE 1 TABLET EVERY DAY for 90 Active Ipratropium Chetek 0.02 % 2.5 mL by nebulizer 4 times a day for 90 day(s) Active ACCU-CHEK MICHEAL PLUS TEST STRIPS FOR DIABETIC TESTING ONCE DAILY for 90 DAYS *Please review for potential replacement for e-prescription and drug interaction check* Active Vitamin D 1000MG 1 TAB ORALLY TWICE A DAY for 30 DAYS *Please review and pick correct strength-formulatio n from [employer] options. If intended option is not shown, discontinue and re-order from Quick Search* 08/31/2021 Active ACCU-CHEK MICHEAL CONTROL SOLUTION QD for 90 DAYS *Please review for potential replacement for e-prescription and drug interaction check* 05/31/2015 Active ACCU-CHEK MICHEAL PLUS MONITORING KIT QD *Please review for potential replacement for e-prescription and drug interaction check* 05/31/2015 Active Albuterol Sulfate HFA 108 (90 Base) MCG/ACT 2 puff(s) inhaled four times a day Active ACCU-CHEK LANCET SOFTCLIX QD for 90 DAYS *Please review for potential replacement for e-prescription and drug interaction check* 05/31/2015 Active Folic Acid 1 MG 1 tab(s) orally once a day Active Lisinopril 20 MG 1 tablet Orally Once a day Active ALPRAZolam 0.5 MG 1 tab(s) orally 3 times a day for 90 days 07/02/2024 Active Fedbu-6-ybij Ethyl Esters 1 GM 2 cap(s) orally once a day for 90 days Active Ezetimibe 10 MG 1 tab(s) orally once a day for 90 days Active predniSONE 10 MG 5 tabs orally once a day Active Stiolto Respimat 2.5 MCG-2.5 MCG/INH 2 PUFF(S) INHALED EVERY 24 HOURS for 90 DAYS *Please review and pick correct strength-formulatio n from [employer] options. If intended option is not shown, discontinue and re-order from Quick Search* Active Vital Signs Temperature 97.7 degrees Fahrenheit 08/12/19 25 Blood pressure systolic 136 mm Hg 08/12/19 25 Blood pressure diastolic 84 mm Hg 025 Heart Rate 84 /min 08/11/2024 Height 5 ft 5.5 in in 08/11/2024 Weight 251 lbs 08/11/2024 BMI 41.13 kg/m2 08/11/2024 Encounters Encounter Location Date Provider Diagnosis [facility] [address] [place] [address] 08/11/2024 Otto Hua Hypertension, essential I10 Assessments Encounter Date Diagnosis (ICD Code) Assessment Notes Treatment Notes Treatment Clinical Notes Section Notes 08/11/2024 Hypertension, essential (ICD-10 - I10) SBP 136 in clinic today denies chest pain, worsening sob, headaches, lightheadednes s now on pred 10 daily and lasix 20 mg every other day most recent labs drawn by onclogy reviewed and stable/improvi ng no changes to anti-hypertens jill at this time Follow-up in September for Medicare Wellness Plan Of Treatment Treatment Notes Assessment Notes Hypertension, essential SBP 136 in clinic today denies chest pain, worsening sob, headaches, lightheadedness now on pred 10 daily and lasix 20 mg every other day most recent labs drawn by onclogy reviewed and stable/improving no changes to anti-hypertensives at this time Follow-up in September for Medicare Wellness Next Appt Details Follow Up: prn, Reason: Provider Name:Otto Hua, 10/13/2024 09:45:00 AM, [address] [place] [facility] [address] [facility], [address], [place], [address], Progress Notes * Tammy AMARO MDOB: [birth year] (69 yo F)Acc No.[id number]:08/11/2024 Progress Notes Patient: Marycruz GARCIAna Brenton Provider: Zelda Hua MD :1955 A ge:69 Y S ex:Female Date:08/11/2024 Address:[address] [place] [address], [facility] Subjective: * Chief Complaints: * 1 . BP elevated. * HPI: g en: She is down to 10 mg po daily of prednisone since last . She is on lasix 20 mg po every other day about a month ago. refill lisinopril today. On average her BP is 145/80. She checks her BP in the morning and when she gets home from work daily since her last visit. Denies chest pain, worsening shortenss of breath, headache, lightheadedness. She notices that she has increased urine output on the lasix 20 mg dose. She does have some bilateral lower extremity edema, which she says is typical for her on her off days of lasix. * Medical History: C OPD, Hyperlipidemia, Statin related liver function elevation, Hypertension, Anxiety, Breast cancer diagnosed 1995 status post mastectomy-status post left breast - normal mammogram 02/07, History of severe alcohol abuse, completely abstinent since 1994, colonoscopy February 2015 with tubular adenoma isolated. Repeated November 2019 with 2 tubular adenomas, Osteopenia on Dexa 12/2017 - repeated 10/10 with osteopenia and treatment advised, ophthalmology exam for diabetic retinopathy May 2017, appropriate UDS 02/09, Normal mammogram 04/2020 and 09/11 And 10/14, LDCT Normal 04/2020 and 09/11 and 08/2022, Lung cancer with bony metastases diagnosed after abnormal low-dose CT August 2023. * Surgical History: t onsillectomy , appendectomy , gallbladder , mastetcomy complete left side , hysterectomy , left arm surgery plates and screws . * Hospitalization/Major Diagno stic Procedure: d epression , alcholism , left arm surgery , UC-CHF 2024. * Family History: F ather: , dementia. M other: , diabetes non hodgkins lymphoma. P aternal Grand Father: , [place]. P aternal Grand Mother: . M aternal Grand Father: , [place]. M aternal Grand Mother: , breast cancer. P aternal uncle: alive. P aternal aunt: . M aternal uncle: alive. M aternal aunt: alive. S iblings: alive, 1 brother infection 1 sister breast ca 1 sister unkown 1 brother-renal cancer-. C hildren: alive, 1 son mva, daughter- genetic kidney issueoldest daughter has lung cancer/liver cancer, diagnosed with Cancer. 4 brother(s) , 3 sister(s) - healthy. 1 son(s) , 3 daughter(s) . . One daughter has lung cancer. * Social History: S moking A re you a:: current smoker , How often do you smoke cigarettes?: every day, How many cigarettes a day do you smoke?: 11-20. R ecreational drug use: no. Exercise: no. Home smoke detector use: yes. Caffeine: yes, frequency:10 cups coffee daily. Living Will: No. Alcohol: no, Nothing since 1994. Sexually active: no. Travel outside [place]: no. 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 Patient states she is down to a pack every other day. * Medications: T daltong Lisinopril 20 MG Tablet 1 tablet Orally Once a day , Taking predniSONE 10 MG Tablet 5 tabs orally [...] *Please review and pick correct strength-formulation from [employer] options. If intended option is not shown, discontinue and re-order from Quick Search*, Taking Ipratropium Chetek 0.02 % Solution 2.5 mL by nebulizer [...] to Pharmacist: *Please review and pick correct strength- formulation from [employer] options. If intended option is not shown, discontinue and re-order from Quick Search*, Taking Ntqkk-6-bnix Ethyl Esters 1 GM Capsule 2 cap(s) orally once a day , Taking Ezetimibe 10 MG Tablet 1 tab(s) orally once a day , Taking ALPRAZolam 0.5 MG Tablet 1 tab(s) orally 3 times a day , Medication List reviewed and reconciled with the patient * Allergies: C odeine: rash, Penicillin: rash, Lipitor: elevated liver enzymes. Objective: * Vitals: N urse: be, Pain: 0, Temp: 97.7, RR: 16, HR: 84, BP: 136/84, Ht: 5 ft 5.5 in, Wt: 251, BMI:41.13. * Examination: G eneral Examination: General P leasant and Cooperative, NAD on RA,. Heart: R egular Rate and Rhythm, no murmur, rubs or gallops. Lungs: L CTAB, No wheezes, crackles or rhonchi, Good air movement,. Extremities: b ilateral lower extremity edema. General Appearance: N AD, pleasant. Assessment: * Assessment: 1. H ypertension, essential - I10 (Primary) Plan: * Treatment: * Follow Up: p rn * * Sign off status: Completed true * Provider: Zelda Hua MD Date: 08/11/2024 Generated for Zoiei ervin/Tammie/eTransmitting on: 0 09/26/2024 08:43 AM EDT History and Physical Notes * Examination Category Sub-Category Detail Notes Category Not es General Examination Heart: Regular Rate and Rhythm, no murmur, rubs or gallops Lungs: LCTAB, No wheezes, c rackles or rhonchi, Good air movement, Extremities: bilateral lower extr emity edema General Appearance: NAD, pleasant General Pleasant and Coopera tive, NAD on RA,
--- OUTSIDE RECORDS SUMMARY | 2024-09-05 12:00 | XMS_ITS | Encounter Summary ---
Author Organization Healthcare Address [address] [id number] Care Team Providers Care Meeting Facilitator Name Role Phone Otto Hua MD Primary Care Provider + [phone] Reason for Visit * Reason Comments Consult Pt is a 69 year old female that presents to the clinic on this date for a new patient consult. Pt denies pain at the current moment. Encounter Details Date Type Department Care Team (Latest Contact Info) Description 09/05/2024 12:00 PM EDT Office Visit [facility] [address] [place] [address] Stefano Silverio MD [address] [place] [address] [phone] Acute kidney injury (CMS/HCC) (Primary Dx); Adverse effect of immune checkpoint inhibitor, subsequent encounter; Primary adenocarcinoma of lung, unspecified laterality (CMS/HCC); Hypertension, unspecified type; Obesity (BMI 35.0-39.9 without comorbidity); Immunosuppressed due to chemotherapy; Current chronic use of systemic steroids Social History Tobacco Use Types Packs/Day Years Used Date Smoking Tobacco: Every Day Smokeless Tobacco: Never Tobacco Cessation:Ready to Q uit: No; Counseling Given: Yes Alcohol Use Standard Drinks/Week Comments Never 0 (1 standard drink = 0.6 oz pur e alcohol) Comments No Sex and Gender Information Value Date Recorded Sex Assigned at Not on file Legal Sex Female 7:19 PM EDT Gender Identity Not on file Sexual Orientation Not on file documented as of this encounter Last Filed Vital Signs Vital Sign Reading Time Taken Comments Blood Pressure 113/71 09/05/2024 11:56 AM EDT Pulse 107 09/05/2024 11:56 AM EDT Temperature - - Respiratory Rate 20 09/05/2024 11:56 AM EDT Oxygen Saturation 96% 09/05/2024 11:56 AM EDT Inhaled Oxygen Concentration - - Weight 108 kg (238 lb) 09/05/2024 11:56 AM EDT Height 165.1 cm (5' 5 ) 09/05/2024 11:56 AM EDT Body Mass Index 39.61 09/05/2024 11:56 AM EDT documented in this encounter Miscellaneous Notes * Progress Notes - Stefano Silverio MD - 09/05/2024 12:00 PM EDT Nephrology Outpatient Clinic [facility] Patient: Tammy Amaro Primary Care Provider: Otto Hua MD Referring Provider: Dr. Chase, Oncology Reason for consult: JOSSIE in setting of chemotherapy/immunotherapy HPI/Subjective Tammy Amaro is a 69 y.o. female with a PMH of Lung adenocarcinoma followed with Dr. Chase, initiated on carboplatin/pemetrexed/pembrolizumab jan 30, 2024 completed 4 cycles by apr 2024. Apr [address] [facility] with creatinine 4.6 Labs in Care Everywhere. Normal renal ultrasound. No renal biopsy performed. Treated with 60 mg po prednisone for concern for IC-JOSSIE creatinine down to 2.7 at discharge. She had her prednisone tapered as an outpatient with her Oncologist, however, the creatinine would rise when she got below 20-30mg of prednisone. In July creatinine was back to 1.2 mg/dL; however, she had another MRI/CT scan with IV contrast and creatinine is back up to 1.8 on 09/04/24. She is now back on prednisone 60mg daily and was sent urgently to see Nephrology about getting arenal biopsy. Today she feels okay. She has some mild swelling in her legs and has been taking lasix. Daughter accompanied her to clinic today. They had labs a few days ago; Urinalysis negative blood, negative protein ROS Review of Systems All other systems reviewed and are negative. History: Medical History[1] Problem List[2] Surgical History[3] Family History[4] Social History Socioeconomic History ??? Marital status: Spouse name: Not on file ??? Number of children: Not on file ??? Years of education: Not on file ??? Highest education level: Not on file Occupational History ??? Not on file Tobacco Use ??? Smoking status: Every Day ??? Smokeless tobacco: Never Vaping Use ??? Vaping status: Never Used Substance and Sexual Activity ??? Alcohol use: Never ??? Drug use: Never ??? Sexual activity: Not on file Other Topics Concern ??? Not on file Social History Narrative ??? Not on file Social Drivers of Health Financial Resource Strain: Not on file Food Insecurity: No Food Insecurity (05/06/2024) Received from [facility] Hunger Vital Sign ??? Worried About Running Out of Food in the Last Year: Never true ??? Ran Out of Food in the Last Year: Never true Transportation Needs: No Transportation Needs (05/06/2024) Received from [facility] PRAPARE - Transportation ??? Lack of Transportation (Medical): No ??? Lack of Transportation (Non-Medical): No Physical Activity: Not on file Stress: Not on file Social Connections: Not on file Intimate Partner Violence: Not on file Housing Stability: Low Risk (05/06/2024) Received from [facility] Housing Stability Vital Sign ??? Unable to Pay for Housing in the Last Year: No ??? Number of Times Moved in the Last Year: 0 ??? Homeless in the Last Year: No Allergies[5] Medications: Current Medications: Current Outpatient Medications Medication Instructions ??? albuterol (PROVENTIL) 2.5 mg, 4 times daily ??? albuterol 108 (90 Base) MCG/ACT inhaler 2 puffs, 3 times daily ??? ALPRAZolam (XANAX) 0.5 mg, 3 times daily ??? ARIPiprazole (Abilify) 10 MG tablet 1 tablet, Daily ??? buPROPion XL (WELLBUTRIN XL) 300 mg, Every morning ??? ezetimibe (Zetia) 10 MG tablet 1 tablet, Daily ??? folic acid (Folvite) 1 MG tablet 1 tablet, Daily ??? furosemide (LASIX) 20 mg, Daily ??? HYDROcodone-acetaminophen ([place]) 5-325 MG tablet 5 mg of hydrocodone, Every 6 hours PRN ??? lisinopril 20 mg, Daily ??? methocarbamol (ROBAXIN) 500 mg, 3 times daily ??? omega-3 acid ethyl esters (LOVAZA) 1 g, Daily ??? omeprazole (PRILOSEC) 20 mg, Daily ??? predniSONE (DELTASONE) 60 mg, Daily ??? Umeclidinium-Vilanterol (Anoro Ellipta) 62.5-25 MCG/ACT aerosol powder aerosol powder 1 Inhalation, Daily Objective Visit Vitals BP 113/71 (BP Location: Right arm, Patient Position: Sitting, BP Cuff Size: Large adult long) Pulse 107 Resp 20 Ht 1.651 m (5' 5 ) Wt 108 kg (238 lb) LMP (LMP Unknown) SpO2 96% BMI 39.61 kg/m?? OB Status Postmenopausal Smoking Status Every Day BSA 2.23 m?? Heart Rate: [107] 107 Resp: [20] 20 BP: (113)/(71) 113/71 Physical Exam: Physical Exam Constitutional: Appearance: Normal appearance. She is obese. HENT: Head: Normocephalic. Right Ear: External ear normal. Left Ear: External ear normal. Nose: Nose normal. Mouth/Throat: Mouth: Mucous membranes are moist. Pharynx: Oropharynx is clear. Eyes: Pupils: Pupils are equal, round, and reactive to light. Cardiovascular: Pulses: Normal pulses. Pulmonary: Effort: Pulmonary effort is normal. Abdominal: General: Abdomen is flat. Musculoskeletal: General: Normal range of motion. Right lower leg: Edema present. Left lower leg: Edema present. Skin: General: Skin is warm and dry. Capillary Refill: Capillary refill takes less than 2 seconds. Neurological: Mental Status: She is alert and oriented to person, place, and time. Mental status is at baseline. Comments: Asymmetric face appearance, appears to be her baseline Psychiatric: Mood and Affect: Mood normal. Behavior: Behavior normal. Thought Content: Thought content normal. Judgment: Judgment normal. Laboratory: LAB RESULTS Renal Panel: Lab Results Component Value Date NA 139 06/04/2015 K 3.6 (L) 06/04/2015 CL 100 (L) 06/04/2015 CO2 24 06/04/2015 BUN 10 06/04/2015 CREATININE 0.78 06/04/2015 EGFR >60 06/04/2015 EGFR >60 06/04/2015 CA 9.0 06/04/2015 CBC: Lab Results Component Value Date WBC 12.5 (H) 06/04/2015 RBC 4.58 06/04/2015 HGB 13.8 06/04/2015 HCT 41.9 06/04/2015 PLT 237 06/04/2015 MCV 92 06/04/2015 MCH 30.1 06/04/2015 MCHC 32.9 06/04/2015 RDW 12.2 06/04/2015 Iron studies: No results found for: FERRITIN , IRON , IRONSAT , TIBC Urine studies: No results found for: CAR , CAUR , CALCIUMUR , PHOSUR , [id number] , [id number] , CREATUR MBD: Lab Results Component Value Date CA 9.0 06/04/2015 VITAMIN D 25 Lab Results Component Value Date VITD25 17 (L) 06/03/2015 VITAMIN D 1,25 No results found for: VITD32 Paraproteinemia Labs: No results found for: SPEP , KAPPALAMBDA Nutritional: Lab Results Component Value Date VITD25 17 (L) 06/03/2015 Endocrine profile: No results found for: TESTOSTERONE , TESTOST , FSH , LH , PROLACTIN , TSH , L5UDBSH , FREET4 , CORTISOL RFP 08/07/2024: Na 141 K 4.3, CO2 23, BUN 19, Cr 1.2, eGFR 45, Glu 173, Ca 9.5, AST 36, Alt 48, Alb 4.1, RFP: 09/04/24 Creatinine 1.8 Urinalysis Negative blood, negative protein Imaging: Renal imaging shows 2 kidneys, there are ~1-2 cysts on each kidney largest measuring a little over 1 cm Impression & Plan: Tammy Amaro is a 69 y.o. female with PMH of Lung adenocarcinoma followed with Dr. Chase, initiated on carboplatin/pemetrexed/pembrolizumab jan 30, 2024 completed 4 cycles by apr 2024. Apr [address] [facility] with creatinine 4.6. No renal biopsy. Treated with 60 mg po prednisone for concern for IC-JOSSIE creatinine down to 2.7 at discharge. Recurrence of JOSSIE whenever prednisone is tapered. #JOSSIE Etiology: high suspicion for Immune checkpoint inhibitor JOSSIE Baseline cr: unclear, most recent vince was 1.2 mg/dL Most recent cr: 1.8 eGFR 28 Electrolytes/acid/base okay Volume: hypervolemia on lasix Urine: Neg blood, Neg protein Anatomy: 2 kidneys, normal size, seen on CT there are simple cysts Rasi: Lisinopril [id number]: none #Lung adenocarcinoma with bony metastasis -Treatment: Dr. 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 #immunosuppressed Recommendations and plan: -Discussed cases with onconephrology team and will recommend renal biopsy -Check coags, pt/inr, CBC -Will plan for Renal Biopsy next week SundaySeptember 10 -STOP all antiplatelet, anticoagulation - patient on none -Avoid herbal supplements -Continue prednisone 60mg daily until biopsy then will make taper plan -Will follow up biopsy results to determine next steps RTC in 4 weeks Stefano Silverio MD Division of Nephrology [facility] I called the daughter after clinic and she is aware to hold all Asprin, blood thinners and any herbal supplements now until after biopsy next week. Counseling Documentation: The patient was counseled regarding COUNSELING TOPICS: diagnostic results, prognosis, risks and benefit of treatment options, risk factor reductions, instructions for management, patient and family education, medication changes, diagnostic impressions, Heart healthy diet, regular physical activity and weight control, Avoidance of NSAIDs and other nephrotoxins, and biztalk consultant nature of condition. Education provided was verbal counseling.Additional time was spent in care coordination including medical record review. ENCOUNTER TIMING: I personally spent a total of 55 minutes on this encounter. This time includes face to face with patient, counseling and discussion, lab/result interpretation, coordination of follow-up care, document review. The total time of encounter was 55 minutes. . MDM: - was based on the following: Labs reviewed Urine studies: UA, urine lytes and urine creatinine, or spot urine protein and creatinine ratio and Metabolic profile: renal panel or CBC Past imaging reviewed Old chart reviewed ORDERS PLACED THIS ENCOUNTER Orders Placed This Encounter Procedures ??? CBC W/O Differential Standing Status: Future Expected Date: 10/03/2024 Expiration Date: 10/10/2025 [facility]: Immediate ??? Urinalysis with reflex microscopic (Culture NOT Included) Standing Status: Future Expected Date: 10/03/2024 Expiration Date: 10/10/2025 Release to patient in [facility]: Immediate ??? Vitamin D 25 Hydroxy Standing Status: Future Expected Date: 10/03/2024 Expiration Date: 10/10/2025 Release to patient in [facility]: Immediate ??? PTH Intact Total Standing Status: Future Expected Date: 10/03/2024 Expiration Date: 10/10/2025 Release to patient in [facility]: Immediate ??? Albumin-creatinine ratio, urine, random Standing Status: Future Expected Date: 10/03/2024 Expiration Date: 10/10/2025 Release to patient in [facility]: Immediate ??? Protein, Random, Urine with Creatinine Standing Status: Future Expected Date: 10/03/2024 Expiration Date: 10/10/2025 Release to patient in [facility]: Immediate ??? Renal Function Panel, Plasma Standing Status: Future Expected Date: 10/03/2024 Expiration Date: 10/10/2025 Release to patient in [facility]: Immediate ??? CBC Standing Status: Future Expected Date: 09/08/2024 Expiration Date: 03/08/2026 Release to patient in [facility]: Immediate [1] ??? Protime-INR Standing Status: Future Expected Date: 09/08/2024 Expiration Date: 03/08/2026 Release to patient in [facility]: Immediate [1] ??? APTT Standing Status: Future Expected Date: 09/08/2024 Expiration Date: 03/08/2026 Release to patient in [facility]: Immediate [1] ??? C3 complement Standing Status: Future Expected Date: 09/08/2024 Expiration Date: 03/08/2026 Release to patient in [facility]: Immediate [1] ??? C4 complement Standing Status: Future Expected Date: 09/08/2024 Expiration Date: 03/08/2026 Release to patient in [facility]: Immediate [1] ??? Empire Lambda Quant Free Light Chains w/Ratio Standing Status: Future Expected Date: 09/08/2024 Expiration Date: 03/08/2026 Release to patient in [facility]: Immediate [1] ??? Antinuclear Antibody (SHANNAN), HEp-2, IgG Standing Status: Future Expected Date: 09/08/2024 Expiration Date: 03/08/2026 Release to patient in [facility]: Immediate ??? ANCA Vasculitis profile Standing Status: Future Expected Date: 09/08/2024 Expiration Date: 03/08/2026 Release to patient in [facility]: Immediate [1] ??? C-reactive protein Standing Status: Future Expected Date: 09/08/2024 Expiration Date: 03/08/20[facility] [1] ??? Sedimentation rate, automated Standing Status: Future Expected Date: 09/08/2024 Expiration Date: 03/08/2026 [facility] [1] Problem List Items Addressed This Visit Acute kidney injury ([facility]) - Primary Relevant Medications furosemide (Lasix) 20 MG tablet lisinopril 20 MG tablet Other Relevant Orders CBC W/O Differential Urinalysis with reflex microscopic (Culture NOT Included) Vitamin D 25 Hydroxy PTH Intact Total Albumin-creatinine ratio, urine, random Protein, Random, Urine with Creatinine Renal Function Panel, Plasma CBC Protime-INR APTT C3 complement C4 complement Empire Lambda Quant Free Light Chains w/Ratio Antinuclear Antibody (SHANNAN), HEp-2, IgG ANCA Vasculitis profile C-reactive protein Sedimentation rate, automated Adverse effect of immune checkpoint inhibitor Relevant Orders CBC W/O Differential Urinalysis with reflex microscopic (Culture NOT Included) Vitamin D 25 Hydroxy PTH Intact Total Albumin-creatinine ratio, urine, random Protein, Random, Urine with Creatinine Renal Function Panel, Plasma Primary adenocarcinoma of lung ([facility]) Relevant Medications albuterol (Proventil) (2.5 MG/3ML) 0.083% nebulizer solution albuterol 108 (90 Base) MCG/ACT inhaler Umeclidinium-Vilanterol (Anoro Ellipta) 62.5-25 MCG/ACT aerosol powder aerosol powder Hypertension Relevant Medications furosemide (Lasix) 20 MG tablet lisinopril 20 MG tablet Obesity (BMI 35.0-39.9 without comorbidity) Immunosuppressed due to chemotherapy Relevant Medications predniSONE (Deltasone) 50 MG tablet Current chronic use of systemic steroids I confirm that I have addressed the patient's longitudinal multifaceted and complex health related active and chronic conditions that will require ongoing care with myself or someone on my team. [1] Past Medical History: Diagnosis Date ??? Displaced fracture of head of unspecified radius, initial encounter for closed fracture Radial head fracture ??? History of falling History of fall [2] There is no problem list on file for this patient. [3] History reviewed. No pertinent surgical history. [4] History reviewed. No pertinent family history. [5] Allergies Allergen Reactions ??? Atorvastatin Other - please document in the comment field, Rash and Unknown - Patient states they do not know rxn details Liver dysfunction whilst on atorva ??? Latex Itching Itching ??? Penicillins Itching, Rash and Unknown - Patient states they do not know rxn details ??? Codeine Rash and Unknown - Patient states they do not know rxn details documented in this encounter Plan of Treatment Upcoming Encounters Date Type Department Care Team (Late st Contact Info) Description 10/06/2024 10:40 AM EDT Office Visit [facility] Nephrology, Bone & Mineral Metabolism [address], [address] [place] [address] Stefano Silverio MD [address] [place] [phone] Scheduled Orders Name Type Priority Associated Diagnoses Orde r Schedule CBC W/O Differential Lab Routine Acute kidney injury (CMS/HCC) Adverse effect of immune checkpoint inhibitor, subsequent encounter Expected: 10/03/2024 (Approximate), Expires: 10/10/2025 Urinalysis with reflex microscopic (Culture NOT Included) Lab Routine Acute kidney injury (CMS/HCC) Adverse effect of immune checkpoint inhibitor, subsequent encounter Expected: 10/03/2024 (Approximate), Expires: 10/10/2025 Vitamin D 25 Hydroxy Lab Routine Acute kidney injury (CMS/HCC) Adverse effect of immune checkpoint inhibitor, subsequent encounter Expected: 10/03/2024 (Approximate), Expires: 10/10/2025 PTH Intact Total Lab Routine Acute kidney injury (CMS/HCC) Adverse effect of immune checkpoint inhibitor, subsequent encounter Expected: 10/03/2024 (Approximate), Expires: 10/10/2025 Albumin-creatinine ratio, urine, random Lab Routine Acute kidney injury (CMS/HCC) Adverse effect of immune checkpoint inhibitor, subsequent encounter Expected: 10/03/2024 (Approximate), Expires: 10/10/2025 Protein, Random, Urine with Creatinine Lab Routine Acute kidney injury (CMS/HCC) Adverse effect of immune checkpoint inhibitor, subsequent encounter Expected: 10/03/2024 (Approximate), Expires: 10/10/2025 Renal Function Panel, Plasma Lab Routine Acute kidney injury (CMS/HCC) Adverse effect of immune checkpoint inhibitor, subsequent encounter Expected: 10/03/2024 (Approximate), Expires: 10/10/2025 documented as of this encounter Visit Diagnoses Diagnosis Acute kidney injury (CMS/HCC)- Primary Adverse effect of immune checkpoint inhibitor, subsequent encounter Primary adenocarcinoma of lung, unspecified laterality (CMS/HCC) Hypertension, unspecified type Obesity (BMI 35.0-39.9 without comorbidity) Immunosuppressed due to chemotherapy Current chronic use of systemic steroids documented in this encounter Additional Health Concerns Assessment Noted Time A Body Mass Index follow-up plan has been documented for the patient 09/05/2024 2:38 PM EDT documented as of this encounter Care Teams Meeting Facilitator Relationship Specialty Start Date End Date Otto Hua MD [address] [place] [address] [place] [id number] PCP - General 09/03/20 documented as of this encounter
--- OUTSIDE RECORDS SUMMARY | 2024-09-10 06:26 | XMS_ITS | Encounter Summary ---
Author Organization Healthcare Address [address] [place] [address] Care Team Providers Care Rod Piler Name Role Phone Otto Hua MD Primary Care Provider [phone] Reason for Referral * Imaging (Routine) - Closed Specialty Diagnoses / Procedures Referred By Love blackwood Referred To Contact Radiology Diagnoses Acute kidney injury (CMS/HCC) Adverse effect of immune checkpoint inhibitor Current chronic use of systemic steroids Procedures US Guided Biopsy Renal Left Daniel Alexander MD [address] [address] Phone: tel: fax: Referral ID Status Reason Start Date Expiration Date Visits Re quested Visits Authorized [id number] Closed 09/08/2024 03/10/2026 1 1 Reason for Visit * Imaging (Routine) - Closed Specialty Diagnoses / Procedures Referred By Love blackwood Referred To Contact Radiology Diagnoses Acute kidney injury (CMS/HCC) Adverse effect of immune checkpoint inhibitor Current chronic use of systemic steroids Procedures US Guided Biopsy Renal Left Daniel Alexander MD [address] [address] Phone: tel: fax: Referral ID Status Reason Start Date Expiration Date Visits Re quested Visits Authorized [id number] Closed 09/08/2024 03/10/2026 1 1 Encounter Details Date Type Department Care Team (Latest Contact Info) Description 09/10/2024 6:26 AM EDT - 09/10/2024 11:59 PM EDT Hospital Encounter [facility] Interventional Radiology [address] [place] [address] Rocco Barth Acute kidney injury (CMS/HCC); Adverse effect of immune checkpoint inhibitor; Current chronic use of systemic steroids Discharge Disposition: Home or Self Care Social History Tobacco Use Types Packs/Day Years Used Date Smoking Tobacco: Every Day Smokeless Tobacco: Never Alcohol Use Standard Drinks/Week Comments Never 0 [...] Sign Reading Time Taken Comments Blood Pressure 138/77 09/10/2024 2:00 PM EDT Pulse 78 09/10/2024 2:00 PM EDT Temperature 36.7 C (98 F) 09/10/2024 12:00 PM EDT Respiratory Rate 17 09/10/2024 11:18 AM EDT Oxygen Saturation 95% 09/10/2024 2:00 PM EDT Inhaled Oxygen Concentration - - Weight 113 kg (248 lb 14.4 oz) 09/10/2024 6:36 A M EDT Height 165.1 cm (5' 5 ) 09/10/2024 6:36 AM EDT Body Mass Index 41.42 09/10/2024 6:36 AM EDT documented in this encounter Discharge Instructions * Discharge Instructions* Rocco Barth - 09/10/2024 1:22 PM EDT *Interventional Radiology* (IR) Questions/Concerns & Appointments: If there are questions or concerns after discharge please call: [facility] at [phone] Sunday - Sunday 8:00 AM to 4:30 PM After hours, weekends, and holidays please call [phone] and ask for the Interventional Radiology provider/Resident on-call Intervention Radiology Appointments: If you need to reschedule a procedure, please call our Schedulers at [phone], option 4. If you need to schedule or reschedule a clinic appointment, please call [phone]. V[facility] Clinic Vascular and Interventional Radiology Clinic [facility] [address] [place] [id number] Take extra dose of PO Lasix today 09/10 documented in this encounter Medications at Time of Discharge albuterol (Proventil) (2.5 MG/3ML) 0.083% nebulizer solution Take 3 mL by nebulization 4 times a day. albuterol 108 (90 Base) MCG/ACT inhaler Inhale 2 puffs 3 times a day. ALPRAZolam (Xanax) 0.5 MG tablet Take 1 tablet by mouth 3 times a day. ARIPiprazole (Abilify) 10 MG tablet Take 1 tablet by mouth Daily. buPROPion XL (Wellbutrin XL) 300 MG 24 hr tablet Take 1 tablet by mouth every morning. 12/12/2014 ezetimibe (Zetia) 10 MG tablet Take 1 tablet by mouth Daily. folic acid (Folvite) 1 MG tablet Take 1 tablet by mouth Daily. furosemide (Lasix) 20 MG tablet Take 1 tablet by mouth daily. 2015 HYDROcodone-acet aminophen (Mahwah) 5-325 MG tablet Take 1 tablet by mouth every 6 hours as needed. lisinopril 20 MG tablet Take 1 tablet by mouth daily. 08/13/2024 methocarbamol (Robaxin) 500 MG tablet Take 1 tablet by mouth 3 times a day. omega-3 acid ethyl esters (Lovaza) 1 g capsule Take 1 capsule by mouth daily. 2015 omeprazole (PriLOSEC) [address] capsule Take 1 capsule by mouth daily. predniSONE (Deltasone) 50 MG tablet Take 60 mg by mouth daily. Umeclidinium-Kimberly anterol (Anoro Ellipta) 62.5-25 MCG/ACT aerosol powder aerosol powder Inhale 1 Inhalation daily. documented as of this encounter Miscellaneous Notes * Progress Notes - Rocco Barth - 09/10/2024 2:46 PM EDT VSS, NAD noted, VU of care after discharge and denies questions or concerns. Discharged to private vehicle by WC; accompanied by transport x 1; all personal belongings with pt, bay void of any patient belongings upon exit. Rocco Barth 09/10/2024 2:46 PM * [facility] On[facility] - Rocco Barth - 09/10/2024 1:16 PM EDT Images from the original note were not included. 1513 Caring for Yourself after Kidney Biopsy Today you had a kidney biopsy (also called renal biopsy). Site care There is a bandage over the site. Please keep this dressing in place for 72 hours. If the dressing becomes soiled, you may replace it with a clean band aid. Keep the site covered with a band aid until it is completely healed. ?? If you have redness at the site, drainage from the site, or odor at the site, please call the Kidney Clinic. ?? Keep the area dry (no shower) for at least 2 days. Diet You may eat as tolerated. Activity ?? Do not drive today. ?? Do not lift more than 10 pounds for 72 hours. After that time, you may go back your normal activity. ?? Wait 2 weeks before going back to strenuous activities. This includes heavy lifting and contact sports. Follow up ?? The Kidney Clinic will call to check on you in 3 days. Please be sure to get the blood work on day 3 as well. ?? We will get in touch with you once we have the results of the biopsy. Call your doctor right away if you have any of the following ?? More than a teaspoon of bleeding at the site ?? Pain around the site gets worse rather than better 2-3 days later ?? Not feeling well and have a fever greater than 100.4?? F (38?? C) ?? Blood in your urine gets worse after 2 days ?? Feeling exhausted or very weak ?? Dizziness or lightheadedness ?? Sudden or increased shortness of breath ?? Sudden chest pain ?? Increasing redness, tenderness, or swelling at the biopsy site ?? Biopsy site opens or has drainage or bleeding * [facility] On[facility] - Rocco Barth - 09/10/2024 1:16 PM EDT Images from the original note were not included. [id number] Recovery After Procedural Sedation (Adult) You have been given medicine by vein to make you sleep during your procedure. This may have included both a pain medicine and sleeping medicine. You may have side effects, such as nausea, fatigue, orunsteadiness for up to 24 hours. You may also feel lightheaded. Home care Follow these guidelines when you get home: ?? For the next 8 or more hours, ask a trusted adult to watch over you. This person should make sure your condition is not getting worse, watch for problems, and keep you safe. ?? Don't drink any alcohol for the next 24 hours. ?? Don't drive, operate dangerous machinery, or make important business or personal decisions during the next 24 hours. ?? Take extra care when walking and moving, You may be at a higher risk of falling. ?? Follow any instructions you were given for eating and drinking. ?? Be sure to follow all after-care directions. Note: Your healthcare provider may tell you not to take any medicine by mouth for pain or sleep in the next 4 hours. These medicines may react with the medicines you were given in the hospital. This could cause a much stronger response than usual. Follow-up care Follow up with your healthcare provider as advised. When to seek medical advice Have someone call your healthcare provider or seek medical care right away if any of these occur: ?? Drowsiness gets worse ?? Weakness or dizziness gets worse ?? Repeated vomiting ?? Your speech is slurred, and others cannot understand you. ?? Severe or ongoing pain from the procedure that's not eased by the pain medicine (if prescribed) ?? Fever ?? New rash Call 911 Have someone call 911 if you develop any of these symptoms: ?? Trouble breathing ?? Trouble swallowing ?? Chest pain ?? Loss of consciousness or you can't be awakened Last Reviewed Date: 2023 00:00:00 ?? [id number] [employer]. All rights reserved. This information is not intended as a substitute for professional medical care. Always follow your healthcare professional's instructions. * Post-Procedure Note - Daniel Alexander MD - 09/10/2024 8:00 AM EDT Vascular and Interventional Radiology Brief Postprocedure Note Attending: Dr. Alexander Pre-operative Diagnosis: JOSSIE Post-operative Diagnosis: s/p image guided kidney bx Type of Anesthesia: Conscious Sedation Description of Findings: left kidney identified Technical/Surgical Procedures Used: US Specimen Obtained: Yes, 2 cores Complications: None Estimated Blood Loss: minimal Procedure Events Event Event Time Sedation Start 09/10/2024 8:12 AM Sedation Stop 09/10/2024 8:30 AM See detailed result report with images in PACS. The patient tolerated the procedure well without incident or complication and is in stable condition. * Pre-Procedure Note - Daniel Alexander MD - 09/10/2024 8:00 AM EDT Images from the original note were not included. INTERVENTIONAL RADIOLOGY SEDATION PRE-PROCEDURAL ASSESSMENT AND PLAN OF CARE Indication for procedure: Diagnoses of Acute kidney injury (CMS/HCC), Adverse effect of immune checkpoint inhibitor, and Current chronic use of systemic steroids were pertinent to this visit. Planned Procedure: Kidney Bx Relevant past medical history: None Previous problems with surgery, anesthesia or sedation: No Previous family history or problems with anesthesia or sedation: No History of tobacco use, alcohol use, or substance abuse: Tobacco Use History[1], Social History Substance and Sexual Activity Alcohol Use Never , Social History Substance and Sexual Activity Drug Use Never Height and Weight: Visit Vitals BP (!) 153/84 Pulse 97 Temp 36.7 ??C (98 ??F) (Temporal) Ht 1.651 m (5' 5 ) Wt 113 kg (248 lb 14.4 oz) SpO2 92% BMI 41.42 kg/m?? Allergies to medication: Atorvastatin, Latex, Penicillins, and Codeine Current medications: Current Medications[2] Relevant Labs: Lab Results Component Value Date CREATININE 0.78 06/04/2015 EGFR >60 06/04/2015 EGFR >60 06/04/2015 INR 06/02/2015 0.9 (NOTE) OPTIMAL INR RANGES FOR PATIENT ON ORAL ANTICOAGULANT THERAPY Prevention of venous thromboembolism INR 2.0 to 3.0 In patients with heart disease: Atrial fibrillation INR 2.0 to 3.0 Valvular heart disease INR 2.0 to 3.0 Tissue heart valves INR 2.0 to 3.0 Mechanical prosthetic valves INR 2.5 to 3.5 Prevention of recurrent VT INR 2.5 to 3.5 Planned Sedation/Anesthesia: Minimal Airway assessment: normal Mallampati Score: III (soft and hard palate and base of uvula visible) ASA: ASA 3 - Patient with moderate systemic disease with functional limitations Directed physical examination: Vitals: 09/10/24 0700 BP: (!) 153/84 Pulse: 97 Resp: (!) 28 Temp: SpO2: 92% GENERAL: Awake, alert, NAD HEENT: NCAT NECK: No appreciable JVD CARDIAC: Regular rate, 2-3+ edema PULM: CTAB ABD: Soft, NT, ND EXT: Warm SKIN: No rashes or lesions NEURO: A&Ox4, moving all extremities spontaneously Benefits, risks and alternatives of procedure and planned sedation have been discussed with the patient and/or their branch service representative. All questions answered and they agree to proceed. [1] Social History Tobacco Use Smoking Status Every Day Smokeless Tobacco Never [2] Current Outpatient Medications Medication Sig Dispense Refill albuterol (Proventil) (2.5 MG/3ML) 0.083% nebulizer solution Take 3 mL by nebulization 4 times a day. albuterol 108 (90 Base) MCG/ACT inhaler Inhale 2 puffs 3 times a day. ALPRAZolam (Xanax) 0.5 MG tablet Take 1 tablet by mouth 3 times a day. ARIPiprazole (Abilify) 10 MG tablet Take 1 tablet by mouth Daily. buPROPion XL (Wellbutrin XL) 300 MG 24 hr tablet Take 1 tablet by mouth every morning. ezetimibe (Zetia) 10 MG tablet Take 1 tablet by mouth Daily. folic acid (Folvite) 1 MG tablet Take 1 tablet by mouth Daily. furosemide (Lasix) 20 MG tablet Take 1 tablet by mouth daily. HYDROcodone-acetaminophen (Mahwah) 5-325 MG tablet Take 1 tablet by mouth every 6 hours as needed. lisinopril 20 MG tablet Take 1 tablet by mouth daily. methocarbamol (Robaxin) 500 MG tablet Take 1 tablet by mouth 3 times a day. omega-3 acid ethyl esters (Lovaza) 1 g capsule Take 1 capsule by mouth daily. omeprazole (PriLOSEC) [address] capsule Take 1 capsule by mouth daily. predniSONE (Deltasone) 50 MG tablet Take 60 mg by mouth daily. Umeclidinium-Vilanterol (Anoro Ellipta) 62.5-25 MCG/ACT aerosol powder aerosol powder Inhale 1 Inhalation daily. No current facility-administered medications for this encounter. * H&P - Daniel Alexander MD - 09/10/2024 8:00 AM EDT Note from 09/05 reviewed, discussed with Dr. Silverio, will proceed with bx documented in this encounter Plan of Treatment Upcoming Encounters Date Type Department Care Team (Late st Contact Info) Description 10/06/2024 10:40 AM EDT Office Visit [facility] [place] [address], [address] [place] [id number] Stefano Silverio MD [address] [place] [phone] documented as of this encounter Procedures Procedure Name Priority Date/Time Associated Diagnosis Comments HEMOGLOBIN Routine 09/10/2024 12:01 PM EDT HEMATOCRIT, BLOOD Routine 09/10/2024 12: 01 PM EDT US GUIDED BIOPSY RENAL LEFT Routine 09/10/2024 8:25 AM EDT Acute kidney injury (CMS/HCC) Adverse effect of immune checkpoint inhibitor Current chronic use of systemic steroids SURGICAL PATHOLOGY EXAM Routine 09/10/2024 8:18 AM EDT HEMOGLOBIN AND HEMATOCRIT, BLOOD STAT 09/10/2024 6:58 AM EDT TYPE AND SCREEN Routine 09/10/2024 6:58 AM EDT documented in this encounter Results * Hematocrit, Blood (09/10/2024 12:01 PM EDT) HCT 40.6 34.0 - 45.0 % LAB HEMATOLOGY METHOD 09/10/2024 1:00 PM EDT [facility] Blood Venous blood specimen / Unknown Venipuncture / Unknown 09/10/2024 12:01 PM EDT 09/10/2024 12:50 PM EDT us Daniel Alexander MD LAB BLOOD OR DERABLES Final Result Performing Organization Address City/[facility]/ZIP Co de Phone Number [facility] [address] [place] [address] * Hemoglobin, Blood (09/10/2024 12:01 PM EDT) HGB 12.4 11.2 - 15.7 g/dL LAB HEMATOLOGY METHOD 09/10/2024 1:00 PM EDT [facility] Blood Venous blood specimen / Unknown Venipuncture / Unknown 09/10/2024 12:01 PM EDT 09/10/2024 12:50 PM EDT us Daniel Alexander MD LAB BLOOD OR DERABLES Final Result Performing Organization Address City/[facility]/[place] [address] * US Guided Biopsy Renal Left (09/10/2024 8:25 AM EDT) Anatomical Region Laterality Modality Kidney Left X-Ray Angiograph y Impressions 09/10/2024 1:12 PM EDT Successful non-target ultrasound guided left [place] kidney biopsy CRITICAL RESULT: No. COMMUNICATION: Per this written report. Drafted by Daniel Alexander on 09/10/2024 1:11 PM Final report signed by Daniel Alexander on 09/10/2024 1:12 PM Narrative 09/10/2024 1:12 PM EDT CLINICAL INDICATION: JOSSIE TECHNIQUE: Child Protective Investigator: Dr. Alexander Secondary Guest Service Agent: None Medications used: 1 mg midazolam 100 mcg fentanyl Time out: 8:12 Sedation stop: 8:30 Procedure: Ultrasound guided non target random left renal biopsy. The patient was brought to the ultrasound room and placed in a lateral decubitus position. Subsequently, the left kidney was visualized under ultrasonographic guidance and the skin marked for the proposed site of entry. Images were saved into PACS. The overlying skin and the surrounding area were then cleaned with chlorhexidine and covered with a sterile drape under sterile precautions. About 10 ml of lidocaine was then injected in the skin, subcutaneous and deep tissues under ultrasound guidance. An 18-gauge biopsy needle was introduced through the marked and anesthetized area under ultrasound guidance and 3 passes were made to biopsy the left kidney resulting in 2 cores of tissue. The biopsy specimens were preliminary examined by the surgical pathologist/flight readiness technician present in the ultrasound room and were found to have enough number of glomeruli. The biopsy site was then cleaned, and a bandage applied. Patient tolerated the procedure well. COMPARISON: None. FINDINGS: Left kidney identified. Immediate post procedural scanning demonstrated no perinephric hematoma. COMPLICATION: No. Procedure Note Daniel Alexander MD - 09/10/2024 CLINICAL INDICATION: JOSSIE TECHNIQUE: Child Protective Investigator: Dr. Alexander Secondary Guest Service Agent: None Medications used: 1 mg midazolam 100 mcg fentanyl Time out: 8:12 Sedation stop: 8:30 Procedure: Ultrasound guided non target random left renal biopsy. The patient was brought to the ultrasound room and placed in a lateraldecubitus position. Subsequently, the left kidney was visualized underultrasonographic guidance and the skin marked for the proposed site ofentry. Images were saved into PACS. The overlying skin and the surrounding area were then cleaned withchlorhexidine and covered with a sterile drape under sterile precautions.About 10 ml of lidocaine was then injected in the skin, subcutaneous anddeep tissues under ultrasound guidance. An 18-gauge biopsy needle was introduced through the marked andanesthetized area under ultrasound guidance and 3 passes were made tobiopsy the left kidney resulting in 2 cores of tissue. The biopsy specimens were preliminary examined by the surgicalpathologist/flight readiness technician present in the ultrasound room and werefound to have enough number of glomeruli. The biopsy site was then cleaned, and a bandage applied. Patient toleratedthe procedure well. COMPARISON: None. FINDINGS: Left kidney identified. Immediate post procedural scanning demonstrated noperinephric hematoma. COMPLICATION: No. IMPRESSION: Successful non-target ultrasound guided left [place] kidney biopsy CRITICAL RESULT: No. COMMUNICATION: Per this written report. Drafted by Daniel Alexander on 09/10/2024 1:11 PM Final report signed by Daniel Alexander on 09/10/2024 1:12 PM us Daniel Alexander MD IMG US ROB GAO Final Result * Surgical Pathology Exam (09/10/2024 8:18 AM EDT) Case Report Surgical Pathology Case: [id number] Authorizing Provider: Daniel Alexander Collected: 09/10/2024 08Abdoul Harris MD Ordering Location: [facility] A Interventional Received: 09/10/2024 0845 Radiology Pathologist: Jordan Stafford MD Specimen: Kidney, Left 09/11/2024 3:07 PM EDT [facility] Final Diagnosis [place] KIDNEY, NEEDLE BIOPSY: - ACUTE TUBULAR INJURY AND MILD ACUTE INTERSTITIAL NEPHRITIS, SEE MICROSCOPIC DESCRIPTION AND NOTE - MODERATE INTERSTITIAL FIBROSIS AND MODERATE TUBULAR ATROPHY - IMMUNOFLUORESCENCE MICROSCOPY NEGATIVE FOR GLOMERULAR IMMUNE COMPLEXES - ELECTRON MICROSCOPY IS PENDING, UPON COMPLETION, RESULTS WILL BE REPORTED IN AN AMENDMENT 09/11/2024 3:07 PM EDT [facility] at 1507 EDT Comment The biopsy findings, which include mild acute interstitial nephritis, may be related to a history of checkpoint inhibitor administration that has been modulated by steroid administration. Clinical correlation is recommended. Preliminary results of the biopsy are communicated to Dr. Silverio on 09/11/2024 at [address] Stafford. 09/11/2024 3:07 PM EDT [facility] Clinical Information Past medical history significant for adenocarcinoma of the lung with metastasis. Status post chemotherapy including checkpoint inhibitor. Recent hospitalization in April 2024 with a creatinine of 4.6. Status post treatment with steroids resulting in a decrease in creatinine. Creatinine 1.2. No significant hematuria or proteinuria. 09/11/2024 3:07 PM T [facility] Microscopic Description LIGHT MICROSCOPY: 5 H&E, 2 PAS, 2 trichrome, 2 Blanco. The biopsy consists of 2 needle cores of renal parenchyma and is adequate for evaluation. On 1 branch service representative level of the biopsy up to 8 total glomeruli are identified 1 of which is globally sclerotic. The glomeruli are normocellular and do not contain significant inflammatory cell infiltrates. The Blanco stain highlights intact glomerular basement membranes. The PAS stain highlights moderate tubular atrophy and mild tubulitis. In addition, moderate tubular epithelial cell simplification is present with numerous tubular lumens containing sloughing tubular epithelial cells. The trichrome stain highlights moderate interstitial fibrosis. The interstitium contains mild to moderate inflammatory cell infiltrates consisting of a mixture of lymphocytes and plasma cells. Foci of interstitial edema are observed. The tissue contains small arteries with up to a mild degree of intimal fibrosis. Arterioles are patent without significant hyalinization. IMMUNOFLUORESCENCE MICROSCOPY: Immunofluorescence microscopy is performed on renal tissue containing up to 3 total glomeruli none of which are sclerotic. No significant glomerular staining is observed with fibrinogen, IgG, IgA, IgM, C3, C1q, kappa, or lambda. Casts stain with IgA, IgM, C3, kappa, and lambda. Some tubular epithelial cells stain with albumin. C3 stains a few tubular basement membranes and arterioles. ELECTRON MICROSCOPY: Currently pending. 09/11/2024 3:07 PM [facility] Gross Description A. The specimen is received fresh and consists of 2 goldstein-pink tissue core fragments ranging in length from 1.4 to 1.0 cm, and measuring approximately 0.1 cm in diameter. The tissue is divided for light, immunofluorescence and electron microscopy studies. The tissue for electron microscopy is sent to [facility] for processing and photographing. Cold Time: 8:18 AM 09/11/2024 3:07 PM [facility] Tissue Left kidney structure / Unknown Non-blood Collection / Unknown 09/10/2024 8:18 AM EDT 09/10/2024 8:45 AM EDT us Daniel Alexander MD LAB PATHOLOG Y ORDERABLES Final Result Performing Organization Address City/[facility]/ZIP Co de Phone Number [facility] [address] [place] [address] * Type and Screen (09/10/2024 6:58 AM EDT) ABO/Rh O Positive 09/10/2024 6:30 AM EDT BLOOD [facility] Antibody Screen Negative 09/10/2024 6:30 AM EDT [facility]LO[facility] Specimen Expiration 09/13/2024 23:59 09/10/2024 6:30 AM EDT [facility] Blood Venous blood specimen / Unknown Venipuncture / Unknown 09/10/2024 6:58 AM EDT 09/10/2024 7:01 AM EDT us Daniel Alexander MD LAB BLOOD BA NK TEST ORDERABLES Final Result Performing Organization Address [facility] de Phone Number BLOOD BANK [address] [place] [address], * Hemoglobin and Hematocrit, Blood (09/10/2024 6:58 AM EDT) HGB 12.6 11.2 - 15.7 g/dL LAB HEMATOLOGY METHOD 09/10/2024 7:16 AM EDT [facility] HCT 41.1 34.0 - 45.0 % LAB HEMATOLOGY METHOD 09/10/2024 7:16 AM EDT [facility] Blood Venous blood specimen / Unknown Venipuncture / Unknown 09/10/2024 6:58 AM EDT 09/10/2024 7:07 AM EDT us Daniel Alexander MD LAB BLOOD OR DERABLES Final Result Performing Organization Address City/[facility]/ZIP Co de Phone Number [facility] [address] [place] [address] documented in this encounter Visit Diagnoses Diagnosis Acute kidney injury (CMS/HCC) Adverse effect of immune checkpoint inhibitor Current chronic use of systemic steroids documented in this encounter Administered Medications Inactive Administered Medications - up to 3 most recent administrations Medication Order MAR Action Action Date Dose Rate Site fentaNYL (Sublimaze) injection Intravenous, As needed, Starting on Sun09/10/24 at 0812, Until Sun09/10/24 at 0825, Routine, Intraprocedure Given 09/10/2024 8:25 AM EDT 50 mcg Given 09/10/2024 8:12 AM EDT 50 mcg heparin flush (porcine) 100 UNIT/ML injection 500 Units 500 Units, Intracatheter, As needed, Starting on Sun09/10/24 at 1432, Until Anabela 09/11/24 at 0236, STAT, Recovery(Phase II-Outpatient)/On Unit(Inpatient), line care Given 09/10/2024 2:36 PM EDT 500 Units labetalol (Normodyne,Trandate) injection As needed, Starting on Sun09/10/24 at 0808, Until Sun09/10/24 at 0808, Routine, Intraprocedure Given 09/10/2024 8:08 AM EDT 10 mg lidocaine (Xylocaine) 1 % injection Intradermal, As needed, Starting on Sun09/10/24 at 0816, Until Sun09/10/24 at 0816, Routine, Intraprocedure Given 09/10/2024 8:16 AM EDT 10 mL midazolam (Versed) injection Intravenous, As needed, Starting on Sun09/10/24 at 0812, Until Sun09/10/24 at 0812, Routine, Intraprocedure Given 09/10/2024 8:12 AM EDT 1 mg oxyCODONE (Roxicodone) immediate release tablet 10 mg 10 mg, Oral, Once, 1 dose, On Sun09/10/24 at 1200, STAT, Recovery(Phase II-Outpatient)/On Unit(Inpatient) Given 09/10/2024 11:18 AM EDT 10 mg documented in this encounter Additional Health Concerns Assessment Noted Time A Body Mass Index follow-up plan has been documented for the patient 09/10/2024 1:22 PM EDT documented as of this encounter Care Teams Rod Piler Relationship Specialty Start Date End Date Otto Hua MD [address] [place] [address] [place] [address] PCP - General 09/03/20 documented as of this encounter
[2024-09-25] VITALS (8 sets, daily range): BP systolic 122–162; BP diastolic 72–83; PULSE 99–112; RESP 18–29; TEMP 36.6–37.2; O2SAT 82–94; BMI 40.4; BMI 38.7
--- NOTE | 2024-09-25 17:39 | ECG_ITS ---
APPROVED REPORT Exam: Resting ECG HR:104 bpm ECG Measurements Heart Rate 104 AXES NC 172 P 43 QRSd 98 QRS 49 QT 300 T 55 QTc 361 Conclusion SINUS TACHYCARDIA POSSIBLE LEFT ATRIAL ENLARGEMENT [-0.1mV P-WAVE IN V1/V2] Electronically signed by : CHAI ZAVALA, 09/27/2024 03:56:03
--- OUTSIDE RECORDS SUMMARY | 2024-09-25 17:44 | XMS_ITS | Data Portability ---
Author Organization [place] - [facility] Address [address] [place] [address] Care Team Providers Care Hand Deicer Element Winder Name Role Phone MARIANA FOX Radiation Oncologist [...] No observ ation record ed. [facility] [address], [place], [address], 07/07/2024 13:05:24 07/09/19 25 07/04/2024 imagi ng/di agnos tic resul t No observ ation record ed. [facility] Damper Fitter [address], [place], [address], 07/08/2024 13:06:03 Result Notes None recorded. Problems Name Problem SNOMED Code Status Onset Date Resolution Date Notes Provider Name and Address Organization Details Recorded Time Metastatic malignant neoplasm to bone 02450220 Active 024 JOAO Najera [facility] & [place] 5 14:45:21 Malignant neoplasm of upper lobe of left lung 191612746 Active 024 JOAO Najera [facility] & [place] 5 14:46:26 Problem Notes None recorded. Procedures Surgical History Date Name Laterality Status Provider Name and Address Organization Details Recorded Time simple mastectomy of left breast completed Gladys CASTRO [facility] [place] 06/02/2024 15:00:57 Appendectomy completed Gladys CASTRO [facility] [place] 06/04/2024 14:08:23 Cholecystectomy completed Gladys CASTRO [facility] [place] 06/04/2024 14:08:35 hysterectomy completed Gladys CASTRO [facility] [place] 06/04/2024 14:08:52 [facility]illectomy completed [facility] [place] 06/04/2024 14:09:01 Imaging Results None recorded. Procedure Notes None recorded. Medical Equipment None Reported. Allergies Allergen ID Allergen Name Allergen Category Reaction Reaction Severity Criticality Documentation Date Start Date Code Code System Note Provider Name and Address Organization Details Recorded Time 973280 Lipitor medicatio n Not available Not available Not available 06/02/2024 53346 5 RxNorm JOAO Najera [facility] & [place] 14:48:04 984069 codeine medicatio n Not available Not available Not available 06/02/2024 2670 RxNorm JOAO Najera [facility] & [place] 14:48:17 399849 latex environme nt,medica tion Not available Not available Not available 06/02/2024 86310 91 RxNorm JOAO Najera [facility] & [place] 14:48:40 920490 Product containin g penicilli n (product) medicatio n Not available Not available Not available 06/02/2024 24494 8001 SNOMED JOAO Najera [facility] & [place] 14:48:58 Medications Name Sig Start Date Stop [...] Updated DateTime 5 165.1 cm 39.9 kg/m2 201433. 73 g 97.9 [degF] 94 % 94 % 88 /min 20 /min Gladys CASTRO [facility] [place] 5 14:11:20 Social History Question Answer Notes LastModified by Organizat ion Details LastModified Time Tobacco Smoking Status Current Every Day Smoker Gladys Ferrell null, JOAO No [place] & [place] 06/04/2024 14:05:10 What Was The Date Of [...] Provided? 06/04/2024 Smoking Cessation Brochures From [facility] And [facility] Given Information not [...] SNOMED-CT Code Diagnosis ICD10 Code Diagnosis Note [id number] [facility] [place] [address] 8 06/04/2024 13:03:15 06/04/2024 15:00:33 Metastatic malignant neoplasm to bone 47269406 C79.51 Malignant neoplasm of upper lobe of left lung 333388279 C34.12 [id number] Mariana Fox MD [place] [address] 8 06/16/2024 08:50:44 06/16/2024 10:17:04 Malignant neoplasm of upper lobe of left lung 308283636 C34.12 [id number] Mariana Fox MD [place] [address] 8 06/23/2024 10:48:55 06/23/2024 12:02:32 Malignant neoplasm of upper lobe of left lung 936708244 C34.12 [id number] Mariana Fox MD [place] [address] 8 06/24/2024 08:50:38 06/24/2024 11:06:08 Malignant neoplasm of upper lobe of left lung 004551874 C34.12 [id number] Mariana Fox MD [place] [address] 8 06/25/2024 13:10:45 06/25/2024 13:52:12 Malignant neoplasm of upper lobe of left lung 596244760 C34.12 [id number] Mariana Fxo MD [place] [address] 8 06/26/2024 10:32:12 06/26/2024 11:30:06 Malignant neoplasm of upper lobe of left lung 266026536 C34.12 [id number] Mariana Fox MD [place] [address] 8 06/27/2024 10:33:13 06/27/2024 11:58:01 Malignant neoplasm of upper lobe of left lung 195957844 C34.12 [id number] Mariana Fox [facility] [address] [place] [address] 07/07/2024 14:04:20 07/07/2024 14:56:30 Malignant neoplasm of upper lobe of left lung 646681863 C34.12 Health Concerns Section Related Observation LastModified by Organization Detai ls LastModified Time None Recorded Concern Status LastModified by Organization Details LastModified Time None Recorded Advance Directives Directive None Recorded Payers Insurance Date Sequence Insurance Name Policy Number Policy Sorenson Covered Member ID Sorenson Member ID Guarantor Name 07/04/2024 1 [employer] (MEDICARE REPLACEMENT/ ADVANTAGE - PPO) [id number] Tammy Farris Dewitt [id number] [facility] 06/04/2024 2 [place] Tammy Dewitt [id number] [facility] 06/04/2024 1 [employer] (MEDICARE SUPPLEMENT) [facility] [id number] [facility] Notes Date Note Type Note Provider Name and Address Organization Details Recorded Time 06/25/2024 text/html Patient doing qu ite well had mild pain in the left ribcage area after she fell yesterday at home there was no signs of any fractures. Mariana Fox MD [address] [place] [address],[address], [place], [address], [place] [facility] 06/25/2024 13:52:01 06/27/2024 text/html Patient complete d [...] no subsequent recurrence. Mariana Fox MD [address], [place], [address], [facility] - [facility] & [place] 06/27/2024 10:41:35 07/07/2024 text/html Patient is here [...] months would be advisable. Mariana Fox MD [address] [place] [address] Drive,[address], [place], [address], [place] [facility] [place] 07/07/2024 14:23:11 OBGyn Episode No OBEpisode recorded.
[2024-09-25 17:51] LABS: Coronavirus 19, PCR Not Detected (NotDetected); Influenza A, PCR Not Detected (NotDetected); Influenza B, PCR Not Detected (NotDetected)
--- NOTE | 2024-09-25 17:51 | XR_ITS ---
PROCEDURE INFORMATION: Exam: XR Chest Exam date and time: 09/25/2024 6:06 PM Age: 69 years old Clinical indication: Shortness of breath; Additional info: SOA TECHNIQUE: Imaging protocol: Radiologic exam of the chest. Views: 1 view. COMPARISON: CT CHEST WO CON 05/05/2024 2:44 PM FINDINGS: Lungs: Interval development of opacity in the left mid lung. Lungs are otherwise clear. Stable position of the infusion catheter with tip in the SVC. Pleural spaces: Interval development of moderate size left basilar effusion with associated opacification of the lower 1/3 of the left hemithorax. Heart/Mediastinum: Unremarkable. No cardiomegaly. Bones/joints: Unremarkable. IMPRESSION: New left basilar moderate-sized effusion associated atelectasis or consolidation or other process. New left midlung opacity may reflect atelectasis versus infiltrate or other process. Progress chest x-rays until the above findings completely resolved and returned to the baseline is advised. CT scan of the chest might also be considered.
--- NOTE | 2024-09-25 18:04 | CT_ITS ---
PROCEDURE INFORMATION: Exam: CTA Chest With Contrast Exam date and time: 09/25/2024 6:45 PM Age: 69 years old Clinical indication: Shortness of breath; Additional info: Lung cancer SOB tachy TECHNIQUE: Imaging protocol: Computed tomographic angiography of the chest with contrast. Exam focused on the arteries. 3D rendering (Not supervised by radiologist): MIP and/or 3D reconstructed images were created by the technologist. Radiation optimization: All CT scans at this facility use at least one of these dose optimization techniques: automated exposure control; mA and/or kV adjustment per patient size (includes targeted exams where dose is matched to clinical indication); or iterative reconstruction. Contrast material: ISOVUE; Contrast volume: 70 ml; Contrast route: INTRAVENOUS (IV); COMPARISON: 1. CT CHEST WO CON 05/05/2024 2:44 PM 2. CR XR CHEST PORTABLE 09/25/2024 6:06 PM FINDINGS: Pulmonary arteries: See Adrenal glands finding. Aorta: Unremarkable. No aortic aneurysm. No aortic dissection. Lungs: Emphysematous changes are noted. Mild posterior right lower lobe atelectasis. Interval development of mild volume loss of the left upper lobe. Interval development of a 11 mm nodule in the anterior left upper lobe on image 59 and a 7 mm nodule more posteriorly and inferiorly on image 61. There are patchy subpleural opacities noted in the anterolateral left upper lobe that have increased in the interval. The previously noted subpleural nodular density in this region is thought to be partially obscured by the adjacent new opacities and is visible on axial image 47 without significant change. A left apical mixed density nodule measuring 2.8 x 2.4 cm that previously measured 2.5 x 1.8 cm. Lung mondragon otherwise clear. Pleural spaces: Kfrtpkyc-fx-dzfji posterior layering left pleural effusion has developed in the interval with associated posterior left lower lobe atelectasis or consolidation. Heart: Unremarkable. No cardiomegaly. No pericardial effusion. Heart RV/LV ratio: RV/LV ratio 0.93 (nomal range 0.6 - 1.0) Lymph nodes: Interval development of mediastinal lymphadenopathy including the superior mediastinum measuring up to 12 mm and AP window region measuring up to 23 mm in subcarinal region measuring up to 14 mm. Associated new uxfn-ds-cbbvcvkj left hilar adenopathy also noted. There is compression with associated narrowing without occlusion of left hilar pulmonary arteries related to the adenopathy. No other definite pulmonary emboli identified. Adrenal glands: Stable low-density left adrenal nodule measuring 4.7 cm and low-density 1 cm right adrenal nodule compatible with adenomas. A xytnlfho-as-zhrce pulmonary embolus noted extending from the distal right main pulmonary artery into the right upper lobe pulmonary artery and proximal segmental branches. Additional small to moderate-sized embolus noted involving the proximal right middle lobe segmental pulmonary artery and proximal segmental branches and additional emboli noted extending through the interlobar pulmonary artery into proximal right lower lobe segmental branch. Bones/joints: Interval development of healing rib fractures of the anterior lateral and lateral left 7th through 10th ribs. Blastic bone lesions in the mid to upper thoracic spine compatible with Mets redemonstrated. Soft tissues: Unremarkable. IMPRESSION: 1. Right-sided PE. No evidence of right ventricular strain. 2. Interval development of mediastinal and left hilar adenopathy compatible with metastatic disease. Associated compression without occlusion of some of the left central pulmonary arteries. 3. Interval development of lkjjhcar-vn-ordmn left effusion and associated posterior left lower lobe atelectasis or consolidation. 4. Interval development of new subpleural opacities in the anterior left upper lobe might reflect developing infiltrate. This finding might also be postradiation related if history of radiation in this region. Developing tumor thought less likely but not totally excluded. 5. Interval development of lung nodules in the left upper lobe that may reflect developing pulmonary Mets. The prior noted subpleural nodular appearing density in the anterolateral left upper lobe not well seen but may still be present and without significant change. 6. Left apical mixed soft tissue and calcified density nodule has increased mildly in size may reflect developing mass. 7. Interval development of healing left-sided rib fractures. 8. 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 COMMENTS: The presence of pulmonary emphysema on CT is an independent risk factor for lung cancer. In the absence of a history or active diagnosis of lung cancer, it is recommended that this patient with emphysema be evaluated for enrollment in a low dose CT lung cancer screening program.
--- NOTE | 2024-09-25 18:05 | [facility].EDCP ---
Discharge Plan Disposition Patient Disposition: Admitted Prescriptions Prescriptions: No Action bupropion HCl 300 mg tablet extended release 24 hr 300 mg PO DAILY lisinopril 20 mg tablet 20 mg PO DAILY Patient Comments: TAKE 1 TABLET BY MOUTH ONCE DAILY prednisone 10 mg tablet 10 mg PO QID 30 Days Qty: 120 0RF Rx Instructions: 4 tabs PO daily hydrocodone-acetaminophen 5-325 mg tablet See Rx Instructions PO Q6H PRN (Reason: pain) Qty: 60 0RF Rx Instructions: 1-2 orally every 6 hours PRN; omega-3 acid ethyl esters 1 gram capsule 1 g PO DAILY furosemide 20 mg tablet 20 mg PO DAILY alprazolam 0.5 mg tablet 0.5 mg PO TID aripiprazole 10 mg tablet 10 mg PO DAILY metolazone 2.5 mg tablet 2.5 mg PO DAILY prednisone 20 mg tablet 20 mg PO .COMPLEX Qty: 46 0RF Rx Instructions: 20 mg orally 20 mg orally; 3 tab PO daily for 1 week, then 2 tab PO daily for one week, then 1 tab PO daily for 1 week, then 1/2 tablet PO daily for 1 week; 3 tab PO daily for 1 week, then 2 tab PO daily for one week, then 1 tab PO daily for 1 week, then 1/2 tablet PO daily for 1 week folic acid 1 mg tablet 1 mg PO DAILY Qty: 90 3RF omeprazole 20 mg capsule,delayed release(DR/EC) 20 mg PO DAILY Qty: 90 3RF albuterol sulfate 90 mcg/actuation HFA aerosol inhaler 2 inh inhalation QID PRN (Reason: shortness of breath or wheezing) 90 Days Qty: 8.5 2RF umeclidinium-vilanterol [Anoro Ellipta] 62.5-25 mcg/actuation blister with device 1 inh inhalation DAILY 90 Days Qty: 180 2RF methocarbamol 750 mg tablet 1,500 mg PO TID 5 Days Qty: 30 0RF ezetimibe 10 MG tablet 10 mg PO DAILY Referrals Follow up/Referrals: Otto Hua MD [Primary Care Provider, Internal Medicine] - See instructions Clinical Impressions Clinical Impression: Lung cancer, Malignant pleural effusion, Pulmonary embolism, Respiratory failure Print Language Print Language: Indian Discharge ED Provider: Hu Clark General Chief Complaint: Shortness of Breath/Dyspnea Stated Complaint: SOA,legs are swelling,weakness Time Seen by Provider: 09/25/24 17:38 Mode of Arrival: Ambulatory Source of Information: Patient Description of Symptoms (Recalled from ER Triage Doc. by RN): pt presents to ED c/o of increased SOA x 2 days. pt reports hx of COPD and CHF. pt 82% on room air. pt reports cough. pt denies known fever. History of Present Illness HPI narrative: Patient is a 69-year-old female past medical history of CHF recently switched from Lasix to Bumex (dry weight 230 pounds) lung cancer and bone pains for status post chemotherapy, COPD not on home oxygen continues to smoke who presents emergency department for evaluation of shortness of breath. Onset was acute over the last 2 days. There is associated cough. No chest pain. No abdominal pain reported. Her daughter is at bedside who provides additional history that she has had more body swelling since they switch her to the Bumex. No other acute complaints at this time. Please note that above description of symptoms, in this electronic medical record under categorization of recalled from ER triage doctor by RN are reflective of an initial nursing assessment, however, is not reflective of my full history and physical exam that was personally taken and clarified. Consequentially, this preceding description of symptoms, which may include the patient's categorized chief complaint in the EMR, do not reflect my personal clinical impression, and the ultimate description of history of present illness and patient stated complaints should be deferred to this section of the note. Unless stated otherwise or congruent with this section of the note, additional signs, symptoms, or incongruence should be interpreted as inaccurate with my clinical impression. Related Data Home Medications ?Medication ?Instructions ?Recorded ?Confirmed alprazolam 0.5 mg tablet 0.5 mg PO TID Anxiety 08/13/18 09/04/24 aripiprazole 10 mg tablet 10 mg PO DAILY Anxiety 08/13/18 09/04/24 furosemide 20 mg tablet 20 mg PO DAILY swelling 08/13/18 09/04/24 metolazone 2.5 mg tablet 2.5 mg PO DAILY swelling 08/13/18 09/04/24 omega-3 acid ethyl esters 1 gram 1 g PO DAILY Supplement 08/13/18 09/04/24 capsule ezetimibe 10 mg tablet 10 mg PO DAILY * 12/09/19 09/04/24 bupropion HCl 300 mg 24 hr tablet, 300 mg PO DAILY mood 02/20/24 09/04/24 extended release lisinopril 20 mg tablet 20 mg PO DAILY 09/02/24 09/04/24 Previous Rx's ?Medication ?Instructions ?Recorded folic acid 1 mg tablet 1 mg PO DAILY #90 tabs 05/14/24 omeprazole 20 mg capsule,delayed 20 mg PO DAILY heartburn #90 caps 05/14/24 release prednisone 10 mg tablet 10 mg PO QID 1 month #120 tabs 05/30/24 hydrocodone 5 mg-acetaminophen 325 See Rx Instructions PO Q6H PRN 06/12/24 mg tablet pain #60 tabs methocarbamol 750 mg tablet 1,500 mg (2 x 750 mg) PO TID 5 08/22/24 days #30 tabs prednisone 20 mg tablet 20 mg PO .COMPLEX #46 tabs 09/04/24 albuterol sulfate 90 mcg/actuation 2 inh inhalation QID PRN shortness 09/08/24 aerosol inhaler of breath or wheezing 90 days #8.5 grams umeclidinium 62.5 mcg-vilanterol 1 inh inhalation DAILY 90 days 09/08/24 25 mcg/actuation powdr for #180 ea inhalation (Anoro Ellipta) Allergies Allergy/AdvReac Type Severity Reaction Status Date / Time atorvastatin (From LIPITOR) Allergy Unknown FATTY LIVER Verified 09/04/24 09:39 codeine (CODEINE) Allergy Unknown I-RASH Verified 09/04/24 09:39 latex (LATEX) Allergy Unknown I-RASH Verified 09/04/24 09:39 Penicillins (PENICILLINS) Allergy Unknown I-RASH Verified 09/04/24 09:39 [facility] Disclaimer: The information contained in this section may have been updated after the patient was seen, as this information can be updated by other users. Medical History Lymphedema COPD (chronic obstructive pulmonary disease) Breast cancer Diabetes Dyspnea on exertion Smoking greater than 30 pack years Lung nodule Tobacco abuse Surgical History History of colonoscopy History of mastectomy History of surgery on arm History of hysterectomy History of appendectomy History of cholecystectomy Family History Other Family history of cancer Social History Smoking Status: Current every day smoker tobacco type: cigarettes packs per day: 1 alcohol intake: former substance use type: denies use current occupational status: employed Travel in the last 8 weeks?: Inside the [place] caffeine: No Have you lived/traveled outside [place] in past 30 days?: No Contact w/someone who lives/traveled outside [place] past 30 days?: No Exposure to someone with infectious disease in past 14 days?: No Do you have a fever (greater than 100.4 F or 38 C)?: No Have you tested positive for COVID-19?: No Exposed to someone with COVID-19 in past 14 days?: No Do you have a sore throat?: No Do you have a cough?: No Do you have any weakness?: Yes Do you have any diarrhea?: No Are you experiencing any unusual bleeding?: No Do you have any muscle aches/pain?: No Do you have any abdominal pain?: No Are you experiencing loss of taste or smell?: No Other Medical History Have you received the Flu Vaccine for this season: No Have you received the Pneumonia Vaccine: Yes ROS Obtained: Yes Systems reviewed as appropriate & no additional complaints except as documented Physical Exam General General appearance: alert Head Head exam: atraumatic and normocephalic Eye Eye exam: Present PERRL and EOMI ENT ENT exam: Present mucous membranes moist Neck Neck exam: Present normal inspection Chest Chest inspection: Present normal inspection and symmetric chest wall rise Respiratory Respiratory exam: Present normal lung sounds bilaterally and other (Tachypnea); Absent respiratory distress or wheezes Cardiovascular Cardiovascular exam: Present normal rhythm and tachycardia Abdominal Exam Abdominal exam: Present soft; Absent tenderness Extremities Exam Extremities exam: Present other (2+ pitting edema bilateral lower extremities) Neurological Exam Neurological exam: Present alert Psychiatric Psychiatric exam: Present normal affect Skin Skin exam: Present warm and dry HEART Score HEART Score HEART Score assessment performed?: Yes History (anamnesis): Moderately suspicious ECG: Normal Age: >65 years Risk factors: 1-2 risk factors Troponin: </= normal limit HEART Score: 4 Critical Care Critical Care Time Critical Care Time: Yes Attestation: On 09/25/24, the high probability of a clinically significant, sudden or life threatening deterioration of the following system(s) required my full and direct attention, intervention and personal management. The time I documented below is in addition to time spent performing reported procedures but includes the following listed in this critical care notation. Total Time Total Critical Care Time: 45 Medical Decision Making [place] Inquiry Pt receiving controlled substance: No Vital Signs Vital Signs: 09/25/24 17:37 09/25/24 17:41 09/25/24 18:00 Temperature 98.9 F Temperature Source Temporal Artery Scan Pulse Rate 104 H 112 H Pulse Rate [Right Radial] 104 H Respiratory Rate 24 29 H Blood Pressure 122/80 146/83 H Blood Pressure [Right Arm] 122/80 Blood Pressure Mean [Right Arm] 94 Blood Pressure Source [Right Arm] Automatic Cuff Blood Pressure Position [Right Arm] Sitting 02 Sat by Pulse Oximetry 82 L 92 L 93 L Oxygen Delivery Method Room Air Nasal Cannula Room Air Oxygen Flow Rate (LPM) 4 4 09/25/24 18:30 09/25/24 19:00 09/25/24 19:30 Temperature Temperature Source Pulse Rate 99 H 104 H 107 H Pulse Rate [Right Radial] Respiratory Rate 20 20 21 Blood Pressure 134/75 147/74 H 162/79 H Blood Pressure [Right Arm] Blood Pressure Mean [Right Arm] Blood Pressure Source [Right Arm] Blood Pressure Position [Right Arm] 02 Sat by Pulse Oximetry 94 L 94 L 94 L Oxygen Delivery Method Nasal Cannula Oxygen Flow Rate (LPM) 4 Lab Data Labs: Lab Results 09/25/24 17:46: VBG pH 7.43 H, VBG pCO2 42.0, VBG pO2 59.4 H, VBG HCO3 27.3, VBG Total CO2 28.6 H, VBG O2 Saturation 90.5 H, VBG Base Excess 3.0 H, VBG Lactic Acid 1.5 09/25/24 17:47: SARS-CoV-2 (PCR) Not detected, Influenza A Untype (PCR) Not detected, Influenza Type B (PCR) Not detected 09/25/24 17:58: WBC 15.1 H, RBC 4.40, Hgb 12.2, Hct 39.5, MCV 89.8, MCH 27.7, MCHC 30.9 L, RDW 14.6, Plt Count 234, MPV 10.7 H, Neut % (Auto) 73.8, Lymph % (Auto) 15.3, [place] % (Auto) 7.6, Eos % (Auto) 1.3, Baso % (Auto) 0.3, Neut # (Auto) 11.1 H, Lymph # (Auto) 2.3, [place] # (Auto) 1.2 H, Eos # (Auto) 0.2, Baso # (Auto) 0.1, Sodium 136, Potassium 3.8, Chloride 100, Carbon Dioxide 33 H, Anion Gap 6.8, BUN 39 H, Creatinine 1.70 H, Estimated Creat Clear 55, Estimated GFR 30 L, Est GFR ( Amer) 36 L, Glucose 114 H, Calcium 9.4, Total Bilirubin 0.5, AST 23, ALT 22, Alkaline Phosphatase 105, Troponin I < 0.01, NT-Pro-B Natriuret Pep 44.3, Total Protein 6.7, Albumin 3.6, Globulin 3.1, Albumin/Globulin Ratio 1.2 09/25/24 17:58 09/25/24 17:58 Response Orders (Tests/Meds): ED MEDICATIONS Discontinued Medications Generic Name Dose Route Start Last Admin Trade Name Freq PRN Reason Stop Dose Admin Iopamidol 70 ml 09/25/24 18:45 09/25/24 18:47 Iopamidol-370 (76%);100ml Bottle IV 09/25/24 18:46 70 ml ONCE ONE Administration Sodium Chloride 10 ml 09/25/24 18:45 09/25/24 18:47 Sodium Chloride 0.9% 10ml Syr (Rad Only) IV 09/25/24 18:46 10 ml ONCE ONE Administration Sodium Chloride 50 ml 09/25/24 18:45 09/25/24 18:46 0.9 % Sodium Chloride 50 Ml Vial IV 09/25/24 18:46 50 ml ONCE ONE Administration ORDERS Category Date Time Status CT angio chest PE protocol Stat Cat Scan 09/25/24 18:04 Completed POCUS Point of Care (ER Only) Stat Exams 09/25/24 17:47 Completed Portable CXR [XR chest portable] Stat Exams 09/25/24 17:51 Completed Complete Blood Count Auto Diff Stat Lab 09/25/24 17:58 Completed Comprehensive Metabolic Panel Stat Lab 09/25/24 17:58 Completed NT Pro Brain Natriuretic Pep. Stat Lab 09/25/24 17:58 Completed Rapid PCR Covid and Flu A/B Stat Lab 09/25/24 17:47 Completed Trop I [Troponin I] Stat Lab 09/25/24 17:58 Completed Troponin I Q3H Lab 09/25/24 21:00 Ordered Troponin I Q3H Lab 09/26/24 00:00 Ordered Blood Culture Stat Micro 09/25/24 18:05 Received Venous Blood Gas Stat RT 09/25/24 17:46 Completed ECG Data Tracing #1: ECG Narrative: Independently interpreted by me rate is 104, rhythm is regular, axis is normal, no ST elevation in anatomical contiguous leads, QTc 361. MDM Narrative Medical Decision Narrative: In summary patient is 69-year-old female past medical history described above presents emergency department for evaluation of shortness of breath. Patient is hemodynamically stable upon arrival saturating 82% on room air will escalate to 4 L nasal cannula with resolution of oxygenation saturations greater than 90%. Patient is tachypneic and tachycardic, appears volume overloaded on exam. Given history and physical differential diagnosis includes CHF exacerbation, atypical ACS, pneumonia, pulmonary embolism, among others. Patient will undergo emergent CT imaging of the chest given that she has cancer and worsening malignancy is also on the diagnosis. Workup we conducted with hematologic labs. DuoNebs were considered however patient does not have any significant wheezing or bronchoconstriction and steroids are likely to increase intravascular volume which will be deleterious to her condition volume resuscitation was considered will be deferred. Initial workup reviewed by me, leukocytosis of 15.1, compensated acid-base status no critical electrolyte abnormality initial troponin undetectably low. I had interactive discussion with radiology regarding this patient's case there is a right-sided PE without evidence of ventricular strain, interval development of mediastinal left hilar adenopathy, patible with metastatic disease with associated compression of the central pulmonary arteries with interval development of a moderate to large left effusion with compressive atelectasis with associated subpleural opacities lung nodules and bone mets to the thoracic spine. I had very long discussion at length of different options of care including comfort care, anticoagulation with possible medical management, aggressive care with transfer to tertiary care center for oncologic opinion. After family discussion at bedside they wish to proceed with anticoagulation only, we will turn off the monitors and will not trend labs as we will not be treating them. They wish for just anticoagulation with respect to the pulmonary embolism and do not wish to pursue further cancer care at this time and hospice care transition was discussed with the family which they are currently discussing in the case was discussed with hospital medicine regarding management they admitted the patient their service for continued evaluation at this time. Procedure: Procedure form was cardiac ultrasound performed by Hu Clark. Using the phased array probe parasternal long axis was identified, ejection fraction is grossly normal no large pericardial effusion, EPSS normal. There is B-lines on bilateral lung mondragon limited ultrasound. Patient tolerated the procedure well and images were saved to a permanent archive and were technically adequate and did not necessitate further imaging.
[2024-09-25 18:12] LABS: Lactate Venous 1.5 mmol/L (0.4-2.0); VBG HCO3 27.3 mmol/L (23-30); VBG Oxygen Saturation 90.5 % (50-70); VBG PH 7.43 mmol/L (7.31-7.41); VBG PO2 59.4 mmol/L (28-40); VBG Total CO2 28.6 mmol/L (23-27)
[2024-09-25 18:27] LABS: Albumin Level 3.6 g/dl (3.5-5.0); Chloride 100 mmol/L (98-107); Sodium 136 mmol/L (136-145)
[2024-09-25 18:28] LABS: Potassium 3.8 mmoL/L (3.5-5.1)
[2024-09-25 18:29] LABS: Basophils # 0.1 K/mm3 (0-0.2); Basophils % 0.3 % (0.1-2.0); Eosinophils # 0.2 Kmm3 (0.0-0.4); Eosinophils % 1.3 % (0.1-12.0); Hematocrit 39.5 % (37.0-47.0); Hemoglobin 12.2 g/dL (12.2-16.2); Immature Granulocytes # 0.25 10^3uL; Immature Granulocytes % 1.7 %; Lymphocytes # 2.3 K/mm3 (0.7-4.5); Lymphocytes % 15.3 % (10-50); Mean Corpuscular HGB Conc 30.9 g/dL (31.8-35.4); Mean Corpuscular Hemoglobin 27.7 pg (27.0-31.2); Mean Corpuscular Volume 89.8 fl (81-99); Mean Platelet Volume 10.7 fl (7.4-10.4); Monocytes # 1.2 K/mm3 (0.1-1.0); Monocytes % 7.6 % (1.7-9.3); Neutrophils # 11.1 K/mm3 (1.8-7.8); Neutrophils % 73.8 % (37.0-80.0); Nucleated Red Blood Cells # 0 10^3/uL; Nucleated Red Blood Cells % 0 %; Platelet Count 234 K/mm3 (142-424); Red Cell Distribution Width 14.6 % (11.5-17.5); White Blood Count 15.1 K/mm3 (4.8-10.8)
[2024-09-25 18:30] LABS: Alanine Aminotransferase 22 U/L (12-78); Albumin/Globulin Ratio 1.2 (1.1-1.8); Alkaline Phosphatase 105 U/L (38-126); Anion Gap 6.8 mEq/L (5-15); Aspartate Amino Transferase 23 U/L (14-36); Bilirubin,Total 0.5 mg/dl (0.2-1.3); Blood Urea Nitrogen 39 mg/dl (7-17); Carbon Dioxide 33 mmol/L (22.0-30.0); Creatinine Clearance Estimated 55 mL/min (50-200); Estimated Glomerular Filt Rate 30 ml/min (>60); GFR (African American) 36 ML/MIN (>60); Globulin 3.1 g/dL (1.3-3.2); Total Protein,Serum 6.7 g/dl (6.3-8.2)
[2024-09-25 18:31] LABS: Calcium 9.4 mg/dl (8.4-10.2); Glucose 114 mg/dl (74-100)
[2024-09-25 18:41] LABS: NT Pro Brain Natriuretic Pep. 44.3 pg/mL (0-125)
[2024-09-25 18:45] LABS: Troponin I < 0.01 ng/ml (0.00-0.034)
[2024-09-25] MEDS: 0.9 % SODIUM CHLORIDE 50 ML VIAL IV (18:46)
[2024-09-25] MEDS: IOPAMIDOL-370 (76%);100ML BOTTLE 70 ML IV (18:47)
[2024-09-25] MEDS: SODIUM CHLORIDE 0.9% 10ML SYR (RAD ONLY) 10 ML IV (18:47)
--- NOTE | 2024-09-25 19:58 | PC.NURSE ---
Per Dr. Clark all monitoring equipment is to be turned off. Patient wishes to transition to comfort care and not have blood pressure, heart rate, O2 monitoring.
[2024-09-25] MEDS: ENOXAPARIN 100MG/ML SYRINGE 110 MG SUBCUT (20:12)
--- NOTE | 2024-09-25 20:52 | PC.NURSE ---
Attempted to call report to CHARLIE nixon- she is unable to take report at this time
--- NOTE | 2024-09-25 21:19 | EXP.HP ---
History of Present Illness *Reason for visit:: shortness of breath *History of present illness: 69-year-old female past medical history of CHF recently switched from Lasix to Bumex (dry weight 230 pounds) lung cancer and bone pains for status post chemotherapy, COPD not on home oxygen continues to smoke who presents emergency department for evaluation of shortness of breath. Onset was acute over the last 2 days. There is associated cough. No chest pain. No abdominal pain reported. Her daughter is at bedside who provides additional history that she has had more body swelling since they switch her to the Bumex. No other acute complaints at this time. Patient reportedly has End-stage lung cancer and has undergone treatment for this 3 times. She no longer wants to do aggressive cancer therapies and would like to transition to hospice. Review of CTA demonstrates a large distal right main pulmonary embolism. Discussed at length with the patient regarding this new pulmonary embolism and medical management versus mechanical thrombectomy. Discussed how a thrombectomy to alleviate the obstruction may significantly improve her dyspnea and improve her quality of life as she transitions into hospice care. She is agreeable to doing the procedure for palliative purposes [facility] Disclaimer: The information contained in this section may have been updated after the patient was seen, as this information can be updated by other users. Medical History Lymphedema COPD (chronic obstructive pulmonary disease) Breast cancer Diabetes Dyspnea on exertion Smoking greater than 30 pack years Lung nodule Tobacco abuse Surgical History History of colonoscopy History of mastectomy History of surgery on arm History of hysterectomy History of appendectomy History of cholecystectomy Family History Other Family history of cancer Social History Smoking Status: Current every day smoker tobacco type: cigarettes packs per day: 1 alcohol intake: former substance use type: denies use current occupational status: employed Travel in the last 8 weeks?: Inside the [place] caffeine: No Have you lived/traveled outside US in past 30 days?: No Contact w/someone who lives/traveled outside US past 30 days?: No Exposure to someone with infectious disease in past 14 days?: No Do you have a fever (greater than 100.4 F or 38 C)?: No Have you tested positive for COVID-19?: No Exposed to someone with COVID-19 in past 14 days?: No Do you have a sore throat?: No Do you have a cough?: No Do you have any weakness?: Yes Do you have any diarrhea?: No Are you experiencing any unusual bleeding?: No Do you have any muscle aches/pain?: No Do you have any abdominal pain?: No Are you experiencing loss of taste or smell?: No Other Medical History Have you received the Flu Vaccine for this season: No Have you received the Pneumonia Vaccine: Yes Review of Systems Review of Systems Review of systems:: pertinent systems reviewed and negative unless documented below Meds Home Medications and Allergies Home Medications ?Medication ?Instructions ?Recorded ?Confirmed ?Type alprazolam 0.5 mg tablet 0.5 mg PO TID Anxiety 08/13/18 09/04/24 History aripiprazole 10 mg tablet 10 mg PO DAILY Anxiety 08/13/18 09/04/24 History furosemide 20 mg tablet 20 mg PO DAILY swelling 08/13/18 09/04/24 History metolazone 2.5 mg tablet 2.5 mg PO DAILY swelling 08/13/18 09/04/24 History omega-3 acid ethyl esters 1 gram 1 g PO DAILY Supplement 08/13/18 09/04/24 History capsule ezetimibe 10 mg tablet 10 mg PO DAILY * 12/09/19 09/04/24 History bupropion HCl 300 mg 24 hr tablet, 300 mg PO DAILY mood 02/20/24 09/04/24 History extended release folic acid 1 mg tablet 1 mg PO DAILY #90 tabs 05/14/24 09/04/24 Rx omeprazole 20 mg capsule,delayed 20 mg PO DAILY heartburn #90 caps 05/14/24 09/04/24 Rx release prednisone 10 mg tablet 10 mg PO QID 1 month #120 tabs 05/30/24 09/04/24 Rx hydrocodone 5 mg-acetaminophen 325 See Rx Instructions PO Q6H PRN 06/12/24 09/04/24 Rx mg tablet pain #60 tabs methocarbamol 750 mg tablet 1,500 mg (2 x 750 mg) PO TID 5 08/22/24 09/04/24 Rx days #30 tabs lisinopril 20 mg tablet 20 mg PO DAILY 09/02/24 09/04/24 History prednisone 20 mg tablet 20 mg PO .COMPLEX #46 tabs 09/04/24 09/04/24 Rx albuterol sulfate 90 mcg/actuation 2 inh inhalation QID PRN shortness 09/08/24 Rx aerosol inhaler of breath or wheezing 90 days #8.5 grams umeclidinium 62.5 mcg-vilanterol 1 inh inhalation DAILY 90 days 09/08/24 Rx 25 mcg/actuation powdr for #180 ea inhalation (Anoro Ellipta) New Prescriptions to Start Prescriptions: Allergies Allergy/AdvReac Type Severity Reaction Status Date / Time atorvastatin (From LIPITOR) Allergy Unknown FATTY LIVER Verified 09/04/24 09:39 codeine (CODEINE) Allergy Unknown I-RASH Verified 09/04/24 09:39 latex (LATEX) Allergy Unknown I-RASH Verified 09/04/24 09:39 Penicillins (PENICILLINS) Allergy Unknown I-RASH Verified 09/04/24 09:39 Exam Data for Last 24 hours Vital signs and Labs for Last 24 Hours: Temp Pulse Resp BP Pulse Ox O2 Del Method O2 Flow Rate 97.9 F 107 H 18 162/79 H 94 L Nasal Cannula 4 09/25/24 21:10 09/25/24 21:10 09/25/24 21:10 09/25/24 21:10 09/25/24 19:30 09/25/24 21:10 09/25/24 21:10 Laboratory Results - last 24 hr 09/25/24 17:46: VBG pH 7.43 H, VBG pCO2 42.0, VBG pO2 59.4 H, VBG HCO3 27.3, VBG Total CO2 28.6 H, VBG O2 Saturation 90.5 H, VBG Base Excess 3.0 H, VBG Lactic Acid 1.5 09/25/24 17:47: SARS-CoV-2 (PCR) Not detected, Influenza A Untype (PCR) Not detected, Influenza Type B (PCR) Not detected 09/25/24 17:58: WBC 15.1 H, RBC 4.40, Hgb 12.2, Hct 39.5, MCV 89.8, MCH 27.7, MCHC 30.9 L, RDW 14.6, Plt Count 234, MPV 10.7 H, Neut % (Auto) 73.8, Lymph % (Auto) 15.3, [place] % (Auto) 7.6, Eos % (Auto) 1.3, Baso % (Auto) 0.3, Neut # (Auto) 11.1 H, Lymph # (Auto) 2.3, [place] # (Auto) 1.2 H, Eos # (Auto) 0.2, Baso # (Auto) 0.1, Sodium 136, Potassium 3.8, Chloride 100, Carbon Dioxide 33 H, Anion Gap 6.8, BUN 39 H, Creatinine 1.70 H, Estimated Creat Clear 55, Estimated GFR 30 L, Est GFR ( Amer) 36 L, Glucose 114 H, Calcium 9.4, Total Bilirubin 0.5, AST 23, ALT 22, Alkaline Phosphatase 105, Troponin I < 0.01, NT-Pro-B Natriuret Pep 44.3, Total Protein 6.7, Albumin 3.6, Globulin 3.1, Albumin/Globulin Ratio 1.2 I & O for Last 24 hours: Intake & Output 09/22/24 09/23/24 09/24/24 09/25/24 23:59 23:59 23:59 23:59 Weight 110.223 kg Constitutional Constitutional: no acute distress *Routine HEENT Exam Head: Present normocephalic Eye: Present EOMI and PERRL ENT: Present mucous membranes moist *Routine Neck Exam Neck: Present supple; Absent lymphadenopathy *Routine Respiratory Exam Respiratory: Present prolonged expiratory phase, rales, wheezes and diminished air movement *Routine Cardiovascular Exam Cardiovascular: Present RRR *Routine Abdominal Exam Abdominal: Present soft and normoactive bowel sounds; Absent tenderness *Routine Rectal Exam Rectal:: deferred *Routine Genitalia Exam Genitalia:: deferred *Routine Extremities Exam Extremities: Absent cyanosis, clubbing or edema *Routine Skin Exam Skin: Present warm; Absent rash *Routine Neurological Exam Neurological: Present alert and oriented X3 Assessment and Plan *Assessment and plan (1) Respiratory failure: Status: Acute Category: Medical Code(s): J96.90 - Respiratory failure, unspecified, unspecified whether with hypoxia or hypercapnia (2) Pulmonary embolism: Status: Acute Category: Medical Code(s): I26.99 - Other pulmonary embolism without acute cor pulmonale (3) Malignant pleural effusion: Status: Acute Category: Medical Code(s): J91.0 - Malignant pleural effusion (4) Lung cancer: Status: Acute Category: Medical Code(s): C34.90 - Malignant neoplasm of unspecified part of unspecified bronchus or lung (5) Acute renal failure: Status: Acute Qualifiers: Acute renal failure type: unspecified Qualified Code(s): N17.9 - Acute kidney failure, unspecified Category: Medical Code(s): N17.9 - Acute kidney failure, unspecified (6) Diabetes mellitus: Status: Acute Category: Medical Code(s): E11.9 - Type 2 diabetes mellitus without complications Plan 69-year-old female with metastatic adenocarcinoma of the lung. Presenting to the ER with acute pulmonary embolism and significant dyspnea and new oxygen requirement. She would like to transition to hospice care and focus entirely on symptom management and quality of life. Discussed her submassive pulmonary embolism and medical management versus chemical thrombectomy. Given her goals, she is agreeable to doing mechanical thrombectomy to alleviate her dyspnea and improve quality of life for her remaining time on hospice Pulmonary embolism Right main pulmonary artery - Lovenox - Echo - Cardiology consult - Discussed with interventional list, palliative mechanical thrombectomy tomorrow - Transition to Xarelto following procedure Adenocarcinoma of the lung - Will transition to hospice care - Following procedure, comfort measures only - Symptom management as needed ordered Chronic medical problems -we will discuss continuation of medical therapy for conditions as desired by patient tomorrow following medicine reconciliation CKD Diabetes Hypertension Hyperlipidemia
--- NOTE | 2024-09-25 22:39 | PC.NURSE ---
unable to confirm medications because patient doesn't know what she takes at home - hospitalist not concerned with reordering home medications r/t pending hospice consult
[2024-09-25] MEDS: FUROSEMIDE 20 MG/2 ML VIAL IV (22:48)
[2024-09-26] VITALS (21 sets, daily range): BP systolic 92–136; BP diastolic 57–77; PULSE 90–116; RESP 15–24; TEMP 36–36.8; O2SAT 88–100; BMI 39.2
[2024-09-26] MEDS: NICOTINE 21MG/24HR PATCH 21 MG TD (02:48)
[2024-09-26 05:54] LABS: Prothrombin Time 13.1 seconds (10.1-12.5)
--- NOTE | 2024-09-26 06:00 | CA_ITS ---
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 2D Dimensions IVSd 1.01 cm LVEF (Visual) 51.10 % PWd 1.09 cm LA Volume 35.60 mL LVDd 4.45 cm LA Volume Index 16.30 mL/m2 (M/F) 16-34 LVDs 3.30 cm Left Atrium 2.85 cm M-Mode Dimensions LA Diam 2.73 cm (1.9-4.0) EPSs 0.83 cm TAPSE 1.64 (<1.7) LV Diastology E Decel Time 197 (160-240 msec) E/A Ratio 0.88 MED A' 9.40 cm/s LAT A' 9.50 cm/s Aortic Valve HEMALATHA Index 0.94 cm2/m2 AoV Peak [place]. 179.0 (50-130 cm/s) AO Peak GR. 12.80 mmHg AO Mean GR. 6.30 (<5 mmHg) AO VTI 28.3 (18-25 cm) HEMALATHA (VTI) 2.04 (2.5-4.5 cm2) Mitral Valve MV A Velocity 83.0 (40-130 cm/s) E/A Ratio 0.88 Left Ventricle The left ventricle is normal size. The left ventricular systolic function is normal. The left ventricular ejection fraction is within the normal range. Proximal septal thickening is present. There is normal LV segmental wall motion. The left ventricular diastolic function is normal. LVEF is 55%. Right Ventricle The right ventricle is normal size. The right ventricular systolic function is normal. Atria The left atrium size is normal. The right atrium size is normal. There is no Doppler evidence of interatrial shunt. Aortic Valve The aortic valve is normal in structure. There is no aortic valvular stenosis. Trace aortic regurgitation. Mitral Valve The mitral valve is normal in structure. No evidence of mitral valve stenosis. Trace mitral regurgitation. Tricuspid Valve Tricuspid valve is grossly normal in structure and function. Trace tricuspid regurgitation. There is insufficient TR jet to estimate RVSP. Pulmonic Valve The pulmonary valve is normal in structure. Trace pulmonic regurgitation. Great Vessels The aortic root is normal in size. IVC is normal in size and collapses >50% with inspiration. Pericardium There is no pericardial effusion. Other Information Study Quality: Fair Conclusion Normal biventricular systolic function. No significant valvular stenosis or regurgitation. Electronically signed by : Ayse Wilburn MD 09/26/2024 15:30:01
[2024-09-26 06:02] LABS: Basophils # 0.1 K/mm3 (0-0.2); Basophils % 0.5 % (0.1-2.0); Eosinophils # 0.2 Kmm3 (0.0-0.4); Eosinophils % 1.9 % (0.1-12.0); Hematocrit 40.3 % (37.0-47.0); Hemoglobin 11.9 g/dL (12.2-16.2); Immature Granulocytes # 0.19 10^3uL; Immature Granulocytes % 1.6 %; Lymphocytes # 1.7 K/mm3 (0.7-4.5); Lymphocytes % 14.4 % (10-50); Mean Corpuscular HGB Conc 29.5 g/dL (31.8-35.4); Mean Corpuscular Hemoglobin 26.8 pg (27.0-31.2); Mean Corpuscular Volume 90.8 fl (81-99); Mean Platelet Volume 10.8 fl (7.4-10.4); Monocytes % 8.2 % (1.7-9.3); Neutrophils # 8.7 K/mm3 (1.8-7.8); Neutrophils % 73.4 % (37.0-80.0); Nucleated Red Blood Cells # 0 10^3/uL; Nucleated Red Blood Cells % 0 %; Platelet Count 227 K/mm3 (142-424); Red Blood Count 4.44 M/mm3 (4.20-5.40); Red Cell Distribution Width 14.6 % (11.5-17.5); Red Cell Distribution Width-SD 48.1 fL; White Blood Count 11.9 K/mm3 (4.8-10.8)
--- NOTE | 2024-09-26 06:20 | PC.NURSE ---
Pt. a/o x4. Monitored 02 overnight. Pt. decontaminated and bathed upon admission d/t bed bugs at home. Bed low and locked, call light in reach.
--- NOTE | 2024-09-26 07:09 | EXP.CARD.CON ---
History of Present Illness History of Present Illness Consult date: 09/26/24 Requesting physician: Javed Ross Consult reason: shortness of breath Chief complaint: soa History of present illness: Hospitalist note: 69-year-old female past medical history of CHF recently switched from Lasix to Bumex (dry weight 230 pounds) lung cancer and bone pains for status post chemotherapy, COPD not on home oxygen continues to smoke who presents emergency department for evaluation of shortness of breath. Onset was acute over the last 2 days. There is associated cough. No chest pain. No abdominal pain reported. Her daughter is at bedside who provides additional history that she has had more body swelling since they switch her to the Bumex. No other acute complaints at this time. Patient reportedly has End-stage lung cancer and has undergone treatment for this 3 times. She no longer wants to do aggressive cancer therapies and would like to transition to hospice. Review of CTA demonstrates a large distal right main pulmonary embolism. Discussed at length with the patient regarding this new pulmonary embolism and medical management versus mechanical thrombectomy. Discussed how a thrombectomy to alleviate the obstruction may significantly improve her dyspnea and improve her quality of life as she transitions into hospice care. She is agreeable to doing the procedure for palliative purposes Cardiology note: This is a 69-year-old white female with past medical history of lung cancer with metastasis who presented to emergency department with complaints of shortness of breath. Of note, patient recently has decided to become hospice and does not want to pursue any further treatments or therapies for her cancer. Upon presentation to ER patient was diagnosed with a new right sided pulmonary embolism and interval development of moderate to large left effusion and associated posterior left lower lobe atelectasis or consolidation. Patient was offered therapeutic thrombectomy for PE to help with her comfort level as patient is currently requiring 3 L nasal cannula to maintain an oxygen saturation of 92%. She reports that normally she does not require oxygen at home. Patient reports that this time she would like to proceed with thrombectomy for PE. Pulmonology consult is pending. Morning labs have been reviewed [facility] Disclaimer: The information contained in this section may have been updated after the patient was seen, as this information can be updated by other users. Medical History Lymphedema COPD (chronic obstructive pulmonary disease) Breast cancer Diabetes Dyspnea on exertion Smoking greater than 30 pack years Lung nodule Tobacco abuse Surgical History History of colonoscopy History of mastectomy History of surgery on arm History of hysterectomy History of appendectomy History of cholecystectomy Family History Other Family history of cancer Social History Smoking Status: Current every day smoker tobacco type: cigarettes packs per day: 1 alcohol intake: former substance use type: denies use current occupational status: employed Travel in the last 8 weeks?: Inside the [place] caffeine: No Have you lived/traveled outside US in past 30 days?: No Contact w/someone who lives/traveled outside [place] past 30 days?: No Exposure to someone with infectious disease in past 14 days?: No Do you have a fever (greater than 100.4 F or 38 C)?: No Have you tested positive for COVID-19?: No Exposed to someone with COVID-19 in past 14 days?: No Do you have a sore throat?: No Do you have a cough?: No Do you have any weakness?: Yes Do you have any diarrhea?: No Are you experiencing any unusual bleeding?: No Do you have any muscle aches/pain?: No Do you have any abdominal pain?: No Are you experiencing loss of taste or smell?: No Review of Systems Review of Systems Review of systems:: pertinent systems reviewed and negative unless documented below *Cardiovascular Cardiovascular: Reports dyspnea *Respiratory Respiratory: Reports dyspnea Exam Data for Last 24 hours Vital signs and Labs for Last 24 Hours: Temp Pulse Resp BP Pulse Ox O2 Del Method O2 Flow Rate 97.9 F 90 20 112/68 93 L Nasal Cannula 4 09/26/24 04:00 09/26/24 04:00 09/26/24 04:00 09/26/24 04:00 09/26/24 04:00 09/26/24 06:33 09/26/24 06:33 Laboratory Results - last 24 hr 09/25/24 17:46: VBG pH 7.43 H, VBG pCO2 42.0, VBG pO2 59.4 H, VBG HCO3 27.3, VBG Total CO2 28.6 H, VBG O2 Saturation 90.5 H, VBG Base Excess 3.0 H, VBG Lactic Acid 1.5 09/25/24 17:47: SARS-CoV-2 (PCR) Not detected, Influenza A Untype (PCR) Not detected, Influenza Type B (PCR) Not detected 09/25/24 17:58: WBC 15.1 H, RBC 4.40, Hgb 12.2, Hct 39.5, MCV 89.8, MCH 27.7, MCHC 30.9 L, RDW 14.6, Plt Count 234, MPV 10.7 H, Neut % (Auto) 73.8, Lymph % (Auto) 15.3, [place] % (Auto) 7.6, Eos % (Auto) 1.3, Baso % (Auto) 0.3, Neut # (Auto) 11.1 H, Lymph # (Auto) 2.3, [place] # (Auto) 1.2 H, Eos # (Auto) 0.2, Baso # (Auto) 0.1, Sodium 136, Potassium 3.8, Chloride 100, Carbon Dioxide 33 H, Anion Gap 6.8, BUN 39 H, Creatinine 1.70 H, Estimated Creat Clear 55, Estimated GFR 30 L, Est GFR ( Amer) 36 L, Glucose 114 H, Calcium 9.4, Total Bilirubin 0.5, AST 23, ALT 22, Alkaline Phosphatase 105, Troponin I < 0.01, NT-Pro-B Natriuret Pep 44.3, Total Protein 6.7, Albumin 3.6, Globulin 3.1, Albumin/Globulin Ratio 1.2 09/26/24 05:30: WBC 11.9 H, RBC 4.44, Hgb 11.9 L, Hct 40.3, MCV 90.8, MCH 26.8 L, MCHC 29.5 L, RDW 14.6, Plt Count 227, MPV 10.8 H, Neut % (Auto) 73.4, Lymph % (Auto) 14.4, [place] % (Auto) 8.2, Eos % (Auto) 1.9, Baso % (Auto) 0.5, Neut # (Auto) 8.7 H, Lymph # (Auto) 1.7, [place] # (Auto) 1.0, Eos # (Auto) 0.2, Baso # (Auto) 0.1, PT 13.1 H, INR 1.20 H I & O for Last 24 hours: Intake & Output 09/23/24 09/24/24 09/25/24 09/26/24 23:59 23:59 23:59 23:59 Intake Total 0 / 0 Output Total 950 / 950 Balance -950 / -950 Weight 236 lb 6 oz 238 lb 8 oz Constitutional Constitutional: obese, chronically ill appearing and disheveled *Routine Respiratory Exam Respiratory: Present rhonchi, wheezes, diminished air movement and symmetric chest movement *Routine Cardiovascular Exam Cardiovascular: Present RRR, Normal S1 and Normal S2 *Routine Abdominal Exam Abdominal: Present soft and normoactive bowel sounds; Absent tenderness *Routine Extremities Exam Extremities: Present edema, full ROM and normal capillary refill *Routine Skin Exam Skin: Present intact, dry and warm Detailed Neck Exam: Thyroids Thyroid: Absent bruit Meds Home Medications and Allergies Home Medications ?Medication ?Instructions ?Recorded ?Confirmed ?Type omeprazole 20 mg capsule,delayed 20 mg PO DAILY heartburn #90 caps 05/14/24 09/26/24 Rx release lisinopril 20 mg tablet 20 mg PO DAILY 09/02/24 09/26/24 History albuterol sulfate 90 mcg/actuation 2 inh inhalation QID PRN shortness 09/08/24 09/26/24 Rx aerosol inhaler of breath or wheezing 90 days #8.5 grams umeclidinium 62.5 mcg-vilanterol 1 inh inhalation DAILY 90 days 09/08/24 09/26/24 Rx 25 mcg/actuation powdr for #180 ea inhalation (Anoro Ellipta) bumetanide 1 mg tablet 1 mg PO DAILY 09/26/24 09/26/24 History New Prescriptions to Start Prescriptions: Allergies Allergy/AdvReac Type Severity Reaction Status Date / Time atorvastatin (From LIPITOR) Allergy Unknown FATTY LIVER Verified 09/04/24 09:39 codeine (CODEINE) Allergy Unknown I-RASH Verified 09/04/24 09:39 latex (LATEX) Allergy Unknown I-RASH Verified 09/04/24 09:39 Penicillins (PENICILLINS) Allergy Unknown I-RASH Verified 09/04/24 09:39 Assessment and Plan *Assessment and plan (1) Respiratory failure: Status: Acute Category: Medical Code(s): J96.90 - Respiratory failure, unspecified, unspecified whether with hypoxia or hypercapnia (2) Pulmonary embolism: Status: Acute Category: Medical Code(s): I26.99 - Other pulmonary embolism without acute cor pulmonale (3) Malignant pleural effusion: Status: Acute Category: Medical Code(s): J91.0 - Malignant pleural effusion Plan Pulmonary embolism Right main pulmonary artery Large pleural effusion - Lovenox - Echo pending- prlim EF is normal, offical is pending - Discussed with oral anticoagulation versus thrombectomy, patient would like to proceed with thrombectomy - Transition to Xarelto following procedure - Thrombectomy for right PE is pending - Pulmonology has been consulted Adenocarcinoma of the lung - Will transition to hospice care - Following procedure, comfort measures only - Symptom management as needed ordered CV summary 09/26/2024: Echocardiogram and thrombectomy are pending. Pulmonology consult pending.
--- NOTE | 2024-09-26 09:10 | PC.NURSE ---
patients rectal temp 96.9, room temperature increased and warm blankets applied
--- NOTE | 2024-09-26 09:25 | EXP.PULM.CON ---
History of Present Illness History of present illness: Ms. Amaro is a 69-year-old female current smoker greater than [id number] smoking with the pulmonary evaluate for abnormal CT scan that showed pulmonary nodule status post CT-guided biopsy resulted positive for metastatic adenocarcinoma following with oncology presented to the ER with worsening respiratory distress and pulmonary was called for further evaluation and management. [facility] Disclaimer: The information contained in this section may have been updated after the patient was seen, as this information can be updated by other users. Medical History (Updated 09/26/24 @ 13:30 by Ishan Garcia MD) Mediastinal lymphadenopathy Hilar lymphadenopathy Lymphedema COPD (chronic obstructive pulmonary disease) Breast cancer Diabetes Dyspnea on exertion Smoking greater than 30 pack years Lung nodule Tobacco abuse Surgical History History of colonoscopy History of mastectomy History of surgery on arm History of hysterectomy History of appendectomy History of cholecystectomy Family History Other Family history of cancer Social History Smoking Status: Current every day smoker tobacco type: cigarettes packs per day: 1 alcohol intake: former substance use type: denies use current occupational status: employed Travel in the last 8 weeks?: Inside the [place] caffeine: No Have you lived/traveled outside US in past 30 days?: No Contact w/someone who lives/traveled outside US past 30 days?: No Exposure to someone with infectious disease in past 14 days?: No Do you have a fever (greater than 100.4 F or 38 C)?: No Have you tested positive for COVID-19?: No Exposed to someone with COVID-19 in past 14 days?: No Do you have a sore throat?: No Do you have a cough?: No Do you have any weakness?: Yes Do you have any diarrhea?: No Are you experiencing any unusual bleeding?: No Do you have any muscle aches/pain?: No Do you have any abdominal pain?: No Are you experiencing loss of taste or smell?: No Review of Systems Constitutional Constitutional: Reports anorexia, Reports body ache(s), Reports fatigue, Reports poor appetite, Reports lethargy and Reports weakness Eyes Eyes: Denies eye discharge, Denies dry eyes, Denies irritation and Denies itchy eyes ENT Ears, Nose, Mouth, and Throat: Denies epistaxis, Denies facial pain, Denies lip swelling and Denies throat swelling *Cardiovascular Cardiovascular: Reports dyspnea and Reports dyspnea on exertion *Respiratory Respiratory: Denies change in phlegm color, Reports chest congestion, Reports cough, Reports dyspnea, Reports dyspnea on exertion, Reports excessive phlegm production and Reports wheezing *Gastrointestinal Gastrointestinal: Denies abdominal pain, Denies belching and Denies cramping *Musculoskeletal Musculoskeletal: Reports back pain, Reports myalgias and Reports other (No small joint swelling or Pain) *Neurologic Neurologic: Reports weakness Psychiatric Psychiatric: Denies homicidal ideation and Denies suicidal ideation Endocrine Endocrine: Reports fatigue and Denies heat intolerance Hematologic/Lymphatic Hematologic/Lymphatic: Denies easy bleeding and Denies lymphadenopathy Allergic/Immunologic Allergic/Immunologic: Denies itchy eyes, Denies lip swelling, Denies throat swelling and Reports wheezing Pulmonology Exam Inpatient Vital signs and Labs for Last 24 Hours: Temp Pulse Resp BP Pulse Ox O2 Del Method O2 Flow Rate 96.8 F L 90 22 127/76 92 L Nasal Cannula 4 09/26/24 08:00 09/26/24 08:00 09/26/24 08:00 09/26/24 08:00 09/26/24 08:00 09/26/24 08:00 09/26/24 08:00 Laboratory Results - last 24 hr 09/25/24 17:46: VBG pH 7.43 H, VBG pCO2 42.0, VBG pO2 59.4 H, VBG HCO3 27.3, VBG Total CO2 28.6 H, VBG O2 Saturation 90.5 H, VBG Base Excess 3.0 H, VBG Lactic Acid 1.5 09/25/24 17:47: SARS-CoV-2 (PCR) Not detected, Influenza A Untype (PCR) Not detected, Influenza Type B (PCR) Not detected 09/25/24 17:58: WBC 15.1 H, RBC 4.40, Hgb 12.2, Hct 39.5, MCV 89.8, MCH 27.7, MCHC 30.9 L, RDW 14.6, Plt Count 234, MPV 10.7 H, Neut % (Auto) 73.8, Lymph % (Auto) 15.3, [place] % (Auto) 7.6, Eos % (Auto) 1.3, Baso % (Auto) 0.3, Neut # (Auto) 11.1 H, Lymph # (Auto) 2.3, [place] # (Auto) 1.2 H, Eos # (Auto) 0.2, Baso # (Auto) 0.1, Sodium 136, Potassium 3.8, Chloride 100, Carbon Dioxide 33 H, Anion Gap 6.8, BUN 39 H, Creatinine 1.70 H, Estimated Creat Clear 55, Estimated GFR 30 L, Est GFR ( Amer) 36 L, Glucose 114 H, Calcium 9.4, Total Bilirubin 0.5, AST 23, ALT 22, Alkaline Phosphatase 105, Troponin I < 0.01, NT-Pro-B Natriuret Pep 44.3, Total Protein 6.7, Albumin 3.6, Globulin 3.1, Albumin/Globulin Ratio 1.2 09/26/24 05:30: WBC 11.9 H, RBC 4.44, Hgb 11.9 L, Hct 40.3, MCV 90.8, MCH 26.8 L, MCHC 29.5 L, RDW 14.6, Plt Count 227, MPV 10.8 H, Neut % (Auto) 73.4, Lymph % (Auto) 14.4, [place] % (Auto) 8.2, Eos % (Auto) 1.9, Baso % (Auto) 0.5, Neut # (Auto) 8.7 H, Lymph # (Auto) 1.7, [place] # (Auto) 1.0, Eos # (Auto) 0.2, Baso # (Auto) 0.1, PT 13.1 H, INR 1.20 H I & O for Labs for Last 24 Hours: Intake & Output 09/23/24 09/24/24 09/25/24 09/26/24 23:59 23:59 23:59 23:59 Intake Total 0 / 0 Output Total 950 / 950 Balance -950 / -950 Weight 236 lb 6 oz 238 lb 8 oz Constitutional: Present severe distress Head: Present normocephalic and atraumatic ENT: Present normal exam, normal oropharynx and mucous membranes moist Neck: Present normal inspection and full ROM Respiratory: Present prolonged expiratory phase, respiratory distress, wheezes, diminished air movement and able to speak in complete sentences Cardiac: Present S1/S2, Tachycardia and radial pulses present GI: Present soft and distention; Absent tenderness or guarding Rectal (female): Present deferred (female): Present deferred Skin: Present intact; Absent cyanosis or jaundice Neuro: Present alert, awake and oriented x 3 Extremities: Present normal inspection; Absent clubbing or cyanosis Psychiatric: Present normal affect and cooperative Meds Home Medications and Allergies Home Medications ?Medication ?Instructions ?Recorded ?Confirmed ?Type omeprazole 20 mg capsule,delayed 20 mg PO DAILY heartburn #90 caps 05/14/24 09/26/24 Rx release lisinopril 20 mg tablet 20 mg PO DAILY 09/02/24 09/26/24 History albuterol sulfate 90 mcg/actuation 2 inh inhalation QID PRN shortness 09/08/24 09/26/24 Rx aerosol inhaler of breath or wheezing 90 days #8.5 grams umeclidinium 62.5 mcg-vilanterol 1 inh inhalation DAILY 90 days 09/08/24 09/26/24 Rx 25 mcg/actuation powdr for #180 ea inhalation (Anoro Ellipta) bumetanide 1 mg tablet 1 mg PO DAILY 09/26/24 09/26/24 History New Prescriptions to Start Prescriptions: Allergies Allergy/AdvReac Type Severity Reaction Status Date / Time atorvastatin (From LIPITOR) Allergy Unknown FATTY LIVER Verified 09/04/24 09:39 codeine (CODEINE) Allergy Unknown I-RASH Verified 09/04/24 09:39 latex (LATEX) Allergy Unknown I-RASH Verified 09/04/24 09:39 Penicillins (PENICILLINS) Allergy Unknown I-RASH Verified 09/04/24 09:39 Results Laboratory Findings 09/26/24 05:30 09/25/24 17:58 PT/INR, D-dimer PT 13.1 seconds (10.1-12.5) H 09/26/24 05:30 INR 1.20 (0.9-1.1) H 09/26/24 05:30 Abnormal lab findings: Abnormal Labs 09/25/24 09/25/24 09/26/24 17:46 17:58 05:30 WBC 15.1 H 11.9 H Hgb 11.9 L MCH 26.8 L MCHC 30.9 L 29.5 L MPV 10.7 H 10.8 H Neut # (Auto) 11.1 H 8.7 H [place] # (Auto) 1.2 H PT 13.1 H INR 1.20 H VBG pH 7.43 H VBG pO2 59.4 H VBG Total CO2 28.6 H VBG O2 Saturation 90.5 H VBG Base Excess 3.0 H Carbon Dioxide 33 H BUN 39 H Creatinine 1.70 H Estimated GFR 30 L Est GFR ( Amer) 36 L Glucose 114 H Assessment and Plan *Assessment and plan (1) Respiratory failure: Status: Acute Category: Medical Code(s): J96.90 - Respiratory failure, unspecified, unspecified whether with hypoxia or hypercapnia (2) Pulmonary embolism: Status: Acute Category: Medical Code(s): I26.99 - Other pulmonary embolism without acute cor pulmonale (3) Malignant pleural effusion: Status: Acute Category: Medical Code(s): J91.0 - Malignant pleural effusion (4) Lung cancer: Status: Acute Category: Medical Code(s): C34.90 - Malignant neoplasm of unspecified part of unspecified bronchus or lung (5) Hilar lymphadenopathy: Status: Acute Category: Medical Code(s): R59.0 - Localized enlarged lymph nodes (6) Mediastinal lymphadenopathy: Status: Acute Category: Medical Code(s): R59.0 - Localized enlarged lymph nodes Plan Ms. Amaro is a 69-year-old female current smoker greater than [id number] smoking with the pulmonary evaluate for abnormal CT scan that showed pulmonary nodule status post CT-guided biopsy resulted positive for metastatic adenocarcinoma following with oncology presented to the ER with worsening respiratory distress and pulmonary was called for further evaluation and management. CTA right-sided extensive right sided pulmonary embolism along with moderate-sized left pleural effusion. Worsening pleural nodules lung nodules and adenopathy. Despite the findings are concerning for cancer progression at this point of time given her complicated history and she being off chemotherapy and prednisone for the last 6 months it would be ideal to prove that her current findings are to be from progressive malignancy at this point of time then pursuing directly hospice care from pulmonary and oncology standpoint after discussing the case with Dr. Chase. Have extensively discussed with the patient and the family regarding the need to keep their follow-up appointment with Dr. Chase to discuss further options and also to pursue thoracentesis. Patient's family is not willing to pursue thoracentesis on this hospital admission. Discussed with the hospitalist team for the possibility of scheduling that as an outpatient basis and that needs to be coordinated with her anticoagulation as patient will be discharged home on anticoagulation for her newly diagnosed pulmonary embolism. Plan: Continue Anoro inhaler/DuoNebs every 6 hours scheduled Serum fungal serologies and beta glucan Sputum culture Levofloxacin 750 daily x 5 days Coordinate and schedule anticoagulation outpatient thoracentesis Follow-up with oncology and pulmonology in 5 to 7 days postdischarge She is undergoing thrombectomy for symptom improvement.
--- OUTSIDE RECORDS SUMMARY | 2024-09-26 10:46 | XMS_ITS | Encounter Summary ---
Author Organization Healthcare Address [address] [place] [address] Care Team Providers Care Adjunct Psychology Professor Name Role Phone Otto Hua MD Primary Care Provider [phone] Encounter Details Date Type Department Care Team ([facility] st Contact Info) Description 09/11/2024 Telephone [facility] [address], [address] [place] [address] Stefano Silverio MD [address] [place] [address] Social History Tobacco Use Types Packs/Day Years [...] on file documented as of this encounter Miscellaneous Notes * Telephone Encounter - Stefano Silverio MD - 09/11/2024 4:15 PM EDT Kidney biopsy showing mild AIN and significant ATN The koi kidney biopsy on this patient shows acute tubular injury AND mild acute interstitial nephritis. The latter may be related to checkpoint inhibitor exposure that has been modulated by the steroid treatment. The acute tubular injury is also equally impressive. There is a background of moderate interstitial fibrosis and moderate tubular atrophy. IF is negative for glomerular immune complexes. EM is pending and Dr. Weaver will review the EM after completion. Will attempt to start prednisone taper now if there is another bump in cr then will need addition of another agent to treat IC-JOSSIE such as Cellcept or Infliximab documented in this encounter Plan of Treatment Upcoming Encounters Date Type Department Care Team (Late st Contact Info) Description 10/06/2024 10:40 AM EDT Office Visit [facility] Nephrology, Bone & Mineral Metabolism [address], [address] [place] [address] Stefano Silverio MD [address] [place] [address] documented as of this encounter Visit Diagnoses Diagnosis Adverse effect of immune checkpoint inhibitor, subsequent encounter- Primary Primary adenocarcinoma of lung, unspecified laterality (CMS/HCC) Acute kidney injury (CMS/HCC) documented in this encounter Additional Health Concerns Assessment Noted Time A Body Mass Index follow-up plan has been documented for the patient 09/10/2024 1:22 PM EDT documented as of this encounter Care Teams Adjunct Psychology Professor Relationship Specialty Start Date End Date Otto Hua MD [address] [place] [address] [place] [id number] PCP - General 09/03/20 documented as of this encounter
--- OUTSIDE RECORDS SUMMARY | 2024-09-26 10:46 | XMS_ITS | Clinical Summary ---
Author Organization Healthcare Address [address] [place] [address] Care Team Providers Care Government Professor Name Role Phone Otto Hua MD Primary Care Provider [phone] Allergies Active Allergy Reactions Criticality Noted Date Comments Atorvastatin Other - please docum ent in the comment field,Rash,Unknown - Patient states they do not know rxn details Medium 06/02/2015 Liver dysfunction whilst on atorva Codeine Rash,Unknown - Patie nt states they do not know rxn details Low 06/02/2015 Latex Itching Medium 04/05/2016 Itching Penicillins Itching,Rash,Unknown - Patient states they do not know rxn details Medium 06/02/2015 Medications albuterol (Proventil) (2.5 MG/3ML) 0.083% nebulizer solution Take 3 mL by nebulization 4 times a day. Active albuterol 108 (90 Base) MCG/ACT inhaler Inhale 2 puffs 3 times a day. Active ALPRAZolam (Xanax) 0.5 MG tablet Take 1 tablet by mouth 3 times a day. Active ARIPiprazole (Abilify) 10 MG tablet Take 1 tablet by mouth Daily. Active buPROPion XL (Wellbutrin XL) 300 MG 24 hr tablet Take 1 tablet by mouth every morning. 5 Active ezetimibe (Zetia) 10 MG tablet Take 1 tablet by mouth Daily. Active folic acid (Folvite) 1 MG tablet Take 1 tablet by mouth Daily. Active furosemide (Lasix) 20 MG tablet Take 1 tablet by mouth daily. 5 Active HYDROcodone-robert taminophen ([place]) 5-325 MG tablet Take 1 tablet by mouth every 6 hours as needed. Active lisinopril 20 MG tablet Take 1 tablet by mouth daily. Active methocarbamol (Robaxin) 500 MG tablet Take 1 tablet by mouth 3 times a day. Active omega-3 acid ethyl esters (Lovaza) 1 g capsule Take 1 capsule by mouth daily. 5 Active omeprazole (PriLOSEC) [address] capsule Take 1 capsule by mouth daily. Active predniSONE (Deltasone) 50 MG tablet Take 60 mg by mouth daily. Active Umeclidinium-Vi lanterol (Anoro Ellipta) 62.5-25 MCG/ACT aerosol powder aerosol powder Inhale 1 Inhalation daily. Active bumetanide (Bumex) 1 MG tablet Take 1 tablet by mouth daily. 90 tablet 3 Active Active Problems Problem Noted Date Diagnosed Date Acute kidney injury 09/05/2024 Adverse effect of immune checkpoint inhibitor Primary adenocarcinoma of lung 09/05/2024 Hypertension 09/05/2024 Obesity (BMI 35.0-39.9 without comorbidity) 08/21 Immunosuppressed due to chemotherapy 09/05/2024 Current chronic use of systemic steroids 025 Encounters Date Type Department Care Team Description 09/25/2024 [facility]rology[facility] [address] [facility], [address] [address] Stefano Silverio MD [facility] Clinical Concern/Question 09/22/2024 [facility]phrology, Bone [facility] Min[facility] Met[facility] [address] [facility], [address] [place] [address] Stefano Silverio MD 09/11/2024 [facility]phrology, Bone [facility] Mineral Metabolism [address] [facility], [address] [place] [address] Stefano Silverio MD 09/10/2024 6:26 AM EDT - 09/10/2024 11:59 PM EDT Hospital Encounter [facility] [address] [place] [address] Rocco Barth Acute kidney injury (CMS/HCC); Adverse effect of immune checkpoint inhibitor; Current chronic use of systemic steroids Discharge Disposition: Home or Self Care 09/10/2024 Travel 09/08/2024 Orders Only [facility] Nephrology, Bone [facility] Mineral Metabolism [address], [address] [place] [address] Stefano Silverio MD Acute kidney injury (CMS/HCC); Adverse effect of immune checkpoint inhibitor, subsequent encounter 09/08/2024 Orders Only [facility] [address] [place] [address] Maxine rey, Daniel Harris MD Acute kidney injury (CMS/HCC) (Primary Dx); Adverse effect of immune checkpoint inhibitor; Current chronic use of systemic steroids 09/05/2024 12:00 PM EDT Office Visit [facility] [address] [place] [address] Stefano Silverio MD Acute kidney injury (CMS/HCC) (Primary Dx); Adverse effect of immune checkpoint inhibitor, subsequent encounter; Primary adenocarcinoma of lung, unspecified laterality (CMS/HCC); Hypertension, unspecified type; Obesity (BMI 35.0-39.9 without comorbidity); Immunosuppressed due to chemotherapy; Current chronic use of systemic steroids 09/05/2024 Travel from Last 3 Months Social History Tobacco Use Types Packs/Day Years [...] on file Sexual Orientation Not on file Last Filed Vital Signs Vital Sign Reading [...] Mass Index 41.42 09/10/2024 6:36 AM EDT Plan of Treatment Upcoming Encounters Date Type Department Care Team ([facility] st Contact Info) Description 10/06/2024 10:40 AM EDT Office Visit [facility] Nephrology, Bone & Mineral Metabolism [address] [facility], [address] [place] [address] Stefano Silverio MD [address] [place] [address] Health Maintenance Due Date Last Done Comments [facility]-Bone Density Scan 1955 [facility]-Depression Screening 1956 [facility]-Hepatitis C Screening 1955 [facility]-Medicare Annual Wellness (AWV) 1955 [facility]-/Child/Adol SDOH Screenings 1955 [facility]- SDOH Screenings 02/15/1974 [facility]-Adult SDOH Screenings 02/15/1974 [facility]-DTaP,Tdap,and Td Vaccines (1 - Tdap) 06/25/1996 06/24/1996, 06/29/1995 CT Colonography 02/15/2001 Colonoscopy 02/15/2001 FIT-DNA 02/15/2001 FIT 02/15/2001 FOBT 02/15/2001 Sigmoidoscopy 02/15/2001 [facility]-Colorectal Cancer Screening 02/15/2001 [facility]-Breast Cancer Screening 02/15/2006 [facility]-RSV Vaccine: 60+ Years or (1 - Risk 60-74 years 1-dose series) 2016 [facility]-Zoster Vaccines (1 of 2) 07/13/2016 05/18/2016 [id number] Vaccine (3 - Moderna risk series) 09/15/2020 08/18/2020, 07/21/2020 [facility]-Pneumococcal Vaccine: 50+ Years (3 of 3 - PPSV23, PCV20 or PCV21) 04/21/2025 04/21/2020, 05/17/2016 [facility]-Influenza Vaccine Completed 01/23/2024 , 03/28/2023, 02/27/2022, Additional history exists [facility]-Obesity Intervention Completed 025, 09/10/2024, 09/05/2024 HPV Vaccines Aged Out No longer eligi ble based on patient's age to complete this topic [facility]-HIB Vaccines Aged Out No longer e ligible based on patient's age to complete this topic [facility]-Hepatitis A Vaccines Aged Out No longer eligible based on patient's age to complete this topic [facility]-IPV Vaccines Aged Out No longer e ligible based on patient's age to complete this topic [facility]-Rotavirus Vaccines Aged Out No lo nger eligible based on patient's age to complete this topic Procedures Procedure Name Priority Date/Time Associated Diagnosis Comments HEMATOCRIT, BLOOD Routine 09/10/2024 12: 01 PM EDT HEMOGLOBIN Routine 09/10/2024 12:01 PM EDT US GUIDED BIOPSY RENAL LEFT Routine 09/10/2024 8:25 AM EDT Acute kidney injury (CMS/HCC) Adverse effect of immune checkpoint inhibitor Current chronic use of systemic steroids SURGICAL PATHOLOGY EXAM Routine 09/10/2024 8:18 AM EDT TYPE AND SCREEN Routine 09/10/2024 6:58 AM EDT HEMOGLOBIN AND HEMATOCRIT, BLOOD STAT 09/10/2024 6:58 AM EDT from Last 3 Months Results * Hemoglobin, Blood (09/10/2024 12:01 PM EDT) HGB 12.4 11.2 - 15.7 g/dL LAB HEMATOLOGY METHOD 09/10/2024 1:00 PM EDT [facility] Blood Venous blood specimen / Unknown Venipuncture / Unknown 09/10/2024 12:01 PM EDT 09/10/2024 12:50 PM EDT us Daniel Alexander MD LAB BLOOD OR DERABLES Final Result [facility] [address] [place] [address] * Hematocrit, Blood (09/10/2024 12:01 PM EDT) HCT 40.6 34.0 - 45.0 % LAB HEMATOLOGY METHOD 09/10/2024 1:00 PM EDT [facility] Blood Venous blood specimen / Unknown Venipuncture / Unknown 09/10/2024 12:01 PM EDT 09/10/2024 12:50 PM EDT us Daniel Alexander MD LAB BLOOD OR DERABLES Final Result [facility] [address] [place] [address] * US Guided Biopsy Renal Left (09/10/2024 8:25 AM EDT) Anatomical Region Laterality Modality Kidney Left X-Ray Angiograph y Impressions 09/10/2024 1:12 PM EDT Successful non-target ultrasound guided left nez perce kidney biopsy CRITICAL RESULT: No. COMMUNICATION: Per this written report. Drafted by Daniel Alexander on 09/10/2024 1:11 PM Final report signed by Daniel Alexander on 09/10/2024 1:12 PM Narrative 09/10/2024 1:12 PM EDT CLINICAL INDICATION: JOSSIE TECHNIQUE: Horse Wrangler: Dr. Alexander Secondary Telecommunications Operator: None Medications used: 1 mg midazolam 100 [...] specimens were preliminary examined by the surgical pathologist/radio tower technician present in the ultrasound room and were found to have enough number of glomeruli. The biopsy site was then cleaned, and a bandage applied. Patient tolerated the procedure well. COMPARISON: None. FINDINGS: Left kidney identified. Immediate post procedural scanning demonstrated no perinephric hematoma. COMPLICATION: No. Procedure Note Daniel Alexander MD - 09/10/2024 CLINICAL INDICATION: JOSSIE TECHNIQUE: Horse Wrangler: Dr. Alexander Secondary Telecommunications Operator: None Medications used: 1 mg midazolam 100 [...] biopsy specimens were preliminary examined by the surgicalpathologist/radio tower technician present in the ultrasound room and werefound to have enough number of glomeruli. The biopsy site was then cleaned, and a bandage applied. Patient toleratedthe procedure well. COMPARISON: None. FINDINGS: Left kidney identified. Immediate post procedural scanning demonstrated noperinephric hematoma. COMPLICATION: No. IMPRESSION: Successful non-target ultrasound guided left nez perce kidney biopsy CRITICAL RESULT: No. COMMUNICATION: Per this written report. Drafted by Daniel Alexander on 09/10/2024 1:11 PM Final report signed by Daniel Alexander on 09/10/2024 1:12 PM us Daniel Alexander MD [facility] US ROB GAO Final Result * Surgical Pathology Exam (09/10/2024 8:18 AM EDT) Case Report Surgical Pathology Case: [id number] Authorizing Provider: Daniel Alexander Collected: 09/10/2024 0818 MD Steven Ordering Location: [facility] Received: 09/10/2024 0845 Radiology Pathologist: Jordan Stafford MD Specimen: Kidney, Left 09/11/2024 3:07 PM EDT [facility] Final Diagnosis [place] [facility] KIDNEY, NEEDLE BIOPSY: - ACUTE TUBULAR INJURY AND MILD ACUTE INTERSTITIAL NEPHRITIS, SEE MICROSCOPIC DESCRIPTION AND NOTE - MODERATE INTERSTITIAL FIBROSIS AND MODERATE TUBULAR ATROPHY - IMMUNOFLUORESCENCE MICROSCOPY NEGATIVE FOR GLOMERULAR IMMUNE COMPLEXES - ELECTRON MICROSCOPY IS PENDING, UPON COMPLETION, RESULTS WILL BE REPORTED IN AN AMENDMENT 09/11/2024 3:07 PM EDT [facility] at 1507 EDT Comment The biopsy findings, which include mild acute interstitial nephritis, may be related to a history of checkpoint inhibitor administration that has been modulated by steroid administration. Clinical correlation is recommended. Preliminary results of the biopsy are communicated to Dr. Silverio on 09/11/2024 at [address] Stafford. 09/11/2024 3:07 PM EDT [facility] Clinical Information Past medical history significant for adenocarcinoma of the lung with metastasis. Status post chemotherapy including checkpoint inhibitor. Recent hospitalization in April 2024 with a creatinine of 4.6. Status post treatment with steroids resulting in a decrease in creatinine. Creatinine 1.2. No significant hematuria or proteinuria. 09/11/2024 3:07 PM EDT [facility] Microscopic Description LIGHT MICROSCOPY: 5 H&E, 2 PAS, 2 trichrome, 2 Blanco. The biopsy consists of 2 needle cores of renal parenchyma and is adequate for evaluation. On 1 vendor representatives level of the biopsy up to 8 [...] ELECTRON MICROSCOPY: Currently pending. 09/11/2024 3:07 PM EDT [facility] Gross Description A. The specimen is received fresh and consists of 2 goldstein-pink tissue core fragments ranging in length from 1.4 to 1.0 cm, and measuring approximately 0.1 cm in diameter. The tissue is divided for light, immunofluorescence and electron microscopy studies. The tissue for electron microscopy is sent to [facility] for processing and photographing. Cold Time: 8:18 AM 09/11/2024 3:07 PM EDT [facility] Tissue Left kidney structure / Unknown Non-blood Collection / Unknown 09/10/2024 8:18 AM EDT 09/10/2024 8:45 AM EDT us Daniel Alexander MD LAB PATHOLOG Y ORDERABLES Final Result Performing Organization Address City/[facility] [place] [address] * Hemoglobin and Hematocrit, Blood (09/10/2024 6:58 AM EDT) HGB 12.6 11.2 - 15.7 g/dL LAB HEMATOLOGY METHOD 09/10/2024 7:16 AM EDT [facility] HCT 41.1 34.0 - 45.0 % LAB HEMATOLOGY METHOD 09/10/2024 7:16 AM EDT [facility] Blood Venous blood specimen / Unknown Venipuncture / Unknown 09/10/2024 6:58 AM EDT 09/10/2024 7:07 AM EDT us Daniel Alexander MD LAB BLOOD OR DERABLES Final Result Performing Organization Address City/[facility]/ZIP Co de Phone Number [facility] [address] [place] [address] * Type and Screen (09/10/2024 6:58 AM EDT) ABO/Rh O Positive 09/10/2024 6:30 AM EDT BLOOD [facility] Antibody Screen Negative 09/10/2024 6:30 AM EDT [facility] Specimen Expiration 09/13/2024 23:59 09/10/2024 6:30 AM EDT [facility] Blood Venous blood specimen / Unknown Venipuncture / Unknown 09/10/2024 6:58 AM EDT 09/10/2024 7:01 AM EDT us Daniel Alexander MD LAB BLOOD BA NK TEST ORDERABLES Final Result BLOOD BANK [address] [place] [address], [place] from Last 3 Months Insurance [employer] MEDICARE Care Teams Government Professor Relationship Specialty Start Date End Date Otto Hua MD [address] [place] [address] [place] [id number] PCP - General 09/03/20
--- OUTSIDE RECORDS SUMMARY | 2024-09-26 10:46 | XMS_ITS | Clinical Summary ---
Author Organization [facility] Address [facility] [place] [address] Care Team Providers Care Tipple Engineer Name Role Phone Otto Hua MD Primary Care Provider + [phone] Source Comments This information has been disclosed to you from confidential records protectedfrom disclosure by state law. You shall make no further disclosure of thisinformation without the specific, written, and informed release of theindividual to whom it pertains, or as otherwise permitted by law. A generalauthorization for the release of medical or other information is not sufficientfor the purposes of therelease of HIV test results or diagnoses. [id number] Allergies Active Allergy Reactions Criticality Noted Date Comments Atorvastatin Medium 05/05/2024 Liver dysfunction whilst on atorva Codeine Rash Low 05/05/2024 Penicillins Rash Low 05/05/2024 Medications albuterol 90 mcg/actuation Inhl inhaler Inhale 2 puffs into the lungs every 4 hours as needed for Wheezing or Shortness of Breath. 4 Active ALPRAZolam (XANAX) 0.5 MG tablet Take 1 tablet (0.5 mg total) by mouth 3 times a day as needed for Sleep or Anxiety. 5 Active folic acid (FOLVITE) 1 MG tablet Take 1 tablet (1 mg total) by mouth daily. 4 Active STIOLTO RESPIMAT 2.5-2.5 mcg/actuation Mist Inhale 2 puffs into the lungs daily. 4 Active ARIPiprazole (ABILIFY) 10 MG tablet Take 1 tablet (10 mg total) by mouth daily. Active omega-3 fatty acids-fish oil 300-1,000 mg capsule Take 1 capsule by mouth daily. Active ezetimibe (ZETIA) 10 mg tablet Take 1 tablet (10 mg total) by mouth daily. Active cholecalciferol , vitamin D3, 1000 units tablet Take 1 tablet (1,000 Units total) by mouth daily. Active buPROPion HCL (WELLBUTRIN XL) 300 MG 24 hr tablet Take 1 tablet (300 mg total) by mouth daily. Takes with 150 mg for total 450 mg daily Active buPROPion XL (WELLBUTRIN XL) 150 MG 24 hr tablet Take 1 tablet (150 mg total) by mouth daily. Takes with 300 mg for total 450 mg daily Active rosuvastatin (CRESTOR) 5 MG tablet Take 1 tablet (5 mg total) by mouth daily. Active omeprazole (PRILOSEC) 20 MG capsule Take 1 capsule (20 mg total) by mouth daily as needed (Heartburn). 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 Hypertension, essential 05/07/2024 Panlobular emphysema 05/07/2024 Smoking greater than 30 pack years 05/07/2024 Status post left mastectomy 05/07/2024 NSCLC metastatic to bone 05/06/2024 Resolved Problems Problem Noted Date Diagnosed Date Resolved Date Hyperkalemia 05/06/2024 05/09/2024 Acute renal failure (ARF) 05/06/2024 Family History Medical History Relation Comments Kidney Cancer Brother Alzheimer's disease Father at 94 Lymphoma Mother NHL - at 84 Breast Cancer Sister Relation Status Comments Brother Father Mother Sister Social History Tobacco Use Types Packs/Day Years Used Date Smoking Tobacco: Every Day Cigarettes 1 57.4 Started: 1966 Smokeless Tobacco: Never Tobacco Cessation:Ready to Q uit: No; Counseling Given: Yes Alcohol Use Standard Drinks/Week Comments Not Currently 0 (1 standard drink = 0.6 oz pure alcohol) Former AUD - sober since 1993 Mammotomeities Answer Date Recorded In the past 12 months has e [employer] land [employer], [employer], or [employer] threatened to shut off services in your home? No 05/06/2024 AUDIT-C Answer Date Recorded Q1: How often do you have a drink containing alcohol? Never 05/06/2024 Q2: How many drinks containi ng alcohol do you have on a typical day when you are drinking? Patient does not drink Q3: How often do you have si x or more drinks on one occasion? Never 05/06/2024 Hunger Vital Sign Answer Date Recorded Within the past 12 months, y ou worried that your food would run out before you got the money to buy more. Never true 05/06/19 25 Within the past 12 months, t he food you bought just didn't last and you didn't have money to get more. Never true 05/06/2024 PRAPARE - Transportation Answer Date Re corded In the past 12 months, has l ack of transportation kept you from medical appointments or from getting medications? No 04/23 In the past 12 months, has l ack of transportation kept you from meetings, work, or from getting things needed for daily living? No 05/06/2024 Housing Stability Vital Sign Answer Patrick e Recorded In the last 12 months, was t here a time when you were not able to pay the mortgage or rent on time? No 05/06/2024 In the past 12 months, how m any times have you moved where you were living? 0 05/06/2024 At any time in the past 12 m [facility], were you homeless or living in a usp (including now)? No 05/06/2024 Comments Unknown Sex and Gender Information Value Date Recorded Sex Assigned at Not on file Legal Sex Female 7:44 PM EST Gender Identity Not on file Sexual Orientation Not on file Last Filed Vital Signs Vital Sign Reading Time Taken Comments Blood Pressure 116/53 05/09/2024 3:01 PM EST Pulse 98 05/09/2024 3:01 PM EST Temperature 36.3 C (97.3 F) 05/09/2024 3:01 PM EST Respiratory Rate 18 05/09/2024 3:01 PM EST Oxygen Saturation 92% 05/09/2024 3:01 PM EST Inhaled Oxygen Concentration 92% 05/09/2024 3 :01 PM EST Weight 104.9 kg (231 lb 4.2 oz) 025 10:53 PM EST Height 165.1 cm (5' 5 ) 05/05/2024 10:5 3 PM EST Body Mass Index 38.48 05/05/2024 10:53 PM EST Plan of Treatment Health Maintenance Due Date Last Done Comments ASCVD Assessment 1955 Abnormal Colonoscopy Follow Up 1955 Hepatitis C Screening (MyChart) 1955 Lipid Panel 1956 Pulmonary Function Testing 1956 Depression Screening 02/15/1974 Mammogram (MyChart) 1996 Immunization: DTaP/Tdap/Td (1 - Tdap) 06/25/1996 06/24/1996, 06/29/1995 Cologuard (FIT-DNA) 02/15/2001 Colonoscopy 02/15/2001 Colorectal Cancer Screening (MyChart) 02/15/2001 Stool Testing (gFOBT) 02/15/2001 Lung Cancer Screening 02/15/2006 Osteoporosis Screening (DXA Scan) 02/15/2006 Immunization: RSV (Adult) (1 - Risk 60-74 years 1-dose series) 2016 Immunization: Zoster (1 of 2) 07/13/2016 05/18/2016 Immunization: COVID-19 (3 - Moderna risk series) 09/15/2020 08/18/2020, 07/21/2020 Diabetic Eye Exam (MyChart) 05/07/2024 Urine Albumin/Creatinine Ratio 05/07/2024 Hemoglobin A1C Monitoring (WeYAPhart) 11/06/2024 05/09/2024 Immunization: Pneumococcal (3 of 3 - PPSV23, PCV20 or PCV21) 04/21/2025 04/21/2020, 05/17/2016 Tobacco Cessation Readiness 05/05/2025 05/05/2024 Renal Function/GFR 05/09/2025 05/09/2024, 0 05/08/2024, 05/07/2024, Additional history exists Immunization: Influenza (MyChart) Completed 01/23/2024, 03/28/2023, 02/27/2022, Additional history exists Immunization: HPV Aged Out No longer eligible based on patient's age to complete this topic Procedures Procedure Name Priority Date/Time Associated Diagnosis Comments RENAL FUNCTION PANEL W/EGFR Routine 05/09/2024 4:22 AM EST HEMOGLOBIN A1C Routine 05/09/2024 4:22 AM EST from Last 3 Months or Most Recently Relevant to Health Maintenance Results * (ABNORMAL) Renal Function Panel w/EGFR (05/09/2024 4:22 AM EST) Sodium 132(L) 133 - 146 mmol/L 05/09/2024 4:59 AM EST [facility] Potassium 3.9 3.5 - 5.3 mmol/L 05/09/2024 4:59 AM EST [facility] Chloride 100 98 - 110 mmol/L 05/09/2024 4:59 AM EST [facility] CO2 21 21 - 33 mmol/L 05/09/2024 4:59 AM EST [facility] Anion Gap 11 3 - 16 mmol/L 05/09/2024 4:59 AM EST [facility] BUN 51(H) 7 - 25 mg/dL 05/09/2024 4:59 AM EST [facility] Creatinine 2.75(H) 0.60 - 1.30 mg/dL 05/09/2024 4:59 AM EST [facility] Glucose 178(H) 70 - 100 mg/dL 05/09/2024 4:59 AM EST [facility] Calcium 9.7 8.6 - 10.3 mg/dL 05/09/2024 4:59 AM EST [facility] Phosphorus 5.6(H) 2.1 - 4.5 mg/dL 05/09/2024 4:59 AM EST [facility] Albumin 3.6 3.5 - 5.7 g/dL 05/09/2024 4:59 AM EST [facility] Osmolality, Calculated 292 278 - 305 mOsm/kg 05/09/2024 4:59 AM EST [facility] EGFR 18 05/09/2024 4:59 AM EST [facility] Comment:As of 2021, the estimated GFR is calculated using the 2020 Chronic Kidney Disease Epidemiology Collaboration (CKD-EPI) equation. In line with the NKF-ASN Task Force Recommendations, this equation does not include a coefficient for race. A single eGFR value is calculated for each patient. The reference interval is >60 mL/min/1.73m2. eGFR values greater than 90 will be reported as >90mL/min/1.73m2. Reference: Santhosh C, Cesar M, Norma DC, Jonas ND, Alex CA, Wendy LA, et al. A Unifying Approach for GFR Estimation: Recommendations of the NKF-ASN Task Force on Reassessing the inclusion of Race in Diagnosing Kidney Disease. Am J Kidney Dis. 2020. Plasma 05/09/2024 4:22 AM EST 05/09/2024 4:30 AM EST Adriana Delgado DO LAB BLOOD ORDERABLES Yvonne l Result Performing Organization Address [facility] Co de Phone Number [facility] [address] [facility] * (ABNORMAL) Hemoglobin A1c (05/09/2024 4:22 AM EST) Hemoglobin A1C 5.7(H) 4.0 - 5.6 % 05/09/2024 5:33 AM EST [facility] Comment: Hemoglobin A1c Interpretation Guidelines: Normal: <5.7% Prediabetes: 5.7-6.4% Diabetes: >6.4% Diagnosis requires two independent tests unless clinical diagnosis is clear. Some clinical conditions, particularly anemias and hemoglobinopathies, may interfere with the diagnostic accuracy of hemoglobin A1c. The recommended goal for diabetic glycemic control (Hemoglobin A1c <7.0%) should be individualized based on duration of diabetes, age/life expectancy, comorbid conditions, known CVD or advanced microvascular complications, hypoglycemia unawareness, and other individual patient considerations. Whole Blood 05/09/2024 4:22 AM EST 05/09/2024 4:30 AM EST Deepa Briones DO LAB BLOOD ORDERABLES Final Resul t Performing Organization Address [facility] de Phone Number [facility] [address] [facility]. [address] from Last 3 Months or Most Recently Relevant to Health Maintenance Insurance [employer] MEDICARE Advance Directives For more information, please contact: [phone] Documents on File Type Date Recorded Patient Explosive Man Expl [facility] Power of Qualified Craft Worker Electrician - scan 05/10/2024 * DNRCC-A (Latest Code Status on File) Date Activated Date Inactivated Comments 05/06/2024 12:15 AM 05/09/2024 10:41 PM * Full Code Date Activated Date Inactivated Comments 05/05/2024 10:51 PM 05/06/2024 12:15 AM Care Teams Tipple Engineer Relationship Specialty Start Date End Date Otto Hua MD [address] [place] [id number] PCP - General Internal Medicine 05/05/24
--- OUTSIDE RECORDS SUMMARY | 2024-09-26 10:46 | XMS_ITS | Continuity of Care Document ---
Author Organization [facility] Address [address] [facility] [address] [place] [address] Social History Not on File Plan of Treatment Not on file
--- OUTSIDE RECORDS SUMMARY | 2024-09-26 10:46 | XMS_ITS | Encounter Summary ---
Author Organization Healthcare Address [address] [id number] Care Team Providers Care Commanding Officer Garage Name Role Phone Otto Hua MD Primary Care Provider + [phone] Reason for Visit * Reason Onset Date Comments HCN Clinical Concern/Question 09/25/2024 Encounter Details Date Type Department Care Team ([facility] st Contact Info) Description 09/25/2024 Telephone [facility] Nephrology, Bone & Mineral Metabolism [address] [facility], [address] [place] [address] Stefano Silverio MD [address] [place] [phone] HCN Clinical Concern/Question Social History Tobacco Use Types Packs/Day Years [...] encounter Miscellaneous Notes * Telephone Encounter - Polina Schafer - 09/25/2024 2:16 PM EDT Clinical Concern/Question Reason for Call: Patient req cb from a nurse -- she is having swelling and SOA. Best contact number: [phone] (mobile) Optimal time of day to reach caller: ANYTIME Additional comments/information from caller: None Note: Please do not reply to this message. Follow-up communication and further actions as a result of this message need to be communicated with the patient directly, if the patient is not active onMyChart. If the patient is active on MyChart, they will receive notification of the communication/outcome via MyChart. documented in this encounter Plan of Treatment Upcoming Encounters Date Type Department Care Team ([facility] st Contact Info) Description 10/06/2024 10:40 AM EDT Office Visit [facility] Nephrology, Bone & Mineral Metabolism [address] [facility], [address] [place] [address] Stefano Silverio MD [address] [place] [phone] documented as of this encounter Visit Diagnoses Not on filedocumented in this encounter Additional Health Concerns Assessment Noted Time A Body Mass Index follow-up plan has been documented for the patient 09/10/2024 1:22 PM EDT documented as of this encounter Care Teams Commanding Officer Garage Relationship Specialty Start Date End Date tOto Hua MD [address] [place] [id number] PCP - General 09/03/20 documented as of this encounter
--- OUTSIDE RECORDS SUMMARY | 2024-09-26 10:46 | XMS_ITS | Encounter Summary ---
Author Organization Healthcare Address [address] [place] [address] Care Team Providers Care Files Supervisor Name Role Phone Otto Hua MD Primary Care Provider [phone] Encounter Details Date Type Department Care Team (Latest Contact Info) Description 09/10/2024 Travel Social History Tobacco Use Types Packs/Day Years [...] on file documented as of this encounter Plan of Treatment Upcoming Encounters Date Type Department Care Team (Late st Contact Info) Description 10/06/2024 10:40 AM EDT Office Visit [facility] Nephrology, Bone & Mineral Metabolism [address] [facility], [address] [place] [phone] Stefano Silverio MD [address] [place] [phone] documented as of this encounter Visit Diagnoses Not on filedocumented in this encounter Additional Health Concerns Assessment Noted Time A Body Mass Index follow-up plan has been documented for the patient 09/10/2024 1:22 PM EDT documented as of this encounter Care Teams Files Supervisor Relationship Specialty Start Date End Date Otto Hua MD [address] [place] [address] PCP - General 09/03/20 documented as of this encounter
--- OUTSIDE RECORDS SUMMARY | 2024-09-26 10:46 | XMS_ITS | Patient Health Record ---
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 Name Role Phone Otto Hua Primary Care Provider Karrie Kamara Unavailable [phone] Karrie Archuleta Unavailable [phone] Migration, Provider Unavailable Unavailable Allergies Allergen (clinical drug ingredient) Drug/Non Drug Allergy documented on EMR Reaction Allergy Type Onset Date Status atorvastatin Lipitor elevated liver enzymes Drug Allergy Active codeine Codeine rash Drug Allergy Active Penicillin rash Drug Allergy Active Results Component Value Reference Range Notes BASIC METABOLIC PANEL (39197 ) Reviewed date:12/11/2023 02:14:56 PM Interpretation: Performing Lab:[facility] Hhry2127 [facility], [facility] CenterCvswZC[address] Efren Dobbs Notes/Report: NON-FASTING GLUCOSE 63 65-99 mg/dL Fasting reference interval UREA NITROGEN (BUN) 17 7-25 mg/dL CREATININE 0.98 0.50-1.05 mg/dL EGFR 63 > OR = 60 mL/min/1.73m2 BUN/CREATININE RATIO SEE NOTE: 6-22 (calc) Not Reported: BUN and Creatinine are within reference range. SODIUM 145 135-146 mmol/L POTASSIUM 3.4 3.5-5.3 mmol/L CHLORIDE 107 98-110 mmol/L CARBON DIOXIDE 30 20-32 mmol/L CALCIUM 9.5 8.6-10.4 mg/dL LIPID PANEL, STANDARD (7600) Reviewed date:10/16/2023 09:38:57 AM Interpretation: Performing Lab:[facility] [id number] [facility], [facility] CenterHxhwJM[address] Efren Dobbs Notes/Report: NON-FASTING; NON-FASTING FASTING:YES FASTING: YES CHOLESTEROL, TOTAL 163 <200 mg/dL HDL CHOLESTEROL 66 > OR = 50 mg/dL TRIGLYCERIDES 175 <150 mg/dL LDL-CHOLESTEROL 72 Reference range: <100 Desirable range <100 mg/dL for primary prevention; <70 mg/dL for patients with CHD or diabetic patients with > or = 2 CHD risk factors. LDL-C is now calculated using the Nhan-Prater calculation, which is a validated novel method providing better accuracy than the Friedewald equation in the estimation of LDL-C. Nhan SS et al. AIYANA. 2013;310(64): 4852-5650 (http://education.Kukunu.3scale/faq/LHG370) CHOL/HDLC RATIO 2.5 <5.0 (calc) NON HDL CHOLESTEROL 97 <130 mg/dL (calc) For patients with diabetes plus 1 major ASCVD risk factor, treating to a non-HDL-C goal of <100 mg/dL (LDL-C of <70 mg/dL) is considered a therapeutic option. COMPREHENSIVE METABOLIC [facility] MEDICAL CENTERPato Steve ([id number]) Reviewed date:10/16/2023 09:38:57 AM Interpretation: Performing Lab:[facility] [id number] [facility]teSt[facility], [facility] CenterPdqyQH[address] Efren Dobbs Notes/Report: NON-FASTING; NON-FASTING FASTING:YES FASTING: YES GLUCOSE 101 65-99 mg/dL Fasting reference interval For someone without known diabetes, a glucose value between 100 and 125 mg/dL is consistent with prediabetes and should be confirmed with a follow-up test. UREA NITROGEN (BUN) 31 7-25 mg/dL CREATININE 0.99 0.50-1.05 mg/dL EGFR 62 > OR = 60 mL/min/1.73m2 BUN/CREATININE RATIO 31 6-22 (calc) SODIUM 142 135-146 mmol/L POTASSIUM 3.3 3.5-5.3 mmol/L CHLORIDE 103 98-110 mmol/L CARBON DIOXIDE 29 20-32 mmol/L CALCIUM 10.0 8.6-10.4 mg/dL PROTEIN, TOTAL 7.3 6.1-8.1 g/dL ALBUMIN 4.3 3.6-5.1 g/dL GLOBULIN 3.0 1.9-3.7 g/dL (calc) ALBUMIN/GLOBULIN RATIO 1.4 1.0-2.5 (calc) BILIRUBIN, TOTAL 0.4 0.2-1.2 mg/dL ALKALINE PHOSPHATASE 67 37-153 U/L AST 16 10-35 U/L ALT 17 6-29 U/L Mammogram : Bilateral Reviewed date:10/30/2023 11:20:47 AM Interpretation: Performing Lab: Notes/Report: CT Scan : Chest, Lung Cancer Screening Reviewed date:10/30/2023 11:20:48 AM Interpretation: Performing Lab: Notes/Report: Microalbumin (In-House) Reviewed date:04/21/2024 07:29:15 PM Interpretation: Performing Lab: Notes/Report: ALB 10mg CRE 10mg A:C 30-300mg BASIC METABOLIC PANEL (89598 ) Reviewed date:04/25/2024 03:29:40 PM Interpretation: Performing Lab:[facility]PingMDe1355 [employer], AeroGrow InternationalItmoVW[address] Efren Dobbs Notes/Report: NON-FASTING; NON-FASTING GLUCOSE 90 65-99 mg/dL Fasting reference interval UREA NITROGEN (BUN) 18 7-25 mg/dL CREATININE 1.29 0.50-1.05 mg/dL EGFR 45 > OR = 60 mL/min/1.73m2 BUN/CREATININE RATIO 14 6-22 (calc) SODIUM 140 135-146 mmol/L POTASSIUM 4.0 3.5-5.3 mmol/L CHLORIDE 104 98-110 mmol/L CARBON DIOXIDE 25 20-32 mmol/L CALCIUM 9.5 8.6-10.4 mg/dL HEMOGLOBIN A1c (496) Reviewed date:04/25/2024 03:29:40 PM Interpretation: Performing Lab:[facility] FX Alignede1355 [employer], AeroGrow InternationalFsugGT[address] Efren Dobbs Notes/Report: NON-FASTING; NON-FASTING HEMOGLOBIN A1c 6.3 <5.7 % of total Hgb For someone without known diabetes, a hemoglobin A1c value between 5.7% and 6.4% is consistent with prediabetes and should be confirmed with a follow-up test. For someone with known diabetes, a value <7% indicates that their diabetes is well controlled. A1c targets should be individualized based on duration of diabetes, age, comorbid conditions, and other considerations. This assay result is consistent with an increased risk of diabetes. Currently, no consensus exists regarding use of hemoglobin A1c for diagnosis of diabetes for children. MRI : Head Reviewed date:07/02/2024 02:20:47 PM Interpretation: Performing Lab: Notes/Report: CT CHEST W/WO CONTRAST Reviewed date:12/07/2023 01:43:49 PM Interpretation: Performing Lab: Notes/Report: M-BUN & Creatinine Reviewed date:12/04/2023 01:53:43 PM Interpretation: Performing Lab: Notes/Report: BUN 31 7-17 mg/dl CREATT 1.20 0.52-1.04 mg/dl GFRAA 54 >60 ML/MIN EGFR 45 >60 ml/min PET/CT Scan Skull Base to Mi d Thigh Reviewed date:12/13/2023 08:43:30 AM Interpretation: Performing Lab: Notes/Report: Medications Medication SIG (Take, Route, Frequency, Duration) Notes Start Date End Date Status Anoro Ellipta 62.5-25 MCG/ACT 1 puff Inhalation Once a day for 30 days 09/08/2024 Active Ipratropium [place] 0.02 % 2.5 mL by nebulizer 4 times a day for 90 day(s) Active Albuterol Sulfate (2.5 MG/3ML) 0.083% 3 mL by nebulizer every 6 hours for 90 day(s) Active ARIPiprazole 10 MG TAKE 1 TABLET EVERY DAY for 90 Active ALPRAZolam 0.5 MG 1 tab(s) orally 3 times a day for 90 days 07/02/2024 Active ACCU-CHEK MICHEAL PLUS TEST STRIPS FOR DIABETIC TESTING ONCE DAILY for 90 DAYS *Please review for potential replacement for e-prescription and drug interaction check* Active Ziozd-1-lict Ethyl Esters 1 GM 2 cap(s) orally once a day for 90 days Active Vitamin D 1000MG 1 TAB ORALLY TWICE A DAY for 30 DAYS *Please review and pick correct strength-formulatio n from [employer] options. If intended option is not shown, discontinue and re-order from Quick Search* 08/31/2021 Active Ezetimibe 10 MG 1 tab(s) orally once a day for 90 days Active ACCU-CHEK MICHEAL CONTROL SOLUTION QD for 90 DAYS *Please review for potential replacement for e-prescription and drug interaction check* 05/31/2015 Active buPROPion HCl ER (XL) 300 MG TAKE 1 TABLET EVERY 24 HOURS Active ACCU-CHEK MICHEAL PLUS MONITORING KIT QD *Please review for potential replacement for e-prescription and drug interaction check* 05/31/2015 Active Stiolto Respimat 2.5 MCG-2.5 MCG/INH 2 PUFF(S) INHALED EVERY 24 HOURS for 90 DAYS *Please review and pick correct strength-formulatio n from [employer] options. If intended option is not shown, discontinue and re-order from Quick Search* Active Lisinopril 20 MG 1 tablet Orally Once a day for 90 days Active Albuterol Sulfate HFA 108 (90 Base) MCG/ACT 2 puff(s) inhaled four times a day Active buPROPion HCl ER (XL) 150 MG TAKE 1 TABLET EVERY 24 HOURS. TAKE WITH 300MG TABLET TO EQUAL 450MG DAILY DOSE Active ACCU-CHEK LANCET SOFTCLIX QD for 90 DAYS *Please review for potential replacement for e-prescription and drug interaction check* 05/31/2015 Active Fluticasone Propionate 50 MCG/ACT 2 sprays in each nostril once a day for 90 days prn 04/13/2023 Active predniSONE 10 MG 5 tabs orally once a day Active Alendronate Sodium 35 MG 1 tab(s) orally once a week for 90 days Active Folic Acid 1 MG 1 tab(s) orally once a day Active Rosuvastatin Calcium 5 MG 1 tab(s) orally once a day for 90 days Active Immunizations Vaccine Route Administration Date Status Comme nts Covid Moderna Unknown 07/21/2020 Administered Covid Moderna Unknown 08/18/2020 Administered Flublok IM Intramuscular 01/19/2020 Administered Flublok IM Intramuscular 12/20/2020 Administered FLUZONE 6MO - OLDER IM Intramuscular 01/20/2019 Administer ed Fluzone High Dose IM Intramuscular 02/27/2022 Administered Fluzone High Dose IM Intramuscular 03/28/2023 Administered Fluzone High Dose IM Intramuscular 01/23/2024 Administered Influenza (Fluzone)--Medicare only IM Intramuscular 01/29/2013 Administered Influenza (Fluzone)--Medicare only IM Intramuscular 01/08/2017 Administered Influenza-Fluzone 3+years (NON-MEDICARE) IM Intramuscular 02/15/2015 Administered Influenza-Fluzone 3+years (NON-MEDICARE) IM Intramuscular 2016 Administered Influenza-Fluzone 3+years (NON-MEDICARE) IM Intramuscular 01/16/2018 Administered Pneumovax 23 IM Intramuscular 04/21/2020 Administered Prevnar PCV-13 (Pneumococcal conjugate 13) IM Intramuscular 05/17/2016 Administered Zostavax (Shingles) SC Subcutaneous 05/18/2016 Administere d Problems Problem Type SNOMED Code ICD Code Onset Dates Problem Status W/U Status Risk Notes Problem 39168458 Malignant neoplasm of unspecified part of unspecified bronchus or lung (C34.90) Active confirmed Problem 42378310 Secondary malignant neoplasm of bone (C79.51) Active confirmed Problem 26373936 Type 2 diabetes mellitus with other specified complication (E11.69) Active confirmed Problem 66109753 Anisocoria (H57.02) Active confirmed Problem 4009355 Panlobular emphysema (J43.1) Active confirmed Problem 32315307 Personal history of nicotine dependence (Z87.891) Active confirmed Problem 19404913 Hypertension, essential (I10) Active confirmed Problem 676512619 Tubular adenoma of colon (D12.6) Active confirmed Problem 18314752 Hyperlipidemia, unspecified (E78.5) Active confirmed Problem 178213327 BMI 38.0-38.9,adult (Z68.38) Active confirmed Problem 120466314 Lymphedema of lower extremity (I89.0) Active confirmed Problem 934497587 History of breas t cancer (Z85.3) Active confirmed Problem 490080406 Moderate episode of recurrent major depressive disorder (F33.1) Active confirmed Problem 16273031 Facial droop (R29.810) Active confirmed Problem 068913486 Osteopenia determined by x-ray (M85.80) Active confirmed Problem 917069166 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 [address] [place] [address] 07/26/2024 Provider Migration [facility] [address] [facility] [address] [place] [address] 10/15/2023 Otto Besson Hyperlipidemia, unspecified E78.5 ; Lymphedema of lower extremity I89.0 ; Moderate episode of recurrent major depressive disorder F33.1 ; Personal history of nicotine dependence Z87.891 ; Type 2 diabetes mellitus with other specified complication E11.69 and Routine medical exam Z00.00 [facility] [address] [place] [address] 11/16/2023 Karrie Archuleta Muscle spasm of back M62.830 and Left upper lobe pulmonary nodule R91.1 [facility] [address] [place] [address] 12/10/2023 Ottonat Hua Pulmonary nodule see n on imaging study R91.1 ; Type 2 diabetes mellitus with other specified complication E11.69 and Routine medical exam Z00.00 [facility] [address] [place] [address] 12/27/2023 Karrie Kamara Strain of lumbar region, initial encounter S39.012A [facility] [address] [facility] [address] [place], [place] [address] 01/23/2024 Otto Besson Immunization(s) administered Z23 ; Malignant neoplasm of unspecified part of unspecified bronchus or lung C34.90 and Secondary malignant neoplasm of bone C79.51 [facility] [address] [facility] [address] [place] [address] 02/06/2024 Karrie Archuleta HSV-2 infection B00. 9 and Infestation by bed bug B88.8 [facility] [address] [place] [address] 04/21/2024 Otto Besson Type 2 diabetes mellitus with other specified complication E11.69 ; Hyperlipidemia, unspecified E78.5 ; History of breast cancer Z85.3 ; Malignant neoplasm of unspecified part of unspecified bronchus or lung C34.90 and Moderate episode of recurrent major depressive disorder F33.1 [facility] [address] [place] [address] 05/14/2024 Otto Besson Acute kidney injury (nontraumatic) N17.9 ; Stage 3b chronic kidney disease (CKD) N18.32 and Hospital discharge follow-up Z09 [facility] [address] [place] [address] 06/30/2024 Otto Besson Facial droop R29.810 and Anisocoria H57.02 [facility] [address] [place] [address] 07/21/2024 Otto Besson Peripheral edema R60.0 ; Left facial numbness R20.0 ; Hypertension, essential I10 ; Moderate episode of recurrent major depressive disorder F33.1 ; Type 2 diabetes mellitus with other specified complication E11.69 and Hyperlipidemia, unspecified E78.5 [facility] [address] [place] [address] 08/11/2024 Otto Besson Hypertension, essential I10 [facility] [address] [place] [address] 10/23/2023 Otto Besson Lymphedema of lower extremity I89.0 [facility] [address] [facility] [address] [place] [address] 11/19/2023 Otto Besson Pulmonary nodule see n on imaging study R91.1 [facility] [address] [facility] [address] [place] [address] 12/07/2023 Otto Besson Pulmonary nodule see n on imaging study R91.1 [facility] [address] [facility] [address] [place] [address] 01/02/2024 Otto Besson [facility] [address] [facility] [address] [place], [place] [address] 01/22/2024 Ottonat Hua Non-recurrent acute serous otitis media of both ears H65.03 [facility] [address] [place], [place] [address] 05/05/2024 Otto Besson [facility] [address] [facility] [address] [place], [place] [address] 06/30/2024 Ottonat Hua Facial droop R29.810 and Pupillary abnormality, bilateral H21.563 [facility] [address] [facility] [address] [place], [place] [address] 06/30/2024 Otto Besson [facility] [address] [place] [address] 07/02/2024 Otto Besson [facility] [address] [place] [address] 08/13/2024 Otto Besson [facility] [address] [facility] [address] [place] [address] 09/08/2024 Otto Besson [facility] [address] [facility] [address] [place], [place] [address] 02/12/2024 Ottonat Hua Assessments Encounter Date Diagnosis (ICD Code) Assessment Notes Treatment Notes Treatment Clinical Notes Section Notes 10/23/2023 Lymphedema of lower extremity (ICD-10 - I89.0) 11/16/2023 Muscle spasm of back (ICD-10 - M62.830) Discussed with her taking a benzo and her age, she is high risk for falling when living alone. Will start with a trial of steroid shot in office, to use warm compress, stretch at home, walk, and lidocaine patch. If still having pain on Sunday, patient can call office for labs to be ordered and muscle relaxer at that time. Reviewed s/s warranting urgent evaluation in the ED. Patient voices understanding and agrees with the plan of care above. 11/16/2023 Left upper lobe pulmonary nodule (ICD-10 - R91.1) CT reviewed, will need repeat with contrast so have placed referral to have this arranged. Follow-up in [address] lung results with Dr. Hua. 11/19/2023 Pulmonary nodule seen on imaging study (ICD-10 - R91.1) 12/07/2023 Pulmonary nodule seen on imaging study (ICD-10 - R91.1) 12/10/2023 Type 2 diabetes mellitus with other specified complication (ICD-10 - E11.69) Patient's creatinine has been normal, GFR has been normal. Check this today given family concern. 12/10/2023 Pulmonary nodule seen on imaging study (ICD-10 - R91.1) Discussed findings with patient. She remained asymptomatic but given change in size of lesion PET/CT scan is indicated. She is aware of the procedure and we discussed what would happen depending on the normal versus abnormal results of the scan. She has an appointment in January to discuss follow-up. 12/27/2023 Strain of lumbar region, initial encounter (ICD-10 - S39.012A) likely secondary to positioning yesterday. rec continue moist heat, tylenol as needed and add muscle relaxer as tolerated - we reviewed possible side effects as well as return precautions 01/22/2024 Non-recurrent acute serous otitis media of both ears (ICD-10 - H65.03) 01/23/2024 Malignant neoplasm of unspecified part of unspecified bronchus or lung (ICD-10 - C34.90) Overall patient seems to be doing fairly well emotionally with the diagnosis. Good support system. Currently not in pain. Discussed with her that if she begins to have bony pain to let me know immediately so we can work on pain control for [id number] issues. Otherwise I will see her in 3 months. No changes in meds for now. If chemotherapy begins to alter physiology we will of course see her today to 01/23/2024 Immunization(s) administered (ICD-10 - Z23) 02/06/2024 Infestation by bed bug (ICD-10 - B88.8) Encouraged patient to call computer forwarding system markup clerk. She reports having them in the past but thought she got rid of them. Encouraged her to get bed bugs exterminated again. She voices understanding. 02/06/2024 HSV-2 infection (ICD-10 - B00.9) Discussed I suspect this is the beginning of a herpes breakout with her being immunocompromised with cancer and starting chemo. I do palpate a small internal nodule along her medial left labia minora so will cover with an antibiotic. If no improvement or worsening over the next few days then patient should return to clinc for re-evaluation. She has a history of rash to amoxicillin and is agreeable to taking cefdinir. Patient voices understanding and agrees with the plan of care above. 04/21/2024 Type 2 diabetes mellitus with other specified complication (ICD-10 - E11.69) Overall seems to be doing well. Microalbumin reviewed. No changes in plan, currently on angiotensin receptor blockade. No medication changes given her current cancer treatments at this point. Check A1c. Please note I ordered labs and I will review these personally 04/21/2024 Hyperlipidemia, unspecified (ICD-10 - E78.5) Lipids are well-controlled, continue current therapy 10/15/2023 Hyperlipidemia, unspecified (ICD-10 - E78.5) Check labs with the addition of Zetia, check CMP to rule out complications. 10/15/2023 Lymphedema of lower extremity (ICD-10 - I89.0) Stands at her job. Will initiate lymphedema evaluation 05/14/2024 Acute kidney injury (nontraumatic) (ICD-10 - N17.9) JOSSIE seems to be resolving. I reviewed labs done by oncology yesterday and creatinine has improved to 2.0 with normal potassium. Medicine changes reviewed as above. Resume normal follow-up with oncology next week, has labs scheduled. 05/14/2024 Stage 3b chronic kidney disease (CKD) (ICD-10 - N18.32) Given her ongoing chronic kidney disease will need more intensive monitoring. Will see her in my regular follow-up, has lab scheduled for next week 06/30/2024 Anisocoria (ICD-10 - H57.02) 06/30/2024 Facial droop (ICD-10 - R29.810) Patient with 10 day history of facial droop after MRI with contrast of lumbar spine. No risk factors for [place] palsy including viral illness, injury etc. No rashes concerning for vzv/bailey vargas syndrome. Concerning for metastasis vs. CVA. Will send patient for urgent non-contrasted MRI head to evaluate for metastatic disease vs CVA. 06/30/2024 Facial droop (ICD-10 - R29.810) 07/21/2024 Left facial numbness (ICD-10 - R20.0) Facial droop improving. 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 MRI reviewed with patient 07/21/2024 Peripheral edema (ICD-10 - R60.0) Edema is worsened, however will hold off on Lasix given oncology's plan. Discussed with patient that if she gains 5 or 6 more pounds in the next couple of weeks she would need to call me and we would have another plan for her 08/11/2024 Hypertension, essential (ICD-10 - I10) SBP 136 in clinic today denies chest pain, worsening sob, headaches, lightheadedness now on pred 10 daily and lasix 20 mg every other day most recent labs drawn by onclogy reviewed and stable/improving no changes to anti-hypertensives at this time Follow-up in September for Medicare Wellness 07/21/2024 Hypertension, essential (ICD-10 - I10) Blood pressure slightly higher than before but is on prednisone and fluid status increased. No changes in plan at this point, we will follow-up at next visit 06/30/2024 Pupillary abnormality, bilateral (ICD-10 - H21.563) 10/15/2023 Moderate episode of recurrent major depressive disorder (ICD-10 - F33.1) Stable on current medication. Life stressors reviewed-Doing well on low-dose alprazolam and her antidepressants. Patient has been compliant with our office and [place] regulations r.e. meds. No concerns on my part about diversion or misuse. Labs and [place] reports reviewed and are appropriate. 05/14/2024 Hospital discharge follow-up (ICD-10 - Z09) Reviewed [facility] discharge summary, medications personally reconciled by me. Follow-up arranged. 04/21/2024 History of breast cancer (ICD-10 - Z85.3) 01/23/2024 Secondary malignant neoplasm of bone (ICD-10 - C79.51) 12/10/2023 Routine medical exam (ICD-10 - Z00.00) Functional status excellent. Cognitive impairment not noted with 3/3 word recall. See notes above re: preventative care. Up-to-date with cancer screening, Cologuard, out of range of Pap smears given age over 65, Up-to-date with vaccines. Will give flu shot in January when he comes back for appointment 10/15/2023 Personal history of nicotine dependence (ICD-10 - Z87.891) Greater than 5 minutes spent discussing risk of smoking, in the precontemplative stage. Repeat low-dose CT scan will be ordered 04/21/2024 Malignant neoplasm of unspecified part of unspecified bronchus or lung (ICD-10 - C34.90) Follow with hematology. No changes in plan 07/21/2024 Moderate episode of recurrent major depressive disorder (ICD-10 - F33.1) Doing well with low-dose alprazolam and aripiprazole. No changes in plans Patient has been compliant with our office and [place] regulations r.e. meds. No concerns on my part about diversion or misuse. Labs and [place] reports reviewed and are appropriate. 07/21/2024 Type 2 diabetes mellitus with other specified complication (ICD-10 - E11.69) Previous A1c under good control in March. Will check again in 3 months. Discussed with patient needing to watch carb intake while on prednisone 04/21/2024 Moderate episode of recurrent major depressive disorder (ICD-10 - F33.1) Stable even spite of cancer diagnosis. Doing well. 10/15/2023 Type 2 diabetes mellitus with other specified complication (ICD-10 - E11.69) Excellent control with A1c 6.1% 10/15/2023 Routine medical exam (ICD-10 - Z00.00) Up-to-date with colonoscopy, needs mammogram, HRA reviewed, no falls. Good functional status. Daughter is healthcare surrogate. Smoking status reviewed. Up-to-date with vaccinations 07/21/2024 Hyperlipidemia, unspecified (ICD-10 - E78.5) Will hold off on refilling rosuvastatin given patient's upcoming chemo and need for better GFR. Will reevaluate need for rosuvastatin at ongoing appointmment Plan Of Treatment Pending Test Test Name Order Date Sleep Study 04/06/2014 Mammogram : Bilateral 04/21/2020 H-BMP 01/29/2013 CT Scan : Orbit(s) 01/15/2023 C-BASIC METABOLIC 07/19/2020 C-CMP 11/23/2014 C-LIPID PANEL 11/23/2014 Physical Therapy : Lymphedema 10/23/2023 M-BUN & Creatinine 11/11/2018 MRI BRAIN WO 06/30/2024 Next Appt Details Provider Name:Otto Hua, 10/13/2024 09:45:00 AM, [address], [address], [place], [address], Insurance Providers Payer Name Payer Address Payer Phone Subscriber Number Group Number Insured Name Patient Relationship to Insured Coverage Start Date Coverage End Date [employer] MED[employer]ARE [address] [place] [phone] [id number] Tammy Amaro Self - patient is the insured Medications Administered Medication Instructions Date of Administration Dosage Notes Dexamethasone 4mg Injection 11/16/2023 4 mg Kenalog 04/04/2016 1 mL Medical (General) History Medical History History ICD Code COPD hyperlipidemia statin related liver function elevation hypertension anxiety breast cancer diagnosed 1995 status post mastectomy-status post left breast - normal mammogram 02/07 history of severe alcohol abuse, complet jose abstinent since 1994 colonoscopy February 2015 wi th tubular adenoma isolated. Repeated November 2019 with 2 tubular adenomas Osteopenia on Dexa 12/2017 - repeated 10/10 with osteopenia and treatment advised ophthalmology exam for diabetic retinopa thy May 2017 appropriate UDS 02/09 Normal mammogram 04/2020 and 09/11 And 09/22 4 LDCT Normal 04/2020 and 09/11 and 08/2022 Lung cancer with bony metast ases diagnosed after abnormal low-dose CT August 2023 Surgical History Surgery Date(Month/Year) tonsillectomy appendectomy gallbladder mastetcomy complete left side hysterectomy left arm surgery plates and screws Hospitalization History Reason Date(Month/Year) alcholism depression [facility] 2024 left arm surgery
--- OUTSIDE RECORDS SUMMARY | 2024-09-26 10:46 | XMS_ITS | Encounter Summary ---
Author Organization Healthcare Address [address] [place] [address] Care Team Providers Care Geographic Information System Surveyor Name Role Phone Otto Hua MD Primary Care Provider + [phone] Reason for Referral * Imaging (Routine) - Closed Specialty Diagnoses / Procedures Referred By Love t Referred To Contact Radiology Diagnoses Acute kidney injury (CMS/HCC) Adverse effect of immune checkpoint inhibitor Current chronic use of systemic steroids Procedures US Guided Biopsy Renal Left Daniel Alexander MD [address] [address] Phone: tel: fax: Referral ID Status Reason Start Date Expiration Date Visits Re quested Visits Authorized [id number] Closed 09/08/2024 03/10/2026 1 1 Encounter Details Date Type Department Care Team (Late st Contact Info) Description 09/08/2024 Orders Only [facility] Interventional Radiology [address] [place] [address] Daniel Bower MD [address] [address] Acute kidney injury (CMS/HCC) (Primary Dx); Adverse effect of immune checkpoint inhibitor; Current chronic use of systemic steroids Social [...] Description 10/06/2024 10:40 AM EDT Office Visit [facility] Nephrology, Bone & Mineral Metabolism [address] [facility], [address] [place] [address] Stefano Silverio MD [address] [place] [address] documented as of this encounter Results * US Guided Biopsy Renal Left (09/10/2024 8:25 AM EDT) Anatomical Region Laterality Modality Kidney Left X-Ray Angiograph y Impressions 09/10/2024 1:12 PM EDT Successful non-target ultrasound guided left quinault kidney biopsy CRITICAL RESULT: No. COMMUNICATION: Per this written report. Drafted by Daniel Alexander on 09/10/2024 1:11 PM Final report signed by Daniel Alexander on 09/10/2024 1:12 PM Narrative 09/10/2024 1:12 PM EDT CLINICAL INDICATION: JOSSIE TECHNIQUE: Innersole Maker: Dr. Alexander Secondary Orthotic Aide: None Medications used: 1 mg midazolam 100 [...] specimens were preliminary examined by the surgical pathologist/clinical technician present in the ultrasound room and were found to have enough number of glomeruli. The biopsy site was then cleaned, and a bandage applied. Patient tolerated the procedure well. COMPARISON: None. FINDINGS: Left kidney identified. Immediate post procedural scanning demonstrated no perinephric hematoma. COMPLICATION: No. Procedure Note Daniel Alexander MD - 09/10/2024 CLINICAL INDICATION: JOSSIE TECHNIQUE: Innersole Maker: Dr. Alexander Secondary Orthotic Aide: None Medications used: 1 mg midazolam 100 [...] biopsy specimens were preliminary examined by the surgicalpathologist/clinical technician present in the ultrasound room and werefound to have enough number of glomeruli. The biopsy site was then cleaned, and a bandage applied. Patient toleratedthe procedure well. COMPARISON: None. FINDINGS: Left kidney identified. Immediate post procedural scanning demonstrated noperinephric hematoma. COMPLICATION: No. IMPRESSION: Successful non-target ultrasound guided left quinault kidney biopsy CRITICAL RESULT: No. COMMUNICATION: Per this written report. Drafted by Daniel Alexander on 09/10/2024 1:11 PM Final report signed by Daniel Alexander on 09/10/2024 1:12 PM Result [facility] Daniel Alexander MD [facility] US ROB GAO Final Result documented in this encounter Visit Diagnoses Diagnosis Acute kidney injury (CMS/HCC)- Primary Adverse effect of immune checkpoint inhibitor Current chronic use of systemic steroids Acute kidney injury (CMS/HCC) Adverse effect of immune checkpoint inhibitor Current chronic use of systemic steroids documented in this encounter Additional Health Concerns Assessment Noted Time A Body Mass Index follow-up plan has been documented for the patient 09/05/2024 2:38 PM EDT documented as of this encounter Care Teams Geographic Information System Surveyor Relationship Specialty Start Date End Date Otto Hua MD [address] [place] [address] PCP - General 09/03/20 documented as of this encounter
--- OUTSIDE RECORDS SUMMARY | 2024-09-26 10:46 | XMS_ITS | Encounter Summary ---
Author Organization Healthcare Address [address] [place] [address] Care Team Providers Care Rn Clinical Research Name Role Phone Otto Hua MD Primary Care Provider + [phone] Encounter Details Date Type Department Care Team ([facility] st Contact Info) Description 09/22/2024 Telephone [facility] Nephrology, Bone & Mineral Metabolism [address] [facility], [address] [place] [address] Stefano Silverio MD [address] [place] [address] Social History Tobacco Use Types [...] encounter Miscellaneous Notes * Telephone Encounter - Cinda Mullins - 09/22/2024 8:40 AM EDT Clinical Concern/Question Reason for Call: Patient asking to speak w/nurse about a CT scan on Best contact number: [phone] Optimal time of day to reach caller: ANYTIME Additional comments/information from caller: Unable to reach anyone at the [place] office Note: Please do not reply to this message. Follow-up communication and further actions as a result of this message need to be communicated with the patient directly, if the patient is not active onMyChart. If the patient is active on MyChart, they will receive notification of the communication/outcome via [employer]. documented in this encounter Plan of Treatment Upcoming Encounters Date Type Department Care Team ([facility] st Contact Info) Description 10/06/2024 10:40 AM EDT Office Visit [facility] Nephrology, Bone & Mineral Metabolism [address] [facility], [address] [place] [address] Stefano Silverio MD [address] [place] [address] documented as of this encounter Visit Diagnoses Not on filedocumented in this encounter Additional Health Concerns Assessment Noted Time A Body Mass Index follow-up plan has been documented for the patient 09/10/2024 1:22 PM EDT documented as of this encounter Care Teams Rn Clinical Research Relationship Specialty Start Date End Date Otto Hua MD [address] [place] [address] PCP - General 09/03/20 documented as of this encounter
--- OUTSIDE RECORDS SUMMARY | 2024-09-26 10:46 | XMS_ITS | Encounter Summary ---
Author Organization Healthcare Address [address] [place] [address] Care Team Providers Care Director News Name Role Phone Otto Hua MD Primary Care Provider [phone] Encounter Details Date Type Department Care Team ([facility] Contact Info) Description 09/08/2024 Orders Only [facility] Nephrology, Bone & Mineral Metabolism [address] [facility], [address] [place] [address] Stefano Silverio MD [address] [place] [address] Acute kidney injury (CMS/HCC); Adverse effect of immune checkpoint inhibitor, subsequent encounter Social History Tobacco Use Types Packs/Day Years [...] Encounters Date Type Department Care Team (Late Contact Info) Description 10/06/2024 10:40 AM EDT Office Visit [facility] Nephrology, Bone & Mineral Metabolism [address] [facility], [address] [place] [address] Stefano Silverio MD [address] [place] [address] Scheduled Orders Name Type Priority Associated Diagnoses Orde r Schedule CBC Lab Routine Acute kidney injury (CMS/HCC) Expected: 09/11/2024 (Approximate), Expires: 03/08/2026 Protime-INR Lab Routine Acute kidney injury ([facility]) Expected: 09/11/2024 (Approximate), Expires: 03/08/2026 APTT Lab Routine Acute kidney injury ([facility]) Expected: 09/11/2024 (Approximate), Expires: 03/08/2026 C3 complement Lab Routine Acute kidney injury ([facility]) Expected: 09/11/2024 (Approximate), Expires: 03/08/2026 C4 complement Lab Routine Acute kidney injury ([facility]) Expected: 09/11/2024 (Approximate), Expires: 03/08/2026 Altura Lambda Quant Free Light Chains w/Ratio Lab Routine Acute kidney injury ([facility]) Expected: 09/11/2024 (Approximate), Expires: 03/08/2026 Antinuclear Antibody (SHANNAN), HEp-2, IgG Lab Routine Acute kidney injury ([facility]) Expected: 09/11/2024 (Approximate), Expires: 03/08/2026 ANCA Vasculitis profile Lab Routine Acute kidney injury ([facility]) Expected: 09/11/2024 (Approximate), Expires: 03/08/2026 C-reactive protein Lab Routine Acute kidney injury ([facility]) Expected: 09/11/2024 (Approximate), Expires: 03/08/2026 Sedimentation rate, automated Lab Routine Acute kidney injury ([facility]) Expected: 09/11/2024 (Approximate), Expires: 03/08/2026 documented as of this encounter Visit Diagnoses Diagnosis Acute kidney injury ([facility]) Adverse effect of immune checkpoint inhibitor, subsequent encounter documented in this encounter Additional Health Concerns Assessment Noted Time A Body Mass Index follow-up plan has been documented for the patient 09/05/2024 2:38 PM EDT documented as of this encounter Care Teams Director News Relationship Specialty Start Date End Date Otto Hua MD [address] [place] [address] PCP - General 09/03/20 documented as of this encounter
--- OUTSIDE RECORDS SUMMARY | 2024-09-26 10:46 | XMS_ITS | Encounter Summary ---
Author Organization Healthcare Address [address] [place] [address] Care Team Providers Care Thaw Shed Heater Tender Name Role Phone Otto Hua MD Primary Care Provider [phone] Encounter Details Date Type Department Care Team (Latest Contact Info) Description 09/05/2024 Travel Social History Tobacco Use Types Packs/Day [...] Description 10/06/2024 10:40 AM EDT Office Visit [facility] Nephrology, Bone & Mineral Metabolism [address] [facility], [address] [place] [address] Stefano Silverio MD [address] [place] [phone] documented as of this encounter Visit Diagnoses Not on filedocumented in this encounter Additional Health Concerns Assessment Noted Time A Body Mass Index follow-up plan has been documented for the patient 09/05/2024 2:38 PM EDT documented as of this encounter Care Teams Thaw Shed Heater Tender Relationship Specialty Start Date End Date Otto Hua MD [address] [place] [address] PCP - General 09/03/20 documented as of this encounter
--- NOTE | 2024-09-26 10:47 | CARE MANAGER ---
Met with patient and daughter at bedside to discuss discharge planning. Patient is planned to go to the [facility] upon discharge. Will fax clinical and consult order today to [phone].
[2024-09-26] MEDS: 0.9 % SODIUM CHLORIDE 500 ML 25 ML IV (12:05)
[2024-09-26] MEDS: LIDOCAINE 1% 10ML MDV 10 ML IJ (12:05)
[2024-09-26] MEDS: HEPARIN 1,000 UNITS/500ML NS (CATH LAB) 3000 UNIT IV (12:05)
[2024-09-26] MEDS: diphenhydrAMINE 50MG/ML VIAL 50 MG IV (12:06)
[2024-09-26 12:24] LABS: Magnesium 1.6 mg/dl (1.6-2.3)
[2024-09-26] MEDS: HEPARIN 1,000 UNITS/ML 10ML VIAL (CATH LAB) 5000 UNIT IV (12:32)
[2024-09-26] MEDS: MIDAZOLAM HCL 1MG/ML 5ML VIAL 1 MG IV ×2 (12:55→12:58)
[2024-09-26] MEDS: FENTANYL 100MCG/2ML VIAL 50 MCG IV ×2 (12:55→12:58)
[2024-09-26] MEDS: IOPAMIDOL-370 (76%);100ML BOTTLE 180 ML IV (13:54)
[2024-09-26] MEDS: SODIUM CHLORIDE 3% 15ML NEB 3 ML IH (14:41)
--- NOTE | 2024-09-26 14:50 | SW/DCPLANNER ---
Called and spoke with the sales representative raw fibers at [facility] in [place], [place]. There needs to be a D/C summary faxed and a call early in the morning for a report of the patient. Ask for Luz Maria. Phone number [phone] Fax [phone] Hair Fraser
[2024-09-26] MEDS: HYDROMORPHONE 2MG/ML SYRINGE 1 MG IV (15:23)
--- NOTE | 2024-09-26 15:56 | P.PN_ITS ---
<Statement entered by Javed Ross MD - 09/29/24 17:35> Personally evaluated the patient and agree with the plan of care as outlined by the HAIRSPRING STAKER. Subjective *Date: 09/26/24 *Time: 11:00 Interval history: Patient is up in the chair, watching TV, and denies any pain. Patient does complain of shortness of air and has oxygen of 3 L nasal cannula on. Discussed her wishes to be placed on palliative care and start the hospice process. patient states that her daughter is a hospice nurse and has a bed for her at a hospice care facility. She follows with Dr. Adkins for her lung cancer treatments, they have been asked unsuccessful and she states she is ready for just comfort measures. Medical Exam Vital signs and Labs for Last 24 Hours: Vital Signs Temp Pulse Pulse Resp BP BP Pulse Ox 09/26/24 15:25 92 H 16 92/62 L 88 L 09/26/24 15:00 09/26/24 15:00 92 H 16 126/68 95 09/26/24 14:43 98 H 15 09/26/24 14:43 95 09/26/24 14:30 90 18 121/69 97 09/26/24 14:15 95 H 18 132/67 97 09/26/24 14:00 93 H 18 119/73 97 09/26/24 13:45 97.6 F 97 H 16 121/72 100 09/26/24 13:25 100 H 20 130/75 100 09/26/24 13:15 101 H 16 136/72 100 09/26/24 13:15 101 H 101 H 22 136/72 96 09/26/24 13:10 101 H 24 136/72 99 09/26/24 11:59 96.9 F L 90 22 127/76 92 L 09/26/24 09:00 09/26/24 08:00 09/26/24 08:00 96.8 F L 90 22 127/76 92 L 09/26/24 06:33 09/26/24 05:00 09/26/24 04:00 97.9 F 90 20 112/68 93 L 09/26/24 03:00 09/26/24 01:00 09/26/24 00:00 97.5 F L 96 H 22 112/57 L 92 L 09/25/24 23:00 09/25/24 21:37 98.3 F 100 H 22 138/72 93 L 09/25/24 21:10 97.9 F 107 H 18 162/79 H 09/25/24 21:00 09/25/24 20:21 09/25/24 19:30 107 H 21 162/79 H 94 L 09/25/24 19:00 104 H 20 147/74 H 94 L 09/25/24 18:30 99 H 20 134/75 94 L 09/25/24 18:00 112 H 29 H 146/83 H 93 L 09/25/24 17:41 104 H 122/80 92 L 09/25/24 17:37 98.9 F 104 H 24 122/80 82 L O2 Del Method O2 Flow Rate 09/26/24 15:25 Nasal Cannula 2 09/26/24 15:00 Nasal Cannula 09/26/24 15:00 Nasal Cannula 2 09/26/24 14:43 09/26/24 14:43 Nasal Cannula 3 09/26/24 14:30 Nasal Cannula 2 09/26/24 14:15 Nasal Cannula 2 09/26/24 14:00 Nasal Cannula 2 09/26/24 13:45 Nasal Cannula 2 09/26/24 13:25 Simple Mask 6 09/26/24 13:15 Simple Mask 6 09/26/24 13:15 Simple Mask 6 09/26/24 13:10 Simple Mask 6 09/26/24 11:59 Nasal Cannula 4 09/26/24 09:00 Nasal Cannula 09/26/24 08:00 Nasal Cannula 09/26/24 08:00 Nasal Cannula 4 09/26/24 06:33 Nasal Cannula 4 09/26/24 05:00 Nasal Cannula 4 09/26/24 04:00 Nasal Cannula 4 09/26/24 03:00 Nasal Cannula 4 09/26/24 01:00 Nasal Cannula 4 09/26/24 00:00 Nasal Cannula 4 09/25/24 23:00 Nasal Cannula 4 09/25/24 21:37 Nasal Cannula 4 09/25/24 21:10 Nasal Cannula 4 09/25/24 21:00 Nasal Cannula 4 09/25/24 20:21 Nasal Cannula 4 09/25/24 19:30 Nasal Cannula 4 09/25/24 19:00 09/25/24 18:30 09/25/24 18:00 Room Air 4 09/25/24 17:41 Nasal Cannula 4 09/25/24 17:37 Room Air Intake and Output 09/25/24 09/26/24 09/26/24 23:59 07:59 15:59 Intake Total 0 / 0 Output Total 950 / 950 Balance -950 / -950 Intake: Intake, Oral Amount 0 / 0 Output: Output, Urine Amount 950 / 950 Other: Weight 107.218 kg 108.182 kg Patient Weight 09/26/24 23:59 Weight 108.182 kg Laboratory Results - last 24 hr 09/25/24 17:46: VBG pH 7.43 H, VBG pCO2 42.0, VBG pO2 59.4 H, VBG HCO3 27.3, VBG Total CO2 28.6 H, VBG O2 Saturation 90.5 H, VBG Base Excess 3.0 H, VBG Lactic Acid 1.5 09/25/24 17:47: SARS-CoV-2 (PCR) Not detected, Influenza A Untype (PCR) Not det ected, Influenza Type B (PCR) Not detected 09/25/24 17:58: WBC 15.1 H, RBC 4.40, Hgb 12.2, Hct 39.5, MCV 89.8, MCH 27.7, MCHC 30.9 L, RDW 14.6, Plt Count 234, MPV 10.7 H, Neut % (Auto) 73.8, Lymph % (Auto) 15.3, [place] % (Auto) 7.6, Eos % (Auto) 1.3, Baso % (Auto) 0.3, Neut # (Auto) 11.1 H, Lymph # (Auto) 2.3, [place] # (Auto) 1.2 H, Eos # (Auto) 0.2, Baso # (Auto) 0.1, Sodium 136, Potassium 3.8, Chloride 100, Carbon Dioxide 33 H, Anion Gap 6.8, BUN 39 H, Creatinine 1.70 H, Estimated Creat Clear 55, Estimated GFR 30 L, Est GFR ( Amer) 36 L, Glucose 114 H, Calcium 9.4, Total Bilirubin 0.5, AST 23, ALT 22, Alkaline Phosphatase 105, Troponin I < 0.01, NT-Pro-B Natriuret Pep 44.3, Total Protein 6.7, Albumin 3.6, Globulin 3.1, Albumin/Globulin Ratio 1.2 09/26/24 05:30: WBC 11.9 H, RBC 4.44, Hgb 11.9 L, Hct 40.3, MCV 90.8, MCH 26.8 L , MCHC 29.5 L, RDW 14.6, Plt Count 227, MPV 10.8 H, Neut % (Auto) 73.4, Lymph % (Auto) 14.4, [place] % (Auto) 8.2, Eos % (Auto) 1.9, Baso % (Auto) 0.5, Neut # (Auto) 8.7 H, Lymph # (Auto) 1.7, [place] # (Auto) 1.0, Eos # (Auto) 0.2, Baso # (Auto) 0.1, PT 13.1 H, INR 1.20 H, Magnesium 1.6 I & O for Labs for Last 24 Hours: Intake & Output 09/23/24 09/24/24 09/25/24 09/26/24 23:59 23:59 23:59 23:59 Intake Total 0 / 0 Output Total 950 / 950 Balance -950 / -950 Weight 107.218 kg 108.182 kg Constitutional: Present mild distress, obese and cooperative Eyes: Present eye discharge ENT: Present mucous membranes moist Neck: Present normal inspection Respiratory: Present diminished air movement and able to speak in complete sentences Comment:: Left lower lobe lung sounds absent. Cardiac: Present Regular Rhythm and Tachycardia GI: Present soft, tenderness and hyperactive bowel sounds; Absent distention Rectal (female): Present deferred (female): Present deferred Extremities: Present tenderness (Tenderness to palpation) and edema (2+ edema bilateral lower extremities) Skin: Present intact and warm Comment:: Edematous Neuro: Present awake, oriented x 3 and moves all extremities Assessment and Plan *Assessment and plan (1) Pulmonary embolism: Status: Acute Category: Medical Code(s): I26.99 - Other pulmonary embolism without acute cor pulmonale (2) Malignant pleural effusion: Status: Acute Category: Medical Code(s): J91.0 - Malignant pleural effusion (3) Widespread metastatic malignant neoplastic disease: Status: Acute Category: Medical Code(s): C80.0 - Disseminated malignant neoplasm, unspecified (4) Primary cancer of left upper lobe of lung: Status: Acute Category: Medical Code(s): C34.12 - Malignant neoplasm of upper lobe, left bronchus or lung (5) Secondary adenocarcinoma of bone: Status: Acute Category: Medical Code(s): C79.51 - Secondary malignant neoplasm of bone (6) Non-small cell lung cancer: Status: Acute Category: Medical Code(s): C34.90 - Malignant neoplasm of unspecified part of unspecified bronchus or lung (7) Back pain: Status: Acute Category: Medical Code(s): M54.9 - Dorsalgia, unspecified Plan Mr. Amaro a 69-year-old female with metastatic adenocarcinoma of the lung. Patient presented to the ER last night with shortness of breath, weakness, and new oxygen requirement. She was found to have a right-sided pulmonary embolism and left pleural effusion likely secondary to metastatic lung cancer. Patient and family members decided to pursue hospice/palliative care and patient was admitted for medical management of PE and coordination of hospice placement. #Pulmonary embolism, Right main pulmonary artery #Malignant pleural effusion ?After discussion with stitcher utility, decision was made for palliative mechanical thrombectomy which was performed today by Dr. Bradshaw. Patient tolerated procedure well without any complications. Patient states her breathing is much easier after the procedure. Patient is now resting comfortably. ?Echo report normal biventricular systolic function, LVEF is 55%. ?Pulmonology was also consulted to evaluate left lung effusion, discussion was had with patient, family, hospitalist team, to pursue a thoracentesis. At this time the patient and family do not want to have the procedure. Antibiotics ordered, patient at this time declines antibiotic treatment. -Will plan to transition to [facility] following procedure and continue as outpatient therapy. 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 Patient's daughter is a hospice nurse for [facility] in [facility]. Patient would like to transfer there and has a bed waiting on her. ?Palliative care will be related to comfort measures only as needed per patient request and symptom management as needed Chronic medical problems: Patient has multiple chronic issues CKD, diabetes, hypertension, hyperlipidemia, COPD, chronic back pain, and tobacco use disorder. At this time we will not be managing any chronic conditions as patient has chose comfort measures only and symptomatic care. DNR and DNI O2 as needed for dyspnea Regular diet Ambulate as tolerated
--- NOTE | 2024-09-26 16:04 | PC.NURSE ---
patient right femoral suture removed per protocol, no drainage noted. new sterile DSG applied, HOB raised to 15 degrees. VSS, pain control treated per JUN. currently on 2 LNC satting 96%. call light within reach, bed alarm on, no further requests at this time.
--- NOTE | 2024-09-26 16:10 | EXP.DC.SUM ---
General Admission date:: 09/25/24 HPI HPI HPI: 69-year-old female past medical history of CHF recently switched from Lasix to Bumex (dry weight 230 pounds) lung cancer and bone pains for status post chemotherapy, COPD not on home oxygen continues to smoke who presents emergency department for evaluation of shortness of breath. Onset was acute over the last 2 days. There is associated cough. No chest pain. No abdominal pain reported. Her daughter is at bedside who provides additional history that she has had more body swelling since they switch her to the Bumex. No other acute complaints at this time. Patient reportedly has End-stage lung cancer and has undergone treatment for this 3 times. She no longer wants to do aggressive cancer therapies and would like to transition to hospice. Review of CTA demonstrates a large distal right main pulmonary embolism. Discussed at length with the patient regarding this new pulmonary embolism and medical management versus mechanical thrombectomy. Discussed how a thrombectomy to alleviate the obstruction may significantly improve her dyspnea and improve her quality of life as she transitions into hospice care. She is agreeable to doing the procedure for palliative purposes Hospital Course Hospital Course Hospital Course: Total time spent on discharge: 32 minutes on chart review, counseling, documentation, and direct care with patient. Exam Data for Last 24 hours Vital signs and Labs for Last 24 Hours: Temp Pulse Resp BP Pulse Ox O2 Del Method O2 Flow Rate 97.6 F 92 H 16 92/62 L 88 L Nasal Cannula 2 09/26/24 13:45 09/26/24 15:25 09/26/24 15:25 09/26/24 15:25 09/26/24 15:25 09/26/24 15:25 09/26/24 15:25 Laboratory Results - last 24 hr 09/25/24 17:46: VBG pH 7.43 H, VBG pCO2 42.0, VBG pO2 59.4 H, VBG HCO3 27.3, VBG Total CO2 28.6 H, VBG O2 Saturation 90.5 H, VBG Base Excess 3.0 H, VBG Lactic Acid 1.5 09/25/24 17:47: SARS-CoV-2 (PCR) Not detected, Influenza A Untype (PCR) Not detected, Influenza Type B (PCR) Not detected 09/25/24 17:58: WBC 15.1 H, RBC 4.40, Hgb 12.2, Hct 39.5, MCV 89.8, MCH 27.7, MCHC 30.9 L, RDW 14.6, Plt Count 234, MPV 10.7 H, Neut % (Auto) 73.8, Lymph % (Auto) 15.3, [place] % (Auto) 7.6, Eos % (Auto) 1.3, Baso % (Auto) 0.3, Neut # (Auto) 11.1 H, Lymph # (Auto) 2.3, [place] # (Auto) 1.2 H, Eos # (Auto) 0.2, Baso # (Auto) 0.1, Sodium 136, Potassium 3.8, Chloride 100, Carbon Dioxide 33 H, Anion Gap 6.8, BUN 39 H, Creatinine 1.70 H, Estimated Creat Clear 55, Estimated GFR 30 L, Est GFR ( Amer) 36 L, Glucose 114 H, Calcium 9.4, Total Bilirubin 0.5, AST 23, ALT 22, Alkaline Phosphatase 105, Troponin I < 0.01, NT-Pro-B Natriuret Pep 44.3, Total Protein 6.7, Albumin 3.6, Globulin 3.1, Albumin/Globulin Ratio 1.2 09/26/24 05:30: WBC 11.9 H, RBC 4.44, Hgb 11.9 L, Hct 40.3, MCV 90.8, MCH 26.8 L, MCHC 29.5 L, RDW 14.6, Plt Count 227, MPV 10.8 H, Neut % (Auto) 73.4, Lymph % (Auto) 14.4, [place] % (Auto) 8.2, Eos % (Auto) 1.9, Baso % (Auto) 0.5, Neut # (Auto) 8.7 H, Lymph # (Auto) 1.7, [place] # (Auto) 1.0, Eos # (Auto) 0.2, Baso # (Auto) 0.1, PT 13.1 H, INR 1.20 H, Magnesium 1.6 I & O for Last 24 hours: Intake & Output 09/23/24 09/24/24 09/25/24 09/26/24 23:59 23:59 23:59 23:59 Intake Total 0 / 0 Output Total 950 / 950 Balance -950 / -950 Weight 107.218 kg 108.182 kg Results Data Completed and Pending Labs on day of discharge: Labs from last 24 hours 09/26/24 09/25/24 09/25/24 05:30 17:58 17:47 WBC 11.9 H 15.1 H RBC 4.44 4.40 Hgb 11.9 L 12.2 Hct 40.3 39.5 MCV 90.8 89.8 MCH 26.8 L 27.7 MCHC 29.5 L 30.9 L RDW 14.6 14.6 Plt Count 227 234 MPV 10.8 H 10.7 H Neut % (Auto) 73.4 73.8 Lymph % (Auto) 14.4 15.3 [place] % (Auto) 8.2 7.6 Eos % (Auto) 1.9 1.3 Baso % (Auto) 0.5 0.3 Neut # (Auto) 8.7 H 11.1 H Lymph # (Auto) 1.7 2.3 Foster # (Auto) 1.0 1.2 H Eos # (Auto) 0.2 0.2 Baso # (Auto) 0.1 0.1 PT 13.1 H INR 1.20 H VBG pH VBG pCO2 VBG pO2 VBG HCO3 VBG Total CO2 VBG O2 Saturation VBG Base Excess VBG Lactic Acid Sodium 136 Potassium 3.8 Chloride 100 Carbon Dioxide 33 H Anion Gap 6.8 BUN 39 H Creatinine 1.70 H Estimated Creat Clear 55 Estimated GFR 30 L Est GFR ( Amer) 36 L Glucose 114 H Calcium 9.4 Magnesium 1.6 Total Bilirubin 0.5 AST 23 ALT 22 Alkaline Phosphatase 105 Troponin I < 0.01 NT-Pro-B Natriuret Pep 44.3 Total Protein 6.7 Albumin 3.6 Globulin 3.1 Albumin/Globulin Ratio 1.2 SARS-CoV-2 (PCR) Not detected Influenza A Untype (PCR) Not detected Influenza Type B (PCR) Not detected 09/25/24 17:46 WBC RBC Hgb Hct MCV MCH MCHC RDW Plt Count MPV Neut % (Auto) Lymph % (Auto) [place] % (Auto) Eos % (Auto) Baso % (Auto) Neut # (Auto) Lymph # (Auto) Foster # (Auto) Eos # (Auto) Baso # (Auto) PT INR VBG pH 7.43 H VBG pCO2 42.0 VBG pO2 59.4 H VBG HCO3 27.3 VBG Total CO2 28.6 H VBG O2 Saturation 90.5 H VBG Base Excess 3.0 H VBG Lactic Acid 1.5 Sodium Potassium Chloride Carbon Dioxide Anion Gap BUN Creatinine Estimated Creat Clear Estimated GFR Est GFR ( Amer) Glucose Calcium Magnesium Total Bilirubin AST ALT Alkaline Phosphatase Troponin I NT-Pro-B Natriuret Pep Total Protein Albumin Globulin Albumin/Globulin Ratio SARS-CoV-2 (PCR) Influenza A Untype (PCR) Influenza Type B (PCR) DS: Diagnosis Discharge Diagnosis (1) Respiratory failure: Status: Acute Code(s): J96.90 - Respiratory failure, unspecified, unspecified whether with hypoxia or hypercapnia (2) Pulmonary embolism: Status: Acute Code(s): I26.99 - Other pulmonary embolism without acute cor pulmonale (3) Malignant pleural effusion: Status: Acute Code(s): J91.0 - Malignant pleural effusion (4) Lung cancer: Status: Acute Code(s): C34.90 - Malignant neoplasm of unspecified part of unspecified bronchus or lung (5) Hilar lymphadenopathy: Status: Acute Code(s): R59.0 - Localized enlarged lymph nodes (6) Mediastinal lymphadenopathy: Status: Acute Code(s): R59.0 - Localized enlarged lymph nodes Meds Home Medications and Allergies Home Medications ?Medication ?Instructions ?Recorded ?Confirmed ?Type omeprazole 20 mg capsule,delayed 20 mg PO DAILY heartburn #90 caps 05/14/24 09/26/24 Rx release lisinopril 20 mg tablet 20 mg PO DAILY 09/02/24 09/26/24 History albuterol sulfate 90 mcg/actuation 2 inh inhalation QID PRN shortness 09/08/24 09/26/24 Rx aerosol inhaler of breath or wheezing 90 days #8.5 grams umeclidinium 62.5 mcg-vilanterol 1 inh inhalation DAILY 90 days 09/08/24 09/26/24 Rx 25 mcg/actuation powdr for #180 ea inhalation (Anoro Ellipta) bumetanide 1 mg tablet 1 mg PO DAILY 09/26/24 09/26/24 History New Prescriptions to Start Prescriptions: Allergies Allergy/AdvReac Type Severity Reaction Status Date / Time atorvastatin (From LIPITOR) Allergy Unknown FATTY LIVER Verified 09/04/24 09:39 codeine (CODEINE) Allergy Unknown I-RASH Verified 09/04/24 09:39 latex (LATEX) Allergy Unknown I-RASH Verified 09/04/24 09:39 Penicillins (PENICILLINS) Allergy Unknown I-RASH Verified 09/04/24 09:39 Discharge Plan Disposition Patient Disposition: Xfer [facility] Condition: Fair Discharge Order Discharge Orders: Discharge Order (Routine); Ordered 09/26/24 Ordered By: Javed Ross Follow up Plan Prescriptions/Medication Reconciliation: No Action lisinopril 20 mg tablet 20 mg PO DAILY Patient Comments: TAKE 1 TABLET BY MOUTH ONCE DAILY omeprazole 20 mg capsule,delayed release(DR/EC) 20 mg PO DAILY Qty: 90 3RF albuterol sulfate 90 mcg/actuation HFA aerosol inhaler 2 inh inhalation QID PRN (Reason: shortness of breath or wheezing) 90 Days Qty: 8.5 2RF umeclidinium-vilanterol [Anoro Ellipta] 62.5-25 mcg/actuation blister with device 1 inh inhalation DAILY 90 Days Qty: 180 2RF bumetanide 1 mg tablet 1 mg PO DAILY Patient Comments: TAKE 1 TABLET BY MOUTH ONCE DAILY Patient Discharge Instructions Patient Instructions: Pleural Effusion, Lung Cancer, DI for Pulmonary Embolism, DI for Cardiac Catheterization, DI for Lung Cancer, DI for Surgical Site Infection, DI for Respiratory Failure, DI for Hypoxia Print Language: Uzbek Providers Primary Care Provider: Otto Hua Admit Provider: Javed Ross Attending Provider: Javed Ross
[2024-09-26] MEDS: RIVAROXABAN 10MG TABLET 10 MG PO (17:43)
[2024-09-26] MEDS: PANTOPRAZOLE 40MG TABLET 40 MG PO (21:57)
[2024-09-26] MEDS: HYDROCODONE/APAP 5/325 MG TABLET 1 TAB PO (22:03)
[2024-09-27] VITALS: BP 100/63; PULSE 90; PULSE 97; RESP 14; TEMP 37.2; O2SAT 99
[2024-09-27] MEDS: LORazepam 1MG TABLET 1 MG PO (03:35)
[2024-09-27 04:00] VITALS: BP 118/76; PULSE 100; PULSE 97; RESP 18; TEMP 37.2; O2SAT 96; BMI 39.4
--- NOTE | 2024-09-27 04:05 | PC.NURSE ---
Addendum entered by Sheila Cartwright RN 09/27/24 04:12: pt on 2-3LNC satting in 90's. Pt c/o pain, treated per JUN. Plan is to d/c today with hospice facility. Original Note: v/s, ox4. Dressing on R femoral is clean, dry, intact; will monitor for bleeding. Pt has been up to the chair and had family in the room. Pt has rested well during shift. No acute events to report. Plan of care ongoing.
--- NOTE | 2024-09-27 04:09 | EXP.HP ---
History of Present Illness *Admission Date: 09/27/24 *Reason for visit:: Weakness *History of present illness: 69-year-old female past medical history of CHF recently switched from Lasix to Bumex (dry weight 230 pounds) lung cancer and bone pains for status post chemotherapy, COPD not on home oxygen continues to smoke who presents emergency department for evaluation of shortness of breath. Onset was acute over the last 2 days. There is associated cough. No chest pain. No abdominal pain reported. Her daughter is at bedside who provides additional history that she has had more body swelling since they switch her to the Bumex. No other acute complaints at this time. Patient reportedly has End-stage lung cancer and has undergone treatment for this 3 times. She no longer wants to do aggressive cancer therapies and would like to transition to hospice. Review of CTA demonstrates a large distal right main pulmonary embolism. Discussed at length with the patient regarding this new pulmonary embolism and medical management versus mechanical thrombectomy. Discussed how a thrombectomy to alleviate the obstruction may significantly improve her dyspnea and improve her quality of life as she transitions into hospice care. She is agreeable to doing the procedure for palliative purposes [facility] Disclaimer: The information contained in this section may have been updated after the patient was seen, as this information can be updated by other users. Medical History (Updated 09/28/24 @ 00:00 by Dayton Ontiveros) Mediastinal lymphadenopathy Hilar lymphadenopathy Lymphedema COPD (chronic obstructive pulmonary disease) Breast cancer Diabetes Dyspnea on exertion Smoking greater than 30 pack years Lung nodule Tobacco abuse Surgical History History of colonoscopy History of mastectomy History of surgery on arm History of hysterectomy History of appendectomy History of cholecystectomy Family History Other Family history of cancer Social History Smoking Status: Current every day smoker tobacco type: cigarettes packs per day: 1 alcohol intake: former substance use type: denies use current occupational status: employed Travel in the last 8 weeks?: Inside the [place] caffeine: No Other Medical History Have you received the Flu Vaccine for this season: No Have you received the Pneumonia Vaccine: Yes Review of Systems Constitutional Constitutional: Reports weakness *Neurologic Neurologic: Reports weakness Meds Home Medications and Allergies Home Medications ?Medication ?Instructions ?Recorded ?Confirmed ?Type omeprazole 20 mg capsule,delayed 20 mg PO DAILY heartburn #90 caps 05/14/24 09/26/24 Rx release lisinopril 20 mg tablet 20 mg PO DAILY 09/02/24 09/26/24 History albuterol sulfate 90 mcg/actuation 2 inh inhalation QID PRN shortness 09/08/24 09/26/24 Rx aerosol inhaler of breath or wheezing 90 days #8.5 grams umeclidinium 62.5 mcg-vilanterol 1 inh inhalation DAILY 90 days 09/08/24 09/26/24 Rx 25 mcg/actuation powdr for #180 ea inhalation (Anoro Ellipta) bumetanide 1 mg tablet 1 mg PO DAILY 09/26/24 09/26/24 History levofloxacin 750 mg tablet 750 mg PO Q48H 5 days #3 tabs 09/27/24 Rx rivaroxaban 10 mg tablet (Xarelto) 10 mg PO QPMWITHMEAL 30 days #30 09/27/24 Rx tabs New Prescriptions to Start Prescriptions: levofloxacin Javed Ross rivaroxaban [Xarelto] Javed Ross Allergies Allergy/AdvReac Type Severity Reaction Status Date / Time atorvastatin (From LIPITOR) Allergy Unknown FATTY LIVER Verified 09/04/24 09:39 codeine (CODEINE) Allergy Unknown I-RASH Verified 09/04/24 09:39 latex (LATEX) Allergy Unknown I-RASH Verified 09/04/24 09:39 Penicillins (PENICILLINS) Allergy Unknown I-RASH Verified 09/04/24 09:39 Exam Data for Last 24 hours Vital signs and Labs for Last 24 Hours: Temp Pulse Resp BP Pulse Ox O2 Del Method O2 Flow Rate 98.9 F 97 H 14 100/63 L 99 Nasal Cannula 3 09/27/24 00:00 09/27/24 00:00 09/27/24 00:00 09/27/24 00:00 09/27/24 00:00 09/27/24 00:33 09/27/24 00:33 Laboratory Results - last 24 hr 09/26/24 05:30: WBC 11.9 H, RBC 4.44, Hgb 11.9 L, Hct 40.3, MCV 90.8, MCH 26.8 L, MCHC 29.5 L, RDW 14.6, Plt Count 227, MPV 10.8 H, Neut % (Auto) 73.4, Lymph % (Auto) 14.4, [place] % (Auto) 8.2, Eos % (Auto) 1.9, Baso % (Auto) 0.5, Neut # (Auto) 8.7 H, Lymph # (Auto) 1.7, [place] # (Auto) 1.0, Eos # (Auto) 0.2, Baso # (Auto) 0.1, PT 13.1 H, INR 1.20 H, Magnesium 1.6 I & O for Last 24 hours: Intake & Output 09/24/24 09/25/24 09/26/24 09/27/24 23:59 23:59 23:59 23:59 Intake Total 340 / 460 120 / 120 Output Total 1125 / 1125 350 / 350 Balance -785 / -665 -230 / -230 Weight 107.218 kg 108.182 kg Microbiology Reports for the Last 24 Hours: Microbiology 09/25/24 18:05 Blood Blood Culture - Preliminary NO GROWTH AFTER 24 HOURS 09/25/24 17:58 Blood Blood Culture - Preliminary NO GROWTH AFTER 24 HOURS *Routine HEENT Exam Head: Present normocephalic Eye: Present EOMI ENT: Present mucous membranes moist *Routine Respiratory Exam Respiratory: Present CTA bilaterally *Routine Cardiovascular Exam Cardiovascular: Present RRR, Normal S1 and Normal S2 *Routine Abdominal Exam Abdominal: Present soft *Routine Rectal Exam Rectal:: deferred *Routine Genitalia Exam Genitalia:: deferred
[2024-09-27 08:00] VITALS: BP 121/65; PULSE 101; PULSE 110; RESP 20; TEMP 35.9; O2SAT 99
[2024-09-27] MEDS: NICOTINE 21MG/24HR PATCH 21 MG TD (09:59)
[2024-09-27 10:21] VITALS: TEMP 36.6
[2024-09-27 12:00] VITALS: BP 121/72; PULSE 110; PULSE 112; RESP 17; TEMP 36.3; O2SAT 96
--- NOTE | 2024-09-27 13:45 | P.DS_ITS ---
General Admission date:: 09/25/24 Hospital Course Hospital Course Hospital Course: Ms. Amaro a 69-year-old female with metastatic adenocarcinoma of the lung. Patient presented to the ER last night with shortness of breath, weakness, and new oxygen requirement. She was found to have a right-sided pulmonary embolism and left pleural effusion likely secondary to metastatic lung cancer. Patient and family members decided to pursue hospice/palliative care and patient was admitted for medical management of PE and coordination of hospice placement. #Pulmonary embolism, Right main pulmonary artery #Malignant pleural effusion ? After discussion with managing director atlas, decision was made for palliative mechanical thrombectomy which was performed today by Dr. Bradshaw. Patient tolerated procedure well without any complications. Patient states her breathing is much easier after the procedure. ? Echo report normal biventricular systolic function, LVEF is 55%. No evidence of RV strain. ? Pulmonology was also consulted to evaluate left lung effusion, discussion was had with patient, family, hospitalist team, to pursue a thoracentesis. Patient would like to proceed with outpatient palliative thoracentesis. Referral placed, and case management is informed to coordinate appointment. - Started Xarelto 10 mg for PE/DVT prophylaxis, levofloxacin 750 mg. ? Advised patient to keep appoint with Dr. Chase. 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 Arrangements have been made for patient to transition to hospice. Patient's daughter is a hospice nurse for [facility] in [facility]. Patient would like to transfer there and has a bed waiting on her. ? Palliative care will be related to comfort measures only as needed per patient request and symptom management as needed Chronic medical problems: Patient has multiple chronic issues CKD, diabetes, hypertension, hyperlipidemia, COPD, chronic back pain, and tobacco use disorder. At this time we will not be managing any chronic conditions as patient has chose comfort measures only and symptomatic care. Total time spent on discharge: 32 minutes on chart review, counseling, documentation, and direct care with patient. Exam Data for Last 24 hours Vital signs and Labs for Last 24 Hours: Temp Pulse Resp BP Pulse Ox O2 Del Method O2 Flow Rate 97.4 F L 112 H 17 121/72 96 Nasal Cannula 4 09/27/24 12:09/27/24 12:09/27/24 12:09/27/24 12:00 09/27/24 12:00 09/27/24 12:00 09/27/24 12:00 I & O for Last 24 hours: Intake & Output 09/24/24 09/25/24 09/26/24 09/27/24 23:59 23:59 23:59 23:59 Intake Total 340 / 460 790 / 790 Output Total 1125 / 1125 1275 / 1275 Balance -785 / -665 -485 / -485 Weight 107.218 kg 108.182 kg 108.681 kg Microbiology Reports for the Last 24 Hours: Microbiology 09/25/24 18:05 Blood Blood Culture - Preliminary NO GROWTH AFTER 24 HOURS 09/25/24 17:58 Blood Blood Culture - Preliminary NO GROWTH AFTER 24 HOURS Results Data Completed and Pending Labs on day of discharge: Preliminary micro results at discharge 09/25/24 18:05 Blood Culture - Preliminary Blood NO GROWTH AFTER 24 HOURS 09/25/24 17:58 Blood Culture - Preliminary Blood NO GROWTH AFTER 24 HOURS DS: Diagnosis Discharge Diagnosis (1) Pulmonary embolism: Status: Acute Code(s): I26.99 - Other pulmonary embolism without acute cor pulmonale (2) Malignant pleural effusion: Status: Acute Code(s): J91.0 - Malignant pleural effusion (3) Widespread metastatic malignant neoplastic disease: Status: Acute Code(s): C80.0 - Disseminated malignant neoplasm, unspecified (4) Primary cancer of left upper lobe of lung: Status: Acute Code(s): C34.12 - Malignant neoplasm of upper lobe, left bronchus or lung (5) Secondary adenocarcinoma of bone: Status: Acute Code(s): C79.51 - Secondary malignant neoplasm of bone (6) Non-small cell lung cancer: Status: Acute Code(s): C34.90 - Malignant neoplasm of unspecified part of unspecified bronchus or lung (7) Back pain: Status: Acute Code(s): M54.9 - Dorsalgia, unspecified Meds Home Medications and Allergies Home Medications ?Medication ?Instructions ?Recorded ?Confirmed ?Type omeprazole 20 mg capsule,delayed 20 mg PO DAILY heartb urn #90 caps 05/14/24 09/26/24 Rx release lisinopril 20 mg tablet 20 mg PO DAILY 09/02/2410/15 History albuterol sulfate 90 mcg/actuation 2 inh inhalation QI D PRN shortness 09/08/24 09/26/24 Rx aerosol inhaler of breath or wheezing 90 day s #8.5 grams umeclidinium 62.5 mcg-vilanterol 1 inh inhalation JOSE Y 90 days 09/08/24 09/26/24 Rx 25 mcg/actuation powdr for #180 ea inhalation (Anoro Ellipta) bumetanide 1 mg tablet 1 mg PO DAILY 09/26/2409/26 History levofloxacin 750 mg tablet 750 mg PO Q48H 5 days #3 ta bs 09/27/24 Rx rivaroxaban 10 mg tablet (Xarelto) 10 mg PO QPMWITHMEA L 30 days #30 09/27/24 Rx tabs New Prescriptions to Start Prescriptions: Javed Murillo rivaroxaban [Xarelto] Javed Ross Allergies Allergy/AdvReac Type Severity Reaction Status Date / Time atorvastatin (From LIPITOR) Allergy Unknown FATTY LIVER Verified 09/04/24 09:39 codeine (CODEINE) Allergy Unknown I-RASH Verified 09/04/24 09:39 latex (LATEX) Allergy Unknown I-RASH Verified 09/04/24 09:39 Penicillins (PENICILLINS) Allergy Unknown I-RASH Verified 09/04/24 09:39 Discharge Plan Disposition Patient Disposition: Xfer SNF Condition: Fair Discharge Order Discharge Orders: Discharge Order (Routine); Ordered 09/27/24 Ordered By: Javed Ross Follow up Plan Follow up with: Santos Chase MD [Staff Physician, Oncology] - Enter time for follow up Ishan Garcia MD [Physician, Pulmonology] - Enter time for follow up Prescriptions/Medication Reconciliation: New Xarelto 10 mg Tablet 10 mg PO QPMWITHMEAL 30 Days Qty: 30 0RF levofloxacin 750 mg tablet 750 mg PO Q48H 5 Days Qty: 3 0RF Continued lisinopril 20 mg tablet 20 mg PO DAILY Patient Comments: TAKE 1 TABLET BY MOUTH ONCE DAILY omeprazole 20 mg capsule,delayed release(DR/EC) 20 mg PO DAILY Qty: 90 3RF albuterol sulfate 90 mcg/actuation HFA aerosol inhaler 2 inh inhalation QID PRN (Reason: shortness of breath or wheezing) 90 Days Qty: 8.5 2RF umeclidinium-vilanterol [Anoro Ellipta] 62.5-25 mcg/actuation blister with device 1 inh inhalation DAILY 90 Days Qty: 180 2RF bumetanide 1 mg tablet 1 mg PO DAILY Patient Comments: TAKE 1 TABLET BY MOUTH ONCE DAILY Problem Reconciliation Problems Reviewed?: Yes Patient Discharge Instructions Patient Instructions: Pleural Effusion, Lung Cancer, DI for Pulmonary Embolism, DI for Cardiac Catheterization, DI for Lung Cancer, DI for Surgical Site Infection, DI for Respiratory Failure, DI for Hypoxia Print Language: Niuean Providers Primary Care Provider: Otto Hua Admit Provider: Javed Ross Attending Provider: Javed Ross
--- NOTE | 2024-09-27 15:31 | PC.NURSE ---
report called to CHARLIE Larsen at [facility] at [id number]
[2024-09-27] MEDS: RIVAROXABAN 10MG TABLET 10 MG PO (15:34)
--- NOTE | 2024-09-29 15:56 | SW/DCPLANNER ---
Phoned patient's daughter and asked her if the hospice care center that her mom is at does IR thoracentesis and patients daughter stated that the physican there was wanting patient to have pleurX and we dont do that here at [facility] and neither does [facility]. Patient's daughter is going to let the physican know there. Hair Fraser
[2024-10-01 17:51] LABS: Aspergillus flavus Negative (Neg:<1:1); Aspergillus fumigatus Negative (Neg:<1:1); Aspergillus niger Negative (Neg:<1:1); Blastomyces Antibody Negative (Neg:<1:1)
[2024-10-01 21:16] LABS: Clinical Relevance Notes (.); Disclaimer Notes (.); Fungitell Value < 31.25 pg/mL (.); Interpretation Notes (.); Result Negative (.)
== END 2024-09-27 16:20 | disposition home or self-care (01) | DRG 163 ==
LOC: ER 20:04 → 2ND 20:26
PROVIDERS: Internal Medicine; Internal Medicine Pulmonary Disease; Student in an Organized Health Care Education/Training Program; Admitting Provider Student in an Organized Health Care Education/Training Program; Emergency Provider Emergency Medicine; PCP Internal Medicine Adolescent Medicine; Visit Provider Student in an Organized Health Care Education/Training Program
PROC: 02CQ3ZZ Extirpation of Matter from Right Pulmonary Artery, Percutaneous Approach (ICD-10-PCS; principal; 2024-09-26 09:45)
DX: I26.99 Other pulmonary embolism without acute cor pulmonale (principal); J96.90 Respiratory failure, unspecified, unspecified whether with hypoxia or hypercapnia; J91.0 Malignant pleural effusion; N17.9 Acute kidney failure, unspecified; C34.12 Malignant neoplasm of upper lobe, left bronchus or lung; C79.51 Secondary malignant neoplasm of bone; F17.210 Nicotine dependence, cigarettes, uncomplicated; N18.9 Chronic kidney disease, unspecified; Z66 Do not resuscitate; J44.9 Chronic obstructive pulmonary disease, unspecified; E11.22 Type 2 diabetes mellitus with diabetic chronic kidney disease; I50.9 Heart failure, unspecified; Z92.21 Personal history of antineoplastic chemotherapy; Z79.899 Other long term (current) drug therapy; Z51.5 Encounter for palliative care; Z79.51 Long term (current) use of inhaled steroids; Z88.5 Allergy status to narcotic agent; Z88.0 Allergy status to penicillin; Z88.8 Allergy status to other drugs, medicaments and biological substances; Z91.040 Latex allergy status
CPT/HCPCS: 71045; 71275; 80053; 82803; 83735; 83880; 84484; 85025; 85610; 86606; 86612; 87040; 87449; 87636; 93005; 93306; 99152; 99153; C1725; C1757; C1769; C1894; J1171; J1200; J1642; J1644; J1650; J1938; J2003; J2250; J3010; J7040; Q9967